=== PATIENT | female | born 1940 | race Asian ===

== ENCOUNTER 2016-07-10 14:35 | Inpatient (IN) | payer MEDICARE, OTHER ==
[~2016-07-10] VITALS: Ht 154.9 cm; Wt 54.5 kg
[~2016-07-10 14:35] MED LIST: AMLO5TAB4; CLOP75TA19; FENO145T25; ISOS10TA2; METO-53; PANT40TA3; SMV40T
[2016-07-10] MEDS ORDERED: LEVE500T8 PO (16:54)
[2016-07-10] MEDS ORDERED: QUET25TA33 PO (16:55)
[2016-07-10] MEDS ORDERED: RANO10002 PO (16:55)
[2016-07-10] MEDS ORDERED: LOSA50TA6 PO (16:55)
[2016-07-10] MEDS ORDERED: ATOR40TA68 PO (16:56)
[2016-07-10] MEDS ORDERED: GABA100C14 PO (16:56)
[2016-07-10] MEDS ORDERED: CARV12.579 PO (16:56)
[2016-07-10] MEDS ORDERED: LEVO50TA74 PO (16:57)
[2016-07-10] MEDS ORDERED: PANT40TA3 PO (16:57)
[2016-07-10] MEDS ORDERED: LYRI25 PO (16:57)
[2016-07-10] MEDS ORDERED: FOLI-49 PO (16:57)
[2016-07-10] MEDS ORDERED: MECL-77 PO (16:58)
[2016-07-10 17:47] LABS: ADD SCAN DIFF NO
[2016-07-10 17:51] LABS: BASOPHILS % 0.5 % (0.0-2.0); EOSINOPHILS # 0.1 10^3/ul (0.0-0.5); EOSINOPHILS % 3.4 % (0.0-7.0); HEMOGLOBIN 9.6 g/dl (12.0-16.0); LYMPHOCYTES # 0.9 10^3/ul (0.8-2.9); LYMPHOCYTES % 22.7 % (15.0-51.0); MEAN CORPUSCULAR HEMOGLOBIN 36.5 pg (29.0-33.0); MEAN CORPUSCULAR HGB CONC 34.3 g/dl (32.0-37.0); MEAN CORPUSCULAR VOLUME 106.5 fl (82.0-101.0); MEAN PLATELET VOLUME 10.1 fl (7.4-10.4); MONOCYTE # 0.5 10^3/ul (0.3-0.9); MONOCYTES % 11.6 % (0.0-11.0); NEUTROPHIL # 2.6 10^3/ul (1.6-7.5); NEUTROPHILS % 61.6 % (39.0-77.0); PLATELET COUNT 252 10^3/UL (140-415); RED BLOOD COUNT 2.63 10^6/ul (4.20-5.40); RED CELL DISTRIBUTION WIDTH 12.3 % (11.5-14.5); WHITE BLOOD COUNT 4.2 10^3/ul (4.8-10.8)
[2016-07-10] MEDS ORDERED: morphine 4 MG/ML VIAL IV STA (17:54)
[2016-07-10 18:20] LABS: ALBUMIN 4.1 g/dl (3.3-4.9)
[2016-07-10 18:21] LABS: POTASSIUM 5.5 mmol/L (3.5-5.1)
[2016-07-10 18:22] LABS: CREATININE 1.54 mg/dl (0.44-1.00)
[2016-07-10 18:23] LABS: ALBUMIN/GLOBULIN RATIO 1.24; BILIRUBIN,INDIRECT 0.3 mg/dl (0-1.1); BILIRUBIN,TOTAL 0.3 mg/dl (0.2-1.3); TOTAL PROTEIN 7.4 g/dl (6.1-8.1)
[2016-07-10 18:24] LABS: CALCIUM 9.4 mg/dl (8.4-10.2)
[2016-07-10] MEDS ORDERED: ACETAMINOPHEN 325 MG TAB PO PRN ×2 (18:30→23:00)
[2016-07-10] MEDS ORDERED: LORAZEPAM 2 MG INJ IV ONE (18:30)
[2016-07-10] MEDS ORDERED: ONDANSETRON 4 MG INJ IV PRN ×2 (18:30→23:00)
--- NOTE | 2016-07-10 18:36 | RADRPT ---
PROCEDURE: XR Chest 1 View. CLINICAL INDICATION: Abnormal breath sounds, preop. TECHNIQUE: AP view of the chest were obtained. COMPARISON: None. FINDINGS: The heart size is within normal limits. Calcified atherosclerosis is noted in the aorta. The lungs are hypoinflated. Atelectasis is identified at the lung bases. No consolidations are identified. N o pneumothorax is seen. Blunting of the left costophrenic angle is seen. Osseous structures are inta ct. IMPRESSION: Calcified atherosclerosis in the aorta. Hypoinflated lungs. Atelectasis at the lung bases. Blunting of the left costophrenic angle that may reflect small scarring or pleural effusion. RPTAT: AA .Abimael Smith MD, Date Time Electronically viewed and signed by .Abimael Smith MD, MD on 07/10/2016 18:36 .P/
--- NOTE | 2016-07-10 18:51 | RADRPT ---
PROCEDURE: XR Pelvis. CLINICAL INDICATION: Pain TECHNIQUE: Single AP view of the pelvis. COMPARISON: No prior studies are available for comparison. FINDINGS: Single frontal view of the pelvis demonstrates a subtle lucency step-off at the base of the left fem oral neck which may represent a nondisplaced basicervical femoral neck fracture. Recommend tain a C T for confirmation. Otherwise no suspected fractures are identified. Both femoral heads are anatom ically seated. There is mild to moderate degenerate change both hip joints. Pubic symphysis is int act. Bones are osteopenic. SI joints within normal limits. IMPRESSION: 1. Questionable lucency extending through the base of the left femoral neck which may represent a n ondisplaced basicervical femoral neck fracture. Recommend obtaining a CT scan for further evaluation . 2. Otherwise no acute fracture dislocation RPTAT: HH .Garret Cordero MD, Date Time Electronically viewed and signed by .Garret Cordero MD, MD on 07/10/2016 18:51 .W/
[2016-07-10 18:52] LABS: INR 0.91; PROTIME 12.2 Sec (12.2-14.2)
--- NOTE | 2016-07-10 18:52 | RADRPT ---
PROCEDURE: X-ray femur CLINICAL INDICATION: Pain TECHNIQUE: AP and lateral views of the distal left femur COMPARISON: None FINDINGS: 2 views of the distal left femur demonstrate no distal femur fracture. No abnormal periostitis is s een. There are no destructive bony lesions. There is advanced degenerative change of the knee join t. Extensive vascular calcifications identified. Bones are osteopenic. IMPRESSION: 1. No distal femur fracture identified. 2. Moderate to severe degenerative change of the knee joint. 3. Vascular calcification. 4. Osteopenia RPTAT: HH .Garret Cordero MD, Date Time Electronically viewed and signed by .Garret Cordero MD, MD on 07/10/2016 18:52 .W/
[2016-07-10 18:53] LABS: PARTIAL THROMBOPLASTIN TIME 31.3 Sec (25.0-35.0)
--- NOTE | 2016-07-10 18:54 | RADRPT ---
PROCEDURE: XR Hip. CLINICAL INDICATION: Pain TECHNIQUE: AP and frog lateral views of the left hip were performed. COMPARISON: None. FINDINGS: Two views of the left hip demonstrate lucency and slight irregularity in the femoral neck which may represent a nondisplaced basicervical femoral neck fracture. Recommend CT scan for further evaluati on. No other suspected fractures identified. The femoral head articulates anatomically with the ac etabulum. The bones are mildly osteopenic. Soft tissues are unremarkable. IMPRESSION: 1. Questionable basicervical femoral neck fracture. Recommend CT scan for further evaluation. 2. Otherwise no other suspected fractures identified RPTAT: HH .Garret Cordero MD, MD Date Time Electronically viewed and signed by .Garret Cordero MD, on 07/10/2016 18:53 .W/
--- NOTE | 2016-07-10 18:58 | ERA ---
ER Documentation Chief Complaint Date/Time DATE: 07/10/16 TIME: 18:49 Chief Complaint ground level fall in jun. HPI 76-year-old female with a history of stroke, chronic kidney disease, coronary artery disease with stent, hypertension, hyperlipidemia, chronic anemia presenting with complaints of left hip pain. She was sent by Dr. Marshall, an orthopedist she saw today, for left hip fracture. She was told she needed surgery. Patient states that she fell 1 week ago. Her daughter states that she fell on July 01. Ever since then she has been unable to walk. She has worsening pain with any type of movement of her left leg. She saw her primary care doctor, Dr. Rios, who referred her to Dr. Marshall. She had an x-ray today that showed a hip fracture. She denies any numbness or tingling in her lower extremity. She denies any pain anywhere else. She denies any dizziness or chest pain. She states that she has problems with her left leg and that is why she fell. ROS All systems reviewed and are negative except as per history of present illness. Medications Home Meds Reported Medications Meclizine Hcl* (Meclizine Hcl*) 25 Mg Tablet, 25 MG PO DAILY Y for DIZZINESS, TAB 07/10/16 Folic Acid* (Folic Acid*) 1 Mg Tablet, 1 MG PO DAILY, TAB 07/10/16 Pantoprazole* (Protonix*) 40 Mg Tablet.dr, 40 MG PO DAILY, TAB 07/10/16 Levothyroxine Sodium* (Levothyroxine Sodium*) 50 Mcg Tablet, 50 MCG PO BEFORE BREAKFAST, #30 TAB 07/10/16 Pregabalin* (Lyrica*) 25 Mg Capsule, 25 MG PO BID, CAP 07/10/16 Atorvastatin* (Atorvastatin*) 40 Mg Tablet, 40 MG PO QHS, #30 TAB 07/10/16 Gabapentin* (Gabapentin*) 100 Mg Capsule, 100 MG PO DAILY, #90 CAP 07/10/16 Carvedilol* (Carvedilol*) 12.5 Mg Tablet, 12.5 MG PO BID, #60 TAB 07/10/16 Quetiapine Fumarate* (Quetiapine Fumarate*) 25 Mg Tablet, 25 MG PO HS, TAB 07/10/16 Losartan Potassium* (Losartan Potassium*) 50 Mg Tablet, 50 MG PO BID, TAB 07/10/16 Ranolazine* (Ranexa*) 1,000 Mg Tab.sr.12h, 1000 MG PO Q12, TAB 07/10/16 Levetiracetam* (Levetiracetam*) 500 Mg Tablet, 500 MG PO BID, TAB 07/10/16 Discontinued Reported Medications Pantoprazole* (Protonix*) 40 Mg Tablet. 04/24/10 Isosorbide Dinitrate* (Isordil*) 10 Mg Tablet 04/24/10 Fenofibrate Nanocrystallized* (Tricor*) 145 Mg Tablet 04/24/10 Simvastatin (Simvastatin) 40 Mg Tablet 04/24/10 Clopidogrel Bisulfate (Plavix) 75 Mg Tablet 04/24/10 Metoprolol (Lopressor) 50 Mg Tablet 04/24/10 Amlodipine Besylate* (Norvasc*) 5 Mg Tablet 04/24/10 Allergies Allergies: Coded Allergies: Penicillins (Verified Allergy, Unknown, 07/10/16) PMhx/Soc History of Surgery: Yes (CORONARY STENT TO LAD, hysterectomy) Anesthesia Reaction: No Hx Neurological Disorder: Yes (CVA) Hx Respiratory Disorders: No (HX ATELECTASIS) Hx Cardiac Disorders: Yes (HTN, ANGIOPLASTY WITH STENT, BALLOON 07/24) Hx Psychiatric Problems: No Hx Miscellaneous Medical Probl: Yes (VERTIGO, HTN, HYPOTHYROIDISM, HYPERLIPIDEMIA, ANEMIA) Hx Alcohol Use: No Hx Substance Use: No Hx Tobacco Use: No Smoking Status: Never smoker FmHx Family History: No diabetes Physical Exam Vitals Vital Signs Date Time Temp Pulse Resp B/P Pulse Ox O2 Delivery O2 Flow Rate FiO2 07/10/16 17:00 97.8 65 18 143/61 100 Room Air 07/10/16 14:47 97.8 67 18 113/56 100 Physical Exam Const: Well-appearing, no distress, Danish speaking only Head: Atraumatic Eyes: Normal Conjunctiva ENT: Normal External Ears, Nose and Mouth. Neck: Full range of motion. No meningismus. Resp: Clear to auscultation bilaterally Cardio: Regular rate and rhythm, no murmurs Abd: Soft, non tender, non distended. Normal bowel sounds Skin: No petechiae or rashes Back: No midline or flank tenderness Extremities: No edema or cyanosis. 2+ pulses in all 4 extremities distally. Lower Extremity -left: Skin: No laceration Compartments: Soft Motor: Full active range of motion knee/ankle/foot, limited range of motion at the hip secondary to pain Sensation: Intact to light touch FDWS/MF/LF/P surfaces. Bones: Nontender knee/proximal tibia/ malleoli/foot. Left hip tenderness Joints: No effusion or laxity Pulses/Perfusion: 2+ DP, Capillary refill < 2 seconds Neur: Awake and alert Psych: Normal Mood and Affect Result Diagram: 07/10/16173407/10/161734 Results 24 hrs Laboratory Tests Test 07/10/16 17:35 Activated Partial Thromboplast Time 31.3Sec Alanine Aminotransferase (ALT/SGPT) 21IU/L Albumin 4.1g/dl Albumin/Globulin Ratio 1.24 Alkaline Phosphatase 87IU/L Anion Gap 17 Aspartate Amino Transf (AST/SGOT) 34IU/L Basophils # 0.010^3/ul Basophils % 0.5% Blood Urea Nitrogen 31mg/dl Calcium Level 9.4mg/dl Carbon Dioxide Level 27mmol/L Chloride Level 105mmol/L Creatinine 1.54mg/dl Direct Bilirubin 0.00mg/dl Eosinophils # 0.110^3/ul Eosinophils % 3.4% Globulin 3.30g/dl Glucose Level 126mg/dl Hematocrit 28.0% Hemoglobin 9.6g/dl INR International Normalized Ratio 0.91 Indirect Bilirubin 0.3mg/dl Lymphocytes # 0.910^3/ul Lymphocytes % 22.7% Mean Corpuscular Hemoglobin 36.5pg Mean Corpuscular Hemoglobin Concent 34.3g/dl Mean Corpuscular Volume 106.5fl Mean Platelet Volume 10.1fl Monocytes # 0.510^3/ul Monocytes % 11.6% Neutrophils # 2.610^3/ul Neutrophils % 61.6% Nucleated Red Blood Cells # 0.010^3/ul Nucleated Red Blood Cells % 0.0/100WBC Platelet Count 37887^3/UL Potassium Level 5.5mmol/L Prothrombin Time 12.2Sec Prothrombin Time Ratio 1.0 Red Blood Count 2.6310^6/ul Red Cell Distribution Width 12.3% Sodium Level 143mmol/L Total Bilirubin 0.3mg/dl Total Protein 7.4g/dl White Blood Count 4.210^3/ul Current Medications Medications (Trade) Dose Ordered Sig/Liza Route PRN Reason Start Time Stop Time Status Last Admin Dose Admin Morphine Sulfate (morphine) 4 mg ONCE STAT IV 07/10/16 17:54 07/10/16 17:55 DC 07/10/16 18:05 Lorazepam (Ativan) 1 mg ONCE ONCE IV 07/10/16 18:30 07/10/16 18:31 DC 07/10/16 18:15 Ondansetron HCl (Zofran Inj) 4 mg BRIDGE ORDER PRN IV NAUSEA AND/OR VOMITING 07/10/16 18:30 07/11/16 18:29 Acetaminophen (Tylenol Tab) 650 mg ER BRIDGE PRN PO MILD PAIN/FEVER 07/10/16 18:30 07/11/16 18:29 Procedures/MDM EKG: Rate/Rhythm: Normal Sinus Rhythm QRS, ST, T-waves: No changes consistent w/ acute ischemia Impression: No evidence of ischemia or arrhythmia Patient is presenting with a left hip fracture requiring surgery. She is neurovascularly intact. Vitals are within normal limits. I spoke with Dr. Rios, the patient's primary care doctor who would like the patient admitted to Dr. Robertson. I also spoke with Dr. Motta with orthopedics, who would like the patient admitted for surgery. Preop workup was started. The patient and her family were updated regarding the plan. Morphine was given for pain control with improvement of her pain. Accepting Care Team: Current data and ongoing care discussed. Time: Time of admission Primary Provider: Marcelo Consulting: Dhaval Marshall Outstanding Data: none Departure Diagnosis: Primary Impression: Fall from ground level Additional Impression: Closed left hip fracture Qualified Code: S72.002A - Closed left hip fracture, initial encounter Condition: FRANCHESCA Parada MD Jul 10, 2016 18:58
[2016-07-10 20:25] VITALS: TEMP 97.8
[2016-07-10 21:18] VITALS: BP 145/66; PULSE 75; RESP 18
[2016-07-10 21:19] VITALS: Ht 154.9 cm; Wt 54.5 kg
[2016-07-10] MEDS ORDERED: HYDROCODONE/APAP (5/325) TAB PO PRN (23:00)
[2016-07-10] MEDS ORDERED: morphine 2 MG INJ IV PRN (23:00)
[2016-07-10] MEDS ORDERED: MECLIZINE 25 MG TAB PO PRN (23:30)
[2016-07-10] MEDS: DEXTROSE 5%-0.45% NACL 1,000 ML IV SCH (23:33)
[2016-07-11] MEDS: morphine 2 MG INJ IV PRN ×2 (01:13→21:33)
--- NOTE | 2016-07-11 02:13 | HP ---
DATE OF ADMISSION: 07/10/2016 CHIEF COMPLAINT: Left hip pain. HISTORY OF PRESENT ILLNESS: The patient is a 76-year-old Hebrew-speaking female with history of cor onary disease with stenting in 2008 at [facility]. Also has history of dyslipidemia and wa s in her usual state of health. The patient stated that she fell about a week ago and ever since sh e has been having difficulty in ambulating and pain in the left hip. The patient saw her PMD, Dr. Madonna zhu, who referred her to Dr. Marshall and the patient had an x-ray done today, which showed a left hip f racture. Dr. Rios requested me to be the primary care physician during her hospitalization. The p cira was seen in the ER and information was obtained after discussion with ER physician as well as the patient's . The patient does have left hip pain which is worse with movement. No repor davidson any recent chest pain, shortness of breath. No reported fever or chills. No reported dysuria o r hematuria. No history of loss of consciousness. No history of any significant focal weakness sharifa or to the fall. No history of any acute skin rash. No history of cough or sore throat. The patien t does take Seroquel at home for unknown reasons. Patient was seen in the ER and had a left femur x -ray which was negative for . REVIEW OF SYSTEMS: Unremarkable. ALLERGIES: PENICILLIN. PAST MEDICAL HISTORY: History of CVA as per record. FAMILY HISTORY: Noncontributory. SOCIAL HISTORY: The patient lives with her . No smoking, no alcohol. MEDICATIONS: List reviewed and reconciled. PHYSICAL EXAMINATION: GENERAL: The patient is conscious, awake, alert. VITAL SIGNS: In the ER, temperature 97.8, pulse 67, respirations 18, blood pressure 113/56. HEENT: Atraumatic, normocephalic. Conjunctivae and lids normal. Extraocular movements intact. No se and ears normal. NECK: Supple. No mass, no thyromegaly. CHEST: Clear to auscultation. CARDIOVASCULAR: S1, S2 normal. No murmur, gallop, or rub. ABDOMEN: Soft, nondistended, nontender. Bowel sounds plus. EXTREMITIES: No leg edema. No clubbing, no cyanosis. NEUROLOGIC: The patient is awake, alert, follows simple commands. Detailed neurological examinatio n was deferred due to recent hip fracture. LABORATORY DATA: WBC 4.2, hemoglobin 9.6, platelets 252. Sodium 143, potassium 5.5, BUN 31, creati nine 1.5, glucose 126. Liver enzymes normal. Mean corpuscular volume was 106. Chest x-ray reveale d calcified atherosclerosis of the aorta. Left femur x-ray negative for any fractures. Left hip x- ray questionable basicervical femoral neck fracture. Pelvic x-ray questionable left femoral neck no ndisplaced fracture. Coagulation profile normal. EKG normal sinus rhythm with no acute ST-T change s. IMPRESSION: 1. Left hip fracture secondary to mechanical fall. 2. Coronary artery disease, status post PCI. 3. Hypertension. 4. Dyslipidemia. 5. Hypothyroidism. 6. Macrocytic anemia. PLAN: The patient will be continued on Lipitor, Coreg, Ranexa, Keppra, Lyrica, and Quetiapine. The patient will also be continued on Synthroid and folic acid. The patient will also be started on as pirin. Will withhold Losartan due to hyperkalemia. The patient also has acute kidney injury as com pared to her BUN and creatinine back in 2009. We will give her IV fluids. We will also obtain echo cardiogram and cardiac clearance. A cardiac consult from Dr. Bedoya will be obtained. The patient will be taken to OR after clearance from cardiology. We will do followup labs in the morning. We w ill continue supportive care and symptomatic treatment. Dictated By: PRINCESS HACKETT/ZHANG Conf#: [id number] DID#: [id number]
[2016-07-11 05:48] LABS: ADD SCAN DIFF NO
[2016-07-11 05:58] LABS: BASOPHILS % 0.5 % (0.0-2.0); EOSINOPHILS # 0.2 10^3/ul (0.0-0.5); HEMATOCRIT 27.4 % (37.0-47.0); HEMOGLOBIN 9.1 g/dl (12.0-16.0); LYMPHOCYTES # 0.8 10^3/ul (0.8-2.9); LYMPHOCYTES % 18.5 % (15.0-51.0); MEAN CORPUSCULAR HEMOGLOBIN 35.7 pg (29.0-33.0); MEAN CORPUSCULAR HGB CONC 33.2 g/dl (32.0-37.0); MEAN CORPUSCULAR VOLUME 107.5 fl (82.0-101.0); MEAN PLATELET VOLUME 9.2 fl (7.4-10.4); MONOCYTE # 0.4 10^3/ul (0.3-0.9); MONOCYTES % 10.9 % (0.0-11.0); NEUTROPHIL # 2.7 10^3/ul (1.6-7.5); NEUTROPHILS % 65.6 % (39.0-77.0); PLATELET COUNT 248 10^3/UL (140-415); RED BLOOD COUNT 2.55 10^6/ul (4.20-5.40); RED CELL DISTRIBUTION WIDTH 11.9 % (11.5-14.5); WHITE BLOOD COUNT 4.1 10^3/ul (4.8-10.8)
[2016-07-11 06:11] LABS: POTASSIUM 4.6 mmol/L (3.5-5.1)
[2016-07-11 06:14] LABS: CREATININE 1.25 mg/dl (0.44-1.00)
[2016-07-11 06:15] LABS: CALCIUM 9.4 mg/dl (8.4-10.2)
[2016-07-11 08:16] VITALS: BP 147/66; RESP 18
[2016-07-11] MEDS: PANTOPRAZOLE (EC) 40 MG TAB PO SCH (08:33)
[2016-07-11] MEDS: FOLIC ACID 1 MG TAB PO SCH (08:33)
[2016-07-11] MEDS: PREGABALIN 25 MG CAP PO SCH ×2 (08:33→20:51)
[2016-07-11] MEDS: ASPIRIN 81 MG TAB PO SCH (08:33)
[2016-07-11] MEDS: LEVETIRACETAM 500 MG TAB PO SCH ×2 (08:44→20:51)
[2016-07-11] MEDS: RANOLAZINE (SR) 500 MG TAB PO SCH ×2 (08:45→20:51)
[2016-07-11] MEDS ORDERED: [UNRECOGNIZED DRUG - CODE] SC (09:44)
[2016-07-11] MEDS: DEXTROSE 5%-0.45% NACL 1,000 ML IV SCH (13:14)
--- NOTE | 2016-07-11 13:44 | RADRPT ---
Echocardiogram Report Patient Name: ENDY WEN Gender: Female Date: 1940 Study Date: 11-Jul-2016 Laborer Syrup Machine: Carlos Sebastian [facility] Location: [facility] Ref. Physician: PRINCESS FISHER Quality: Good Procedures: Transthoracic echocardiogram with complete 2D, M-Mode, and doppler examination. Indications: Cardiac Clearance. 2D/M Mode Doppler Measurement Value Normal Ranges Measurement Value Normal Ranges LVIDd 2D 4.2 3.5 - 5.6 cm AV Peak Shai 1.7 m/sec LVIDs 2D 1.9 2.1 - 4.1 cm AV Peak PG 11.3 mmHg LVPWd 2D 0.8 0.6 - 1.1 cm LVOT Peak Shai 1.1 m/sec IVSd 2D 0.8 0.6 - 1.1 cm LVOT Peak PG 5.0 mmHg AoR Diam 2D 2.6 2.0 - 3.7 cm MV E Peak Shai 0.7 m/sec EDV 2D 76.8 cm3 MV A Peak Shai 0.9 m/sec ESV 2D 6.8 cm3 MV E/A 0.7 LA Dimen 2D 3.3 2.3 - 4.0 cm MV Decel Time 252 msec MV Decel [place] 3 MV E/A 0.7 TR Peak Shai 2.9 m/sec TR Peak PG 34.7 mmHg RVSP 38.0 mmHg Findings Left Ventricle: Normal left ventricular systolic function. Normal left ventricular cavity size. Normal left ventricular wall thickness. Ejection fraction is visually estimated at 60 %. Tissue Doppler/Mitral Doppler indices are consistent with impaired relaxation (Stage I diastolic dysfunction). Right Ventricle: Normal right ventricular size. Normal right ventricular systolic function. Left Atrium: The left atrium is normal in size. Right Atrium: The right atrium is normal in size. Mitral Valve: Normal appearance and function of the mitral valve with trace physiologic regurgitation. Aortic Valve: No significant aortic stenosis or insufficiency. Aortic cusps appear mildly calcified. Tricuspid Valve: Normal appearance and function of the tricuspid valve with trace physiologic regurgitation. Estimated peak PA systolic pressure 38 mmHg. Pulmonic Valve: Pulmonic valve not well visualized. Pericardium: Normal pericardium with no significant pericardial effusion. Aorta: Normal aortic root. IVC: Normal size and normal respiratory collapse consistent with normal right atrial pressure. Conclusions 1.Normal left ventricular systolic function. Normal left ventricular cavity size. Normal left ventricular wall thickness. Ejection fraction is visually estimated at 60 %. Tissue Doppler/Mitral Doppler indices are consistent with impaired relaxation (Stage I diastolic dysfunction). 2.Normal right ventricular size. Normal right ventricular systolic function. 3.The left atrium is normal in size. 4.The right atrium is normal in size. 5.No significant valvular stenosis or regurgitation seen. 6.Normal pericardium with no significant pericardial effusion. Electronically Signed By: Srinivas Bedoya 11-Jul-2016 13:44:13 -0800 Patient Name: ENDY WEN Study Date: 11-Jul-2016 [id number]
--- NOTE | 2016-07-11 14:45 | CONS ---
Date/Time of Note Date/Time of Note DATE: 07/11/16 TIME: 14:39 Assessment/Plan Assessment/Plan Additional Assessment/Plan Preoperative cardiac risk stratification Possible hip fracture Preserved ejection fraction CAD with history of PCI in 2008 History of CVA Hypertension -Discussion had with patient daughter over the phone, patient without exertional chest pain or shortness of breath. ECG without any significant ischemic abnormalities and echocardiogram with preserved ejection fraction. Given her history, patient is a intermediate risk for any untoward cardiac events for hip surgery. The benefits likely outweigh the risks. Would restart aspirin when okay by our surgery colleagues, continue statin therapy and beta- isak. Consultation Date/Type/Reason Admit Date/Time Jul 10, 2016 at 18:21 Type of Consultation: cv Reason for Consultation Preoperative cardiac risk stratification Hx of Present Illness This is a 76-year-old female who presents after a mechanical fall and possible fracture. Cardiology consultation was requested secondary to preoperative cardiac risk stratification. Patient fell approximately 1 week ago and unable to walk since then. In discussion with patient's daughter over the phone, review of medical records, patient with history of cardiac stent in 2008. Since then, she denies any exertional chest pain or shortness of breath. She is active and walks around the house and takes care of daily activities without exertional chest pain or shortness of breath. The daughter stated she did have a stroke in 2016. 12 point review of systems was performed with all pertinent positives and negatives mentioned above and all else is negative Past Medical History Medical History: coronary artery disease, high cholesterol, hypertension, renal disease Past Surgical History Past Surgical Hx: angioplasty Family History Significant Family History: no pertinent family hx Social History Alcohol Use: none Smoking Status: Never smoker Exam/Review of Systems Vital Signs Vitals Vital Signs Date Time Temp Pulse Resp B/P Pulse Ox O2 Delivery O2 Flow Rate FiO2 07/11/16 08:16 98.2 63 18 147/66 98 07/10/16 21:18 Room Air Intake and Output 07/10/16 07/10/16 07/11/16 15:00 23:00 07:00 Intake Total 375 ml Balance 375 ml Exam Sleeping but arousable, follows commands, no apparent distress Head: normocephalic Respiratory: other (Coarse breath sounds bilaterally, no wheezing) Cardiovascular: other (S1-S2 heard), regular rate and rhythm Gastrointestinal: bowel sounds, non-tender, other (No guarding), soft Extremities: other (No edema) Results Result Diagram: 07/11/16 0450 07/11/16 0457 Results 24 hrs Laboratory Tests Test 07/10/16 17:35 07/11/16 04:50 07/11/16 04:57 Activated Partial Thromboplast Time 31.3 Alanine Aminotransferase (ALT/SGPT) 21 Albumin 4.1 Albumin/Globulin Ratio 1.24 Alkaline Phosphatase 87 Anion Gap 17 H 15 Aspartate Amino Transf (AST/SGOT) 34 Basophils # 0.0 0.0 Basophils % 0.5 0.5 Blood Urea Nitrogen 31 H 26 H Calcium Level 9.4 9.4 Carbon Dioxide Level 27 28 Chloride Level 105 107 Creatinine 1.54 H 1.25 H Direct Bilirubin 0.00 Eosinophils # 0.1 0.2 Eosinophils % 3.4 4.0 Globulin 3.30 H Glucose Level 126 121 Hematocrit 28.0 L 27.4 L Hemoglobin 9.6 L 9.1 L INR International Normalized Ratio 0.91 Indirect Bilirubin 0.3 Lymphocytes # 0.9 0.8 Lymphocytes % 22.7 18.5 Mean Corpuscular Hemoglobin 36.5 H 35.7 H Mean Corpuscular Hemoglobin Concent 34.3 33.2 Mean Corpuscular Volume 106.5 H 107.5 H Mean Platelet Volume 10.1 9.2 Monocytes # 0.5 0.4 Monocytes % 11.6 H 10.9 Neutrophils # 2.6 2.7 Neutrophils % 61.6 65.6 Nucleated Red Blood Cells # 0.0 0.0 Nucleated Red Blood Cells % 0.0 0.0 Platelet Count 252 248 Potassium Level 5.5 H 4.6 Prothrombin Time 12.2 Prothrombin Time Ratio 1.0 Red Blood Count 2.63 L 2.55 L Red Cell Distribution Width 12.3 11.9 Sodium Level 143 145 H Total Bilirubin 0.3 Total Protein 7.4 White Blood Count 4.2 L 4.1 L Medications Medications Current Medications Aspirin 81 mg 81 mg DAILY PO ; Start 07/11/16 at 09:00 Dextrose/Sodium Chloride (D5-1/2ns) 1,000 ml @ 75 mls/hr [id number] IV Last administered on 07/11/16t 13:14; Admin Dose 75 MLS/HR; Start 07/10/16 at 23:00 Acetaminophen (Tylenol Tab) 325 mg Q6 PRN PO PAIN AND OR ELEVATED TEMP; Start 07/10/16 at 23:00 Acetaminophen/ Hydrocodone Bitart (Hondo (5/325)) 1 tab Q3H PRN PO PAIN; Start 07/10/16 at 23:00 Ondansetron HCl (Zofran Inj) 4 mg Q6H PRN IV NAUSEA AND/OR VOMITING; Start at 23:00 Atorvastatin Calcium (Lipitor) 40 mg QHS PO ; Start 07/11/16 at 21:00 Carvedilol (Coreg) 12.5 mg BID PO Last administered on 07/11/16 08:45; Admin Dose 12.5 MG; Start 07/11/16 at 09:00 Folic Acid (Folic Acid) 1 mg DAILY PO ; Start 07/11/16 at 09:00 Levetiracetam (Keppra) 500 mg BID PO Last administered on 07/11/16 08:44; Admin Dose 500 MG; Start 07/11/16 at 09:00 Meclizine HCl (Antivert) 25 mg DAILY PRN PO DIZZINESS; Start 07/10/16 at 23:30 Pantoprazole (Protonix Tab) 40 mg DAILY PO ; Start 07/11/16 at 09:00 Pregabalin (Lyrica) 25 mg BID PO ; Start 07/11/16 at 09:00 Quetiapine Fumarate (Seroquel) 25 mg HS PO ; Start 07/11/16 at 21:00 Ranolazine (Ranexa) 1,000 mg Q12 PO Last administered on 07/11/16 08:45; Admin Dose 1,000 MG; Start 07/11/16 at 09:00 Morphine Sulfate (morphine) 2 mg Q2H PRN IV PAIN Last administered on 01:13; Admin Dose 2 MG; Start 07/11/16 at 01:30 Procedures Procedures ECG demonstrates sinus rhythm, normal QRS duration, no significant STT wave abnormalities Srinivas Bedoya DO Jul 11, 2016 14:45
--- NOTE | 2016-07-11 18:12 | PN ---
Date/Time of Note Date/Time of Note DATE: 07/11/16 TIME: 18:06 Assessment/Plan VTE Prophylaxis VTE Prophylaxis Intervention: SCD's Lines/Catheters IV [facility]from [facility]): Peripheral IV Urinary Cath still in place: No Assessment/Plan Chief Complaint/Hosp Course Assessment and plan 1. Left hip fracture secondary to mechanical fall. Dr. Marshall is following in orthopedic surgery consultation. 2. Coronary artery disease, status post PCI. Dr. Bedoya is following in cardiology consultation. Continue aspirin and Ranexa. 3. Hypertension. Continue Coreg. 4. Dyslipidemia. Continue Lipitor. 5. Hypothyroidism. Continue Synthroid. 6. Macrocytic anemia. Further recommendations based on clinical course. Plan of care discussed with Dr. Robertson. Problems: Subjective 24 Hr Interval Summary Free Text/Dictation Patient is awake alert, pain is well controlled. Exam/Review of Systems Vital Signs Vitals Vital Signs Date Time Temp Pulse Resp B/P Pulse Ox O2 Delivery O2 Flow Rate FiO2 07/11/16 08:16 98.2 63 18 147/66 98 07/10/16 21:18 Room Air Intake and Output 07/10/16 07/10/16 07/11/16 15:00 23:00 07:00 Intake Total 375 ml Balance 375 ml Exam GENERAL: The patient is conscious, awake, alert. HEENT: Atraumatic, normocephalic. DYAN NECK: Supple. No mass, no thyromegaly. CHEST: Clear to auscultation. CARDIOVASCULAR: S1, S2 normal. No murmur, gallop, or rub. ABDOMEN: Soft, nondistended, nontender. Bowel sounds plus. EXTREMITIES: No leg edema. No clubbing, no cyanosis. NEUROLOGIC: The patient is awake, alert, follows simple commands. Results Result Diagram: 07/11/16 0450 07/11/16 0457 Results 24 hrs Laboratory Tests Test 07/11/16 04:50 07/11/16 04:57 07/11/16 15:51 Basophils # 0.0 Basophils % 0.5 Eosinophils # 0.2 Eosinophils % 4.0 Hematocrit 27.4 L Hemoglobin 9.1 L Lymphocytes # 0.8 Lymphocytes % 18.5 Mean Corpuscular Hemoglobin 35.7 H Mean Corpuscular Hemoglobin Concent 33.2 Mean Corpuscular Volume 107.5 H Mean Platelet Volume 9.2 Monocytes # 0.4 Monocytes % 10.9 Neutrophils # 2.7 Neutrophils % 65.6 Nucleated Red Blood Cells # 0.0 Nucleated Red Blood Cells % 0.0 Platelet Count 248 Red Blood Count 2.55 L Red Cell Distribution Width 11.9 White Blood Count 4.1 L Anion Gap 15 Blood Urea Nitrogen 26 H Calcium Level 9.4 Carbon Dioxide Level 28 Chloride Level 107 Creatinine 1.25 H Glucose Level 121 Potassium Level 4.6 Sodium Level 145 H Bedside Glucose 116 Medications Medications Current Medications Aspirin 81 mg 81 mg DAILY PO ; Start 07/11/16 at 09:00 Dextrose/Sodium Chloride (D5-1/2ns) 1,000 ml @ 75 mls/hr [id number] IV Last administered on 07/11/16 13:14; Admin Dose 75 MLS/HR; Start 07/10/16 at 23:00 Acetaminophen (Tylenol Tab) 325 mg Q6 PRN PO PAIN AND OR ELEVATED TEMP; Start 07/10/16 at 23:00 Acetaminophen/ Hydrocodone Bitart ([place] (5/325)) 1 tab Q3H PRN PO PAIN; Start 07/10/16 at 23:00 Ondansetron HCl (Zofran Inj) 4 mg Q6H PRN IV NAUSEA AND/OR VOMITING; Start at 23:00 Atorvastatin Calcium (Lipitor) 40 mg QHS PO ; Start 07/11/16 at 21:00 Carvedilol (Coreg) 12.5 mg BID PO Last administered on 07/11/16 08:45; Admin Dose 12.5 MG; Start 07/11/16 at 09:00 Folic Acid (Folic Acid) 1 mg DAILY PO ; Start 07/11/16 at 09:00 Levetiracetam (Keppra) 500 mg BID PO Last administered on 07/11/16 08:44; Admin Dose 500 MG; Start 07/11/16 at 09:00 Meclizine HCl (Antivert) 25 mg DAILY PRN PO DIZZINESS; Start 07/10/16 at 23:30 Pantoprazole (Protonix Tab) 40 mg DAILY PO ; Start 07/11/16 at 09:00 Pregabalin (Lyrica) 25 mg BID PO ; Start 07/11/16 at 09:00 Quetiapine Fumarate (Seroquel) 25 mg HS PO ; Start 07/11/16 at 21:00 Ranolazine (Ranexa) 1,000 mg Q12 PO Last administered on 07/11/16 08:45; Admin Dose 1,000 MG; Start 07/11/16 at 09:00 Morphine Sulfate (morphine) 2 mg Q2H PRN IV PAIN Last administered on 01:13; Admin Dose 2 MG; Start 07/11/16 at 01:30 ILAN GALDAMEZ Jul 11, 2016 18:12
[2016-07-11 20:16] VITALS: BP 171/70; RESP 18
[2016-07-11] MEDS: ATORVASTATIN 40 MG TAB PO SCH (20:51)
[2016-07-11] MEDS: QUETIAPINE 25 MG TAB PO SCH (20:52)
[2016-07-12] MEDS: DEXTROSE 5%-0.45% NACL 1,000 ML IV SCH ×2 (01:40→10:04)
[2016-07-12] MEDS: LEVOTHYROXINE 50 MCG TAB PO SCH (05:57)
[2016-07-12 06:14] LABS: ADD SCAN DIFF NO
[2016-07-12 06:18] LABS: BASOPHILS % 0.3 % (0.0-2.0); EOSINOPHILS # 0.1 10^3/ul (0.0-0.5); EOSINOPHILS % 2.8 % (0.0-7.0); HEMATOCRIT 26.7 % (37.0-47.0); HEMOGLOBIN 8.8 g/dl (12.0-16.0); LYMPHOCYTES # 0.8 10^3/ul (0.8-2.9); MEAN CORPUSCULAR HEMOGLOBIN 35.3 pg (29.0-33.0); MEAN CORPUSCULAR VOLUME 107.2 fl (82.0-101.0); MEAN PLATELET VOLUME 9.1 fl (7.4-10.4); MONOCYTE # 0.5 10^3/ul (0.3-0.9); MONOCYTES % 12.6 % (0.0-11.0); NEUTROPHIL # 2.5 10^3/ul (1.6-7.5); PLATELET COUNT 250 10^3/UL (140-415); RED BLOOD COUNT 2.49 10^6/ul (4.20-5.40)
[2016-07-12 07:47] VITALS: BP 152/68; RESP 18
[2016-07-12] MEDS: ASPIRIN 81 MG TAB PO SCH (08:50)
[2016-07-12] MEDS: RANOLAZINE (SR) 500 MG TAB PO SCH ×2 (08:51→21:21)
[2016-07-12] MEDS: PREGABALIN 25 MG CAP PO SCH ×2 (08:51→21:21)
[2016-07-12] MEDS: PANTOPRAZOLE (EC) 40 MG TAB PO SCH (08:51)
[2016-07-12] MEDS: LEVETIRACETAM 500 MG TAB PO SCH ×2 (08:51→21:21)
[2016-07-12] MEDS: FOLIC ACID 1 MG TAB PO SCH (08:51)
[2016-07-12 10:01] LABS: POTASSIUM 4.5 mmol/L (3.5-5.1)
[2016-07-12 10:03] LABS: CREATININE 1.11 mg/dl (0.44-1.00)
[2016-07-12 10:04] LABS: CALCIUM 9.4 mg/dl (8.4-10.2)
[2016-07-12 10:35] LABS: THYROID STIMULATING HORMONE 5.27 MIU/L (0.465-4.680)
[2016-07-12] MEDS: morphine 2 MG INJ IV PRN (16:16)
--- NOTE | 2016-07-12 16:53 | PN ---
Date/Time of Note Date/Time of Note DATE: 07/12/16 TIME: 16:50 Assessment/Plan VTE Prophylaxis VTE Prophylaxis Intervention: other Lines/Catheters IV Catheter Type (from Nrs): Peripheral IV Urinary Cath still in place: No Assessment/Plan Assessment/Plan 1. Left hip fracture secondary to mechanical fall. Dr. Marshall is following in orthopedic surgery consultation. -plan for left hip hemiarthroplasty tomorrow. 2. Coronary artery disease, status post PCI. Dr. Bedoya is following in cardiology consultation. Continue aspirin and Ranexa. 3. Hypertension. Continue Coreg. 4. Dyslipidemia. Continue Lipitor. 5. Hypothyroidism. Continue Synthroid. 6. Macrocytic anemia. Further recommendations based on clinical course. Plan of care discussed with Dr. Robertson. Subjective 24 Hr Interval Summary Free Text/Dictation allen, rsting after getting pain medicine, dw staff. Exam/Review of Systems Vital Signs Vitals Vital Signs Date Time Temp Pulse Resp B/P Pulse Ox O2 Delivery O2 Flow Rate FiO2 07/12/16 07:47 97.6 67 18 152/68 98 07/10/16 21:18 Room Air Intake and Output 07/11/16 07/11/16 07/12/16 15:00 23:00 07:00 Intake Total 625 ml 500 ml 520 ml Balance 625 ml 500 ml 520 ml Exam Constitutional: alert Psych: nl mood/affect Eyes: PERRL, nl sclera Neck: non-tender Respiratory: clear to auscultation Cardiovascular: regular rate and rhythm Gastrointestinal: non-tender, soft Musculoskeletal: other Extremities: normal pulses Results Result Diagram: 07/12/1651607/12/1617 Results 24 hrs Laboratory Tests Test 07/12/16 05:17 Anion Gap 14 Basophils # 0.0 Basophils % 0.3 Blood Urea Nitrogen 19 Calcium Level 9.4 Carbon Dioxide Level 28 Chloride Level 104 Creatinine 1.11 H Eosinophils # 0.1 Eosinophils % 2.8 Glucose Level 101 Hematocrit 26.7 L Hemoglobin 8.8 L Lymphocytes # 0.8 Lymphocytes % 21.0 Mean Corpuscular Hemoglobin 35.3 H Mean Corpuscular Hemoglobin Concent 33.0 Mean Corpuscular Volume 107.2 H Mean Platelet Volume 9.1 Monocytes # 0.5 Monocytes % 12.6 H Neutrophils # 2.5 Neutrophils % 63.0 Nucleated Red Blood Cells # 0.0 Nucleated Red Blood Cells % 0.0 Platelet Count 250 Potassium Level 4.5 Red Blood Count 2.49 L Red Cell Distribution Width 12.0 Sodium Level 141 Thyroid Stimulating Hormone (TSH) 5.270 H White Blood Count 4.0 L Medications Medications Current Medications Aspirin 81 mg 81 mg DAILY PO Last administered on 07/12/16 08:50; Admin Dose 81 MG; Start 07/11/16 at 09:00 Dextrose/Sodium Chloride (D5-1/2ns) 1,000 ml @ 75 mls/hr [id number] IV Last administered on 07/12/16 10:04; Admin Dose 75 MLS/HR; Start 07/10/16 at 23:00 Acetaminophen (Tylenol Tab) 325 mg Q6 PRN PO PAIN AND OR ELEVATED TEMP; Start 07/10/16 at 23:00 Acetaminophen/ Hydrocodone Bitart ([place] (5/325)) 1 tab Q3H PRN PO PAIN; Start 07/10/16 at 23:00 Ondansetron HCl (Zofran Inj) 4 mg Q6H PRN IV NAUSEA AND/OR VOMITING; Start at 23:00 Atorvastatin Calcium (Lipitor) 40 mg QHS PO Last administered on 07/11/16 20: 51; Admin Dose 40 MG; Start 07/11/16 at 21:00 Carvedilol (Coreg) 12.5 mg BID PO Last administered on 07/12/16 08:50; Admin Dose 12.5 MG; Start 07/11/16 at 09:00 Folic Acid (Folic Acid) 1 mg DAILY PO Last administered on 07/12/16 08:51; Admin Dose 1 MG; Start 07/11/16 at 09:00 Levetiracetam (Keppra) 500 mg BID PO Last administered on 07/12/16 08:51; Admin Dose 500 MG; Start 07/11/16 at 09:00 Meclizine HCl (Antivert) 25 mg DAILY PRN PO DIZZINESS; Start 07/10/16 at 23:30 Pantoprazole (Protonix Tab) 40 mg DAILY PO Last administered on 07/12/16 08:51 ; Admin Dose 40 MG; Start 07/11/16 at 09:00 Pregabalin (Lyrica) 25 mg BID PO Last administered on 07/12/16 08:51; Admin Dose 25 MG; Start 07/11/16 at 09:00 Quetiapine Fumarate (Seroquel) 25 mg HS PO Last administered on 07/11/16 20:52 ; Admin Dose 25 MG; Start 07/11/16 at 21:00 Ranolazine (Ranexa) 1,000 mg Q12 PO Last administered on 07/12/16 08:51; Admin Dose 1,000 MG; Start 07/11/16 at 09:00 Morphine Sulfate (morphine) 2 mg Q2H PRN IV PAIN Last administered on 16:16; Admin Dose 2 MG; Start 07/11/16 at 01:30 Levothyroxine Sodium (Synthroid) 50 mcg DAILY@06 PO Last administered on 05:57; Admin Dose 50 MCG; Start 07/12/16 at 06:00 Epoetin Rodney (Epogen (Non Esrd/Non Oncology)) 20,000 units Q7D SC ; Start at 17:00 IVON DENT Jul 12, 2016 16:52
[2016-07-12] MEDS: ATORVASTATIN 40 MG TAB PO SCH (21:21)
[2016-07-12] MEDS: QUETIAPINE 25 MG TAB PO SCH (21:22)
[2016-07-12 22:34] VITALS: BP 113/54; RESP 18
[2016-07-13] VITALS (18 sets, daily range): BP systolic 94–169; BP diastolic 42–91; PULSE 60–69; RESP 10–21
[2016-07-13] MEDS: DEXTROSE 5%-0.45% NACL 1,000 ML IV SCH (05:02)
[2016-07-13 05:29] LABS: ADD SCAN DIFF NO
[2016-07-13 05:38] LABS: BASOPHILS % 0.4 % (0.0-2.0); EOSINOPHILS # 0.1 10^3/ul (0.0-0.5); EOSINOPHILS % 2.2 % (0.0-7.0); HEMATOCRIT 29.3 % (37.0-47.0); HEMOGLOBIN 9.8 g/dl (12.0-16.0); LYMPHOCYTES # 0.9 10^3/ul (0.8-2.9); LYMPHOCYTES % 17.4 % (15.0-51.0); MEAN CORPUSCULAR HGB CONC 33.4 g/dl (32.0-37.0); MEAN CORPUSCULAR VOLUME 101.7 fl (82.0-101.0); MEAN PLATELET VOLUME 9.1 fl (7.4-10.4); MONOCYTE # 0.6 10^3/ul (0.3-0.9); MONOCYTES % 12.8 % (0.0-11.0); NEUTROPHIL # 3.3 10^3/ul (1.6-7.5); NEUTROPHILS % 66.8 % (39.0-77.0); PLATELET COUNT 238 10^3/UL (140-415); RED BLOOD COUNT 2.88 10^6/ul (4.20-5.40); RED CELL DISTRIBUTION WIDTH 15.3 % (11.5-14.5)
[2016-07-13] MEDS: LEVOTHYROXINE 50 MCG TAB PO SCH (05:44)
[2016-07-13 05:52] LABS: POTASSIUM 4.5 mmol/L (3.5-5.1)
[2016-07-13 05:54] LABS: CREATININE 1.24 mg/dl (0.44-1.00)
[2016-07-13 05:55] LABS: CALCIUM 8.6 mg/dl (8.4-10.2)
[2016-07-13] MEDS ORDERED: SOD CHLORIDE 0.9% 250 ML IV* ONE ×2 (07:53)
[2016-07-13] MEDS ORDERED: PROPOFOL 40 ML ONE (08:32)
[2016-07-13] MEDS ORDERED: CEFAZOLIN 1 GM INJ ONE (08:32)
[2016-07-13] MEDS ORDERED: FENTAnyl 50 MCG/ML VIAL ONE (08:32)
[2016-07-13] MEDS: ASPIRIN 81 MG TAB PO SCH (09:00)
[2016-07-13] MEDS ORDERED: PHENYLephrine (100 MCG/ML) 5ML SYG ONE ×2 (09:03→09:51)
[2016-07-13] MEDS ORDERED: FENTAnyl 50 MCG/ML VIAL IV PRN ×2 (09:30)
[2016-07-13] MEDS ORDERED: hydrALAzine 20 MG INJ IV PRN (09:30)
[2016-07-13] MEDS ORDERED: ONDANSETRON 4 MG INJ IV PRN (09:30)
[2016-07-13] MEDS ORDERED: LABETALOL HCL 20MG INJ IV PRN (09:30)
[2016-07-13] MEDS ORDERED: EPHEDrine SULFATE 50 MG/5 ML SYG IV PRN (09:30)
[2016-07-13] MEDS ORDERED: ALBUMIN HUMAN 5% 250 ML IV PRN (09:30)
[2016-07-13] MEDS ORDERED: morphine (1 MG/ML) 10ML SYRINGE IV PRN ×2 (09:30)
[2016-07-13] MEDS ORDERED: METOCLOPRAMIDE 10 MG INJ ONE (09:37)
[2016-07-13] MEDS ORDERED: ALBUMIN HUMAN 5% 250 ML ONE (09:37)
[2016-07-13] MEDS ORDERED: DEXAMETHASONE 4 MG/ML 1 ML INJ ONE (09:37)
[2016-07-13] MEDS ORDERED: ONDANSETRON 4 MG INJ ONE (09:37)
[2016-07-13] MEDS ORDERED: POLYMYXIN/BACITRACIN 1L IRRIG IRR ONE (09:38)
[2016-07-13] MEDS ORDERED: HYDROCODONE/APAP (5/325) TAB PO PRN (10:30)
[2016-07-13] MEDS ORDERED: NACL 0.9% 3 ML SYG IV SCH (10:30)
[2016-07-13 11:12] LABS: HEMOGLOBIN 9.8 g/dl (12.0-16.0)
--- NOTE | 2016-07-13 11:13 | CONS ---
DATE OF ADMISSION: 07/10/2016 DATE OF CONSULTATION: 07/11/2016 HISTORY OF PRESENT ILLNESS: The patient is a 76-year-old female who developed the pain involving h er left lower extremity more noticeable around the left hip following her ground level fall about a week ago. Following the fall, she was having difficulties in ambulating and she thought that she vázquez s a pain in her left hip. When she was seen by me in my office as an outpatient, x-rays of the pelv is was obtained and it showed obvious femoral neck fracture involving the left hip, and was referred to the emergency room. Following initial evaluation in the emergency room, she was admitted on the 07/10/2016. She is known to have coronary artery disease and had a stenting done in 2008. She is also known to have dyslipidemia. PHYSICAL EXAMINATION: GENERAL: My examination revealed a 76-year-old female with tenderness and swelling around the left hip. EXTREMITIES: There was tenderness and swelling around the left hip. There was a slight shortening and external rotation of the left lower extremity. Range of motion of the left hip was provoking se lindsey pain and discomfort. There were no neurovascular compromise involving the left lower extremity . DIAGNOSTIC STUDIES: X-rays of the left hip revealed a presence of subcapital femoral neck fracture. DIAGNOSTIC IMPRESSION: Subcapital femoral neck fracture of the left hip. TREATMENT PLAN: To carry out the hemiarthroplasty of the left hip when she is medically cleared for surgery. Dictated By: FRANCY BATRES MD IK/NTS Conf#: [id number] DID#: [id number] CC: PRINCESS FISHER MD;*EndCC*
--- NOTE | 2016-07-13 11:19 | RADRPT ---
PROCEDURE: XR Pelvis. CLINICAL INDICATION: Postoperative evaluation TECHNIQUE: Single AP view of the pelvis. COMPARISON: Radiographs of the pelvis July 10, 2016 FINDINGS: There is a left hip hemiarthroplasty. There is overlying soft tissue gas and skin felicia. Alignme nt is normal. There is a Gutiérrez catheter. No acute fracture is identified. IMPRESSION: Left hip hemiarthroplasty in anatomic alignment without hardware complication. Overlying soft tissu e gas and skin felicia are noted. RPTAT: UU .Ramos Rios MD, MD Date Time Electronically viewed and signed by .Ramos Rios MD, MD on 07/13/2016 11:19 .K/
[2016-07-13 11:24] LABS: POTASSIUM 4.9 mmol/L (3.5-5.1)
[2016-07-13 11:26] LABS: CREATININE 1.11 mg/dl (0.44-1.00)
[2016-07-13 11:27] LABS: CALCIUM 8.6 mg/dl (8.4-10.2)
[2016-07-13] MEDS: D5W-0.45 NACL + KCL 20 MEQ 1,000 ML IV SCH ×2 (12:08→23:01)
--- NOTE | 2016-07-13 12:41 | CONS ---
Date/Time of Note Date/Time of Note DATE: 07/13/16 TIME: 12:39 Assessment/Plan Assessment/Plan Additional Assessment/Plan Preoperative cardiac risk stratification Possible hip fracture status post surgery 07/13/2016 Preserved ejection fraction CAD with history of PCI in 2008 History of CVA Hypertension -Continue aspirin if no contraindication by our orthopedic colleagues, statin and beta-isak. Encourage incentive spirometry. Consultation Date/Type/Reason Admit Date/Time Jul 10, 2016 at 18:21 Initial Consult Date Type of Consultation: cv 24 HR Interval Summary Free Text/Dictation Patient status post surgery today. Denies shortness of breath, chest pain Exam/Review of Systems Vital Signs Vitals Vital Signs Date Time Temp Pulse Resp B/P Pulse Ox O2 Delivery O2 Flow Rate FiO2 07/13/16 12:17 62 16 143/61 100 Nasal Cannula 2.0 07/13/16 11:45 97.5 Intake and Output 07/12/16 07/12/16 07/13/16 15:00 23:00 07:00 Intake Total 300 ml 1635 ml 475 ml Balance 300 ml 1635 ml 475 ml Exam No apparent distress, following commands, family at bedside Constitutional: alert Head: normocephalic Respiratory: other (Coarse breath sounds bilaterally, no wheezing) Cardiovascular: other (S1-S2 heard), regular rate and rhythm Gastrointestinal: bowel sounds, non-tender, other (No guarding), soft Extremities: other (Trace) Results Result Diagram: 07/13/16 1105 07/13/16 1105 Results 24 hrs Laboratory Tests Test 07/13/16 04:10 07/13/16 11:05 Anion Gap 13 15 Basophils # 0.0 Basophils % 0.4 Blood Urea Nitrogen 20 20 Calcium Level 8.6 8.6 Carbon Dioxide Level 28 25 Chloride Level 105 103 Creatinine 1.24 H 1.11 H Eosinophils # 0.1 Eosinophils % 2.2 Glucose Level 112 99 Hematocrit 29.3 L 30.0 L Hemoglobin 9.8 L 9.8 L Lymphocytes # 0.9 Lymphocytes % 17.4 Mean Corpuscular Hemoglobin 34.0 H Mean Corpuscular Hemoglobin Concent 33.4 Mean Corpuscular Volume 101.7 H Mean Platelet Volume 9.1 Monocytes # 0.6 Monocytes % 12.8 H Neutrophils # 3.3 Neutrophils % 66.8 Nucleated Red Blood Cells # 0.0 Nucleated Red Blood Cells % 0.0 Platelet Count 238 Potassium Level 4.5 4.9 Red Blood Count 2.88 L Red Cell Distribution Width 15.3 #H Sodium Level 141 138 White Blood Count 5.0 # Medications Medications Current Medications Aspirin (Aspirin) 81 mg DAILY PO Last administered on 07/12/16 08:50; Admin Dose 81 MG; Start 07/11/16 at 09:00 Acetaminophen (Tylenol Tab) 325 mg Q6 PRN PO PAIN AND OR ELEVATED TEMP; Start 07/10/16 at 23:00 Acetaminophen/ Hydrocodone Bitart ([place] (5/325)) 1 tab Q3H PRN PO PAIN; Start 07/10/16 at 23:00 Ondansetron HCl (Zofran Inj) 4 mg Q6H PRN IV NAUSEA AND/OR VOMITING; Start at 23:00 Atorvastatin Calcium (Lipitor) 40 mg QHS PO Last administered on 07/12/16 21: 21; Admin Dose 40 MG; Start 07/11/16 at 21:00 Carvedilol (Coreg) 12.5 mg BID PO Last administered on 07/12/16 21:22; Admin Dose 12.5 MG; Start 07/11/16 at 09:00 Folic Acid (Folic Acid) 1 mg DAILY PO Last administered on 07/12/16 08:51; Admin Dose 1 MG; Start 07/11/16 at 09:00 Levetiracetam (Keppra) 500 mg BID PO Last administered on 07/12/16 21:21; Admin Dose 500 MG; Start 07/11/16 at 09:00 Meclizine HCl (Antivert) 25 mg DAILY PRN PO DIZZINESS; Start 07/10/16 at 23:30 Pantoprazole (Protonix Tab) 40 mg DAILY PO Last administered on 07/12/16 08:51 ; Admin Dose 40 MG; Start 07/11/16 at 09:00 Pregabalin (Lyrica) 25 mg BID PO Last administered on 07/12/16 21:21; Admin Dose 25 MG; Start 07/11/16 at 09:00 Quetiapine Fumarate (Seroquel) 25 mg HS PO Last administered on 07/12/16 21:22 ; Admin Dose 25 MG; Start 07/11/16 at 21:00 Ranolazine (Ranexa) 1,000 mg Q12 PO Last administered on 07/12/16 21:21; Admin Dose 1,000 MG; Start 07/11/16 at 09:00 Morphine Sulfate (morphine) 2 mg Q2H PRN IV PAIN Last administered on 16:16; Admin Dose 2 MG; Start 07/11/16 at 01:30 Levothyroxine Sodium (Synthroid) 50 mcg DAILY@06 PO Last administered on 05:57; Admin Dose 50 MCG; Start 07/12/16 at 06:00 Epoetin Rodney 62365 units 20,000 units Q7D SC ; Start 07/14/16 at 17:00 Potassium Chloride/Dextrose/ Sod Cl (D5-1/2ns + KCl 20 Meq) 1,000 ml @ 125 mls/ hr Q8H IV Last administered on 07/13/16 12:08; Admin Dose 125 MLS/HR; Start at 10:20 Acetaminophen/ Hydrocodone Bitart ([place] (5/325)) 1 tab Q3H PRN PO PAIN LEVEL 1 -3; Start 07/13/16 at 10:30 Acetaminophen/ Hydrocodone Bitart ([place] (5/325)) 2 tab Q3H PRN PO PAIN LEVEL 4 -7; Start 07/13/16 at 10:30 Hydromorphone HCl 1 mg 1 mg Q3H PRN IV PAIN LEVEL 8-10; Start 07/13/16 at 10:30 Cefazolin Sodium (Ancef 1 Gm/50 ml (Pmx)) 50 ml @ 100 mls/hr Q8H IVPB ; Start 07/13/16 at 17:00; Stop 07/14/16 at 09:29 Enoxaparin Sodium (Lovenox) 40 mg DAILY SC ; Start 07/14/16 at 09:00 Srinivas Bedoya DO Jul 13, 2016 12:41
--- NOTE | 2016-07-13 13:50 | OPR ---
DATE OF OPERATION: 07/13/2016 PREOPERATIVE DIAGNOSIS: Femoral neck fracture of the left hip. POSTOPERATIVE DIAGNOSIS: Femoral neck fracture of the left hip. PROCEDURE PERFORMED: Hemiarthroplasty of the left hip. ANESTHESIA: General anesthesia. PROCEDURE AND FINDINGS: Under general anesthesia, the patient was placed on right lateral decubitus position with the left side up. Usual prep and drape was done exposing the left hip. Left hip was approached through the usual posterolateral oblique incision. After splitting gluteal muscles and detaching short external rotator, hip joint was entered, and there was an obvious subcap ital femoral neck fracture. The femoral head was removed, and the measurements revealed that the si ze of the femoral head is about 45 mm in diameter. After cleaning acetabular cavity, which was esse ntially within normal limits, trial reduction was carried out with the bipolar trial cup in the size of 45 mm, and the fitting and the stability was entirely satisfactory. After packing the acetabular cavity, attention was then directed to the proximal femur. Following i nitial preparation with box osteotome and canal finders, further preparation was carried out with in creasing size of broaches. With the size 7 broach in, trial components were assembled, and the join t was reduced. After several trials, it was my impression that 0 neck in the high-offset setting wi th the 45-mm bipolar cup was providing best fit and stability. After removing all the trial components, actual stem in the size of 7 in the high-offset setting is pounded in, and this was connected to 0 neck, 45-mm bipolar cup. Joint was reduced and the range o f motion and the stability was entirely satisfactory. After irrigation and hemostasis, and after re attaching the short external rotator and closing the capsules, further closure was carried out using 0 Vicryl for muscle and fascia, and 2-0 Vicryl for subcutaneous tissues. Final skin closure was ca rried out with skin felicia. Usual sterile pressure dressings were applied. The patient tolerated the entire procedure very well and was sent to the recovery room in excellent condition. Dictated By: FRANCY ANDRADE/ZHANG Conf#: [id number] DID#: [id number]
[2016-07-13] MEDS: CEFAZOLIN 1 GM/50 ML (PMX) 50 ML IVPB SCH (16:59)
[2016-07-13] MEDS: LEVETIRACETAM 500 MG TAB PO SCH ×2 (17:08→20:32)
[2016-07-13] MEDS: FOLIC ACID 1 MG TAB PO SCH (17:08)
[2016-07-13] MEDS: PANTOPRAZOLE (EC) 40 MG TAB PO SCH (17:08)
[2016-07-13] MEDS: PREGABALIN 25 MG CAP PO SCH ×2 (17:08→20:32)
[2016-07-13] MEDS: RANOLAZINE (SR) 500 MG TAB PO SCH ×2 (17:08→20:31)
--- NOTE | 2016-07-13 18:37 | PN ---
Date/Time of Note Date/Time of Note DATE: 07/13/16 TIME: 18:36 Assessment/Plan VTE Prophylaxis VTE Prophylaxis Intervention: other Lines/Catheters IV Catheter Type (from Nrs): Peripheral IV Urinary Cath still in place: Yes Reason Cath still needed: urinary retention Assessment/Plan Assessment/Plan 1. Left hip fracture secondary to mechanical fall. Dr. Marshall is following in orthopedic surgery consultation. -plan for left hip hemiarthroplasty tomorrow. 2. Coronary artery disease, status post PCI. Dr. Bedoya is following in cardiology consultation. Continue aspirin and Ranexa. 3. Hypertension. Continue Coreg. 4. Dyslipidemia. Continue Lipitor. 5. Hypothyroidism. Continue Synthroid. 6. Macrocytic anemia. Further recommendations based on clinical course. Plan of care discussed with Dr. Robertson. Subjective 24 Hr Interval Summary Free Text/Dictation NAD, resting in bed, seems comfortable, no new issues reported by staff. Constitutional: disoriented Respiratory: no complaints Cardiovascular: no complaints Musculoskeletal: bone/joint pain Exam/Review of Systems Vital Signs Vitals Vital Signs Date Time Temp Pulse Resp B/P Pulse Ox O2 Delivery O2 Flow Rate FiO2 07/13/16 14:39 64 18 126/56 100 Nasal Cannula 2.0 07/13/16 11:45 97.5 Intake and Output 07/12/16 07/12/16 07/13/16 15:00 23:00 07:00 Intake Total 300 ml 1635 ml 475 ml Balance 300 ml 1635 ml 475 ml Exam Constitutional: alert, well developed Psych: confusion Head: atraumatic Eyes: PERRL, nl sclera ENMT: nl external ears & nose Neck: non-tender Respiratory: clear to auscultation Cardiovascular: nl pulses Gastrointestinal: non-tender, soft Extremities: normal pulses Neurological: confused, nl speech Skin: other Lymph: nontender Results Result Diagram: 07/13/16 1105 07/13/16 1105 Results 24 hrs Laboratory Tests Test 07/13/16 04:10 07/13/16 11:05 Anion Gap 13 15 Basophils # 0.0 Basophils % 0.4 Blood Urea Nitrogen 20 20 Calcium Level 8.6 8.6 Carbon Dioxide Level 28 25 Chloride Level 105 103 Creatinine 1.24 H 1.11 H Eosinophils # 0.1 Eosinophils % 2.2 Glucose Level 112 99 Hematocrit 29.3 L 30.0 L Hemoglobin 9.8 L 9.8 L Lymphocytes # 0.9 Lymphocytes % 17.4 Mean Corpuscular Hemoglobin 34.0 H Mean Corpuscular Hemoglobin Concent 33.4 Mean Corpuscular Volume 101.7 H Mean Platelet Volume 9.1 Monocytes # 0.6 Monocytes % 12.8 H Neutrophils # 3.3 Neutrophils % 66.8 Nucleated Red Blood Cells # 0.0 Nucleated Red Blood Cells % 0.0 Platelet Count 238 Potassium Level 4.5 4.9 Red Blood Count 2.88 L Red Cell Distribution Width 15.3 #H Sodium Level 141 138 White Blood Count 5.0 # Medications Medications Current Medications Aspirin (Aspirin) 81 mg DAILY PO Last administered on 07/12/16 08:50; Admin Dose 81 MG; Start 07/11/16 at 09:00 Acetaminophen (Tylenol Tab) 325 mg Q6 PRN PO PAIN AND OR ELEVATED TEMP; Start 07/10/16 at 23:00 Acetaminophen/ Hydrocodone Bitart ([place] (5/325)) 1 tab Q3H PRN PO PAIN; Start 07/10/16 at 23:00 Ondansetron HCl (Zofran Inj) 4 mg Q6H PRN IV NAUSEA AND/OR VOMITING; Start at 23:00 Atorvastatin Calcium (Lipitor) 40 mg QHS PO Last administered on 07/12/16 21: 21; Admin Dose 40 MG; Start 07/11/16 at 21:00 Carvedilol (Coreg) 12.5 mg BID PO Last administered on 07/12/16 21:22; Admin Dose 12.5 MG; Start 07/11/16 at 09:00 Folic Acid (Folic Acid) 1 mg DAILY PO Last administered on 07/12/16 08:51; Admin Dose 1 MG; Start 07/11/16 at 09:00 Levetiracetam (Keppra) 500 mg BID PO Last administered on 07/12/16 21:21; Admin Dose 500 MG; Start 07/11/16 at 09:00 Meclizine HCl (Antivert) 25 mg DAILY PRN PO DIZZINESS; Start 07/10/16 at 23:30 Pantoprazole (Protonix Tab) 40 mg DAILY PO Last administered on 07/12/16 08:51 ; Admin Dose 40 MG; Start 07/11/16 at 09:00 Pregabalin (Lyrica) 25 mg BID PO Last administered on 07/12/16 21:21; Admin Dose 25 MG; Start 07/11/16 at 09:00 Quetiapine Fumarate (Seroquel) 25 mg HS PO Last administered on 07/12/16 21:22 ; Admin Dose 25 MG; Start 07/11/16 at 21:00 Ranolazine (Ranexa) 1,000 mg Q12 PO Last administered on 07/12/16 21:21; Admin Dose 1,000 MG; Start 07/11/16 at 09:00 Morphine Sulfate (morphine) 2 mg Q2H PRN IV PAIN Last administered on 16:16; Admin Dose 2 MG; Start 07/11/16 at 01:30 Levothyroxine Sodium (Synthroid) 50 mcg DAILY@06 PO Last administered on 05:57; Admin Dose 50 MCG; Start 07/12/16 at 06:00 Epoetin Rodney 64854 units 20,000 units Q7D SC ; Start 07/14/16 at 17:00 Potassium Chloride/Dextrose/ Sod Cl (D5-1/2ns + KCl 20 Meq) 1,000 ml @ 125 mls/ hr Q8H IV Last administered on 07/13/16 12:08; Admin Dose 125 MLS/HR; Start at 10:20 Acetaminophen/ Hydrocodone Bitart ([place] (5/325)) 1 tab Q3H PRN PO PAIN LEVEL 1 -3; Start 07/13/16 at 10:30 Acetaminophen/ Hydrocodone Bitart ([place] (5/325)) 2 tab Q3H PRN PO PAIN LEVEL 4 -7; Start 07/13/16 at 10:30 Hydromorphone HCl 1 mg 1 mg Q3H PRN IV PAIN LEVEL 8-10; Start 07/13/16 at 10:30 Cefazolin Sodium (Ancef 1 Gm/50 ml (Pmx)) 50 ml @ 100 mls/hr Q8H IVPB Last administered on 07/13/16 16:59; Admin Dose 100 MLS/HR; Start 07/13/16 at 17:00 ; Stop 07/14/16 at 09:29 Enoxaparin Sodium (Lovenox) 40 mg DAILY SC ; Start 07/14/16 at 09:00 IVON DENT Jul 13, 2016 18:37
[2016-07-13] MEDS: morphine 2 MG INJ IV PRN (18:48)
[2016-07-13] MEDS: HYDROmorphONE 1 MG/ML SYG IV PRN (20:28)
[2016-07-13] MEDS: QUETIAPINE 25 MG TAB PO SCH (20:32)
[2016-07-13] MEDS: ATORVASTATIN 40 MG TAB PO SCH (20:32)
[2016-07-14] MEDS: CEFAZOLIN 1 GM/50 ML (PMX) 50 ML IVPB SCH ×2 (00:47→09:09)
[2016-07-14] MEDS: morphine 2 MG INJ IV PRN (00:47)
[2016-07-14] MEDS: D5W-0.45 NACL + KCL 20 MEQ 1,000 ML IV SCH ×2 (02:20→09:08)
[2016-07-14] MEDS: HYDROmorphONE 1 MG/ML SYG IV PRN ×3 (04:00→15:01)
[2016-07-14] MEDS: LEVOTHYROXINE 50 MCG TAB PO SCH (05:12)
[2016-07-14 05:40] LABS: ADD SCAN DIFF NO
[2016-07-14 05:43] LABS: ABNORMAL IP MESSAGE 1; HEMATOCRIT 25.5 % (37.0-47.0); HEMOGLOBIN 8.2 g/dl (12.0-16.0); LYMPHOCYTES # 0.4 10^3/ul (0.8-2.9); MEAN CORPUSCULAR HEMOGLOBIN 33.6 pg (29.0-33.0); MEAN CORPUSCULAR HGB CONC 32.2 g/dl (32.0-37.0); MEAN CORPUSCULAR VOLUME 104.5 fl (82.0-101.0); MEAN PLATELET VOLUME 9.1 fl (7.4-10.4); MONOCYTE # 0.7 10^3/ul (0.3-0.9); MONOCYTES % 10.6 % (0.0-11.0); NEUTROPHIL # 5.1 10^3/ul (1.6-7.5); NEUTROPHILS % 83.1 % (39.0-77.0); PLATELET COUNT 224 10^3/UL (140-415); RED BLOOD COUNT 2.44 10^6/ul (4.20-5.40); RED CELL DISTRIBUTION WIDTH 14.4 % (11.5-14.5); WHITE BLOOD COUNT 6.1 10^3/ul (4.8-10.8)
[2016-07-14 08:21] VITALS: BP 118/59; RESP 18
[2016-07-14] MEDS: PREGABALIN 25 MG CAP PO SCH ×2 (09:12→20:43)
[2016-07-14] MEDS: LEVETIRACETAM 500 MG TAB PO SCH ×2 (09:12→20:43)
[2016-07-14] MEDS: PANTOPRAZOLE (EC) 40 MG TAB PO SCH (09:12)
[2016-07-14] MEDS: RANOLAZINE (SR) 500 MG TAB PO SCH ×2 (09:12→20:43)
[2016-07-14] MEDS: ASPIRIN 81 MG TAB PO SCH (09:12)
[2016-07-14] MEDS: FOLIC ACID 1 MG TAB PO SCH (09:13)
[2016-07-14] MEDS: ENOXAPARIN 40 MG/0.4 ML SYG SC SCH (09:15)
--- NOTE | 2016-07-14 09:15 | CONS ---
Date/Time of Note Date/Time of Note DATE: 07/14/16 TIME: 09:12 Consultation Date/Type/Reason Admit Date/Time Jul 10, 2016 at 18:21 Initial Consult Date 07/13/16 Type of Consultation: Anesthesia Reason for Consultation Left Hip Hemiarthroplasty 24 HR Interval Summary Free Text/Dictation She is a 76 year old female with Left Hip Fracture, she went under spinal anesthesia for Left Hip Hemiarthroplasty. She had history of HTN, CAD s/p stent in LAD, with preserved EF 60%, good exercise tolerance, no active chest pain or SOB. POD#1 s/p left Hip Hemiarthroplasty, Spinal anesthesia was used for the surgery and intrathecal narcotic was given for post op pain control. Pain is well controlled patient is doing well. No nausea or vomiting and or apnea noted. No itching noted, No sensory or motor loss reported. Her vital signs are stable and she is afebrile. Primary team will follow up. Exam/Review of Systems Vital Signs Vitals Vital Signs Date Time Temp Pulse Resp B/P Pulse Ox O2 Delivery O2 Flow Rate FiO2 07/14/16 08:21 98.7 73 18 118/59 100 07/13/16 20:00 2.0 07/13/16 18:45 Nasal Cannula Intake and Output 07/13/16 07/13/16 07/14/16 14:59 22:59 06:59 Intake Total 1200 ml 900 ml 1355 ml Output Total 800 ml 1200 ml 500 ml Balance 400 ml -300 ml 855 ml Results Result Diagram: 07/14/16 0434 07/13/16 1105 Results 24 hrs Laboratory Tests Test 07/13/16 11:05 07/14/16 04:34 Anion Gap 15 Blood Urea Nitrogen 20 Calcium Level 8.6 Carbon Dioxide Level 25 Chloride Level 103 Creatinine 1.11 H Glucose Level 99 Hematocrit 30.0 L 25.5 L Hemoglobin 9.8 L 8.2 L Potassium Level 4.9 Sodium Level 138 Basophils # 0.0 Basophils % 0.0 Eosinophils # 0.0 Eosinophils % 0.0 Lymphocytes # 0.4 L Lymphocytes % 6.0 L Mean Corpuscular Hemoglobin 33.6 H Mean Corpuscular Hemoglobin Concent 32.2 Mean Corpuscular Volume 104.5 H Mean Platelet Volume 9.1 Monocytes # 0.7 Monocytes % 10.6 Neutrophils # 5.1 Neutrophils % 83.1 H Nucleated Red Blood Cells # 0.0 Nucleated Red Blood Cells % 0.0 Platelet Count 224 Red Blood Count 2.44 L Red Cell Distribution Width 14.4 White Blood Count 6.1 # Medications Medications Current Medications Aspirin (Aspirin) 81 mg DAILY PO Last administered on 07/12/16 08:50; Admin Dose 81 MG; Start 07/11/16 at 09:00 Acetaminophen (Tylenol Tab) 325 mg Q6 PRN PO PAIN AND OR ELEVATED TEMP; Start 07/10/16 at 23:00 Acetaminophen/ Hydrocodone Bitart ([place] (5/325)) 1 tab Q3H PRN PO PAIN; Start 07/10/16 at 23:00 Ondansetron HCl (Zofran Inj) 4 mg Q6H PRN IV NAUSEA AND/OR VOMITING; Start at 23:00 Atorvastatin Calcium (Lipitor) 40 mg QHS PO Last administered on 07/13/16 20: 32; Admin Dose 40 MG; Start 07/11/16 at 21:00 Carvedilol (Coreg) 12.5 mg BID PO Last administered on 07/13/16 20:31; Admin Dose 12.5 MG; Start 07/11/16 at 09:00 Folic Acid (Folic Acid) 1 mg DAILY PO Last administered on 07/12/16 08:51; Admin Dose 1 MG; Start 07/11/16 at 09:00 Levetiracetam (Keppra) 500 mg BID PO Last administered on 07/13/16 20:32; Admin Dose 500 MG; Start 07/11/16 at 09:00 Meclizine HCl (Antivert) 25 mg DAILY PRN PO DIZZINESS; Start 07/10/16 at 23:30 Pantoprazole (Protonix Tab) 40 mg DAILY PO Last administered on 07/12/16 08:51 ; Admin Dose 40 MG; Start 07/11/16 at 09:00 Pregabalin (Lyrica) 25 mg BID PO Last administered on 07/13/16 20:32; Admin Dose 25 MG; Start 07/11/16 at 09:00 Quetiapine Fumarate (Seroquel) 25 mg HS PO Last administered on 07/13/16 20:32 ; Admin Dose 25 MG; Start 07/11/16 at 21:00 Ranolazine (Ranexa) 1,000 mg Q12 PO Last administered on 07/13/16 20:31; Admin Dose 1,000 MG; Start 07/11/16 at 09:00 Morphine Sulfate (morphine) 2 mg Q2H PRN IV PAIN Last administered on 00:47; Admin Dose 2 MG; Start 07/11/16 at 01:30 Levothyroxine Sodium (Synthroid) 50 mcg DAILY@06 PO Last administered on 05:12; Admin Dose 50 MCG; Start 07/12/16 at 06:00 Epoetin [place]ney 87272 units 20,000 units Q7D SC ; Start 07/14/16 at 17:00 Potassium Chloride/Dextrose/ Sod Cl (D5-1/2ns + KCl 20 Meq) 1,000 ml @ 125 mls/ hr Q8H IV Last administered on 07/13/16 23:01; Admin Dose 125 MLS/HR; Start at 10:20 Acetaminophen/ Hydrocodone Bitart ([place] (5/325)) 1 tab Q3H PRN PO PAIN LEVEL 1 -3; Start 07/13/16 at 10:30 Acetaminophen/ Hydrocodone Bitart ([place] (5/325)) 2 tab Q3H PRN PO PAIN LEVEL 4 -7; Start 07/13/16 at 10:30 Hydromorphone HCl 1 mg 1 mg Q3H PRN IV PAIN LEVEL 8-10 Last administered on 07:59; Admin Dose 1 MG; Start 07/13/16 at 10:30 Cefazolin Sodium (Ancef 1 Gm/50 ml (Pmx)) 50 ml @ 100 mls/hr Q8H IVPB Last administered on 07/14/16 00:47; Admin Dose 100 MLS/HR; Start 07/13/16 at 17:00 ; Stop 07/14/16 at 09:29 Enoxaparin Sodium (Lovenox) 40 mg DAILY SC ; Start 07/14/16 at 09:00 FLORY BANKS MD Jul 14, 2016 09:15
--- NOTE | 2016-07-14 15:14 | CONS ---
Date/Time of Note Date/Time of Note DATE: 07/14/16 TIME: 15:12 Assessment/Plan Assessment/Plan Additional Assessment/Plan Preoperative cardiac risk stratification Hip fracture status post surgery 07/13/2016 Preserved ejection fraction CAD with history of PCI in 2008 History of CVA Hypertension -Blood pressure trend overall remained stable. No new cardiac orders at the current time. Consultation Date/Type/Reason Admit Date/Time Jul 10, 2016 at 18:21 Type of Consultation: cv 24 HR Interval Summary Free Text/Dictation Denies shortness of breath or chest pain Exam/Review of Systems Vital Signs Vitals Vital Signs Date Time Temp Pulse Resp B/P Pulse Ox O2 Delivery O2 Flow Rate FiO2 07/14/16 08:21 98.7 73 18 118/59 100 07/13/16 20:00 2.0 07/13/16 18:45 Nasal Cannula Intake and Output 07/13/16 07/13/16 07/14/16 15:00 23:00 07:00 Intake Total 1200 ml 1300 ml 955 ml Output Total 800 ml 1200 ml 500 ml Balance 400 ml 100 ml 455 ml Exam Follows commands, no apparent distress Constitutional: alert Head: normocephalic Neck: supple Respiratory: other (Coarse breath sounds bilaterally, no wheezing) Cardiovascular: other (S1-S2 heard), regular rate and rhythm Gastrointestinal: bowel sounds, non-tender, other (No guarding), soft Extremities: edema (Trace) Results Result Diagram: 07/14/16 0434 07/13/16 1105 Results 24 hrs Laboratory Tests Test 07/14/16 04:34 Basophils # 0.0 Basophils % 0.0 Eosinophils # 0.0 Eosinophils % 0.0 Hematocrit 25.5 L Hemoglobin 8.2 L Lymphocytes # 0.4 L Lymphocytes % 6.0 L Mean Corpuscular Hemoglobin 33.6 H Mean Corpuscular Hemoglobin Concent 32.2 Mean Corpuscular Volume 104.5 H Mean Platelet Volume 9.1 Monocytes # 0.7 Monocytes % 10.6 Neutrophils # 5.1 Neutrophils % 83.1 H Nucleated Red Blood Cells # 0.0 Nucleated Red Blood Cells % 0.0 Platelet Count 224 Red Blood Count 2.44 L Red Cell Distribution Width 14.4 White Blood Count 6.1 # Medications Medications Current Medications Aspirin (Aspirin) 81 mg DAILY PO Last administered on 07/14/16t 09:12; Admin Dose 81 MG; Start 07/11/16 at 09:00 Acetaminophen (Tylenol Tab) 325 mg Q6 PRN PO PAIN AND OR ELEVATED TEMP; Start 07/10/16 at 23:00 Acetaminophen/ Hydrocodone Bitart ([place] (5/325)) 1 tab Q3H PRN PO PAIN; Start 07/10/16 at 23:00 Ondansetron HCl (Zofran Inj) 4 mg Q6H PRN IV NAUSEA AND/OR VOMITING; Start at 23:00 Atorvastatin Calcium (Lipitor) 40 mg QHS PO Last administered on 07/13/16 20: 32; Admin Dose 40 MG; Start 07/11/16 at 21:00 Carvedilol (Coreg) 12.5 mg BID PO Last administered on 07/14/16 09:13; Admin Dose 12.5 MG; Start 07/11/16 at 09:00 Folic Acid (Folic Acid) 1 mg DAILY PO Last administered on 07/14/16 09:13; Admin Dose 1 MG; Start 07/11/16 at 09:00 Levetiracetam (Keppra) 500 mg BID PO Last administered on 07/14/16 09:12; Admin Dose 500 MG; Start 07/11/16 at 09:00 Meclizine HCl (Antivert) 25 mg DAILY PRN PO DIZZINESS; Start 07/10/16 at 23:30 Pantoprazole (Protonix Tab) 40 mg DAILY PO Last administered on 07/14/16 09:12 ; Admin Dose 40 MG; Start 07/11/16 at 09:00 Pregabalin (Lyrica) 25 mg BID PO Last administered on 07/14/16 09:12; Admin Dose 25 MG; Start 07/11/16 at 09:00 Quetiapine Fumarate (Seroquel) 25 mg HS PO Last administered on 07/13/16 20:32 ; Admin Dose 25 MG; Start 07/11/16 at 21:00 Ranolazine (Ranexa) 1,000 mg Q12 PO Last administered on 07/14/16 09:12; Admin Dose 1,000 MG; Start 07/11/16 at 09:00 Morphine Sulfate (morphine) 2 mg Q2H PRN IV PAIN Last administered on 00:47; Admin Dose 2 MG; Start 07/11/16 at 01:30 Levothyroxine Sodium (Synthroid) 50 mcg DAILY@06 PO Last administered on 05:12; Admin Dose 50 MCG; Start 07/12/16 at 06:00 Epoetin [place] 72463 units 20,000 units Q7D SC ; Start 07/14/16 at 17:00 Potassium Chloride/Dextrose/ Sod Cl (D5-1/2ns + KCl 20 Meq) 1,000 ml @ 125 mls/ hr Q8H IV Last administered on 07/14/16 09:08; Admin Dose 125 MLS/HR; Start at 10:20 Acetaminophen/ Hydrocodone Bitart ([place] (5/325)) 1 tab Q3H PRN PO PAIN LEVEL 1 -3; Start 07/13/16 at 10:30 Acetaminophen/ Hydrocodone Bitart ([place] (5/325)) 2 tab Q3H PRN PO PAIN LEVEL 4 -7; Start 07/13/16 at 10:30 Hydromorphone HCl (Dilaudid) 1 mg Q3H PRN IV PAIN LEVEL 8-10 Last administered on 07/14/16 15:01; Admin Dose 1 MG; Start 07/13/16 at 10:30 Enoxaparin Sodium (Lovenox) 40 mg DAILY SC Last administered on 07/14/16 09:15 ; Admin Dose 40 MG; Start 07/14/16 at 09:00 Srinivas Bedoya DO Jul 14, 2016 15:14
--- NOTE | 2016-07-14 16:11 | PN ---
Date/Time of Note Date/Time of Note DATE: 07/14/16 TIME: 16:08 Assessment/Plan VTE Prophylaxis VTE Prophylaxis Intervention: SCD's Lines/Catheters [facility] (from [facility] Peripheral IV Urinary Cath still in place: Yes Reason Cath still needed: urinary retention Assessment/Plan Chief Complaint/Hosp Course Assessment and plan 1. Left femoral neck fracture secondary to mechanical fall. Status post left hip humeral arthroplasty by Dr. Marshall, orthopedic surgery. 2. Coronary artery disease, status post PCI. Dr. Bedoya is following in cardiology consultation. Continue aspirin and Ranexa. 3. Hypertension. Continue Coreg. 4. Dyslipidemia. Continue Lipitor. 5. Hypothyroidism. Continue Synthroid. 6. Macrocytic anemia. Patient's condition and plan of care discussed with patient's daughter at the bedside, all questions answered. Further recommendations based on clinical course. Plan of care discussed with Dr. Robertson. Problems: Subjective 24 Hr Interval Summary Free Text/Dictation Patient is currently awake alert, able to tolerate diet well, denies any nausea vomiting. Pain is well controlled. Exam/Review of Systems Vital Signs Vitals Vital Signs Date Time Temp Pulse Resp B/P Pulse Ox O2 Delivery O2 Flow Rate FiO2 07/14/16 08:21 98.7 73 18 118/59 100 07/13/16 20:00 2.0 07/13/16 18:45 Nasal Cannula Intake and Output 07/13/16 07/13/16 07/14/16 15:00 23:00 07:00 Intake Total 1200 ml 1300 ml 955 ml Output Total 800 ml 1200 ml 500 ml Balance 400 ml 100 ml 455 ml Exam GENERAL: The patient is conscious, awake, alert. HEENT: Atraumatic, normocephalic. DYAN NECK: Supple. No mass, no thyromegaly. CHEST: Clear to auscultation. CARDIOVASCULAR: S1, S2 normal. No murmur, gallop, or rub. ABDOMEN: Soft, nondistended, nontender. Bowel sounds plus. EXTREMITIES: No leg edema. No clubbing, no cyanosis. S/p Left hip surgery. NEUROLOGIC: The patient is awake, alert, follows simple commands. Results Result Diagram: 07/14/16 0434 07/13/16 1105 Results 24 hrs Laboratory Tests Test 07/14/16 04:34 Basophils # 0.0 Basophils % 0.0 Eosinophils # 0.0 Eosinophils % 0.0 Hematocrit 25.5 L Hemoglobin 8.2 L Lymphocytes # 0.4 L Lymphocytes % 6.0 L Mean Corpuscular Hemoglobin 33.6 H Mean Corpuscular Hemoglobin Concent 32.2 Mean Corpuscular Volume 104.5 H Mean Platelet Volume 9.1 Monocytes # 0.7 Monocytes % 10.6 Neutrophils # 5.1 Neutrophils % 83.1 H Nucleated Red Blood Cells # 0.0 Nucleated Red Blood Cells % 0.0 Platelet Count 224 Red Blood Count 2.44 L Red Cell Distribution Width 14.4 White Blood Count 6.1 # Medications Medications Current Medications Aspirin (Aspirin) 81 mg DAILY PO Last administered on 07/14/16 09:12; Admin Dose 81 MG; Start 07/11/16 at 09:00 Acetaminophen (Tylenol Tab) 325 mg Q6 PRN PO PAIN AND OR ELEVATED TEMP; Start 07/10/16 at 23:00 Acetaminophen/ Hydrocodone Bitart ([place] (5/325)) 1 tab Q3H PRN PO PAIN; Start 07/10/16 at 23:00 Ondansetron HCl (Zofran Inj) 4 mg Q6H PRN IV NAUSEA AND/OR VOMITING; Start at 23:00 Atorvastatin Calcium (Lipitor) 40 mg QHS PO Last administered on 07/13/16 20: 32; Admin Dose 40 MG; Start 07/11/16 at 21:00 Carvedilol (Coreg) 12.5 mg BID PO Last administered on 07/14/16 09:13; Admin Dose 12.5 MG; Start 07/11/16 at 09:00 Folic Acid (Folic Acid) 1 mg DAILY PO Last administered on 07/14/16 09:13; Admin Dose 1 MG; Start 07/11/16 at 09:00 Levetiracetam (Keppra) 500 mg BID PO Last administered on 07/14/16 09:12; Admin Dose 500 MG; Start 07/11/16 at 09:00 Meclizine HCl (Antivert) 25 mg DAILY PRN PO DIZZINESS; Start 07/10/16 at 23:30 Pantoprazole (Protonix Tab) 40 mg DAILY PO Last administered on 07/14/16 09:12 ; Admin Dose 40 MG; Start 07/11/16 at 09:00 Pregabalin (Lyrica) 25 mg BID PO Last administered on 07/14/16 09:12; Admin Dose 25 MG; Start 07/11/16 at 09:00 Quetiapine Fumarate (Seroquel) 25 mg HS PO Last administered on 07/13/16 20:32 ; Admin Dose 25 MG; Start 07/11/16 at 21:00 Ranolazine (Ranexa) 1,000 mg Q12 PO Last administered on 07/14/16 09:12; Admin Dose 1,000 MG; Start 07/11/16 at 09:00 Morphine Sulfate (morphine) 2 mg Q2H PRN IV PAIN Last administered on 00:47; Admin Dose 2 MG; Start 07/11/16 at 01:30 Levothyroxine Sodium (Synthroid) 50 mcg DAILY@06 PO Last administered on 05:12; Admin Dose 50 MCG; Start 07/12/16 at 06:00 Epoetin Rod[place] 51556 units 20,000 units Q7D SC ; Start 07/14/16 at 17:00 Potassium Chloride/Dextrose/ Sod Cl (D5-1/2ns + KCl 20 Meq) 1,000 ml @ 125 mls/ hr Q8H IV Last administered on 07/14/16 09:08; Admin Dose 125 MLS/HR; Start at 10:20 Acetaminophen/ Hydrocodone Bitart ([place] (5/325)) 1 tab Q3H PRN PO PAIN LEVEL 1 -3; Start 07/13/16 at 10:30 Acetaminophen/ Hydrocodone Bitart ([place] (5/325)) 2 tab Q3H PRN PO PAIN LEVEL 4 -7; Start 07/13/16 at 10:30 Hydromorphone HCl (Dilaudid) 1 mg Q3H PRN IV PAIN LEVEL 8-10 Last administered on 07/14/16 15:01; Admin Dose 1 MG; Start 07/13/16 at 10:30 Enoxaparin Sodium (Lovenox) 40 mg DAILY SC Last administered on 07/14/16 09:15 ; Admin Dose 40 MG; Start 07/14/16 at 09:00 ILAN GALDAMEZ Jul 14, 2016 16:11
[2016-07-14 19:45] VITALS: BP 138/66; RESP 18
[2016-07-14] MEDS: ATORVASTATIN 40 MG TAB PO SCH (20:43)
[2016-07-14] MEDS: QUETIAPINE 25 MG TAB PO SCH (20:44)
[2016-07-14] MEDS: EPOETIN 10000 UNITS/ML (NON ESRD/NON ONCOLOGY) SC SCH (20:46)
[2016-07-15 05:04] LABS: ADD SCAN DIFF NO
[2016-07-15 05:17] LABS: BASOPHILS % 0.1 % (0.0-2.0); EOSINOPHILS # 0.1 10^3/ul (0.0-0.5); HEMATOCRIT 27.3 % (37.0-47.0); HEMOGLOBIN 8.9 g/dl (12.0-16.0); LYMPHOCYTES # 0.8 10^3/ul (0.8-2.9); LYMPHOCYTES % 11.7 % (15.0-51.0); MEAN CORPUSCULAR HGB CONC 32.6 g/dl (32.0-37.0); MEAN CORPUSCULAR VOLUME 104.2 fl (82.0-101.0); MEAN PLATELET VOLUME 9.1 fl (7.4-10.4); MONOCYTE # 0.8 10^3/ul (0.3-0.9); MONOCYTES % 11.6 % (0.0-11.0); NEUTROPHIL # 5.1 10^3/ul (1.6-7.5); NEUTROPHILS % 75.3 % (39.0-77.0); PLATELET COUNT 279 10^3/UL (140-415); RED BLOOD COUNT 2.62 10^6/ul (4.20-5.40); WHITE BLOOD COUNT 6.8 10^3/ul (4.8-10.8)
[2016-07-15 05:30] LABS: POTASSIUM 4.8 mmol/L (3.5-5.1)
[2016-07-15 05:32] LABS: CREATININE 0.97 mg/dl (0.44-1.00)
[2016-07-15 05:33] LABS: CALCIUM 8.9 mg/dl (8.4-10.2)
[2016-07-15] MEDS: LEVOTHYROXINE 50 MCG TAB PO SCH (06:14)
[2016-07-15 08:21] VITALS: BP 150/65; RESP 20
[2016-07-15] MEDS: ASPIRIN 81 MG TAB PO SCH (09:21)
[2016-07-15] MEDS: RANOLAZINE (SR) 500 MG TAB PO SCH ×2 (09:21→20:20)
[2016-07-15] MEDS: PREGABALIN 25 MG CAP PO SCH ×2 (09:21→20:20)
[2016-07-15] MEDS: FOLIC ACID 1 MG TAB PO SCH (09:21)
[2016-07-15] MEDS: LEVETIRACETAM 500 MG TAB PO SCH ×2 (09:21→20:20)
[2016-07-15] MEDS: HYDROmorphONE 1 MG/ML SYG IV PRN ×2 (09:22→12:44)
[2016-07-15] MEDS: ENOXAPARIN 40 MG/0.4 ML SYG SC SCH (09:25)
[2016-07-15] MEDS: PANTOPRAZOLE (EC) 40 MG TAB PO SCH (09:26)
--- NOTE | 2016-07-15 12:16 | CONS ---
Date/Time of Note Date/Time of Note DATE: 07/15/16 TIME: 12:14 Assessment/Plan Assessment/Plan Additional Assessment/Plan Preoperative cardiac risk stratification Hip fracture status post surgery 07/13/2016 Preserved ejection fraction CAD with history of PCI in 2008 History of CVA Hypertension -Blood pressure trend overall remains stable with occasional episodes of hypertension. Would continue current cardiac medication regimen.. Consultation Date/Type/Reason Admit Date/Time Jul 10, 2016 at 18:21 Type of Consultation: cv 24 HR Interval Summary Free Text/Dictation Patient seen and examined with family at bedside. Intermittent episodes of confusion Exam/Review of Systems Vital Signs Vitals Vital Signs Date Time Temp Pulse Resp B/P Pulse Ox O2 Delivery O2 Flow Rate FiO2 07/15/16 08:21 100.1 82 20 150/65 100 07/13/16 20:00 2.0 07/13/16 18:45 Nasal Cannula Intake and Output 07/14/16 07/14/16 07/15/16 15:00 23:00 07:00 Intake Total 1050 ml 440 ml 110 ml Output Total 1200 ml 350 ml Balance 1050 ml -760 ml -240 ml Exam Sleeping but arousable, no apparent distress Head: normocephalic Neck: supple Respiratory: other (Coarse breath sounds bilaterally, no wheezing) Cardiovascular: other (S1-S2 heard), regular rate and rhythm Gastrointestinal: bowel sounds, non-tender, soft Extremities: other (No edema) Results Result Diagram: 07/15/165 07/15/16 0425 Results 24 hrs Laboratory Tests Test 07/15/16 04:25 Anion Gap 15 Basophils # 0.0 Basophils % 0.1 Blood Urea Nitrogen 18 Calcium Level 8.9 Carbon Dioxide Level 25 Chloride Level 108 Creatinine 0.97 Eosinophils # 0.1 Eosinophils % 1.0 Glucose Level 102 Hematocrit 27.3 L Hemoglobin 8.9 L Lymphocytes # 0.8 Lymphocytes % 11.7 L Mean Corpuscular Hemoglobin 34.0 H Mean Corpuscular Hemoglobin Concent 32.6 Mean Corpuscular Volume 104.2 H Mean Platelet Volume 9.1 Monocytes # 0.8 Monocytes % 11.6 H Neutrophils # 5.1 Neutrophils % 75.3 Nucleated Red Blood Cells # 0.0 Nucleated Red Blood Cells % 0.0 Platelet Count 279 # Potassium Level 4.8 Red Blood Count 2.62 L Red Cell Distribution Width 14.0 Sodium Level 143 White Blood Count 6.8 Medications Medications Current Medications Aspirin (Aspirin) 81 mg DAILY PO Last administered on 07/15/16 09:21; Admin Dose 81 MG; Start 07/11/16 at 09:00 Acetaminophen (Tylenol Tab) 325 mg Q6 PRN PO PAIN AND OR ELEVATED TEMP; Start 07/10/16 at 23:00 Acetaminophen/ Hydrocodone Bitart ([place] (5/325)) 1 tab Q3H PRN PO PAIN; Start 07/10/16 at 23:00 Ondansetron HCl (Zofran Inj) 4 mg Q6H PRN IV NAUSEA AND/OR VOMITING; Start at 23:00 Atorvastatin Calcium (Lipitor) 40 mg QHS PO Last administered on 07/14/16 20: 43; Admin Dose 40 MG; Start 07/11/16 at 21:00 Carvedilol (Coreg) 12.5 mg BID PO Last administered on 07/15/16 09:23; Admin Dose 12.5 MG; Start 07/11/16 at 09:00 Folic Acid (Folic Acid) 1 mg DAILY PO Last administered on 07/15/16 09:21; Admin Dose 1 MG; Start 07/11/16 at 09:00 Levetiracetam (Keppra) 500 mg BID PO Last administered on 07/15/16 09:21; Admin Dose 500 MG; Start 07/11/16 at 09:00 Meclizine HCl (Antivert) 25 mg DAILY PRN PO DIZZINESS; Start 07/10/16 at 23:30 Pantoprazole (Protonix Tab) 40 mg DAILY PO Last administered on 07/15/16 09:26 ; Admin Dose 40 MG; Start 07/11/16 at 09:00 Pregabalin (Lyrica) 25 mg BID PO Last administered on 07/15/16 09:21; Admin Dose 25 MG; Start 07/11/16 at 09:00 Quetiapine Fumarate (Seroquel) 25 mg HS PO Last administered on 07/14/16 20:44 ; Admin Dose 25 MG; Start 07/11/16 at 21:00 Ranolazine (Ranexa) 1,000 mg Q12 PO Last administered on 07/15/16 09:21; Admin Dose 1,000 MG; Start 07/11/16 at 09:00 Morphine Sulfate (morphine) 2 mg Q2H PRN IV PAIN Last administered on 00:47; Admin Dose 2 MG; Start 07/11/16 at 01:30 Levothyroxine Sodium (Synthroid) 50 mcg DAILY@06 PO Last administered on 06:14; Admin Dose 50 MCG; Start 07/12/16 at 06:00 Epoetin Rodney (Epogen (Non Esrd/Non Oncology)) 20,000 units Q7D SC Last administered on 07/14/16 20:46; Admin Dose 20,000 UNITS; Start 07/14/16 at 17: 00 Acetaminophen/ Hydrocodone Bitart ([place] (5/325)) 1 tab Q3H PRN PO PAIN LEVEL 1 -3; Start 07/13/16 at 10:30 Acetaminophen/ Hydrocodone Bitart ([place] (5/325)) 2 tab Q3H PRN PO PAIN LEVEL 4 -7; Start 07/13/16 at 10:30 Hydromorphone HCl (Dilaudid) 1 mg Q3H PRN IV PAIN LEVEL 8-10 Last administered on 07/15/16 09:22; Admin Dose 1 MG; Start 07/13/16 at 10:30 Enoxaparin Sodium (Lovenox) 40 mg DAILY SC Last administered on 07/15/16 09:25 ; Admin Dose 40 MG; Start 07/14/16 at 09:00 Srinivas Bedoya DO Jul 15, 2016 12:16
--- NOTE | 2016-07-15 18:46 | PN ---
Date/Time of Note Date/Time of Note DATE: 07/15/16 TIME: 18:42 Assessment/Plan VTE Prophylaxis VTE Prophylaxis Intervention: SCD's Lines/Catheters IV Catheter Type (from [facility]): [place] Urinary Cath still in place: No Assessment/Plan Chief Complaint/Hosp Course Assessment and plan 1. Left femoral neck fracture secondary to mechanical fall. Status post left hip humeral arthroplasty by Dr. Marshall, orthopedic surgery. 2. Coronary artery disease, status post PCI. Dr. Bedoya is following in cardiology consultation. Continue aspirin and Ranexa. 3. Hypertension. Continue Coreg. 4. Dyslipidemia. Continue Lipitor. 5. Hypothyroidism. Continue Synthroid. 6. Macrocytic anemia. 7. E. coli UTI, start Levaquin. Further recommendations based on clinical course. Plan of care discussed with Dr. Robertson. Problems: Subjective 24 Hr Interval Summary Free Text/Dictation Patient was low-grade fever in a.m., urine culture is positive for E. coli, will start Levaquin. Exam/Review of Systems Vital Signs Vitals Vital Signs Date Time Temp Pulse Resp B/P Pulse Ox O2 Delivery O2 Flow Rate FiO2 07/15/16 08:21 100.1 82 20 150/65 100 07/13/16 20:00 2.0 07/13/16 18:45 Nasal Cannula Intake and Output 07/14/16 07/14/16 07/15/16 15:00 23:00 07:00 Intake Total 1050 ml 440 ml 110 ml Output Total 1200 ml 350 ml Balance 1050 ml -760 ml -240 ml Exam GENERAL: The patient is conscious, awake, alert. HEENT: Atraumatic, normocephalic. DYAN NECK: Supple. No mass, no thyromegaly. CHEST: Clear to auscultation. CARDIOVASCULAR: S1, S2 normal. No murmur, gallop, or rub. ABDOMEN: Soft, nondistended, nontender. Bowel sounds plus. EXTREMITIES: No leg edema. No clubbing, no cyanosis. S/p Left hip surgery. NEUROLOGIC: The patient is awake, alert, follows simple commands. Results Result Diagram: 07/15/16 0425 07/15/16 0425 Results 24 hrs Laboratory Tests Test 07/15/16 04:25 Anion Gap 15 Basophils # 0.0 Basophils % 0.1 Blood Urea Nitrogen 18 Calcium Level 8.9 Carbon Dioxide Level 25 Chloride Level 108 Creatinine 0.97 Eosinophils # 0.1 Eosinophils % 1.0 Glucose Level 102 Hematocrit 27.3 L Hemoglobin 8.9 L Lymphocytes # 0.8 Lymphocytes % 11.7 L Mean Corpuscular Hemoglobin 34.0 H Mean Corpuscular Hemoglobin Concent 32.6 Mean Corpuscular Volume 104.2 H Mean Platelet Volume 9.1 Monocytes # 0.8 Monocytes % 11.6 H Neutrophils # 5.1 Neutrophils % 75.3 Nucleated Red Blood Cells # 0.0 Nucleated Red Blood Cells % 0.0 Platelet Count 279 # Potassium Level 4.8 Red Blood Count 2.62 L Red Cell Distribution Width 14.0 Sodium Level 143 White Blood Count 6.8 Medications Medications Current Medications Aspirin (Aspirin) 81 mg DAILY PO Last administered on 07/15/16 09:21; Admin Dose 81 MG; Start 07/11/16 at 09:00 Acetaminophen (Tylenol Tab) 325 mg Q6 PRN PO PAIN AND OR ELEVATED TEMP; Start 07/10/16 at 23:00 Acetaminophen/ Hydrocodone Bitart ([place] (5/325)) 1 tab Q3H PRN PO PAIN; Start 07/10/16 at 23:00 Ondansetron HCl (Zofran Inj) 4 mg Q6H PRN IV NAUSEA AND/OR VOMITING; Start at 23:00 Atorvastatin Calcium (Lipitor) 40 mg QHS PO Last administered on 07/14/16 20: 43; Admin Dose 40 MG; Start 07/11/16 at 21:00 Carvedilol (Coreg) 12.5 mg BID PO Last administered on 07/15/16 09:23; Admin Dose 12.5 MG; Start 07/11/16 at 09:00 Folic Acid (Folic Acid) 1 mg DAILY PO Last administered on 07/15/16 09:21; Admin Dose 1 MG; Start 07/11/16 at 09:00 Levetiracetam (Keppra) 500 mg BID PO Last administered on 07/15/16 09:21; Admin Dose 500 MG; Start 07/11/16 at 09:00 Meclizine HCl (Antivert) 25 mg DAILY PRN PO DIZZINESS; Start 07/10/16 at 23:30 Pantoprazole (Protonix Tab) 40 mg DAILY PO Last administered on 07/15/16 09:26 ; Admin Dose 40 MG; Start 07/11/16 at 09:00 Pregabalin (Lyrica) 25 mg BID PO Last administered on 07/15/16 09:21; Admin Dose 25 MG; Start 07/11/16 at 09:00 Quetiapine Fumarate (Seroquel) 25 mg HS PO Last administered on 07/14/16 20:44 ; Admin Dose 25 MG; Start 07/11/16 at 21:00 Ranolazine (Ranexa) 1,000 mg Q12 PO Last administered on 07/15/16 09:21; Admin Dose 1,000 MG; Start 07/11/16 at 09:00 Morphine Sulfate (morphine) 2 mg Q2H PRN IV PAIN Last administered on 00:47; Admin Dose 2 MG; Start 07/11/16 at 01:30 Levothyroxine Sodium (Synthroid) 50 mcg DAILY@06 PO Last administered on 06:14; Admin Dose 50 MCG; Start 07/12/16 at 06:00 Epoetin Rodney (Epogen (Non Esrd/Non Oncology)) 20,000 units Q7D SC Last administered on 07/14/16 20:46; Admin Dose 20,000 UNITS; Start 07/14/16 at 17: 00 Acetaminophen/ Hydrocodone Bitart ([place] (5/325)) 1 tab Q3H PRN PO PAIN LEVEL 1 -3; Start 07/13/16 at 10:30 Acetaminophen/ Hydrocodone Bitart ([place] (5/325)) 2 tab Q3H PRN PO PAIN LEVEL 4 -7; Start 07/13/16 at 10:30 Hydromorphone HCl (Dilaudid) 1 mg Q3H PRN IV PAIN LEVEL 8-10 Last administered on 07/15/16 12:44; Admin Dose 1 MG; Start 07/13/16 at 10:30 Enoxaparin Sodium (Lovenox) 40 mg DAILY SC Last administered on 07/15/16 09:25 ; Admin Dose 40 MG; Start 07/14/16 at 09:00 ILAN GALDAMEZ Jul 15, 2016 18:45
[2016-07-15] MEDS: LEVOFLOXACIN 500MG/D5W (PMX) 100 ML IVPB SCH (20:09)
[2016-07-15 20:13] VITALS: BP 120/58; RESP 19
[2016-07-15] MEDS: ATORVASTATIN 40 MG TAB PO SCH (20:19)
[2016-07-15] MEDS: QUETIAPINE 25 MG TAB PO SCH (20:20)
[2016-07-16 05:45] LABS: ADD SCAN DIFF NO
[2016-07-16 06:03] LABS: ABNORMAL IP MESSAGE 1; BASOPHILS % 0.3 % (0.0-2.0); EOSINOPHILS % 0.6 % (0.0-7.0); HEMATOCRIT 26.9 % (37.0-47.0); HEMOGLOBIN 8.7 g/dl (12.0-16.0); LYMPHOCYTES # 0.6 10^3/ul (0.8-2.9); LYMPHOCYTES % 8.6 % (15.0-51.0); MEAN CORPUSCULAR HEMOGLOBIN 34.1 pg (29.0-33.0); MEAN CORPUSCULAR HGB CONC 32.3 g/dl (32.0-37.0); MEAN CORPUSCULAR VOLUME 105.5 fl (82.0-101.0); MEAN PLATELET VOLUME 9.4 fl (7.4-10.4); MONOCYTE # 0.7 10^3/ul (0.3-0.9); MONOCYTES % 9.9 % (0.0-11.0); NEUTROPHIL # 5.5 10^3/ul (1.6-7.5); NEUTROPHILS % 80.2 % (39.0-77.0); PLATELET COUNT 241 10^3/UL (140-415); RED BLOOD COUNT 2.55 10^6/ul (4.20-5.40); RED CELL DISTRIBUTION WIDTH 13.9 % (11.5-14.5); WHITE BLOOD COUNT 6.9 10^3/ul (4.8-10.8)
[2016-07-16] MEDS: LEVOTHYROXINE 50 MCG TAB PO SCH (06:13)
[2016-07-16 06:14] LABS: CREATININE 1.15 mg/dl (0.44-1.00)
[2016-07-16 06:15] LABS: CALCIUM 8.4 mg/dl (8.4-10.2)
[2016-07-16 07:52] VITALS: BP 140/64; RESP 22
[2016-07-16] MEDS: PANTOPRAZOLE (EC) 40 MG TAB PO SCH (08:09)
[2016-07-16] MEDS: ASPIRIN 81 MG TAB PO SCH (08:09)
[2016-07-16] MEDS: FOLIC ACID 1 MG TAB PO SCH (08:09)
[2016-07-16] MEDS: LEVETIRACETAM 500 MG TAB PO SCH (08:09)
[2016-07-16] MEDS: RANOLAZINE (SR) 500 MG TAB PO SCH ×2 (08:10→21:00)
[2016-07-16] MEDS: PREGABALIN 25 MG CAP PO SCH ×2 (08:10→21:00)
[2016-07-16] MEDS: ENOXAPARIN 40 MG/0.4 ML SYG SC SCH (08:11)
[2016-07-16] MEDS ORDERED: LORAZEPAM 2 MG INJ IV STA (12:57)
[2016-07-16] MEDS ORDERED: LORAZEPAM 2 MG INJ ONE (12:58)
--- NOTE | 2016-07-16 13:18 | CONS ---
Date/Time of Note Date/Time of Note DATE: 07/16/16 TIME: 13:15 Assessment/Plan Assessment/Plan Additional Assessment/Plan Preoperative cardiac risk stratification Hip fracture status post surgery 07/13/2016 Preserved ejection fraction CAD with history of PCI in 2008 History of CVA Hypertension -Blood pressure trend overall remained stable. Continue antihypertensives. Consultation Date/Type/Reason Admit Date/Time Jul 10, 2016 at 18:21 Type of Consultation: cv 24 HR Interval Summary Free Text/Dictation Patient seen and examined. Sleeping Exam/Review of Systems Vital Signs Vitals Vital Signs Date Time Temp Pulse Resp B/P Pulse Ox O2 Delivery O2 Flow Rate FiO2 07/16/16 11:55 2.0 07/16/16 07:52 98.4 69 22 140/64 100 07/13/16 18:45 Nasal Cannula Intake and Output 07/15/16 07/15/16 07/16/16 15:00 23:00 07:00 Intake Total 920 ml 400 ml Balance 920 ml 400 ml Exam Sleeping but arousable, no apparent distress Head: normocephalic Respiratory: other (Coarse breath sounds bilaterally, no wheezing) Cardiovascular: other (S1-S2 heard), regular rate and rhythm Gastrointestinal: bowel sounds, non-tender, other (No guarding), soft Extremities: other (No edema) Results Result Diagram: 07/16/16 0438 07/16/16 0458 Results 24 hrs Laboratory Tests Test 07/16/16 04:38 07/16/16 04:58 07/16/16 12:53 Basophils # 0.0 Basophils % 0.3 Eosinophils # 0.0 Eosinophils % 0.6 Hematocrit 26.9 L Hemoglobin 8.7 L Lymphocytes # 0.6 L Lymphocytes % 8.6 L Mean Corpuscular Hemoglobin 34.1 H Mean Corpuscular Hemoglobin Concent 32.3 Mean Corpuscular Volume 105.5 H Mean Platelet Volume 9.4 Monocytes # 0.7 Monocytes % 9.9 Neutrophils # 5.5 Neutrophils % 80.2 H Nucleated Red Blood Cells # 0.0 Nucleated Red Blood Cells % 0.0 Platelet Count 241 Red Blood Count 2.55 L Red Cell Distribution Width 13.9 White Blood Count 6.9 Anion Gap 14 Blood Urea Nitrogen 26 H Calcium Level 8.4 Carbon Dioxide Level 26 Chloride Level 105 Creatinine 1.15 H Glucose Level 117 Potassium Level 5.0 Sodium Level 140 Bedside Glucose 143 Medications Medications Current Medications Aspirin (Aspirin) 81 mg DAILY PO Last administered on 07/16/16 08:09; Admin Dose 81 MG; Start 07/11/16 at 09:00 Acetaminophen (Tylenol Tab) 325 mg Q6 PRN PO PAIN AND OR ELEVATED TEMP Last administered on 07/15/16 20:20; Admin Dose 325 MG; Start 07/10/16 at 23:00 Acetaminophen/ Hydrocodone Bitart ([place] (5/325)) 1 tab Q3H PRN PO PAIN; Start 07/10/16 at 23:00 Ondansetron HCl (Zofran Inj) 4 mg Q6H PRN IV NAUSEA AND/OR VOMITING; Start at 23:00 Atorvastatin Calcium (Lipitor) 40 mg QHS PO Last administered on 07/15/16 20: 19; Admin Dose 40 MG; Start 07/11/16 at 21:00 Carvedilol (Coreg) 12.5 mg BID PO Last administered on 07/16/16 08:09; Admin Dose 12.5 MG; Start 07/11/16 at 09:00 Folic Acid (Folic Acid) 1 mg DAILY PO Last administered on 07/16/16 08:09; Admin Dose 1 MG; Start 07/11/16 at 09:00 Levetiracetam (Keppra) 500 mg BID PO Last administered on 07/16/16 08:09; Admin Dose 500 MG; Start 07/11/16 at 09:00 Meclizine HCl (Antivert) 25 mg DAILY PRN PO DIZZINESS; Start 07/10/16 at 23:30 Pantoprazole (Protonix Tab) 40 mg DAILY PO Last administered on 07/16/16 08:09 ; Admin Dose 40 MG; Start 07/11/16 at 09:00 Pregabalin (Lyrica) 25 mg BID PO Last administered on 07/16/16 08:10; Admin Dose 25 MG; Start 07/11/16 at 09:00 Quetiapine Fumarate (Seroquel) 25 mg HS PO Last administered on 07/15/16 20:20 ; Admin Dose 25 MG; Start 07/11/16 at 21:00 Ranolazine (Ranexa) 1,000 mg Q12 PO Last administered on 07/16/16 08:10; Admin Dose 1,000 MG; Start 07/11/16 at 09:00 Morphine Sulfate (morphine) 2 mg Q2H PRN IV PAIN Last administered on 00:47; Admin Dose 2 MG; Start 07/11/16 at 01:30 Levothyroxine Sodium (Synthroid) 50 mcg DAILY@06 PO Last administered on 06:13; Admin Dose 50 MCG; Start 07/12/16 at 06:00 Epoetin Rodney (Epogen (Non Esrd/Non Oncology)) 20,000 units Q7D SC Last administered on 07/14/16 20:46; Admin Dose 20,000 UNITS; Start 07/14/16 at 17: 00 Acetaminophen/ Hydrocodone Bitart ([place] (5/325)) 1 tab Q3H PRN PO PAIN LEVEL 1 -3; Start 07/13/16 at 10:30 Acetaminophen/ Hydrocodone Bitart ([place] (5/325)) 2 tab Q3H PRN PO PAIN LEVEL 4 -7; Start 07/13/16 at 10:30 Hydromorphone HCl (Dilaudid) 1 mg Q3H PRN IV PAIN LEVEL 8-10 Last administered on 07/15/16 12:44; Admin Dose 1 MG; Start 07/13/16 at 10:30 Enoxaparin Sodium 40 mg 40 mg DAILY SC Last administered on 07/16/16 08:11; Admin Dose 40 MG; Start 07/14/16 at 09:00 Levofloxacin/ Dextrose (Levaquin 500mg/ D5W 100 ml (Pmx)) 100 ml @ 100 mls/hr Q24H IVPB Last administered on 07/15/16 20:09; Admin Dose 100 MLS/HR; Start at 19:00 Srinivas Bedoya DO Jul 16, 2016 13:18
[2016-07-16] MEDS ORDERED: LEVETIRACETAM IV 500 MG in SOD CHLORIDE 0.9% 100 ML IVPB SCH (13:30)
--- NOTE | 2016-07-16 13:40 | RADRPT ---
PROCEDURE: CT Brain without contrast. CLINICAL INDICATION: Altered mental status. Possible seizure. TECHNIQUE: CT scan of the brain was performed on a multidetector high-resolution CT scan. Axial im aging was obtained of the brain without contrast administration. Coronal and sagittal reformatted i mages were obtained from the axial source images. Standard CT scan of the head without contrast prot ocols were performed. The total exam CTDI equals 38.7 mGy and the total exam DLP equals 554.95 mGy-cm. One or more of the following dose reduction techniques were used: - Automated exposure control. - Adjustment of the mA and/or kV according to patient size. Use of iterative reconstruction technique. COMPARISON: None FINDINGS: The ventricular system and peripheral CSF spaces are proportionate prominent consistent with modera te to severe generalized cerebral atrophy. There is mild cerebellar atrophy. There is extensive non specific periventricular and subcortical deep white matter changes consistent with chronic microvasc ular ischemic change. There is a remote lacunar infarct involving the left posterior internal capsu le. There is an elongated old infarct involving the right subinsular region. Negative for intracra nial masses hemorrhages or midline shift. The bones and calvarium are intact. The paranasal sinuse s and mastoids visualized are unremarkable. There is atherosclerotic heart plaque involving the dis haile left vertebral artery. IMPRESSION: 1. Moderate to severe generalized cerebral atrophy and mild cerebellar atrophy. 2. Extensive nonspecific chronic microvascular ischemic changes. 3. Elongated remote infarct involving the right [place] or region. Remote lacunar infarct involvin g the left posterior internal capsule. 4. Negative intracranial masses hemorrhages or midline shift. RPTAT:AAJJ Physician Hallie Date Time Electronically viewed and signed by Physician Hallie on 07/16/2016 13:40 BM/
--- NOTE | 2016-07-16 13:46 | PN ---
DATE: 07/16/2016 SUBJECTIVE: The patient had a seizure witnessed by her . Currently, patient is postictal wi th stable vital signs. The patient also had a fever last night; however, afebrile currently. No n ausea, vomiting reported prior to event. ASSESSMENT AND PLAN: The patient was given Ativan for seizures and patient will undergo CT scan of the brain. Will obtain urine and blood cultures and chest x-ray stat as well. Rule out acute coron skylar syndrome. We will obtain troponins x3. The patient is status post left femoral fracture second skylar to mechanical fall, status post left hip humeral arthroplasty by Dr. Marshall. Patient also with his tory of coronary artery disease, hypertension, dyslipidemia, hypothyroidism. The patient had a hist ory of seizures and on Keppra p.o. I will switch Keppra to IV and I asked ____ to evaluate pat ient, also will follow up on the CT scan of the head and cardiac enzymes. Will transfer patient to telemetry. PHYSICAL ASSESSMENT: NEUROLOGIC: Patient currently is nonresponsive. Pupils equal, round, reactive to light and accommo dation. NECK: Supple. No mass, no thyromegaly. LUNGS: Clear bilaterally. There are no rhonchi, wheezes, rales noted. HEART: Normal S1, S2. No murmurs, gallops, clicks, rubs. ABDOMEN: Soft, nondistended, nontender. Bowel sounds present. EXTREMITIES: Status post left hip surgery with abduction pillow was present. There is no clubbing, cyanosis. No edema. NEUROLOGIC: The patient currently is postictal, does not respond to any commands. LABORATORY AND DIAGNOSTIC DATA: Today in the morning, CBC: White blood cells 6.9, hemoglobin 8.7, hematocrit 26.9, platelets 241. Chemistry: Sodium is 140, potassium 5.0, chloride 105, carbon diox charanjit 26, anion gap 14, BUN is 26, creatinine 1.15, glucose 117, calcium is 8.4. Further recommendati ons based on clinical course. Plan of care discussed with Dr. Robertson. Dictated By: ILAN GALDAMEZ TEMPERING MACHINE OPERATOR for PRINCESS ROBERTSON MD SR/NTS Conf#: [id number] DID#: [id number]
--- NOTE | 2016-07-16 15:12 | RADRPT ---
PROCEDURE: Chest x-ray CLINICAL INDICATION: Fever TECHNIQUE: Chest single view COMPARISON: 07/10/2016 FINDINGS: There is stable mild cardiomegaly and moderate atherosclerotic aortic calcification. Pulmonary vess els normal in caliber. There is mild basilar atelectasis. No confluent pneumonia seen. Costophren ic angles sharp. Bones are osteopenic. IMPRESSION: 1. Mild cardiomegaly and atherosclerotic aortic calcification. 2. Mild basilar atelectasis RPTAT: [facility] .Garret Cordero MD, Date Time Electronically viewed and signed by .Garret Cordero MD, on 07/16/2016 15:12 .W/
[2016-07-16 15:54] VITALS: BP 102/51; RESP 20
[2016-07-16 16:13] VITALS: PULSE 72
[2016-07-16 17:17] LABS: ADD UMIC YES; URINE BILIRUBIN (Dip) NEGATIVE (NEGATIVE); URINE BLOOD (Dip) NEGATIVE (NEGATIVE); URINE COLOR LT. YELLOW (YELLOW); URINE GLUCOSE (Dip) NEGATIVE (NEGATIVE); URINE KETONES (Dip) NEGATIVE (NEGATIVE); URINE LEUKOCYTE ESTERASE (Dip) TRACE (NEGATIVE); URINE NITRITE (Dip) NEGATIVE (NEGATIVE); URINE TOTAL PROTEIN (Dip) NEGATIVE (NEGATIVE); URINE UROBILINOGEN (Dip) 0.2 E.U./dL (0.1-1.0)
[2016-07-16 17:31] LABS: URINE RBCS NONE SEEN /HPF (0)
--- NOTE | 2016-07-16 19:06 | CONS ---
DATE OF ADMISSION: 07/10/2016 DATE OF CONSULTATION: 07/16/2016 TYPE OF CONSULTATION: Neurology. Thank you, Dr. Fisher and Ilan Galdamez, nurse practitioner, for your kind referral for evaluation of seizure disorder. HISTORY OF PRESENT ILLNESS: The patient's daughter is at bedside providing details of the history. The patient is a 76-year-old lady who has history of coronary artery disease, dyslipidemia, strokes last year, as well as dementia, and seizure disorder. The patient had a fall about 2 weeks ago, diagnosed with left hip fracture, and underwent hemiarthroplasty of the left hip on 2016. The patient's daughter stating that she had a seizure the night prior to surgery and she had another seizure today. Daughter states that patient had a seizure disorder since beginning of the last year and had approximately 10 generalized episodes altogether. She was put on Keppra 500 mg twice daily by Dr. Smallwood and she did not have any more seizures while on Keppra for several months. According to the daughter, she took Keppra before the surgery. The patient was put on Keppra 500 twice daily, as she was taking before today, but today was switched to IV. She received Ativan following the seizure and she is still very lethargic and minimally arousable. MEDICATIONS: Currently: 1. Levofloxacin. 2. Epoetin. 3. Lovenox for DVT prevention. 4. Cefazolin. 5. [place]. 6. Dilaudid. 7. Fentanyl. 8. PRNs. ALLERGIES: PENICILLIN. SOCIAL HISTORY: No alcohol, tobacco, drug use. FAMILY HISTORY: Noncontributory. REVIEW OF SYSTEMS: Unable to obtain. The patient is lethargic. PHYSICAL EXAMINATION: VITAL SIGNS: Temperature 98.0, 74 pulse, RR 16, 102/51 blood pressure. GENERAL: Not in acute distress, lying in bed. HEENT: Normocephalic, atraumatic head. NECK: No carotid bruits. No thyromegaly. LUNGS: Clear to auscultation bilaterally. CARDIAC: Normal cardiac rhythm and sounds. ABDOMEN: Soft, nontender. EXTREMITIES: No cyanosis, clubbing, or edema. NEUROLOGIC: She is lethargic. She starts moving and grimacing to pain, but still does not wake up. No definite response to visual threat. According to the patient's daughter, the patient is blind in the right eye. Pupil on the left reactive from 3 to 2 mm, not reactive on the right. Right eye deviated to the left. No extraocular movements on oculocephalic maneuver. Corneal reflexes present bilaterally as well as gag. Motor strength examination shows trace of withdrawal in all extremities to pain, decreased tone, normal bulk. Deep tendon reflexes 2+ upper extremities and lower extremities. Equivocal response to plantar stimulation bilaterally. LABORATORY DATA: The patient's labs show anemia, hemoglobin 8.7, hematocrit 26 , normal WBCs and platelets, today. Chemistry today BUN 26, creatinine 1.15. She seemed to be getting a little dehydrated over the last few days. Rest of basic metabolic panel within normal limits. Normal liver function tests. Normal PT, PTT. Urinalysis: Trace of leukocyte esterase today. IMPRESSION: Seizure disorder, status post breakthrough seizures. PLAN: To increase Keppra, make it 750 mg twice daily in IV form. MRI of the brain was requested by PMD and pending. I will obtain EEG. Continue current treatments. The patient also has baseline dementia according to the family member. Recent hip fracture with surgery 3 days ago. Daughter reports a history of strokes in the past. Continue current treatment otherwise. Thank you very much for this interesting consultation. Dictated By: CRISTOBAL ALEXANDRE/ZHANG Conf#: [id number] DID#: [id number] CC: ILAN GALDAMEZ NP; PRINCESS FISHER MD;*EndCC* MTDD
[2016-07-16 20:07] VITALS: PULSE 80
[2016-07-16] MEDS: LEVOFLOXACIN 500MG/D5W (PMX) 100 ML IVPB SCH (20:32)
[2016-07-16 20:53] VITALS: BP 90/43; RESP 18
[2016-07-16] MEDS: ATORVASTATIN 40 MG TAB PO SCH (21:00)
[2016-07-16] MEDS: QUETIAPINE 25 MG TAB PO SCH (21:00)
--- NOTE | 2016-07-16 22:18 | RADRPT ---
AMENDMENT: 07/16/2016 10:26:30 PM Venessa Quiros M.D. Addendum: A call report was made to Dr. Austin at 07/16/2016 10:25:53 PM following the completion of the exami nation by the undersigned. RPTAT: [facility] PROCEDURE: MRI Brain without contrast. CLINICAL INDICATION: Recurrent seizures and status post hip surgery 07/14/2016 TECHNIQUE: An MRI of the brain was performed on a high resolution hi-definition MRI scanner utiliz ing the following sequences: Sagittal and axial T1 weighted, axial T2 weighted, 3-D oblique SPGR and coronal oblique T2 FLAIR of the temporal lobes, axial diffusion weighted with ADC mapping, coronal GRE, and axial FLAIR. COMPARISON: None FINDINGS: The scalp and calvarium are normal. The visualized orbits demonstrates senescent changes with sequel a of prior lens resection. The paranasal sinuses are remarkable for secretions in the sphenoid sinu s. The bilateral mastoid air cells and middle ear cavities are clear. No extra-axial fluid collections are present. The ventricles and sulci are age appropriate. Mild t o moderate diffuse volume loss is present. No evidence of intracranial hemorrhage, mass effect or mi dline shift is present. Multiple punctate foci of FLAIR and T2 hyperintensity are present in the bi lateral subcortical white matter, bilateral centrum semiovale, bilateral periventricular white matte r compatible with mild chronic microvascular ischemic disease. On diffusion weighted sequences, punc miguel foci of restricted diffusion are noted in the left frontal lobe cortex compatible with acute no n hemorrhagic infarcts. No hypointense signal abnormalities are seen on the GRE images to suggest t he presence of blood degradation products. Normal flow voids are visible in the proximal intracr anial arteries and dural sinuses, indicating patency. IMPRESSION: 1. Acute, non hemorrhagic left frontal cortical infarcts. 2. Mild to moderate chronic microvascular ischemic disease 3. Mild to moderate diffuse volume loss. RPTAT: [facility] .Venessa Quiros MD, Date Time Electronically viewed and signed by .Venessa Quiros MD, on 07/16/2016 22:26 .C/
[2016-07-16] MEDS: LEVETIRACETAM IV 750 MG in SOD CHLORIDE 0.9% 100 ML IVPB SCH (22:43)
[2016-07-16] MEDS: DEXTROSE 5%-0.45% NACL 1,000 ML IV SCH (22:44)
[2016-07-16] MEDS: ASPIRIN 300 MG SUPP PR SCH (22:58)
[2016-07-17] VITALS (12 sets, daily range): BP systolic 97–139; BP diastolic 47–70; PULSE 80–96; RESP 18–20
[2016-07-17] MEDS: LEVOTHYROXINE 50 MCG TAB PO SCH (05:20)
[2016-07-17 07:23] LABS: ADD SCAN DIFF NO
[2016-07-17 07:32] LABS: ABNORMAL IP MESSAGE 1; BASOPHILS % 0.2 % (0.0-2.0); EOSINOPHILS # 0.2 10^3/ul (0.0-0.5); EOSINOPHILS % 3.2 % (0.0-7.0); HEMATOCRIT 25.3 % (37.0-47.0); HEMOGLOBIN 8.1 g/dl (12.0-16.0); LYMPHOCYTES # 0.5 10^3/ul (0.8-2.9); LYMPHOCYTES % 9.1 % (15.0-51.0); MEAN CORPUSCULAR HEMOGLOBIN 33.6 pg (29.0-33.0); MEAN PLATELET VOLUME 9.1 fl (7.4-10.4); MONOCYTE # 0.5 10^3/ul (0.3-0.9); MONOCYTES % 8.8 % (0.0-11.0); NEUTROPHIL # 4.6 10^3/ul (1.6-7.5); NEUTROPHILS % 78.2 % (39.0-77.0); PLATELET COUNT 279 10^3/UL (140-415); RED BLOOD COUNT 2.41 10^6/ul (4.20-5.40); RED CELL DISTRIBUTION WIDTH 13.7 % (11.5-14.5); WHITE BLOOD COUNT 5.9 10^3/ul (4.8-10.8)
[2016-07-17 07:37] LABS: POTASSIUM 4.4 mmol/L (3.5-5.1)
[2016-07-17 07:40] LABS: CREATININE 1.29 mg/dl (0.44-1.00)
[2016-07-17 07:41] LABS: CALCIUM 8.6 mg/dl (8.4-10.2)
[2016-07-17 07:44] LABS: CHOL/HDL RATIO 4.5 RATIO
[2016-07-17] MEDS: PREGABALIN 25 MG CAP PO SCH ×2 (09:00→22:14)
[2016-07-17] MEDS: PANTOPRAZOLE (EC) 40 MG TAB PO SCH (09:00)
[2016-07-17] MEDS: RANOLAZINE (SR) 500 MG TAB PO SCH ×2 (09:00→22:13)
[2016-07-17] MEDS: FOLIC ACID 1 MG TAB PO SCH (09:00)
--- NOTE | 2016-07-17 09:23 | RADRPT ---
PROCEDURE: Carotid ultrasound CLINICAL INDICATION: Stroke, carotid bruits TECHNIQUE: Cowart scale, color doppler, spectral doppler ultrasound of the bilateral carotid and radha tebral arteries. This study indirectly references the measurement of the distal ICA diameter as the denominator for s tenosis measurement. Validated velocity measurements with angiographic measurements, velocity criter ia are extrapolated from diameter data as defined by: *Cartoid artery stenosis: cowart-scale and Doppl er US diagnosis. Society of Radiologists in Ultrasound Consensus Conference. Radiology 2003; 229: 34 0-346. SRU Consensus Conference Criteria for the Diagnosis of Carotid Artery Stenosis* Degree of Stenosis, % ICA PSV, cm/sec Plaque Estimate, % ICA/CCA PSV Ratio Normal <125 None <2.0 <50 <125 <50 <2.0 50 69 125-230 >50 2.0-4.0 >70 but less than near occlusion >230 >50 <4.0 Near occlusion High, low, or undetectable Visible Variable Total occlusion Undetectable Visible, no detectable lumen Not applicable COMPARISON: No prior studies are available for comparison. FINDINGS: Location Right CCA43 cm/sec Prox ICA 52 cm/sec Mid ICA68 cm/sec Dist ICA78 cm/sec ECA46 cm/sec ICA/CCA1.8 Left CCA41 cm/sec Prox ICA 36 cm/sec Mid ICA52 cm/sec Dist ICA53 cm/sec ECA56 cm/sec ICA/CCA1.3 Plaque burden: A minimal amount of plaque is present within the visualized portions of both internal carotid arteries however there is no evidence of flow acceleration to suggest a hemodynamically sig nificant stenosis. Antegrade flow is seen within the vertebral arteries bilaterally. IMPRESSION: A minimal amount of plaque is present within the visualized portions of both internal carotid arteri es however there is no evidence of flow acceleration to suggest a hemodynamically significant stenos is. RPTAT: [facility] .Glen Alexander MD, Date Time Electronically viewed and signed by .Glen Alexander MD, on 07/17/2016 09:23 .B/
[2016-07-17] MEDS: LEVETIRACETAM IV 750 MG in SOD CHLORIDE 0.9% 100 ML IVPB SCH ×2 (09:53→22:12)
[2016-07-17] MEDS: HYDROmorphONE 1 MG/ML SYG IV PRN ×3 (10:07→19:56)
[2016-07-17] MEDS: ENOXAPARIN 40 MG/0.4 ML SYG SC SCH (10:11)
--- NOTE | 2016-07-17 12:40 | PN ---
Date/Time of Note Date/Time of Note DATE: 07/17/16 TIME: 12:31 Assessment/Plan VTE Prophylaxis VTE Prophylaxis Intervention: other Lines/Catheters IV [facility]ter Type (from [facility]): Peripheral IV Urinary Cath still in place: No Assessment/Plan Assessment/Plan 1. Left hip fracture secondary to mechanical fall. Dr. Marshall is following in orthopedic surgery consultation. -plan for left hip hemiarthroplasty 2. Hx Coronary artery disease, status post PCI. - per Dr. Bedoya in cardiology consultation. Continue aspirin and Ranexa. 3. Hypertension. Continue Coreg. 4. Dyslipidemia. Continue Lipitor. 5. Hypothyroidism. Continue Synthroid. 6. Macrocytic anemia. 7. Hx of Seizures- none reported today. - cont on Tele - per neurology dr Fidencio Pozo - CT head - UA, U c/s - cxr 8. R/O Coronary disease - sp troponins x3. 9. Acute Kidney Injury - monitor renal labs. Further recommendations based on clinical course. Plan of care discussed with Dr. Robertson. Subjective 24 Hr Interval Summary Free Text/Dictation nad, daughter at bed side- all Qs answered. patient seems comfortable. staff. Daughter wants to talk to DR Nicolas- staff. Exam/Review of Systems Vital Signs Vitals Vital Signs Date Time Temp Pulse Resp B/P Pulse Ox O2 Delivery O2 Flow Rate FiO2 07/17/16 11:45 98.3 90 20 97/47 98 07/16/16 20:00 Nasal Cannula 4.0 Intake and Output 07/16/16 07/16/16 07/17/16 15:00 23:00 07:00 Intake Total 240 ml 207.5 ml 375 ml Balance 240 ml 207.5 ml 375 ml Exam Constitutional: alert, well developed Psych: nl mood/affect Eyes: nl sclera ENMT: nl external ears & nose Neck: non-tender Respiratory: clear to auscultation Cardiovascular: nl pulses Gastrointestinal: non-tender, soft Extremities: normal pulses, other (sp left hip sx- DDI) Neurological: confused, nl speech, other (confused , folows simple commands.) Skin: other Results Result Diagram: 07/17/16 0616 07/17/16 0616 Results 24 hrs Laboratory Tests Test 07/16/16 12:53 07/16/16 14:00 07/16/16 15:26 07/17/16 06:16 Bedside Glucose 143 Troponin I < 0.012 Urine Bilirubin NEGATIVE Urine Clarity CLEAR Urine Color LT. YELLOW Urine Glucose NEGATIVE Urine Hemoglobin NEGATIVE Urine Ketones NEGATIVE Urine Leukocyte Esterase TRACE H Urine Microscopic RBC NONE SEEN Urine Microscopic WBC 0-2 Urine Nitrite NEGATIVE Urine Specific [place] 1.020 Urine Total Protein NEGATIVE Urine Urobilinogen 0.2 E.U./dL Urine pH 5.5 Anion Gap 12 Basophils # 0.0 Basophils % 0.2 Blood Urea Nitrogen 27 H Calcium Level 8.6 Carbon Dioxide Level 28 Chloride Level 106 Cholesterol Level 99 L Cholesterol/HDL Ratio 4.5 Creatinine 1.29 H Eosinophils # 0.2 Eosinophils % 3.2 Glucose Level 106 HDL Cholesterol 22 L Hematocrit 25.3 L Hemoglobin 8.1 L LDL Cholesterol, Calculated 50 Lymphocytes # 0.5 L Lymphocytes % 9.1 L Mean Corpuscular Hemoglobin 33.6 H Mean Corpuscular Hemoglobin Concent 32.0 Mean Corpuscular Volume 105.0 H Mean Platelet Volume 9.1 Monocytes # 0.5 Monocytes % 8.8 Neutrophils # 4.6 Neutrophils % 78.2 H Nucleated Red Blood Cells # 0.0 Nucleated Red Blood Cells % 0.0 Platelet Count 279 Potassium Level 4.4 Red Blood Count 2.41 L Red Cell Distribution Width 13.7 Sodium Level 142 Triglycerides Level 136 White Blood Count 5.9 Medications Medications Current Medications Acetaminophen (Tylenol Tab) 325 mg Q6 PRN PO PAIN AND OR ELEVATED TEMP Last administered on 07/15/16 20:20; Admin Dose 325 MG; Start 07/10/16 at 23:00 Acetaminophen/ Hydrocodone Bitart ([place] (5/325)) 1 tab Q3H PRN PO PAIN; Start 07/10/16 at 23:00 Ondansetron HCl (Zofran Inj) 4 mg Q6H PRN IV NAUSEA AND/OR VOMITING; Start at 23:00 Atorvastatin Calcium (Lipitor) 40 mg QHS PO Last administered on 07/15/16 20: 19; Admin Dose 40 MG; Start 07/11/16 at 21:00 Carvedilol (Coreg) 12.5 mg BID PO Last administered on 07/16/16 08:09; Admin Dose 12.5 MG; Start 07/11/16 at 09:00 Folic Acid (Folic Acid) 1 mg DAILY PO Last administered on 07/16/16 08:09; Admin Dose 1 MG; Start 07/11/16 at 09:00 Meclizine HCl (Antivert) 25 mg DAILY PRN PO DIZZINESS; Start 07/10/16 at 23:30 Pantoprazole (Protonix Tab) 40 mg DAILY PO Last administered on 07/16/16 08:09 ; Admin Dose 40 MG; Start 07/11/16 at 09:00 Pregabalin (Lyrica) 25 mg BID PO Last administered on 07/16/16 08:10; Admin Dose 25 MG; Start 07/11/16 at 09:00 Quetiapine Fumarate (Seroquel) 25 mg HS PO Last administered on 07/15/16 20:20 ; Admin Dose 25 MG; Start 07/11/16 at 21:00 Ranolazine (Ranexa) 1,000 mg Q12 PO Last administered on 07/16/16 08:10; Admin Dose 1,000 MG; Start 07/11/16 at 09:00 Morphine Sulfate (morphine) 2 mg Q2H PRN IV PAIN Last administered on 00:47; Admin Dose 2 MG; Start 07/11/16 at 01:30 Levothyroxine Sodium (Synthroid) 50 mcg DAILY@06 PO Last administered on 06:13; Admin Dose 50 MCG; Start 07/12/16 at 06:00 Epoetin Rodney (Epogen (Non Esrd/Non Oncology)) 20,000 units Q7D SC Last administered on 07/14/16 20:46; Admin Dose 20,000 UNITS; Start 07/14/16 at 17: 00 Acetaminophen/ Hydrocodone Bitart ([place] (5/325)) 1 tab Q3H PRN PO PAIN LEVEL 1 -3; Start 07/13/16 at 10:30 Acetaminophen/ Hydrocodone Bitart ([place] (5/325)) 2 tab Q3H PRN PO PAIN LEVEL 4 -7; Start 07/13/16 at 10:30 Hydromorphone HCl 1 mg 1 mg Q3H PRN IV PAIN LEVEL 8-10 Last administered on 07/17 10:07; Admin Dose 1 MG; Start 07/13/16 at 10:30 Levofloxacin/ Dextrose 100 ml @ 100 mls/hr Q24H IVPB Last administered on 20:32; Admin Dose 100 MLS/HR; Start 07/15/16 at 19:00; Stop 07/17/16 at 23: 45 Levetiracetam 750 mg/Sodium Chloride 107.5 ml @ 420 mls/hr Q12 IVPB Last administered on 07/17/16 09:53; Admin Dose 420 MLS/HR; Start 07/16/16 at 21:00 Dextrose/Sodium Chloride (D5-1/2ns) 1,000 ml @ 75 mls/hr [id number] IV Last administered on 07/16/16 22:44; Admin Dose 75 MLS/HR; Start 07/16/16 at 22:00 Aspirin (Aspirin) 300 mg QHS CA Last administered on 07/16/16 22:58; Admin Dose 300 MG; Start 07/16/16 at 22:30 Levofloxacin (Levaquin) 250 mg DAILY@06 PO ; Start 07/18/16 at 06:00 Enoxaparin Sodium (Lovenox) 30 mg DAILY SC ; Start 07/18/16 at 09:00 IVON DENT Jul 17, 2016 12:40
[2016-07-17] MEDS: DEXTROSE 5%-0.45% NACL 1,000 ML IV SCH (14:43)
--- NOTE | 2016-07-17 15:32 | CONS ---
Date/Time of Note Date/Time of Note DATE: 07/17/16 TIME: 15:30 Assessment/Plan Assessment/Plan Additional Assessment/Plan Preoperative cardiac risk stratification Hip fracture status post surgery 07/13/2016 Preserved ejection fraction CAD with history of PCI in 2008 History of CVA Hypertension -Patient with possible seizure yesterday. Being evaluated and treated by neurology. Holding parameters on antihypertensives. Consultation Date/Type/Reason Admit Date/Time Jul 10, 2016 at 18:21 Type of Consultation: cv 24 HR Interval Summary Free Text/Dictation Patient transferred to telemetry, possible seizure yesterday. Currently awake, no chest pain but points to hip and pain Exam/Review of Systems Vital Signs Vitals Vital Signs Date Time Temp Pulse Resp B/P Pulse Ox O2 Delivery O2 Flow Rate FiO2 07/17/16 12:33 88 07/17/16 11:45 98.3 20 97/47 98 07/16/16 20:00 Nasal Cannula 4.0 Intake and Output 07/16/16 07/16/16 07/17/16 15:00 23:00 07:00 Intake Total 240 ml 207.5 ml 375 ml Balance 240 ml 207.5 ml 375 ml Exam Following commands, no apparent distress Constitutional: alert, frail Neck: supple Respiratory: other (Coarse breath sounds bilaterally, no wheezing) Cardiovascular: other (S1-S2 heard), regular rate and rhythm Gastrointestinal: bowel sounds, non-tender, other (No guarding), soft Extremities: other (No edema) Results Result Diagram: 07/17/16 0616 07/17/16 0616 Results 24 hrs Laboratory Tests Test 07/17/16 06:16 Anion Gap 12 Basophils # 0.0 Basophils % 0.2 Blood Urea Nitrogen 27 H Calcium Level 8.6 Carbon Dioxide Level 28 Chloride Level 106 Cholesterol Level 99 L Cholesterol/HDL Ratio 4.5 Creatinine 1.29 H Eosinophils # 0.2 Eosinophils % 3.2 Glucose Level 106 HDL Cholesterol 22 L Hematocrit 25.3 L Hemoglobin 8.1 L LDL Cholesterol, Calculated 50 Lymphocytes # 0.5 L Lymphocytes % 9.1 L Mean Corpuscular Hemoglobin 33.6 H Mean Corpuscular Hemoglobin Concent 32.0 Mean Corpuscular Volume 105.0 H Mean Platelet Volume 9.1 Monocytes # 0.5 Monocytes % 8.8 Neutrophils # 4.6 Neutrophils % 78.2 H Nucleated Red Blood Cells # 0.0 Nucleated Red Blood Cells % 0.0 Platelet Count 279 Potassium Level 4.4 Red Blood Count 2.41 L Red Cell Distribution Width 13.7 Sodium Level 142 Triglycerides Level 136 White Blood Count 5.9 Medications Medications Current Medications Acetaminophen (Tylenol Tab) 325 mg Q6 PRN PO PAIN AND OR ELEVATED TEMP Last administered on 07/15/16 20:20; Admin Dose 325 MG; Start 07/10/16 at 23:00 Acetaminophen/ Hydrocodone Bitart ([place] (5/325)) 1 tab Q3H PRN PO PAIN; Start 07/10/16 at 23:00 Ondansetron HCl (Zofran Inj) 4 mg Q6H PRN IV NAUSEA AND/OR VOMITING; Start at 23:00 Atorvastatin Calcium (Lipitor) 40 mg QHS PO Last administered on 07/15/16 20: 19; Admin Dose 40 MG; Start 07/11/16 at 21:00 Carvedilol (Coreg) 12.5 mg BID PO Last administered on 07/16/16 08:09; Admin Dose 12.5 MG; Start 07/11/16 at 09:00 Folic Acid (Folic Acid) 1 mg DAILY PO Last administered on 07/16/16 08:09; Admin Dose 1 MG; Start 07/11/16 at 09:00 Meclizine HCl (Antivert) 25 mg DAILY PRN PO DIZZINESS; Start 07/10/16 at 23:30 Pantoprazole (Protonix Tab) 40 mg DAILY PO Last administered on 07/16/16 08:09 ; Admin Dose 40 MG; Start 07/11/16 at 09:00 Pregabalin (Lyrica) 25 mg BID PO Last administered on 07/16/16 08:10; Admin Dose 25 MG; Start 07/11/16 at 09:00 Quetiapine Fumarate (Seroquel) 25 mg HS PO Last administered on 07/15/16 20:20 ; Admin Dose 25 MG; Start 07/11/16 at 21:00 Ranolazine (Ranexa) 1,000 mg Q12 PO Last administered on 07/16/16 08:10; Admin Dose 1,000 MG; Start 07/11/16 at 09:00 Morphine Sulfate (morphine) 2 mg Q2H PRN IV PAIN Last administered on 00:47; Admin Dose 2 MG; Start 07/11/16 at 01:30 Levothyroxine Sodium (Synthroid) 50 mcg DAILY@06 PO Last administered on 06:13; Admin Dose 50 MCG; Start 07/12/16 at 06:00 Epoetin Rodney (Epogen (Non Esrd/Non Oncology)) 20,000 units Q7D SC Last administered on 07/14/16 20:46; Admin Dose 20,000 UNITS; Start 07/14/16 at 17: 00 Acetaminophen/ Hydrocodone Bitart ([place] (5/325)) 1 tab Q3H PRN PO PAIN LEVEL 1 -3; Start 07/13/16 at 10:30 Acetaminophen/ Hydrocodone Bitart ([place] (5/325)) 2 tab Q3H PRN PO PAIN LEVEL 4 -7; Start 07/13/16 at 10:30 Hydromorphone HCl 1 mg 1 mg Q3H PRN IV PAIN LEVEL 8-10 Last administered on 07/17 14:38; Admin Dose 1 MG; Start 07/13/16 at 10:30 Levofloxacin/ Dextrose 100 ml @ 100 mls/hr Q24H IVPB Last administered on 20:32; Admin Dose 100 MLS/HR; Start 07/15/16 at 19:00 Levetiracetam 750 mg/Sodium Chloride 107.5 ml @ 420 mls/hr Q12 IVPB Last administered on 07/17/16 09:53; Admin Dose 420 MLS/HR; Start 07/16/16 at 21:00 Dextrose/Sodium Chloride (D5-1/2ns) 1,000 ml @ 75 mls/hr [id number] IV Last administered on 07/17/16 14:43; Admin Dose 75 MLS/HR; Start 07/16/16 at 22:00 Aspirin (Aspirin) 300 mg QHS [place] Last administered on 07/16/16 22:58; Admin Dose 300 MG; Start 07/16/16 at 22:30 Enoxaparin Sodium (Lovenox) 30 mg DAILY SC ; Start 07/18/16 at 09:00 Srinivas Bedoya DO Jul 17, 2016 15:32
--- NOTE | 2016-07-17 16:44 | CONS ---
Date/Time of Note Date/Time of Note DATE: 07/17/16 TIME: 16:36 Consult Date/Type/Reason Admit Date/Time Jul 10, 2016 at 18:21 Initial Consult Date Type of Consultation: cv Subjective No seizures today, more awake now, c/o left hip pain Objective Vital Signs Date Time Temp Pulse Resp B/P Pulse Ox O2 Delivery O2 Flow Rate FiO2 07/17/16 15:59 98.5 96 18 106/51 100 07/16/16 20:00 Nasal Cannula 4.0 Intake and Output 07/16/16 07/16/16 07/17/16 15:00 23:00 07:00 Intake Total 240 ml 207.5 ml 375 ml Balance 240 ml 207.5 ml 375 ml Results/Medications Result Diagram: 07/17/16 0616 07/17/16 0616 Results 24 hrs Laboratory Tests Test 07/17/16 06:16 Anion Gap 12 Basophils # 0.0 Basophils % 0.2 Blood Urea Nitrogen 27 H Calcium Level 8.6 Carbon Dioxide Level 28 Chloride Level 106 Cholesterol Level 99 L Cholesterol/HDL Ratio 4.5 Creatinine 1.29 H Eosinophils # 0.2 Eosinophils % 3.2 Glucose Level 106 HDL Cholesterol 22 L Hematocrit 25.3 L Hemoglobin 8.1 L LDL Cholesterol, Calculated 50 Lymphocytes # 0.5 L Lymphocytes % 9.1 L Mean Corpuscular Hemoglobin 33.6 H Mean Corpuscular Hemoglobin Concent 32.0 Mean Corpuscular Volume 105.0 H Mean Platelet Volume 9.1 Monocytes # 0.5 Monocytes % 8.8 Neutrophils # 4.6 Neutrophils % 78.2 H Nucleated Red Blood Cells # 0.0 Nucleated Red Blood Cells % 0.0 Platelet Count 279 Potassium Level 4.4 Red Blood Count 2.41 L Red Cell Distribution Width 13.7 Sodium Level 142 Triglycerides Level 136 White Blood Count 5.9 Medications Current Medications Acetaminophen (Tylenol Tab) 325 mg Q6 PRN PO PAIN AND OR ELEVATED TEMP Last administered on 07/15/16t 20:20; Admin Dose 325 MG; Start 07/10/16 at 23:00 Acetaminophen/ Hydrocodone Bitart ([place] (5/325)) 1 tab Q3H PRN PO PAIN; Start 07/10/16 at 23:00 Ondansetron HCl (Zofran Inj) 4 mg Q6H PRN IV NAUSEA AND/OR VOMITING; Start at 23:00 Atorvastatin Calcium (Lipitor) 40 mg QHS PO Last administered on 07/15/16 20: 19; Admin Dose 40 MG; Start 07/11/16 at 21:00 Carvedilol (Coreg) 12.5 mg BID PO Last administered on 07/16/16 08:09; Admin Dose 12.5 MG; Start 07/11/16 at 09:00 Folic Acid (Folic Acid) 1 mg DAILY PO Last administered on 07/16/16 08:09; Admin Dose 1 MG; Start 07/11/16 at 09:00 Meclizine HCl (Antivert) 25 mg DAILY PRN PO DIZZINESS; Start 07/10/16 at 23:30 Pantoprazole (Protonix Tab) 40 mg DAILY PO Last administered on 07/16/16 08:09 ; Admin Dose 40 MG; Start 07/11/16 at 09:00 Pregabalin (Lyrica) 25 mg BID PO Last administered on 07/16/16 08:10; Admin Dose 25 MG; Start 07/11/16 at 09:00 Quetiapine Fumarate (Seroquel) 25 mg HS PO Last administered on 07/15/16 20:20 ; Admin Dose 25 MG; Start 07/11/16 at 21:00 Ranolazine (Ranexa) 1,000 mg Q12 PO Last administered on 07/16/16 08:10; Admin Dose 1,000 MG; Start 07/11/16 at 09:00 Morphine Sulfate (morphine) 2 mg Q2H PRN IV PAIN Last administered on 00:47; Admin Dose 2 MG; Start 07/11/16 at 01:30 Levothyroxine Sodium (Synthroid) 50 mcg DAILY@06 PO Last administered on 06:13; Admin Dose 50 MCG; Start 07/12/16 at 06:00 Epoetin Rodney (Epogen (Non Esrd/Non Oncology)) 20,000 units Q7D SC Last administered on 07/14/16 20:46; Admin Dose 20,000 UNITS; Start 07/14/16 at 17: 00 Acetaminophen/ Hydrocodone Bitart ([place] (5/325)) 1 tab Q3H PRN PO PAIN LEVEL 1 -3; Start 07/13/16 at 10:30 Acetaminophen/ Hydrocodone Bitart ([place] (5/325)) 2 tab Q3H PRN PO PAIN LEVEL 4 -7; Start 07/13/16 at 10:30 Hydromorphone HCl 1 mg 1 mg Q3H PRN IV PAIN LEVEL 8-10 Last administered on 07/17 14:38; Admin Dose 1 MG; Start 07/13/16 at 10:30 Levofloxacin/ Dextrose 100 ml @ 100 mls/hr Q24H IVPB Last administered on 20:32; Admin Dose 100 MLS/HR; Start 07/15/16 at 19:00 Levetiracetam 750 mg/Sodium Chloride 107.5 ml @ 420 mls/hr Q12 IVPB Last administered on 07/17/16 09:53; Admin Dose 420 MLS/HR; Start 07/16/16 at 21:00 Dextrose/Sodium Chloride (D5-1/2ns) 1,000 ml @ 75 mls/hr [id number] IV Last administered on 07/17/16 14:43; Admin Dose 75 MLS/HR; Start 07/16/16 at 22:00 Aspirin (Aspirin) 300 mg QHS [place] Last administered on 07/16/16 22:58; Admin Dose 300 MG; Start 07/16/16 at 22:30 Enoxaparin Sodium (Lovenox) 30 mg DAILY SC ; Start 07/18/16 at 09:00 Assessment/Plan Chief Complaint/Hosp Course PHYSICAL EXAMINATION: GENERAL: Not in acute distress, lying in bed. HEENT: Normocephalic, atraumatic head. NECK: No carotid bruits. No thyromegaly. LUNGS: Clear to auscultation bilaterally. CARDIAC: Normal cardiac rhythm and sounds. ABDOMEN: Soft, nontender. EXTREMITIES: No cyanosis, clubbing, or edema. NEUROLOGIC: She is awake, fluent speech oriented x 2, family interpreting. Blinks to visual threat in the left eye. According to the patient's daughter, the patient is blind in the right eye. Pupil on the left reactive from 3 to 2 mm, not reactive on the right. Right eye deviated to the left. Looks bilaterally. Corneal reflexes present bilaterally as well as gag. Motor strength examination shows symmetrical at least 3/5 strength UE, less movements limited by pain in legs, normal bulk. Deep tendon reflexes 2+ upper extremities and lower extremities. Equivocal response to plantar stimulation bilaterally. IMPRESSION: Seizure disorder, status post breakthrough seizures, none so far on Keppra 750 bid. Baseline dementia, s/p left hip fracture/surgery. EEG c/w encephalopathy, no ongoing seizures. MRI brain shows tiny area of acute ischemic infarct in the left frontal cortex; I don't think it causes any symptoms.Pt is on ASA/lipitor. Keep normotensive, euglycemic. Cont PT Continue current treatment otherwise. I'll ask Dr. Humphries to follow over the weekend Problems: CRISTOBAL BURNETT MD Jul 17, 2016 16:44
--- NOTE | 2016-07-17 16:46 | SP ---
DATE OF PROCEDURE: 07/17/2016 INDICATION: The patient is a 76-year-old lady with history of seizures, last episode was yesterday, currently on Keppra. DESCRIPTION OF PROCEDURE: Routine EEG was recorded digitally. [id number] and xziwm-ae-[id number] yumiko ages were recorded and reviewed. All impedances were measured and recorded. Cap electrodes were pl aced in accordance with International 10-20 system of electrode placement. FINDINGS: Symmetrically distributed background activity of medium amplitude ranging in frequency be tween 6 to 8 cycles per second was seen in the awake state. Photic stimulation produces no definite driving. No epileptiform transients were seen. When the patient becomes drowsy and falls asleep, background rhythm gets even less organized, occasionally replaced or intermixes with slower waves 2 to 4 cycles per second. No epileptiform transients were seen. No signs of ongoing electrographic seizures or lateralized sl owing. IMPRESSION: Abnormal study secondary to background slowing which could reflect presence of encephal opathy, could be toxic metabolic or postictal. Please correlate clinically. Again, no signs of kelly oing electrographic seizures. Dictated By: CRISTOBAL ALEXANDRE/ZHANG Conf#: [id number] DID#: [id number]
--- NOTE | 2016-07-17 17:52 | CONS ---
DATE OF ADMISSION: 07/10/2016 DATE OF CONSULTATION: 07/17/2016 REASON FOR CONSULTATION: Acute kidney injury. HISTORY OF PRESENT ILLNESS: This is a 76-year-old female with a past medical history of coronary artery disease with a previous cardiac stent placement, hypertension, anemia, dyslipidemia, history of previous CVA, who presented with a complaint of hip fracture, status post surgery on 07/13/2016. The patient had coronary artery disease with a history of PCI in 2008, has been followed up by [facility]dere[facility] clerk, Dr. Srinivas Bedoya. The patient had initial creatinine of 1.5 on admission and renal has been consulted for acute kidney injury. The patient had a possible seizure yesterday and she is currently being evaluated and treated by neurology for possible seizures overnight. So far, the patient had a bedside swallow evaluation and the patient passed the swallow study, so she is going to be started on a diet today. REVIEW OF SYSTEMS: As per HPI. PAST MEDICAL HISTORY: Notable for hypertension, hyperlipidemia, history of coronary artery disease, status post previous PCI, dyslipidemia, anemia, history of previous CVA. PAST SURGICAL HISTORY: History of cardiac catheterization and stent placement. SOCIAL HISTORY: No smoking, alcohol or recreational drug use. FAMILY HISTORY: Noncontributory. PHYSICAL EXAMINATION: VITAL SIGNS: Temperature 98.5, heart rate 96, respiration 18, blood pressure 106/51, saturation is 100% on room air. GENERAL: Awake, alert, in no distress. HEENT: Normal. Oropharynx clear. NECK: Supple, no JVD, no lymphadenopathy. LUNGS: Clear to auscultation. No crackles, no wheezes. HEART: S1, S2, rate regular, rhythm, no murmur. ABDOMEN: Soft, nontender, nondistended. Bowel sounds are present. LABORATORY DATA/DIAGNOSTIC IMAGING: WBC 5.9, hemoglobin 8.1, platelet count 279. Sodium 142, potassium 4.4, chloride 106, bicarbonate 28, BUN 27, creatinine 1.29, glucose 106, calcium 8.6, troponin x2 negative. PT, PTT, INR normal. Urinalysis shows a trace leukocyte esterase. IMPRESSION: This is a 76-year-old female who has been admitted with a hip fracture status post hip surgery on 07/13/2016 2017 and renal has been consulted for: 1. Acute kidney injury secondary to prerenal azotemia. 2. Possible chronic kidney disease from her previous medical problems of hypertension and coronary artery disease. 3. History of coronary artery disease with history of percutaneous coronary intervention in 2008. 4. History of cerebrovascular accident. 5. History of hypertension. PLAN: 1. Thank you, Dr. Robertson, for this consultation. I will start the patient on IV fluid, D5 half NS to run at 75 mL per hour and monitor the Creatinine,. We will continue to follow. 2. The patient had a possible seizure episode yesterday. Currently, has been on Keppra 750 mg IV b.i.d. and also on Levaquin 500 mg IV q.24h. If creatinine continues to rise, I will change the Levaquin dose and renally dose it. 3. Lovenox for DVT prophylaxis. 4. The patient is currently seen on the floor and she will be followed up along with cardiology and orthopedic and neurology service. Total time spent in this patient's evaluation, making assessment and plan, updating patient/Family member, communicating with the nursing staff, took more than 60 minutes. Dictated By: ROLAND AYON MD, KP/ZHANG Conf#: [id number] DID#: [id number]
[2016-07-17] MEDS: LEVOFLOXACIN 500MG/D5W (PMX) 100 ML IVPB SCH (19:59)
[2016-07-17] MEDS: ASPIRIN 300 MG SUPP PR SCH (21:00)
[2016-07-17] MEDS: QUETIAPINE 25 MG TAB PO SCH (22:12)
[2016-07-17] MEDS: ATORVASTATIN 40 MG TAB PO SCH (22:14)
[2016-07-18] VITALS (14 sets, daily range): BP systolic 73–136; BP diastolic 33–72; PULSE 68–94; RESP 14–21
[2016-07-18] MEDS ORDERED: LEVOFLOXACIN 250 MG TAB PO SCH (06:00)
[2016-07-18] MEDS: DEXTROSE 5%-0.45% NACL 1,000 ML IV SCH ×2 (06:24→15:52)
[2016-07-18] MEDS: LEVOTHYROXINE 50 MCG TAB PO SCH (06:25)
[2016-07-18 07:42] LABS: ADD SCAN DIFF NO
[2016-07-18 07:49] LABS: ABNORMAL IP MESSAGE 1; HEMATOCRIT 22.3 % (37.0-47.0); MEAN CORPUSCULAR HEMOGLOBIN 32.9 pg (29.0-33.0); MEAN CORPUSCULAR HGB CONC 30.9 g/dl (32.0-37.0); MEAN CORPUSCULAR VOLUME 106.2 fl (82.0-101.0); PLATELET COUNT 248 10^3/UL (140-415); WHITE BLOOD COUNT 5.9 10^3/ul (4.8-10.8)
[2016-07-18 08:04] LABS: POTASSIUM 4.1 mmol/L (3.5-5.1)
[2016-07-18 08:07] LABS: CALCIUM 8.3 mg/dl (8.4-10.2); CREATININE 1.15 mg/dl (0.44-1.00)
[2016-07-18 08:13] LABS: HEMOGLOBIN 6.9 g/dl (12.0-16.0)
[2016-07-18] MEDS: LEVETIRACETAM IV 750 MG in SOD CHLORIDE 0.9% 100 ML IVPB SCH ×2 (08:23→20:16)
[2016-07-18] MEDS: FOLIC ACID 1 MG TAB PO SCH ×2 (08:24→09:00)
[2016-07-18] MEDS: PREGABALIN 25 MG CAP PO SCH ×3 (08:24→20:17)
[2016-07-18] MEDS: PANTOPRAZOLE (EC) 40 MG TAB PO SCH ×2 (08:24→09:00)
[2016-07-18] MEDS: RANOLAZINE (SR) 500 MG TAB PO SCH ×3 (08:24→20:16)
[2016-07-18] MEDS: ENOXAPARIN 30 MG/0.3 ML SYG SC SCH (08:52)
[2016-07-18] MEDS ORDERED: SOD CHLORIDE 0.9% 250 ML IV* ONE (08:56)
[2016-07-18 11:34] LABS: EOSINOPHILS # 0.1 10^3/ul (0.0-0.5); LYMPHOCYTES # 0.8 10^3/ul (0.8-2.9); MONOCYTE # 0.4 10^3/ul (0.3-0.9); NEUTROPHIL # 4.2 10^3/ul (1.6-7.5)
--- NOTE | 2016-07-18 11:58 | CONS ---
Date/Time of Note Date/Time of Note DATE: 07/18/16 TIME: 11:55 Assessment/Plan Assessment/Plan Additional Assessment/Plan 1. Acute kidney injury secondary to prerenal azotemia. 2. Possible chronic kidney disease from her previous medical problems of hypertension and coronary artery disease. 3. History of coronary artery disease with history of percutaneous coronary intervention in 2008. 4. History of cerebrovascular accident. 5. History of hypertension. PLAN: Cr improving with IVF hydration,c ontinue at current rate on IV levaquin Monitor electrolytes will continue to follow up on patient. Consultation Date/Type/Reason Admit Date/Time Jul 10, 2016 at 18:21 Initial Consult Date July Type of Consultation: NEPHROLOGY Reason for Consultation Acute kidney injury Referring Provider: PRINCESS FISHER MD 24 HR Interval Summary Free Text/Dictation Cr improving, good urine output, BP stable Exam/Review of Systems Vital Signs Vitals Vital Signs Date Time Temp Pulse Resp B/P Pulse Ox O2 Delivery O2 Flow Rate FiO2 07/18/16 08:53 14 91/50 07/18/16 08:37 96.6 68 100 07/18/16 08:00 Nasal Cannula 3.0 Intake and Output 07/17/16 07/17/16 07/18/16 15:00 23:00 07:00 Intake Total 300 ml 1045 ml 675 ml Balance 300 ml 1045 ml 675 ml Exam GENERAL: Awake, alert, in no distress. HEENT: Normal. Oropharynx clear. NECK: Supple, no JVD, no lymphadenopathy. LUNGS: Clear to auscultation. No crackles, no wheezes. HEART: S1, S2, rate regular, rhythm, no murmur. ABDOMEN: Soft, nontender, nondistended. Bowel sounds are present. Results Result Diagram: 07/18/16 0720 07/18/16 0720 Results 24 hrs Laboratory Tests Test 07/18/16 07:20 Anion Gap 13 Band Neutrophils % 6.0 H Blood Urea Nitrogen 23 H Calcium Level 8.3 L Carbon Dioxide Level 23 Chloride Level 106 Creatinine 1.15 H Eosinophils # 0.1 Eosinophils % 2.0 Glucose Level 135 Hematocrit 22.3 L Hemoglobin 6.9 *L Lymphocytes # 0.8 Lymphocytes % 14.0 L Mean Corpuscular Hemoglobin 32.9 Mean Corpuscular Hemoglobin Concent 30.9 L Mean Corpuscular Volume 106.2 H Mean Platelet Volume 9.0 Metamyelocytes # 0.1 Metamyelocytes % 1.0 H Monocytes # 0.4 Monocytes % 6.0 Neutrophils # 4.2 Neutrophils % 71.0 Platelet Count 248 Potassium Level 4.1 Red Blood Count 2.10 L Red Cell Distribution Width 14.0 Sodium Level 138 White Blood Count 5.9 Medications Medications Current Medications Acetaminophen (Tylenol Tab) 325 mg Q6 PRN PO PAIN AND OR ELEVATED TEMP Last administered on 07/15/16 20:20; Admin Dose 325 MG; Start 07/10/16 at 23:00 Acetaminophen/ Hydrocodone Bitart ([place] (5/325)) 1 tab Q3H PRN PO PAIN; Start 07/10/16 at 23:00 Ondansetron HCl (Zofran Inj) 4 mg Q6H PRN IV NAUSEA AND/OR VOMITING; Start at 23:00 Atorvastatin Calcium (Lipitor) 40 mg QHS PO Last administered on 07/17/16 22:14 ; Admin Dose 40 MG; Start 07/11/16 at 21:00 Carvedilol (Coreg) 12.5 mg BID PO Last administered on 07/17/16 22:15; Admin Dose 12.5 MG; Start 07/11/16 at 09:00 Folic Acid (Folic Acid) 1 mg DAILY PO Last administered on 07/16/16 08:09; Admin Dose 1 MG; Start 07/11/16 at 09:00 Meclizine HCl (Antivert) 25 mg DAILY PRN PO DIZZINESS; Start 07/10/16 at 23:30 Pantoprazole (Protonix Tab) 40 mg DAILY PO Last administered on 07/16/16 08:09 ; Admin Dose 40 MG; Start 07/11/16 at 09:00 Pregabalin (Lyrica) 25 mg BID PO Last administered on 07/17/16 22:14; Admin Dose 25 MG; Start 07/11/16 at 09:00 Quetiapine Fumarate (Seroquel) 25 mg HS PO Last administered on 07/17/16 22:12 ; Admin Dose 25 MG; Start 07/11/16 at 21:00 Ranolazine (Ranexa) 1,000 mg Q12 PO Last administered on 07/17/16 22:13; Admin Dose 1,000 MG; Start 07/11/16 at 09:00 Morphine Sulfate (morphine) 2 mg Q2H PRN IV PAIN Last administered on 00:47; Admin Dose 2 MG; Start 07/11/16 at 01:30 Levothyroxine Sodium (Synthroid) 50 mcg DAILY@06 PO Last administered on 06:25; Admin Dose 50 MCG; Start 07/12/16 at 06:00 Epoetin Rod[place] (Epogen (Non Esrd/Non Oncology)) 20,000 units Q7D SC Last administered on 07/14/16 20:46; Admin Dose 20,000 UNITS; Start 07/14/16 at 17: 00 Acetaminophen/ Hydrocodone Bitart ([place] (5/325)) 1 tab Q3H PRN PO PAIN LEVEL 1 -3; Start 07/13/16 at 10:30 Acetaminophen/ Hydrocodone Bitart ([place] (5/325)) 2 tab Q3H PRN PO PAIN LEVEL 4 -7 Last administered on 07/18/16 00:00; Admin Dose 2 TAB; Start 07/13/16 at 10: 30 Hydromorphone HCl 1 mg 1 mg Q3H PRN IV PAIN LEVEL 8-10 Last administered on 07/17 19:56; Admin Dose 1 MG; Start 07/13/16 at 10:30 Levofloxacin/ Dextrose 100 ml @ 100 mls/hr Q24H IVPB Last administered on 19:59; Admin Dose 100 MLS/HR; Start 07/15/16 at 19:00 Levetiracetam 750 mg/Sodium Chloride 107.5 ml @ 420 mls/hr Q12 IVPB Last administered on 07/18/16 08:23; Admin Dose 420 MLS/HR; Start 07/16/16 at 21:00 Dextrose/Sodium Chloride (D5-1/2ns) 1,000 ml @ 75 mls/hr [id number] IV Last administered on 07/18/16 06:24; Admin Dose 75 MLS/HR; Start 07/16/16 at 22:00 Aspirin (Aspirin) 300 mg QHS [place] Last administered on 07/16/16 22:58; Admin Dose 300 MG; Start 07/16/16 at 22:30 Enoxaparin Sodium (Lovenox) 30 mg DAILY SC ; Start 07/18/16 at 09:00 ROLAND AYON MD Jul 18, 2016 11:58
--- NOTE | 2016-07-18 13:39 | RADRPT ---
Vent Rate: 76 bpm RR Interval: 0 msec GA Interval: 192 msec QRS Duration: 104 msec QT Interval: 418 msec QTC Interval: 470 msec P-R-T [place]: 56 - 30 - 62 degrees Normal sinus rhythm Normal ECG Electronically Signed By: Jose Conner [id number]
--- NOTE | 2016-07-18 14:37 | CONS ---
Date/Time of Note Date/Time of Note DATE: 07/18/16 TIME: 14:35 Assessment/Plan Assessment/Plan Additional Assessment/Plan Preoperative cardiac risk stratification Hip fracture status post surgery 07/13/2016 Preserved ejection fraction CAD with history of PCI in 2008 History of CVA Hypertension Acute blood loss anemia -Patient with worsening anemia, would DC aspirin. Decreased dose of antihypertensives with holding parameters. Plan to undergo blood transfusion. Consultation Date/Type/Reason Admit Date/Time Jul 10, 2016 at 18:21 Type of Consultation: cv Referring Provider: PRINCESS FISHER MD 24 HR Interval Summary Free Text/Dictation Patient seen and examined, family at bedside Exam/Review of Systems Vital Signs Vitals Vital Signs Date Time Temp Pulse Resp B/P Pulse Ox O2 Delivery O2 Flow Rate FiO2 07/18/16 12:33 71 07/18/16 11:54 98.8 16 117/53 100 07/18/16 08:00 Nasal Cannula 3.0 Intake and Output 07/17/16 07/17/16 07/18/16 15:00 23:00 07:00 Intake Total 300 ml 1045 ml 675 ml Balance 300 ml 1045 ml 675 ml Exam Sleeping but arousable, no apparent distress Head: normocephalic Respiratory: other (Coarse breath sounds bilaterally, no wheezing) Cardiovascular: other (S1-S2 heard), regular rate and rhythm Gastrointestinal: bowel sounds, non-tender, other (No guarding), soft Extremities: other (No edema or cyanosis) Results Result Diagram: 07/18/16 0720 07/18/16 0720 Results 24 hrs Laboratory Tests Test 07/18/16 07:20 Anion Gap 13 Band Neutrophils % 6.0 H Blood Urea Nitrogen 23 H Calcium Level 8.3 L Carbon Dioxide Level 23 Chloride Level 106 Creatinine 1.15 H Eosinophils # 0.1 Eosinophils % 2.0 Glucose Level 135 Hematocrit 22.3 L Hemoglobin 6.9 *L Lymphocytes # 0.8 Lymphocytes % 14.0 L Mean Corpuscular Hemoglobin 32.9 Mean Corpuscular Hemoglobin Concent 30.9 L Mean Corpuscular Volume 106.2 H Mean Platelet Volume 9.0 Metamyelocytes # 0.1 Metamyelocytes % 1.0 H Monocytes # 0.4 Monocytes % 6.0 Neutrophils # 4.2 Neutrophils % 71.0 Platelet Count 248 Potassium Level 4.1 Red Blood Count 2.10 L Red Cell Distribution Width 14.0 Sodium Level 138 White Blood Count 5.9 Medications Medications Current Medications Acetaminophen (Tylenol Tab) 325 mg Q6 PRN PO PAIN AND OR ELEVATED TEMP Last administered on 07/15/16 20:20; Admin Dose 325 MG; Start 07/10/16 at 23:00 Acetaminophen/ Hydrocodone Bitart ([place] (5/325)) 1 tab Q3H PRN PO PAIN; Start 07/10/16 at 23:00 Ondansetron HCl (Zofran Inj) 4 mg Q6H PRN IV NAUSEA AND/OR VOMITING; Start at 23:00 Atorvastatin Calcium (Lipitor) 40 mg QHS PO Last administered on 07/17/16 22:14 ; Admin Dose 40 MG; Start 07/11/16 at 21:00 Carvedilol (Coreg) 12.5 mg BID PO Last administered on 07/17/16 22:15; Admin Dose 12.5 MG; Start 07/11/16 at 09:00 Folic Acid (Folic Acid) 1 mg DAILY PO Last administered on 07/16/16 08:09; Admin Dose 1 MG; Start 07/11/16 at 09:00 Meclizine HCl (Antivert) 25 mg DAILY PRN PO DIZZINESS; Start 07/10/16 at 23:30 Pantoprazole (Protonix Tab) 40 mg DAILY PO Last administered on 07/16/16 08:09 ; Admin Dose 40 MG; Start 07/11/16 at 09:00 Pregabalin (Lyrica) 25 mg BID PO Last administered on 07/17/16 22:14; Admin Dose 25 MG; Start 07/11/16 at 09:00 Quetiapine Fumarate (Seroquel) 25 mg HS PO Last administered on 07/17/16 22:12 ; Admin Dose 25 MG; Start 07/11/16 at 21:00 Ranolazine (Ranexa) 1,000 mg Q12 PO Last administered on 07/17/16 22:13; Admin Dose 1,000 MG; Start 07/11/16 at 09:00 Morphine Sulfate (morphine) 2 mg Q2H PRN IV PAIN Last administered on 00:47; Admin Dose 2 MG; Start 07/11/16 at 01:30 Levothyroxine Sodium (Synthroid) 50 mcg DAILY@06 PO Last administered on 06:25; Admin Dose 50 MCG; Start 07/12/16 at 06:00 Epoetin Rodney (Epogen (Non Esrd/Non Oncology)) 20,000 units Q7D SC Last administered on 07/14/16 20:46; Admin Dose 20,000 UNITS; Start 07/14/16 at 17: 00 Acetaminophen/ Hydrocodone Bitart ([place] (5/325)) 1 tab Q3H PRN PO PAIN LEVEL 1 -3; Start 07/13/16 at 10:30 Acetaminophen/ Hydrocodone Bitart ([place] (5/325)) 2 tab Q3H PRN PO PAIN LEVEL 4 -7 Last administered on 07/18/16 00:00; Admin Dose 2 TAB; Start 07/13/16 at 10: 30 Hydromorphone HCl 1 mg 1 mg Q3H PRN IV PAIN LEVEL 8-10 Last administered on 07/17 19:56; Admin Dose 1 MG; Start 07/13/16 at 10:30 Levofloxacin/ Dextrose 100 ml @ 100 mls/hr Q24H IVPB Last administered on 19:59; Admin Dose 100 MLS/HR; Start 07/15/16 at 19:00 Levetiracetam 750 mg/Sodium Chloride 107.5 ml @ 420 mls/hr Q12 IVPB Last administered on 07/18/16 08:23; Admin Dose 420 MLS/HR; Start 07/16/16 at 21:00 Dextrose/Sodium Chloride (D5-1/2ns) 1,000 ml @ 75 mls/hr [id number] IV Last administered on 07/18/16 06:24; Admin Dose 75 MLS/HR; Start 07/16/16 at 22:00 Aspirin (Aspirin) 300 mg QHS MT Last administered on 07/16/16 22:58; Admin Dose 300 MG; Start 07/16/16 at 22:30 Enoxaparin Sodium (Lovenox) 30 mg DAILY SC ; Start 07/18/16 at 09:00 Srinivas Bedoya DO Jul 18, 2016 14:37
[2016-07-18] MEDS: HYDROmorphONE 1 MG/ML SYG IV PRN ×2 (15:49→20:17)
--- NOTE | 2016-07-18 17:51 | PN ---
Date/Time of Note Date/Time of Note DATE: 07/18/16 TIME: 17:46 Assessment/Plan VTE Prophylaxis VTE Prophylaxis Intervention: SCD's Lines/Catheters [facility] Peripheral IV Urinary Cath still in place: No Assessment/Plan Chief Complaint/Hosp Course Assessment and plan - Acute left frontal cortical infarct per MRI. Patient with history of prior stroke. Dr. Patel is following in neurology consultation. - Breakthrough seizure. Continue Keppra IV. - Left femoral neck fracture secondary to mechanical fall. Status post left hip humeral arthroplasty by Dr. Marshall, orthopedic surgery. - Anemia with hemoglobin drop to 6.9. Stool for OB. Transfuse 2 units of packed red blood cells. - Coronary artery disease, status post PCI. Dr. Bedoya is following in cardiology consultation. Continue aspirin and Ranexa. - Hypertension. Continue Coreg. - Dyslipidemia. Continue Lipitor. - Hypothyroidism. Continue Synthroid. - Macrocytic anemia. - E. coli UTI, continue Levaquin. Further recommendations based on clinical course. Plan of care discussed with Dr. Robertson. Problems: Subjective 24 Hr Interval Summary Free Text/Dictation Patient is lethargic but easily arousable, follow immediate commands, neurologic status at the baseline according to family, tolerates diet, poor appetite. No seizure activity reported per RN. Exam/Review of Systems Vital Signs Vitals Vital Signs Date Time Temp Pulse Resp B/P Pulse Ox O2 Delivery O2 Flow Rate FiO2 07/18/16 16:20 97.3 81 21 136/63 100 07/18/16 08:00 Nasal Cannula 3.0 Intake and Output 07/17/16 07/17/16 07/18/16 14:59 22:59 06:59 Intake Total 300 ml 1045 ml 675 ml Balance 300 ml 1045 ml 675 ml Exam GENERAL: The patient is conscious, awake, alert. HEENT: Atraumatic, normocephalic. DYAN NECK: Supple. No mass, no thyromegaly. CHEST: Clear to auscultation. CARDIOVASCULAR: S1, S2 normal. No murmur, gallop, or rub. ABDOMEN: Soft, nondistended, nontender. Bowel sounds plus. EXTREMITIES: No leg edema. No clubbing, no cyanosis. S/p Left hip surgery. NEUROLOGIC: The patient is awake, alert, follows simple commands. Results Result Diagram: 07/18/16 0720 07/18/16 0720 Results 24 hrs Laboratory Tests Test 07/18/16 07:20 Anion Gap 13 Band Neutrophils % 6.0 H Blood Urea Nitrogen 23 H Calcium Level 8.3 L Carbon Dioxide Level 23 Chloride Level 106 Creatinine 1.15 H Eosinophils # 0.1 Eosinophils % 2.0 Glucose Level 135 Hematocrit 22.3 L Hemoglobin 6.9 *L Lymphocytes # 0.8 Lymphocytes % 14.0 L Mean Corpuscular Hemoglobin 32.9 Mean Corpuscular Hemoglobin Concent 30.9 L Mean Corpuscular Volume 106.2 H Mean Platelet Volume 9.0 Metamyelocytes # 0.1 Metamyelocytes % 1.0 H Monocytes # 0.4 Monocytes % 6.0 Neutrophils # 4.2 Neutrophils % 71.0 Platelet Count 248 Potassium Level 4.1 Red Blood Count 2.10 L Red Cell Distribution Width 14.0 Sodium Level 138 White Blood Count 5.9 Medications Medications Current Medications Acetaminophen (Tylenol Tab) 325 mg Q6 PRN PO PAIN AND OR ELEVATED TEMP Last administered on 07/15/16 20:20; Admin Dose 325 MG; Start 07/10/16 at 23:00 Acetaminophen/ Hydrocodone Bitart ([place] (5/325)) 1 tab Q3H PRN PO PAIN; Start 07/10/16 at 23:00 Ondansetron HCl (Zofran Inj) 4 mg Q6H PRN IV NAUSEA AND/OR VOMITING; Start at 23:00 Atorvastatin Calcium (Lipitor) 40 mg QHS PO Last administered on 07/17/16 22:14 ; Admin Dose 40 MG; Start 07/11/16 at 21:00 Folic Acid (Folic Acid) 1 mg DAILY PO Last administered on 07/16/16 08:09; Admin Dose 1 MG; Start 07/11/16 at 09:00 Meclizine HCl (Antivert) 25 mg DAILY PRN PO DIZZINESS; Start 07/10/16 at 23:30 Pantoprazole (Protonix Tab) 40 mg DAILY PO Last administered on 07/16/16 08:09 ; Admin Dose 40 MG; Start 07/11/16 at 09:00 Pregabalin (Lyrica) 25 mg BID PO Last administered on 07/17/16 22:14; Admin Dose 25 MG; Start 07/11/16 at 09:00 Quetiapine Fumarate (Seroquel) 25 mg HS PO Last administered on 07/17/16 22:12 ; Admin Dose 25 MG; Start 07/11/16 at 21:00 Ranolazine (Ranexa) 1,000 mg Q12 PO Last administered on 07/17/16 22:13; Admin Dose 1,000 MG; Start 07/11/16 at 09:00 Morphine Sulfate (morphine) 2 mg Q2H PRN IV PAIN Last administered on 00:47; Admin Dose 2 MG; Start 07/11/16 at 01:30 Levothyroxine Sodium (Synthroid) 50 mcg DAILY@06 PO Last administered on 06:25; Admin Dose 50 MCG; Start 07/12/16 at 06:00 Epoetin Rodney (Epogen (Non Esrd/Non Oncology)) 20,000 units Q7D SC Last administered on 07/14/16 20:46; Admin Dose 20,000 UNITS; Start 07/14/16 at 17: 00 Acetaminophen/ Hydrocodone Bitart ([place] (5/325)) 1 tab Q3H PRN PO PAIN LEVEL 1 -3; Start 07/13/16 at 10:30 Acetaminophen/ Hydrocodone Bitart ([place] (5/325)) 2 tab Q3H PRN PO PAIN LEVEL 4 -7 Last administered on 07/18/16 00:00; Admin Dose 2 TAB; Start 07/13/16 at 10: 30 Hydromorphone HCl 1 mg 1 mg Q3H PRN IV PAIN LEVEL 8-10 Last administered on 07/18 15:49; Admin Dose 1 MG; Start 07/13/16 at 10:30 Levofloxacin/ Dextrose 100 ml @ 100 mls/hr Q24H IVPB Last administered on 19:59; Admin Dose 100 MLS/HR; Start 07/15/16 at 19:00 Levetiracetam 750 mg/Sodium Chloride 107.5 ml @ 420 mls/hr Q12 IVPB Last administered on 07/18/16 08:23; Admin Dose 420 MLS/HR; Start 07/16/16 at 21:00 Dextrose/Sodium Chloride (D5-1/2ns) 1,000 ml @ 75 mls/hr [id number] IV Last administered on 07/18/16t 15:52; Admin Dose 75 MLS/HR; Start 07/16/16 at 22:00 Enoxaparin Sodium (Lovenox) 30 mg DAILY SC ; Start 07/18/16 at 09:00 Carvedilol (Coreg) 6.25 mg BID PO ; Start 07/18/16 at 21:00 ILAN GALDAMEZ Jul 18, 2016 17:51
[2016-07-18] MEDS: HYDROCODONE/APAP (5/325) TAB PO PRN ×2 (18:03)
[2016-07-18] MEDS: LEVOFLOXACIN 500MG/D5W (PMX) 100 ML IVPB SCH (19:00)
[2016-07-18] MEDS: QUETIAPINE 25 MG TAB PO SCH (20:17)
[2016-07-18] MEDS: ATORVASTATIN 40 MG TAB PO SCH (20:17)
[2016-07-19] VITALS (12 sets, daily range): BP systolic 103–172; BP diastolic 56–74; PULSE 65–84; RESP 17–20
[2016-07-19] MEDS: HYDROmorphONE 1 MG/ML SYG IV PRN ×5 (00:24→20:04)
[2016-07-19] MEDS: LEVOTHYROXINE 50 MCG TAB PO SCH (05:50)
[2016-07-19 07:46] LABS: ADD SCAN DIFF NO
[2016-07-19 07:55] LABS: BASOPHILS % 0.4 % (0.0-2.0); EOSINOPHILS # 0.2 10^3/ul (0.0-0.5); HEMATOCRIT 36.1 % (37.0-47.0); HEMOGLOBIN 11.7 g/dl (12.0-16.0); LYMPHOCYTES % 13.7 % (15.0-51.0); MEAN CORPUSCULAR HEMOGLOBIN 32.2 pg (29.0-33.0); MEAN CORPUSCULAR HGB CONC 32.4 g/dl (32.0-37.0); MEAN CORPUSCULAR VOLUME 99.4 fl (82.0-101.0); MEAN PLATELET VOLUME 8.9 fl (7.4-10.4); MONOCYTE # 0.7 10^3/ul (0.3-0.9); MONOCYTES % 10.3 % (0.0-11.0); NEUTROPHILS % 70.9 % (39.0-77.0); PLATELET COUNT 287 10^3/UL (140-415); RED BLOOD COUNT 3.63 10^6/ul (4.20-5.40); RED CELL DISTRIBUTION WIDTH 17.7 % (11.5-14.5)
[2016-07-19 08:00] LABS: POTASSIUM 3.9 mmol/L (3.5-5.1)
[2016-07-19 08:02] LABS: CREATININE 1.08 mg/dl (0.44-1.00)
[2016-07-19 08:03] LABS: CALCIUM 8.9 mg/dl (8.4-10.2)
[2016-07-19] MEDS: ASPIRIN (EC) 81 MG TAB PO SCH (10:12)
[2016-07-19] MEDS: PREGABALIN 25 MG CAP PO SCH ×2 (10:13→21:00)
[2016-07-19] MEDS: FOLIC ACID 1 MG TAB PO SCH (10:13)
[2016-07-19] MEDS: RANOLAZINE (SR) 500 MG TAB PO SCH ×2 (10:13→20:05)
[2016-07-19] MEDS: LEVETIRACETAM IV 750 MG in SOD CHLORIDE 0.9% 100 ML IVPB SCH (10:13)
[2016-07-19] MEDS: PANTOPRAZOLE (EC) 40 MG TAB PO SCH (10:13)
[2016-07-19] MEDS: ENOXAPARIN 30 MG/0.3 ML SYG SC SCH (10:14)
--- NOTE | 2016-07-19 10:56 | CONS ---
Date/Time of Note Date/Time of Note DATE: 07/19/16 TIME: 10:54 Assessment/Plan Assessment/Plan Chief Complaint/Hosp Course Preoperative cardiac risk stratification Hip fracture status post surgery 07/13/2016 Preserved ejection fraction CAD with history of PCI in 2008 History of CVA Hypertension Acute blood loss anemia Problems: Additional Assessment/Plan 1) Anemia improved 2) No new cardiac orders Consultation Date/Type/Reason Admit Date/Time Jul 10, 2016 at 18:21 Initial Consult Date Type of Consultation: cv Referring Provider: PRINCESS FISHER MD 24 HR Interval Summary Free Text/Dictation frail, no distress, no chest pain, no sob, no palpitations Detailed Summary Respiratory: no complaints Cardiovascular: no complaints Gastrointestinal: no complaints Musculoskeletal: no complaints Skin: no complaints Neurologic: no complaints Exam/Review of Systems Vital Signs Vitals Vital Signs Date Time Temp Pulse Resp B/P Pulse Ox O2 Delivery O2 Flow Rate FiO2 07/19/16 08:21 97.8 76 20 135/61 100 07/19/16 00:02 Nasal Cannula 2.0 Intake and Output 07/18/16 07/18/16 07/19/16 15:00 23:00 07:00 Intake Total 1040 ml 700 ml Balance 1040 ml 700 ml Exam Constitutional: frail Head: atraumatic, normocephalic Neck: supple Respiratory: clear to auscultation Cardiovascular: regular rate and rhythm Gastrointestinal: soft Musculoskeletal: nl extremities to inspection Results Result Diagram: 07/19/16 0719 07/19/16 0719 Results 24 hrs Laboratory Tests Test 07/18/16 15:30 07/19/16 07:19 Stool Occult Blood NEGATIVE Anion Gap 13 Basophils # 0.0 Basophils % 0.4 Blood Urea Nitrogen 22 H Calcium Level 8.9 Carbon Dioxide Level 25 Chloride Level 109 Creatinine 1.08 H Eosinophils # 0.2 Eosinophils % 3.0 Glucose Level 105 Hematocrit 36.1 #L Hemoglobin 11.7 #L Lymphocytes # 1.0 Lymphocytes % 13.7 L Mean Corpuscular Hemoglobin 32.2 Mean Corpuscular Hemoglobin Concent 32.4 Mean Corpuscular Volume 99.4 Mean Platelet Volume 8.9 Monocytes # 0.7 Monocytes % 10.3 Neutrophils # 5.0 Neutrophils % 70.9 Nucleated Red Blood Cells # 0.0 Nucleated Red Blood Cells % 0.0 Platelet Count 287 Potassium Level 3.9 Red Blood Count 3.63 #L Red Cell Distribution Width 17.7 #H Sodium Level 143 White Blood Count 7.0 Medications Medications Current Medications Acetaminophen (Tylenol Tab) 325 mg Q6 PRN PO PAIN AND OR ELEVATED TEMP Last administered on 07/15/16 20:20; Admin Dose 325 MG; Start 07/10/16 at 23:00 Acetaminophen/ Hydrocodone Bitart ([place] (5/325)) 1 tab Q3H PRN PO PAIN; Start 07/10/16 at 23:00 Ondansetron HCl (Zofran Inj) 4 mg Q6H PRN IV NAUSEA AND/OR VOMITING; Start at 23:00 Atorvastatin Calcium (Lipitor) 40 mg QHS PO Last administered on 07/18/16 20:17 ; Admin Dose 40 MG; Start 07/11/16 at 21:00 Folic Acid (Folic Acid) 1 mg DAILY PO Last administered on 07/19/16 10:13; Admin Dose 1 MG; Start 07/11/16 at 09:00 Meclizine HCl (Antivert) 25 mg DAILY PRN PO DIZZINESS; Start 07/10/16 at 23:30 Pantoprazole (Protonix Tab) 40 mg DAILY PO Last administered on 07/19/16 10:13 ; Admin Dose 40 MG; Start 07/11/16 at 09:00 Pregabalin (Lyrica) 25 mg BID PO Last administered on 07/19/16 10:13; Admin Dose 25 MG; Start 07/11/16 at 09:00 Quetiapine Fumarate (Seroquel) 25 mg HS PO Last administered on 07/18/16 20:17 ; Admin Dose 25 MG; Start 07/11/16 at 21:00 Ranolazine (Ranexa) 1,000 mg Q12 PO Last administered on 07/19/16 10:13; Admin Dose 1,000 MG; Start 07/11/16 at 09:00 Morphine Sulfate (morphine) 2 mg Q2H PRN IV PAIN Last administered on 00:47; Admin Dose 2 MG; Start 07/11/16 at 01:30 Levothyroxine Sodium (Synthroid) 50 mcg DAILY@06 PO Last administered on 05:50; Admin Dose 50 MCG; Start 07/12/16 at 06:00 Epoetin [place] (Epogen (Non Esrd/Non Oncology)) 20,000 units Q7D SC Last administered on 07/14/16 20:46; Admin Dose 20,000 UNITS; Start 07/14/16 at 17: 00 Acetaminophen/ Hydrocodone Bitart ([place] (5/325)) 1 tab Q3H PRN PO PAIN LEVEL 1 -3; Start 07/13/16 at 10:30 Acetaminophen/ Hydrocodone Bitart ([place] (5/325)) 2 tab Q3H PRN PO PAIN LEVEL 4 -7 Last administered on 07/18/16 18:03; Admin Dose 2 TAB; Start 07/13/16 at 10: 30 Hydromorphone HCl 1 mg 1 mg Q3H PRN IV PAIN LEVEL 8-10 Last administered on 07/19 10:13; Admin Dose 1 MG; Start 07/13/16 at 10:30 Levofloxacin/ Dextrose 100 ml @ 100 mls/hr Q24H IVPB Last administered on 19:59; Admin Dose 100 MLS/HR; Start 07/15/16 at 19:00 Levetiracetam 750 mg/Sodium Chloride 107.5 ml @ 420 mls/hr Q12 IVPB Last administered on 07/19/16 10:13; Admin Dose 420 MLS/HR; Start 07/16/16 at 21:00 Dextrose/Sodium Chloride (D5-1/2ns) 1,000 ml @ 40 mls/hr Q24H IV Last administered on 07/18/16 15:52; Admin Dose 75 MLS/HR; Start 07/16/16 at 22:00 Enoxaparin Sodium (Lovenox) 30 mg DAILY SC Last administered on 07/19/16 10:14 ; Admin Dose 30 MG; Start 07/18/16 at 09:00 Carvedilol (Coreg) 6.25 mg BID PO Last administered on 07/19/16 10:12; Admin Dose 6.25 MG; Start 07/18/16 at 21:00 Aspirin (Halfprin) 81 mg DAILY PO Last administered on 07/19/16 10:12; Admin Dose 81 MG; Start 07/19/16 at 09:00 SOLE FENG MD Jul 19, 2016 10:55
--- NOTE | 2016-07-19 11:31 | PN ---
Date/Time of Note Date/Time of Note DATE: 07/19/16 TIME: 11:31 Assessment/Plan VTE Prophylaxis VTE Prophylaxis Intervention: other Lines/Catheters [facility] Peripheral IV Urinary Cath still in place: No Assessment/Plan Chief Complaint/Hosp Course - Acute left frontal cortical infarct per MRI. Patient with history of prior stroke. Dr. Patel is following in neurology consultation. - Breakthrough seizure. Continue Keppra IV. - Left femoral neck fracture secondary to mechanical fall. Status post left hip humeral arthroplasty by Dr. Marshall, orthopedic surgery. - Anemia with hemoglobin drop to 6.9. Stool for OB. Transfuse 2 units of packed red blood cells. - Coronary artery disease, status post PCI. Dr. Bedoya is following in cardiology consultation. Continue aspirin and Ranexa. - Hypertension. Continue Coreg. - Dyslipidemia. Continue Lipitor. - Hypothyroidism. Continue Synthroid. - Macrocytic anemia. - E. coli UTI, continue Levaquin. Problems: Subjective 24 Hr Interval Summary Free Text/Dictation Patient complain of pain in lower extremity Exam/Review of Systems Vital Signs Vitals Vital Signs Date Time Temp Pulse Resp B/P Pulse Ox O2 Delivery O2 Flow Rate FiO2 07/19/16 08:21 97.8 76 20 135/61 100 07/19/16 08:10 Nasal Cannula 2.0 Intake and Output 07/18/16 07/18/16 07/19/16 15:00 23:00 07:00 Intake Total 1040 ml 700 ml Balance 1040 ml 700 ml Exam Constitutional: well developed Head: atraumatic, normocephalic Neck: supple Respiratory: diminished breath sounds Cardiovascular: regular rate and rhythm Gastrointestinal: non-tender, soft Results Result Diagram: 07/19/16 0719 07/19/16 0719 Results 24 hrs Laboratory Tests Test 07/18/16 15:30 07/19/16 07:19 Stool Occult Blood NEGATIVE Anion Gap 13 Basophils # 0.0 Basophils % 0.4 Blood Urea Nitrogen 22 H Calcium Level 8.9 Carbon Dioxide Level 25 Chloride Level 109 Creatinine 1.08 H Eosinophils # 0.2 Eosinophils % 3.0 Glucose Level 105 Hematocrit 36.1 #L Hemoglobin 11.7 #L Lymphocytes # 1.0 Lymphocytes % 13.7 L Mean Corpuscular Hemoglobin 32.2 Mean Corpuscular Hemoglobin Concent 32.4 Mean Corpuscular Volume 99.4 Mean Platelet Volume 8.9 Monocytes # 0.7 Monocytes % 10.3 Neutrophils # 5.0 Neutrophils % 70.9 Nucleated Red Blood Cells # 0.0 Nucleated Red Blood Cells % 0.0 Platelet Count 287 Potassium Level 3.9 Red Blood Count 3.63 #L Red Cell Distribution Width 17.7 #H Sodium Level 143 White Blood Count 7.0 Medications Medications Current Medications Acetaminophen (Tylenol Tab) 325 mg Q6 PRN PO PAIN AND OR ELEVATED TEMP Last administered on 07/15/16 20:20; Admin Dose 325 MG; Start 07/10/16 at 23:00 Acetaminophen/ Hydrocodone Bitart ([place] (5/325)) 1 tab Q3H PRN PO PAIN; Start 07/10/16 at 23:00 Ondansetron HCl (Zofran Inj) 4 mg Q6H PRN IV NAUSEA AND/OR VOMITING; Start at 23:00 Atorvastatin Calcium (Lipitor) 40 mg QHS PO Last administered on 07/18/16 20:17 ; Admin Dose 40 MG; Start 07/11/16 at 21:00 Folic Acid (Folic Acid) 1 mg DAILY PO Last administered on 07/19/16 10:13; Admin Dose 1 MG; Start 07/11/16 at 09:00 Meclizine HCl (Antivert) 25 mg DAILY PRN PO DIZZINESS; Start 07/10/16 at 23:30 Pantoprazole (Protonix Tab) 40 mg DAILY PO Last administered on 07/19/16 10:13 ; Admin Dose 40 MG; Start 07/11/16 at 09:00 Pregabalin (Lyrica) 25 mg BID PO Last administered on 07/19/16 10:13; Admin Dose 25 MG; Start 07/11/16 at 09:00 Quetiapine Fumarate (Seroquel) 25 mg HS PO Last administered on 07/18/16 20:17 ; Admin Dose 25 MG; Start 07/11/16 at 21:00 Ranolazine (Ranexa) 1,000 mg Q12 PO Last administered on 07/19/16 10:13; Admin Dose 1,000 MG; Start 07/11/16 at 09:00 Morphine Sulfate (morphine) 2 mg Q2H PRN IV PAIN Last administered on 00:47; Admin Dose 2 MG; Start 07/11/16 at 01:30 Levothyroxine Sodium (Synthroid) 50 mcg DAILY@06 PO Last administered on 05:50; Admin Dose 50 MCG; Start 07/12/16 at 06:00 Epoetin [place] (Epogen (Non Esrd/Non Oncology)) 20,000 units Q7D SC Last administered on 07/14/16 20:46; Admin Dose 20,000 UNITS; Start 07/14/16 at 17: 00 Acetaminophen/ Hydrocodone Bitart ([place] (5/325)) 1 tab Q3H PRN PO PAIN LEVEL 1 -3; Start 07/13/16 at 10:30 Acetaminophen/ Hydrocodone Bitart ([place] (5/325)) 2 tab Q3H PRN PO PAIN LEVEL 4 -7 Last administered on 07/18/16 18:03; Admin Dose 2 TAB; Start 07/13/16 at 10: 30 Hydromorphone HCl 1 mg 1 mg Q3H PRN IV PAIN LEVEL 8-10 Last administered on 07/19 10:13; Admin Dose 1 MG; Start 07/13/16 at 10:30 Levofloxacin/ Dextrose 100 ml @ 100 mls/hr Q24H IVPB Last administered on 19:59; Admin Dose 100 MLS/HR; Start 07/15/16 at 19:00 Levetiracetam 750 mg/Sodium Chloride 107.5 ml @ 420 mls/hr Q12 IVPB Last administered on 07/19/16 10:13; Admin Dose 420 MLS/HR; Start 07/16/16 at 21:00 Dextrose/Sodium Chloride (D5-1/2ns) 1,000 ml @ 40 mls/hr Q24H IV Last administered on 07/18/16 15:52; Admin Dose 75 MLS/HR; Start 07/16/16 at 22:00 Enoxaparin Sodium (Lovenox) 30 mg DAILY SC Last administered on 07/19/16 10:14 ; Admin Dose 30 MG; Start 07/18/16 at 09:00 Carvedilol (Coreg) 6.25 mg BID PO Last administered on 07/19/16 10:12; Admin Dose 6.25 MG; Start 3/3/17 at 21:00 Aspirin (Halfprin) 81 mg DAILY PO Last administered on 07/19/16t 10:12; Admin Dose 81 MG; Start 07/19/16 at 09:00 YESSENIA MARIN Jul 19, 2016 11:31
[2016-07-19] MEDS: DEXTROSE 5%-0.45% NACL 1,000 ML IV SCH (11:37)
--- NOTE | 2016-07-19 12:46 | CONS ---
Date/Time of Note Date/Time of Note DATE: 07/19/16 TIME: 12:42 Assessment/Plan Assessment/Plan Additional Assessment/Plan 1. Acute kidney injury secondary to prerenal azotemia. 2. Possible chronic kidney disease from her previous medical problems of hypertension and coronary artery disease. 3. History of coronary artery disease with history of percutaneous coronary intervention in 2008. 4. History of cerebrovascular accident. 5. History of hypertension. 6. 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 Patient with history of prior stroke. Dr. Patel is following in neurology consultation. 7. Breakthrough seizure on IV keppra PLAN: Cr improving with IVF hydration,c ontinue at current rate on IV levaquin IV keppar for seizures -c hange to PO if ok with neurology Monitor electrolytes will continue to follow up on patient. Consultation Date/Type/Reason Admit Date/Time Jul 10, 2016 at 18:21 Initial Consult Date July Type of Consultation: NEPHROLOGY Reason for Consultation acute kidney injury Referring Provider: PRINCESS FISHER MD 24 HR Interval Summary Free Text/Dictation Creatinine improving, Electrolytes stable, no acute events Exam/Review of Systems Vital Signs Vitals Vital Signs Date Time Temp Pulse Resp B/P Pulse Ox O2 Delivery O2 Flow Rate FiO2 07/19/16 12:25 72 07/19/16 12:07 98.2 18 144/63 100 07/19/16 08:10 Nasal Cannula 2.0 Intake and Output 07/18/16 07/18/16 07/19/16 15:00 23:00 07:00 Intake Total 1040 ml 700 ml Balance 1040 ml 700 ml Exam GENERAL: Awake, alert, in no distress. HEENT: Normal. Oropharynx clear. NECK: Supple, no JVD, no lymphadenopathy. LUNGS: Clear to auscultation. No crackles, no wheezes. HEART: S1, S2, rate regular, rhythm, no murmur. ABDOMEN: Soft, nontender, nondistended. Bowel sounds are present. Results Result Diagram: 07/19/16 0719 07/19/16 07 Results 24 hrs Laboratory Tests Test 07/18/16 15:30 07/19/16 07:19 Stool Occult Blood NEGATIVE Anion Gap 13 Basophils # 0.0 Basophils % 0.4 Blood Urea Nitrogen 22 H Calcium Level 8.9 Carbon Dioxide Level 25 Chloride Level 109 Creatinine 1.08 H Eosinophils # 0.2 Eosinophils % 3.0 Glucose Level 105 Hematocrit 36.1 #L Hemoglobin 11.7 #L Lymphocytes # 1.0 Lymphocytes % 13.7 L Mean Corpuscular Hemoglobin 32.2 Mean Corpuscular Hemoglobin Concent 32.4 Mean Corpuscular Volume 99.4 Mean Platelet Volume 8.9 Monocytes # 0.7 Monocytes % 10.3 Neutrophils # 5.0 Neutrophils % 70.9 Nucleated Red Blood Cells # 0.0 Nucleated Red Blood Cells % 0.0 Platelet Count 287 Potassium Level 3.9 Red Blood Count 3.63 #L Red Cell Distribution Width 17.7 #H Sodium Level 143 White Blood Count 7.0 Medications Medications Current Medications Acetaminophen (Tylenol Tab) 325 mg Q6 PRN PO PAIN AND OR ELEVATED TEMP Last administered on 07/15/16 20:20; Admin Dose 325 MG; Start 07/10/16 at 23:00 Acetaminophen/ Hydrocodone Bitart ([place] (5/325)) 1 tab Q3H PRN PO PAIN; Start 07/10/16 at 23:00 Ondansetron HCl (Zofran Inj) 4 mg Q6H PRN IV NAUSEA AND/OR VOMITING; Start at 23:00 Atorvastatin Calcium (Lipitor) 40 mg QHS PO Last administered on 07/18/16 20:17 ; Admin Dose 40 MG; Start 07/11/16 at 21:00 Folic Acid (Folic Acid) 1 mg DAILY PO Last administered on 07/19/16 10:13; Admin Dose 1 MG; Start 07/11/16 at 09:00 Meclizine HCl (Antivert) 25 mg DAILY PRN PO DIZZINESS; Start 07/10/16 at 23:30 Pantoprazole (Protonix Tab) 40 mg DAILY PO Last administered on 07/19/16 10:13 ; Admin Dose 40 MG; Start 07/11/16 at 09:00 Pregabalin (Lyrica) 25 mg BID PO Last administered on 07/19/16 10:13; Admin Dose 25 MG; Start 07/11/16 at 09:00 Quetiapine Fumarate (Seroquel) 25 mg HS PO Last administered on 07/18/16 20:17 ; Admin Dose 25 MG; Start 07/11/16 at 21:00 Ranolazine (Ranexa) 1,000 mg Q12 PO Last administered on 07/19/16 10:13; Admin Dose 1,000 MG; Start 07/11/16 at 09:00 Morphine Sulfate (morphine) 2 mg Q2H PRN IV PAIN Last administered on 00:47; Admin Dose 2 MG; Start 07/11/16 at 01:30 Levothyroxine Sodium (Synthroid) 50 mcg DAILY@06 PO Last administered on 05:50; Admin Dose 50 MCG; Start 07/12/16 at 06:00 Epoetin Rodney (Epogen (Non Esrd/Non Oncology)) 20,000 units Q7D SC Last administered on 07/14/16 20:46; Admin Dose 20,000 UNITS; Start 07/14/16 at 17: 00 Acetaminophen/ Hydrocodone Bitart ([place] (5/325)) 1 tab Q3H PRN PO PAIN LEVEL 1 -3; Start 07/13/16 at 10:30 Acetaminophen/ Hydrocodone Bitart ([place] (5/325)) 2 tab Q3H PRN PO PAIN LEVEL 4 -7 Last administered on 07/18/16 18:03; Admin Dose 2 TAB; Start 07/13/16 at 10: 30 Hydromorphone HCl 1 mg 1 mg Q3H PRN IV PAIN LEVEL 8-10 Last administered on 07/19 10:13; Admin Dose 1 MG; Start 07/13/16 at 10:30 Levofloxacin/ Dextrose 100 ml @ 100 mls/hr Q24H IVPB Last administered on 19:59; Admin Dose 100 MLS/HR; Start 07/15/16 at 19:00 Levetiracetam 750 mg/Sodium Chloride 107.5 ml @ 420 mls/hr Q12 IVPB Last administered on 07/19/16 10:13; Admin Dose 420 MLS/HR; Start 07/16/16 at 21:00 Dextrose/Sodium Chloride (D5-1/2ns) 1,000 ml @ 40 mls/hr Q24H IV Last administered on 07/18/16 15:52; Admin Dose 75 MLS/HR; Start 07/16/16 at 22:00 Enoxaparin Sodium (Lovenox) 30 mg DAILY SC Last administered on 07/19/16 10:14 ; Admin Dose 30 MG; Start 07/18/16 at 09:00 Carvedilol (Coreg) 6.25 mg BID PO Last administered on 07/19/16 10:12; Admin Dose 6.25 MG; Start 07/18/16 at 21:00 Aspirin (Halfprin) 81 mg DAILY PO Last administered on 07/19/16 10:12; Admin Dose 81 MG; Start 07/19/16 at 09:00 ROLAND AYON MD Jul 19, 2016 12:46
[2016-07-19] MEDS: LEVETIRACETAM 750 MG TAB PO SCH (20:04)
[2016-07-19] MEDS: QUETIAPINE 25 MG TAB PO SCH (20:05)
[2016-07-19] MEDS: ATORVASTATIN 40 MG TAB PO SCH (20:05)
[2016-07-20] VITALS (12 sets, daily range): BP systolic 120–160; BP diastolic 58–73; PULSE 70–83; RESP 20
[2016-07-20] MEDS: HYDROmorphONE 1 MG/ML SYG IV PRN ×4 (02:45→21:18)
--- NOTE | 2016-07-20 04:02 | CONS ---
DATE OF ADMISSION: 07/10/2016 DATE OF CONSULTATION: REFERRING PHYSICIAN: Dr. Robertson Thank you for asking me to see the patient with you. HISTORY OF PRESENT ILLNESS: The patient is a 76-year-old lady who has a past medical history of sei zure disorder for which the patient is on Keppra 750 mg twice a day. The patient admitted with left hip fracture with surgery, decreased mini mental status, possibility of underlying acute stroke whi ch showed on the MRI. The patient has no seizure activity while she was complaining about the left hip pain. PHYSICAL EXAMINATION: GENERAL: On exam today, the patient is alert, awake, following simple commands, speaks [place]ian. CRANIAL NERVE: Cranial nerve II: Pupils equal on both sides, reactive to light. Cranial nerves II I, IV, and : Extraocular muscles intact. Cranial nerve V: Equal sensation to face. Cranial ner ve VII: Symmetrical face. Cranial nerve VIII: Decreased hearing bilaterally. Cranial nerves IX a nd X: Elevates palate. Cranial nerve XI: Elevates shoulder 5/5. Cranial nerve XII: With straigh t tongue. MOTOR: Left hip with weakness due to surgery. Sensation decreased for glove and stock area for lig ht touch and temperature. COORDINATION: [id number]-tv-[id number] test intact. HEART: Regular rate and rhythm. LUNGS: Equal breath sounds. ABDOMEN: Soft, relaxed, nondistended. No tenderness. ASSESSMENT AND PLAN 1. The patient is a 76-year-old lady with underlying CVA. We will keep the patient on aspirin 81 m g once a day p.o. 2. Seizure disorder. Keep the patient on Keppra 750 mg twice a day. 3. History of hypertension. Keep the blood pressure at the level of 140/90 to avoid any extension of her stroke. The patient is on Carvedilol 6.25 mg once a day. 4. History of hypothyroidism. Give the patient Levothyroxine 50 mcg once a day. 5. History of dyslipidemia. Keep the patient on Lipitor 40 mg once a day. 6. Paresthesia for which the patient is on Lyrica 25 mg twice a day. 7. History of benign positional vertigo for which the patient is on Antivert 25 mg 3 times a day as needed. Again, thank you for asking me to see the patient with you. Dictated By: YARI VARGAS/ZHANG Conf#: [id number] DID#: [id number]
[2016-07-20] MEDS: LEVOTHYROXINE 50 MCG TAB PO SCH ×2 (06:00→06:33)
[2016-07-20 06:37] LABS: ADD SCAN DIFF NO
[2016-07-20 06:58] LABS: BASOPHILS % 0.3 % (0.0-2.0); EOSINOPHILS # 0.2 10^3/ul (0.0-0.5); EOSINOPHILS % 2.5 % (0.0-7.0); HEMATOCRIT 36.3 % (37.0-47.0); HEMOGLOBIN 11.7 g/dl (12.0-16.0); LYMPHOCYTES # 0.8 10^3/ul (0.8-2.9); LYMPHOCYTES % 12.6 % (15.0-51.0); MEAN CORPUSCULAR HEMOGLOBIN 32.5 pg (29.0-33.0); MEAN CORPUSCULAR HGB CONC 32.2 g/dl (32.0-37.0); MEAN CORPUSCULAR VOLUME 100.8 fl (82.0-101.0); MONOCYTE # 0.7 10^3/ul (0.3-0.9); MONOCYTES % 11.5 % (0.0-11.0); NEUTROPHIL # 4.6 10^3/ul (1.6-7.5); NEUTROPHILS % 71.7 % (39.0-77.0); PLATELET COUNT 323 10^3/UL (140-415); RED CELL DISTRIBUTION WIDTH 16.4 % (11.5-14.5); WHITE BLOOD COUNT 6.4 10^3/ul (4.8-10.8)
[2016-07-20] MEDS: PANTOPRAZOLE (EC) 40 MG TAB PO SCH (08:54)
[2016-07-20] MEDS: LEVETIRACETAM 750 MG TAB PO SCH ×2 (08:54→21:19)
[2016-07-20] MEDS: RANOLAZINE (SR) 500 MG TAB PO SCH ×2 (08:54→21:18)
[2016-07-20] MEDS: ASPIRIN (EC) 81 MG TAB PO SCH (08:54)
[2016-07-20] MEDS: PREGABALIN 25 MG CAP PO SCH ×2 (08:55→21:19)
[2016-07-20] MEDS: FOLIC ACID 1 MG TAB PO SCH (08:55)
[2016-07-20] MEDS: ENOXAPARIN 30 MG/0.3 ML SYG SC SCH (09:04)
[2016-07-20] MEDS: DEXTROSE 5%-0.45% NACL 1,000 ML IV SCH (09:07)
--- NOTE | 2016-07-20 11:33 | CONS ---
Date/Time of Note Date/Time of Note DATE: 07/20/16 TIME: 11:31 Assessment/Plan Assessment/Plan Additional Assessment/Plan 1. Acute kidney injury secondary to prerenal azotemia. 2. Possible chronic kidney disease from her previous medical problems of hypertension and coronary artery disease. 3. History of coronary artery disease with history of percutaneous coronary intervention in 2008. 4. History of cerebrovascular accident. 5. History of hypertension. 6. 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 Patient with history of prior stroke. Dr. Patel is following in neurology consultation. 7. Breakthrough seizure on IV keppra PLAN: Cr improving with IVF hydration,Continue IVF D51/2 NS at 40 cc/hr on IV levaquin PO keppra for seizures, neurology following Monitor electrolytes will continue to follow up on patient. Consultation Date/Type/Reason Admit Date/Time Jul 10, 2016 at 18:21 Initial Consult Date July Type of Consultation: NEPHROLOGY Referring Provider: PRINCESS FISHER MD 24 HR Interval Summary Free Text/Dictation Cr improved to 1.07, Hb 11.7 after PRBC Exam/Review of Systems Vital Signs Vitals Vital Signs Date Time Temp Pulse Resp B/P Pulse Ox O2 Delivery O2 Flow Rate FiO2 07/20/16 08:10 Nasal Cannula 2.0 07/20/16 08:07 97.7 72 20 120/58 100 Intake and Output 07/19/16 07/19/16 07/20/16 15:00 23:00 07:00 Intake Total 107.5 ml 720 ml 680 ml Balance 107.5 ml 720 ml 680 ml Exam GENERAL: Awake, alert, in no distress. HEENT: Normal. Oropharynx clear. NECK: Supple, no JVD, no lymphadenopathy. LUNGS: Clear to auscultation. No crackles, no wheezes. HEART: S1, S2, rate regular, rhythm, no murmur. ABDOMEN: Soft, nontender, nondistended. Bowel sounds are present. Results Result Diagram: 07/20/16 0530 07/19/16 0719 Results 24 hrs Laboratory Tests Test 07/20/16 05:30 Basophils # 0.0 Basophils % 0.3 Eosinophils # 0.2 Eosinophils % 2.5 Hematocrit 36.3 L Hemoglobin 11.7 L Lymphocytes # 0.8 Lymphocytes % 12.6 L Mean Corpuscular Hemoglobin 32.5 Mean Corpuscular Hemoglobin Concent 32.2 Mean Corpuscular Volume 100.8 Mean Platelet Volume 9.0 Monocytes # 0.7 Monocytes % 11.5 H Neutrophils # 4.6 Neutrophils % 71.7 Nucleated Red Blood Cells # 0.0 Nucleated Red Blood Cells % 0.0 Platelet Count 323 Red Blood Count 3.60 L Red Cell Distribution Width 16.4 H White Blood Count 6.4 Medications Medications Current Medications Acetaminophen (Tylenol Tab) 325 mg Q6 PRN PO PAIN AND OR ELEVATED TEMP Last administered on 07/15/16 20:20; Admin Dose 325 MG; Start 07/10/16 at 23:00 Acetaminophen/ Hydrocodone Bitart ([place] (5/325)) 1 tab Q3H PRN PO PAIN; Start 07/10/16 at 23:00 Ondansetron HCl (Zofran Inj) 4 mg Q6H PRN IV NAUSEA AND/OR VOMITING; Start at 23:00 Atorvastatin Calcium (Lipitor) 40 mg QHS PO Last administered on 07/19/16 20:05 ; Admin Dose 40 MG; Start 07/11/16 at 21:00 Folic Acid (Folic Acid) 1 mg DAILY PO Last administered on 07/20/16 08:55; Admin Dose 1 MG; Start 07/11/16 at 09:00 Meclizine HCl (Antivert) 25 mg DAILY PRN PO DIZZINESS; Start 07/10/16 at 23:30 Pantoprazole (Protonix Tab) 40 mg DAILY PO Last administered on 07/20/16 08:54 ; Admin Dose 40 MG; Start 07/11/16 at 09:00 Pregabalin (Lyrica) 25 mg BID PO Last administered on 07/20/16 08:55; Admin Dose 25 MG; Start 07/11/16 at 09:00 Quetiapine Fumarate (Seroquel) 25 mg HS PO Last administered on 07/19/16 20:05 ; Admin Dose 25 MG; Start 07/11/16 at 21:00 Ranolazine (Ranexa) 1,000 mg Q12 PO Last administered on 07/20/16 08:54; Admin Dose 1,000 MG; Start 07/11/16 at 09:00 Morphine Sulfate (morphine) 2 mg Q2H PRN IV PAIN Last administered on 00:47; Admin Dose 2 MG; Start 07/11/16 at 01:30 Levothyroxine Sodium (Synthroid) 50 mcg DAILY@06 PO Last administered on 05:50; Admin Dose 50 MCG; Start 07/12/16 at 06:00 Epoetin Rodney (Epogen (Non Esrd/Non Oncology)) 20,000 units Q7D SC Last administered on 07/14/16 20:46; Admin Dose 20,000 UNITS; Start 07/14/16 at 17: 00 Acetaminophen/ Hydrocodone Bitart ([place] (5/325)) 1 tab Q3H PRN PO PAIN LEVEL 1 -3; Start 07/13/16 at 10:30 Acetaminophen/ Hydrocodone Bitart ([place] (5/325)) 2 tab Q3H PRN PO PAIN LEVEL 4 -7 Last administered on 07/18/16 18:03; Admin Dose 2 TAB; Start 07/13/16 at 10: 30 Hydromorphone HCl 1 mg 1 mg Q3H PRN IV PAIN LEVEL 8-10 Last administered on 07/20 08:55; Admin Dose 1 MG; Start 07/13/16 at 10:30 Dextrose/Sodium Chloride (D5-1/2ns) 1,000 ml @ 40 mls/hr Q24H IV Last administered on 07/20/16 09:07; Admin Dose 40 MLS/HR; Start 07/16/16 at 22:00 Enoxaparin Sodium (Lovenox) 30 mg DAILY SC Last administered on 07/20/16 09:04 ; Admin Dose 30 MG; Start 07/18/16 at 09:00 Carvedilol (Coreg) 6.25 mg BID PO Last administered on 07/20/16 08:54; Admin Dose 6.25 MG; Start 07/18/16 at 21:00 Aspirin (Halfprin) 81 mg DAILY PO Last administered on 07/20/16 08:54; Admin Dose 81 MG; Start 07/19/16 at 09:00 Levetiracetam (Keppra) 750 mg BID PO Last administered on 07/20/16 08:54; Admin Dose 750 MG; Start 07/19/16 at 21:00 Clonidine (Catapres) 0.1 mg Q6H PRN PO ELEVATED BLOOD PRESSURE; Start 07/20/16 at 06:30 ROLAND AYON MD Jul 20, 2016 11:33
--- NOTE | 2016-07-20 12:51 | PN ---
Date/Time of Note Date/Time of Note DATE: 07/20/16 TIME: 12:50 Assessment/Plan VTE Prophylaxis VTE Prophylaxis Intervention: other Lines/Catheters [facility] Peripheral IV Urinary Cath still in place: No Assessment/Plan Chief Complaint/Hosp Course - Acute left frontal cortical infarct per MRI. Patient with history of prior stroke. Dr. Patel is following in neurology consultation. - Breakthrough seizure. Continue Keppra IV. - Left femoral neck fracture secondary to mechanical fall. Status post left hip humeral arthroplasty by Dr. Marshall, orthopedic surgery. - Anemia with hemoglobin drop to 6.9. Stool for OB. Transfuse 2 units of packed red blood cells. - Coronary artery disease, status post PCI. Dr. Bedoya is following in cardiology consultation. Continue aspirin and Ranexa. - Hypertension. Continue Coreg. - Dyslipidemia. Continue Lipitor. - Hypothyroidism. Continue Synthroid. - Macrocytic anemia. - E. coli UTI, continue Levaquin. Problems: Subjective 24 Hr Interval Summary Free Text/Dictation Patient has no complaints Exam/Review of Systems Vital Signs Vitals Vital Signs Date Time Temp Pulse Resp B/P Pulse Ox O2 Delivery O2 Flow Rate FiO2 07/20/16 12:30 70 07/20/16 11:50 97.5 20 134/61 100 07/20/16 08:10 Nasal Cannula 2.0 Intake and Output 07/19/16 07/19/16 07/20/16 15:00 23:00 07:00 Intake Total 107.5 ml 720 ml 680 ml Balance 107.5 ml 720 ml 680 ml Exam Constitutional: well developed Head: atraumatic, normocephalic Neck: supple Respiratory: diminished breath sounds Cardiovascular: regular rate and rhythm Gastrointestinal: non-tender, soft Extremities: normal pulses Results Result Diagram: 07/20/16 0530 07/19/16 0719 Results 24 hrs Laboratory Tests Test 07/20/16 05:30 Basophils # 0.0 Basophils % 0.3 Eosinophils # 0.2 Eosinophils % 2.5 Hematocrit 36.3 L Hemoglobin 11.7 L Lymphocytes # 0.8 Lymphocytes % 12.6 L Mean Corpuscular Hemoglobin 32.5 Mean Corpuscular Hemoglobin Concent 32.2 Mean Corpuscular Volume 100.8 Mean Platelet Volume 9.0 Monocytes # 0.7 Monocytes % 11.5 H Neutrophils # 4.6 Neutrophils % 71.7 Nucleated Red Blood Cells # 0.0 Nucleated Red Blood Cells % 0.0 Platelet Count 323 Red Blood Count 3.60 L Red Cell Distribution Width 16.4 H White Blood Count 6.4 Medications Medications Current Medications Acetaminophen (Tylenol Tab) 325 mg Q6 PRN PO PAIN AND OR ELEVATED TEMP Last administered on 07/15/16 20:20; Admin Dose 325 MG; Start 07/10/16 at 23:00 Acetaminophen/ Hydrocodone Bitart ([place] (5/325)) 1 tab Q3H PRN PO PAIN; Start 07/10/16 at 23:00 Ondansetron HCl (Zofran Inj) 4 mg Q6H PRN IV NAUSEA AND/OR VOMITING; Start at 23:00 Atorvastatin Calcium (Lipitor) 40 mg QHS PO Last administered on 07/19/16 20:05 ; Admin Dose 40 MG; Start 07/11/16 at 21:00 Folic Acid (Folic Acid) 1 mg DAILY PO Last administered on 07/20/16 08:55; Admin Dose 1 MG; Start 07/11/16 at 09:00 Meclizine HCl (Antivert) 25 mg DAILY PRN PO DIZZINESS; Start 07/10/16 at 23:30 Pantoprazole (Protonix Tab) 40 mg DAILY PO Last administered on 07/20/16 08:54 ; Admin Dose 40 MG; Start 07/11/16 at 09:00 Pregabalin (Lyrica) 25 mg BID PO Last administered on 07/20/16 08:55; Admin Dose 25 MG; Start 07/11/16 at 09:00 Quetiapine Fumarate (Seroquel) 25 mg HS PO Last administered on 07/19/16 20:05 ; Admin Dose 25 MG; Start 07/11/16 at 21:00 Ranolazine (Ranexa) 1,000 mg Q12 PO Last administered on 07/20/16 08:54; Admin Dose 1,000 MG; Start 07/11/16 at 09:00 Morphine Sulfate (morphine) 2 mg Q2H PRN IV PAIN Last administered on 00:47; Admin Dose 2 MG; Start 07/11/16 at 01:30 Levothyroxine Sodium (Synthroid) 50 mcg DAILY@06 PO Last administered on 05:50; Admin Dose 50 MCG; Start 07/12/16 at 06:00 Epoetin [place] (Epogen (Non Esrd/Non Oncology)) 20,000 units Q7D SC Last administered on 07/14/16 20:46; Admin Dose 20,000 UNITS; Start 07/14/16 at 17: 00 Acetaminophen/ Hydrocodone Bitart ([place] (5/325)) 1 tab Q3H PRN PO PAIN LEVEL 1 -3; Start 07/13/16 at 10:30 Acetaminophen/ Hydrocodone Bitart ([place] (5/325)) 2 tab Q3H PRN PO PAIN LEVEL 4 -7 Last administered on 07/18/16 18:03; Admin Dose 2 TAB; Start 07/13/16 at 10: 30 Hydromorphone HCl 1 mg 1 mg Q3H PRN IV PAIN LEVEL 8-10 Last administered on 07/20 08:55; Admin Dose 1 MG; Start 07/13/16 at 10:30 Dextrose/Sodium Chloride (D5-1/2ns) 1,000 ml @ 40 mls/hr Q24H IV Last administered on 07/20/16 09:07; Admin Dose 40 MLS/HR; Start 07/16/16 at 22:00 Enoxaparin Sodium (Lovenox) 30 mg DAILY SC Last administered on 07/20/16 09:04 ; Admin Dose 30 MG; Start 07/18/16 at 09:00 Carvedilol (Coreg) 6.25 mg BID PO Last administered on 07/20/16 08:54; Admin Dose 6.25 MG; Start 07/18/16 at 21:00 Aspirin (Halfprin) 81 mg DAILY PO Last administered on 07/20/16 08:54; Admin Dose 81 MG; Start 07/19/16 at 09:00 Levetiracetam (Keppra) 750 mg BID PO Last administered on 07/20/16 08:54; Admin Dose 750 MG; Start 07/19/16 at 21:00 Clonidine (Catapres) 0.1 mg Q6H PRN PO ELEVATED BLOOD PRESSURE; Start 07/20/16 at 06:30 YESSENIA MARIN 5, 2017 12:50
[2016-07-20] MEDS: QUETIAPINE 25 MG TAB PO SCH (21:18)
[2016-07-20] MEDS: ATORVASTATIN 40 MG TAB PO SCH (21:19)
--- NOTE | 2016-07-20 23:24 | CONS ---
DATE OF ADMISSION: 07/10/2016 DATE OF CONSULTATION: REFERRING PHYSICIAN: Dr. Robertson Again, thank you for asking me to see the patient with you. HISTORY OF PRESENT ILLNESS: The patient is a 76-year-old with a past medical history of seizure dis order. The patient on Keppra 750 mg twice a day. The patient admitted with left hip fracture with decreased ambulation, underlying acute stroke and ____ strokes on the MRI. The patient started on a spirin 81 mg once a day for that. HOME MEDICATIONS: Which includes: 1. Catapres 0.1 mg every 6 hours as needed. 2. Keppra 750 mg twice a day. 3. Aspirin 81 mg once a day. 4. Coreg 6.25 mg once a day. 5. Lovenox 30 mg subcutaneous once a day. 6. Dilaudid 1 mg every 3 hours as needed. 7. Synthroid 50 mcg once a day. 8. Lipitor 40 mg once a day. 9. Seroquel 25 mg once at night. 10. Folic acid 1 mg once at night. 11. Lyrica 25 mg once a day. 12. Protonix 40 mg once a day as needed. 13. Morphine sulfate 2 mg every 2 hours as needed. 14. Antivert 25 mg for dizziness 1 tablet 3 times a day as needed. 15. [place] 5/325 every ____ hours as needed. 16. Zofran 4 mg every 6 hours as needed. PHYSICAL EXAMINATION: GENERAL: The patient is alert, awake, oriented, following simple commands without difficulty. The patient speaks [place] Sor[place]. CRANIAL NERVES: Cranial nerve II: Pupils equal both sides, reactive to light. Cranial nerves III, IV, and : Extraocular muscles intact. No nystagmus. Cranial nerve V: Equal sensation to face. Cranial nerve VII: Symmetrical face. Cranial nerve VIII: Decreased hearing bilaterally. Crania l nerves IX and X: Elevates palate. Cranial nerve XI: Elevates shoulder 5/5. Cranial nerve XII: With straight tongue. MOTOR: Left hip weakness. HEART: Regular rate and rhythm. LUNGS: Equal breath sounds. ABDOMEN: Soft, relaxed. Nondistended, nontender. ASSESSMENT AND PLAN: 1. The patient is a 76-year-old with underlying cerebrovascular accident in which the patient was s tarted on aspirin 81 mg for stroke prophylaxis. 2. Seizure disorder. We should keep the patient on Keppra 750 mg. Follow up the patient with seiz ure precautions for now. 3. History of hypertension. Keep the blood pressure at a level of 140/90. 4. History of hypothyroidism. Keep the patient on levothyroxine 50 mcg once a day. 5. History of dyslipidemia. Keep the patient on Lipitor 40 mg once a day. 6. Paresthesia. Keep the patient on lyrical 25 mg once a day. 7. History of vertigo in which the patient on Antivert 25 mg once at night. 8. History of sleep difficulty. Keep the patient on Seroquel 25 mg once at night as needed. Again, thank you for asking me to see the patient with you. Dictated By: YARI MARCUS MD NA/NTS Conf#: [id number] DID#: [id number] CC: PRINCESS ROBERTSON MD;*EndCC*
[2016-07-21] VITALS (12 sets, daily range): BP systolic 130–174; BP diastolic 62–73; PULSE 59–74; RESP 18–20
[2016-07-21] MEDS: LEVOTHYROXINE 50 MCG TAB PO SCH (05:56)
--- NOTE | 2016-07-21 07:00 | SP ---
DATE OF PROCEDURE: REFERRING PHYSICIAN: The patient was seen by who is asking me to follow up on the patient . HISTORY OF PRESENT ILLNESS: The patient is 76 years old. I have seen her in the past. The patient has multiple medical problems in which she fell down and has hip fracture status-post surgery. The patient had a history of seizure disorder and Keppra was increased to 750 mg. EEG showed generalized slowing consistent with underlying encephalopathy and dementia. The patient had an MRI which shows possible acute nonhemorrhagic infarction in the left frontal area. The patient is supposed to be o n aspirin 300 mL. The patient refused it when the aspirin was given [place]. On exam today, the patient is alert, awake, following simple commands without difficulty. CRANIAL NERVES: Cranial nerve II: Pupils equal both sides, reactive to light. Cranial nerves III, IV, and : Extraocular muscles intact. No nystagmus. Cranial nerve V: Equal sensation to face. Cranial nerve VIII: Decreased hearing bilaterally. Cranial nerve X and XI: Elevates shoulder 5/ 5 with resistance. Cranial nerve XII: With straight tongue. MOTOR: Moving both upper and lower extremities against gravity. Sensation decreased for glove and sock area for light touch and temperature. COORDINATION: [id number]-nx-[id number] test intact. HEART: Regular rate and rhythm. LUNGS: Equal breath sounds. ABDOMEN: Soft, relaxed, nondistended. No tenderness. ASSESSMENT AND PLAN 1. The patient is a 76 year old with underlying seizure activity; however, the EEG showed generaliz ed slowing. Will continue the patient under seizure precaution and continue Keppra 750 mg twice a d ay. 2. Underlying stroke in which the patient refused the [place] aspirin. I changed to p.o. aspirin 81 mg for the patient to take once a day to stay away from stroke. 3. Status post decreased mini mental status with possibility of underlying dementia versus encephal opathy for which the patient had an EEG done. 4. History of fall and hip surgery, Will keep the patient under fall precaution and order for her p hysical therapy for gait evaluation and balance. 5. History of dyslipidemia. Keep the patient on Lipitor. Again, thank you for asking me to see the patient with you. Dictated By: YARI VARGAS/NTS Conf#: [id number] DID#: [id number]
[2016-07-21 07:23] LABS: ADD SCAN DIFF NO
[2016-07-21 07:37] LABS: BASOPHILS % 0.4 % (0.0-2.0); EOSINOPHILS # 0.1 10^3/ul (0.0-0.5); EOSINOPHILS % 2.1 % (0.0-7.0); HEMATOCRIT 32.9 % (37.0-47.0); HEMOGLOBIN 10.6 g/dl (12.0-16.0); LYMPHOCYTES # 0.6 10^3/ul (0.8-2.9); MEAN CORPUSCULAR HEMOGLOBIN 32.3 pg (29.0-33.0); MEAN CORPUSCULAR HGB CONC 32.2 g/dl (32.0-37.0); MEAN CORPUSCULAR VOLUME 100.3 fl (82.0-101.0); MEAN PLATELET VOLUME 8.8 fl (7.4-10.4); MONOCYTE # 0.7 10^3/ul (0.3-0.9); MONOCYTES % 13.9 % (0.0-11.0); NEUTROPHIL # 3.7 10^3/ul (1.6-7.5); NEUTROPHILS % 69.3 % (39.0-77.0); PLATELET COUNT 313 10^3/UL (140-415); RED BLOOD COUNT 3.28 10^6/ul (4.20-5.40); RED CELL DISTRIBUTION WIDTH 15.7 % (11.5-14.5); WHITE BLOOD COUNT 5.3 10^3/ul (4.8-10.8)
[2016-07-21] MEDS: RANOLAZINE (SR) 500 MG TAB PO SCH ×2 (09:48→21:00)
[2016-07-21] MEDS: PREGABALIN 25 MG CAP PO SCH ×2 (09:48→21:00)
[2016-07-21] MEDS: LEVETIRACETAM 750 MG TAB PO SCH ×2 (09:48→21:00)
[2016-07-21] MEDS: morphine 2 MG INJ IV PRN ×2 (09:49→14:46)
[2016-07-21] MEDS: PANTOPRAZOLE (EC) 40 MG TAB PO SCH (09:49)
[2016-07-21] MEDS: ASPIRIN (EC) 81 MG TAB PO SCH (09:49)
[2016-07-21] MEDS: FOLIC ACID 1 MG TAB PO SCH (09:49)
[2016-07-21] MEDS: ENOXAPARIN 30 MG/0.3 ML SYG SC SCH (10:32)
[2016-07-21] MEDS: DEXTROSE 5%-0.45% NACL 1,000 ML IV SCH (11:34)
--- NOTE | 2016-07-21 12:30 | CONS ---
Date/Time of Note Date/Time of Note DATE: 07/21/16 TIME: 12:29 Assessment/Plan Assessment/Plan Additional Assessment/Plan 1. Acute kidney injury secondary to prerenal azotemia. 2. Possible chronic kidney disease from her previous medical problems of hypertension and coronary artery disease. 3. History of coronary artery disease with history of percutaneous coronary intervention in 2008. 4. History of cerebrovascular accident. 5. History of hypertension. 6. 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 Patient with history of prior stroke. Dr. Patel is following in neurology consultation. 7. Breakthrough seizure on IV keppra PLAN: Cr improving with IVF hydration,Continue IVF D51/2 NS at 40 cc/hr on IV levaquin PO keppra for seizures, neurology following Monitor electrolytes will continue to follow up on patient. Consultation Date/Type/Reason Admit Date/Time Jul 10, 2016 at 18:21 Initial Consult Date July Type of Consultation: NEPHROLOGY Reason for Consultation acute kidney injury , severe anemia Referring Provider: PRINCESS FISHER MD 24 HR Interval Summary Free Text/Dictation Cr stable yesterday, no labs today to review yet Exam/Review of Systems Vital Signs Vitals Vital Signs Date Time Temp Pulse Resp B/P Pulse Ox O2 Delivery O2 Flow Rate FiO2 07/21/16 08:59 67 07/21/16 08:03 98.5 20 146/65 98 07/20/16 19:35 Nasal Cannula 2.0 Intake and Output 07/20/16 07/20/16 07/21/16 15:00 23:00 07:00 Intake Total 500 ml 780 ml Balance 500 ml 780 ml Exam GENERAL: Awake, alert, in no distress. HEENT: Normal. Oropharynx clear. NECK: Supple, no JVD, no lymphadenopathy. LUNGS: Clear to auscultation. No crackles, no wheezes. HEART: S1, S2, rate regular, rhythm, no murmur. ABDOMEN: Soft, nontender, nondistended. Bowel sounds are present. Results Result Diagram: 07/21/16 0640 07/19/16 0719 Results 24 hrs Laboratory Tests Test 07/21/16 06:40 Basophils # 0.0 Basophils % 0.4 Eosinophils # 0.1 Eosinophils % 2.1 Hematocrit 32.9 L Hemoglobin 10.6 L Lymphocytes # 0.6 L Lymphocytes % 12.0 L Mean Corpuscular Hemoglobin 32.3 Mean Corpuscular Hemoglobin Concent 32.2 Mean Corpuscular Volume 100.3 Mean Platelet Volume 8.8 Monocytes # 0.7 Monocytes % 13.9 H Neutrophils # 3.7 Neutrophils % 69.3 Nucleated Red Blood Cells # 0.0 Nucleated Red Blood Cells % 0.0 Platelet Count 313 Red Blood Count 3.28 L Red Cell Distribution Width 15.7 H White Blood Count 5.3 Medications Medications Current Medications Acetaminophen (Tylenol Tab) 325 mg Q6 PRN PO PAIN AND OR ELEVATED TEMP Last administered on 07/15/16 20:20; Admin Dose 325 MG; Start 07/10/16 at 23:00 Acetaminophen/ Hydrocodone Bitart ([place] (5/325)) 1 tab Q3H PRN PO PAIN; Start 07/10/16 at 23:00 Ondansetron HCl (Zofran Inj) 4 mg Q6H PRN IV NAUSEA AND/OR VOMITING; Start at 23:00 Atorvastatin Calcium (Lipitor) 40 mg QHS PO Last administered on 07/20/16 21:19 ; Admin Dose 40 MG; Start 07/11/16 at 21:00 Folic Acid (Folic Acid) 1 mg DAILY PO Last administered on 07/21/16 09:49; Admin Dose 1 MG; Start 07/11/16 at 09:00 Meclizine HCl (Antivert) 25 mg DAILY PRN PO DIZZINESS; Start 07/10/16 at 23:30 Pantoprazole (Protonix Tab) 40 mg DAILY PO Last administered on 07/21/16 09:49 ; Admin Dose 40 MG; Start 07/11/16 at 09:00 Pregabalin (Lyrica) 25 mg BID PO Last administered on 07/21/16 09:48; Admin Dose 25 MG; Start 07/11/16 at 09:00 Quetiapine Fumarate (Seroquel) 25 mg HS PO Last administered on 07/20/16 21:18 ; Admin Dose 25 MG; Start 07/11/16 at 21:00 Ranolazine (Ranexa) 1,000 mg Q12 PO Last administered on 07/21/16 09:48; Admin Dose 1,000 MG; Start 07/11/16 at 09:00 Morphine Sulfate (morphine) 2 mg Q2H PRN IV PAIN Last administered on 07/21/16 09:49; Admin Dose 2 MG; Start 07/11/16 at 01:30 Levothyroxine Sodium (Synthroid) 50 mcg DAILY@06 PO Last administered on 05:56; Admin Dose 50 MCG; Start 07/12/16 at 06:00 Epoetin Rodney (Epogen (Non Esrd/Non Oncology)) 20,000 units Q7D SC Last administered on 07/14/16 20:46; Admin Dose 20,000 UNITS; Start 07/14/16 at 17: 00 Acetaminophen/ Hydrocodone Bitart ([place] (5/325)) 1 tab Q3H PRN PO PAIN LEVEL 1 -3; Start 07/13/16 at 10:30 Acetaminophen/ Hydrocodone Bitart ([place] (5/325)) 2 tab Q3H PRN PO PAIN LEVEL 4 -7 Last administered on 07/18/16 18:03; Admin Dose 2 TAB; Start 07/13/16 at 10: 30 Hydromorphone HCl 1 mg 1 mg Q3H PRN IV PAIN LEVEL 8-10 Last administered on 07/20 21:18; Admin Dose 1 MG; Start 07/13/16 at 10:30 Dextrose/Sodium Chloride (D5-1/2ns) 1,000 ml @ 40 mls/hr Q24H IV Last administered on 07/21/16 11:34; Admin Dose 40 MLS/HR; Start 07/16/16 at 22:00 Enoxaparin Sodium (Lovenox) 30 mg DAILY SC Last administered on 07/21/16 10:32 ; Admin Dose 30 MG; Start 07/18/16 at 09:00 Carvedilol (Coreg) 6.25 mg BID PO Last administered on 07/21/16 09:49; Admin Dose 6.25 MG; Start 07/18/16 at 21:00 Aspirin (Halfprin) 81 mg DAILY PO Last administered on 07/21/16 09:49; Admin Dose 81 MG; Start 07/19/16 at 09:00 Levetiracetam (Keppra) 750 mg BID PO Last administered on 07/21/16 09:48; Admin Dose 750 MG; Start 07/19/16 at 21:00 Clonidine (Catapres) 0.1 mg Q6H PRN PO ELEVATED BLOOD PRESSURE; Start 07/20/16 at 06:30 ROLAND AYON MD Jul 21, 2016 12:30
--- NOTE | 2016-07-21 14:10 | PN ---
Date/Time of Note Date/Time of Note DATE: 07/21/16 TIME: 14:05 Assessment/Plan VTE Prophylaxis VTE Prophylaxis Intervention: SCD's Lines/Catheters IV [facility] Type [facility] Peripheral IV Urinary Cath still in place: No Assessment/Plan Chief Complaint/Hosp Course Assessment and plan - Acute left frontal cortical infarct per MRI. Patient with history of prior stroke. Dr. Patel is following in neurology consultation. - Breakthrough seizure. Continue Keppra IV. - Left femoral neck fracture secondary to mechanical fall. Status post left hip humeral arthroplasty by Dr. Marshall, orthopedic surgery. - CLARK. Dr. Braxton is following from nephrology consultation. Continue to monitor BUN and creatinine. - Anemia. Stool for OB is neg. Status post blood transfusion. Continue to monitor hemoglobin and hematocrit. - Coronary artery disease, status post PCI. Dr. Bedoya is following in cardiology consultation. Continue aspirin and Ranexa. - Hypertension. Continue Coreg. - Dyslipidemia. Continue Lipitor. - Hypothyroidism. Continue Synthroid. - Macrocytic anemia. - E. coli UTI, continue Levaquin. Further recommendations based on clinical course. Plan of care discussed with Dr. Robertson. Problems: Subjective 24 Hr Interval Summary Free Text/Dictation No seizure activity per RN, patient tolerated diet well, was able to exercise was physical therapy, remains afebrile. Exam/Review of Systems Vital Signs Vitals Vital Signs Date Time Temp Pulse Resp B/P Pulse Ox O2 Delivery O2 Flow Rate FiO2 07/21/16 13:42 97.9 69 18 152/62 100 07/20/16 19:35 Nasal Cannula 2.0 Intake and Output 07/20/16 07/20/16 07/21/16 15:00 23:00 07:00 Intake Total 500 ml 780 ml Balance 500 ml 780 ml Exam GENERAL: The patient is conscious, awake, alert. HEENT: Atraumatic, normocephalic. DYAN NECK: Supple. No mass, no thyromegaly. CHEST: Clear to auscultation. CARDIOVASCULAR: S1, S2 normal. No murmur, gallop, or rub. ABDOMEN: Soft, nondistended, nontender. Bowel sounds plus. EXTREMITIES: No leg edema. No clubbing, no cyanosis. S/p Left hip surgery. NEUROLOGIC: The patient is awake, alert, follows simple commands. Results Result Diagram: 07/21/16 0640 07/19/16 0719 Results 24 hrs Laboratory Tests Test 07/21/16 06:40 Basophils # 0.0 Basophils % 0.4 Eosinophils # 0.1 Eosinophils % 2.1 Hematocrit 32.9 L Hemoglobin 10.6 L Lymphocytes # 0.6 L Lymphocytes % 12.0 L Mean Corpuscular Hemoglobin 32.3 Mean Corpuscular Hemoglobin Concent 32.2 Mean Corpuscular Volume 100.3 Mean Platelet Volume 8.8 Monocytes # 0.7 Monocytes % 13.9 H Neutrophils # 3.7 Neutrophils % 69.3 Nucleated Red Blood Cells # 0.0 Nucleated Red Blood Cells % 0.0 Platelet Count 313 Red Blood Count 3.28 L Red Cell Distribution Width 15.7 H White Blood Count 5.3 Medications Medications Current Medications Acetaminophen (Tylenol Tab) 325 mg Q6 PRN PO PAIN AND OR ELEVATED TEMP Last administered on 07/15/16 20:20; Admin Dose 325 MG; Start 07/10/16 at 23:00 Acetaminophen/ Hydrocodone Bitart ([place] (5/325)) 1 tab Q3H PRN PO PAIN; Start 07/10/16 at 23:00 Ondansetron HCl (Zofran Inj) 4 mg Q6H PRN IV NAUSEA AND/OR VOMITING; Start at 23:00 Atorvastatin Calcium (Lipitor) 40 mg QHS PO Last administered on 07/20/16 21:19 ; Admin Dose 40 MG; Start 07/11/16 at 21:00 Folic Acid (Folic Acid) 1 mg DAILY PO Last administered on 07/21/16 09:49; Admin Dose 1 MG; Start 07/11/16 at 09:00 Meclizine HCl (Antivert) 25 mg DAILY PRN PO DIZZINESS; Start 07/10/16 at 23:30 Pantoprazole (Protonix Tab) 40 mg DAILY PO Last administered on 07/21/16 09:49 ; Admin Dose 40 MG; Start 07/11/16 at 09:00 Pregabalin (Lyrica) 25 mg BID PO Last administered on 07/21/16 09:48; Admin Dose 25 MG; Start 07/11/16 at 09:00 Quetiapine Fumarate (Seroquel) 25 mg HS PO Last administered on 07/20/16 21:18 ; Admin Dose 25 MG; Start 07/11/16 at 21:00 Ranolazine (Ranexa) 1,000 mg Q12 PO Last administered on 07/21/16 09:48; Admin Dose 1,000 MG; Start 07/11/16 at 09:00 Morphine Sulfate (morphine) 2 mg Q2H PRN IV PAIN Last administered on 07/21/16 09:49; Admin Dose 2 MG; Start 07/11/16 at 01:30 Levothyroxine Sodium (Synthroid) 50 mcg DAILY@06 PO Last administered on 05:56; Admin Dose 50 MCG; Start 07/12/16 at 06:00 Epoetin Rodney (Epogen (Non Esrd/Non Oncology)) 20,000 units Q7D SC Last administered on 07/14/16 20:46; Admin Dose 20,000 UNITS; Start 07/14/16 at 17: 00 Acetaminophen/ Hydrocodone Bitart ([place] (5/325)) 1 tab Q3H PRN PO PAIN LEVEL 1 -3; Start 07/13/16 at 10:30 Acetaminophen/ Hydrocodone Bitart ([place] (5/325)) 2 tab Q3H PRN PO PAIN LEVEL 4 -7 Last administered on 07/18/16 18:03; Admin Dose 2 TAB; Start 07/13/16 at 10: 30 Hydromorphone HCl (Dilaudid) 1 mg Q3H PRN IV PAIN LEVEL 8-10 Last administered on 07/20/16 21:18; Admin Dose 1 MG; Start 07/13/16 at 10:30 Enoxaparin Sodium (Lovenox) 30 mg DAILY SC Last administered on 07/21/16 10:32 ; Admin Dose 30 MG; Start 07/18/16 at 09:00 Carvedilol (Coreg) 6.25 mg BID PO Last administered on 07/21/16 09:49; Admin Dose 6.25 MG; Start 07/18/16 at 21:00 Aspirin (Halfprin) 81 mg DAILY PO Last administered on 07/21/16 09:49; Admin Dose 81 MG; Start 07/19/16 at 09:00 Levetiracetam (Keppra) 750 mg BID PO Last administered on 07/21/16 09:48; Admin Dose 750 MG; Start 07/19/16 at 21:00 Clonidine (Catapres) 0.1 mg Q6H PRN PO ELEVATED BLOOD PRESSURE; Start 07/20/16 at 06:30 ILAN GALDAMEZ Jul 21, 2016 14:09
[2016-07-21] MEDS: EPOETIN 10000 UNITS/ML (NON ESRD/NON ONCOLOGY) SC SCH (19:00)
[2016-07-21] MEDS: ATORVASTATIN 40 MG TAB PO SCH (21:00)
[2016-07-21] MEDS: QUETIAPINE 25 MG TAB PO SCH (21:00)
--- NOTE | 2016-07-21 22:31 | PN ---
DATE: REFERRING PHYSICIAN: Dr. Robertson Thank you for asking me to see the patient with you. EEG done. HISTORY OF PRESENT ILLNESS: The patient is 76 years old with a past medical history of hip pain wit h status post surgery in which the patient had difficulty with walk. The patient with underlying st roke in which the aspirin started for her, 81 mg once a day for stroke prophylaxis. PHYSICAL EXAMINATION: GENERAL: Today, the patient is alert, awake, oriented for place, and person. CRANIAL NERVES: Cranial nerve II: Pupils equal both sides, reactive to light. Cranial nerves III, IV, and : Extraocular muscles intact. No nystagmus. Cranial nerve V: Equal sensation to face. Cranial nerve VII: Symmetrical face. Cranial nerve VIII: Equal hearing bilaterally. Cranial ne rves IX, X: Elevates palate. Cranial nerve XI: Elevates shoulder 5/5. Cranial nerve XII: With s traight tongue. MOTOR: Left hip weakness secondary to the pain. DEEP TENDON REFLEX: 1+ toes going down. COORDINATION: [id number] test intact. HEART: Regular rate and rhythm. LUNGS: Equal breath sounds. ABDOMEN: Soft, relaxed, nondistended. No tenderness. ASSESSMENT AND PLAN: 1. The patient is 76 years old with underlying stroke. Keep the patient on aspirin 81 mg for strok e prophylaxis. 2. History of seizure. We will keep the patient under seizure precaution as well as Keppra 750 mg twice a day. 3. History of hypertension. Keep the blood pressure at the level of 140/90 to avoid any extension of stroke. 4. History of hypothyroidism. Give the patient levothyroxine 50 mcg once a day. 5. History of dyslipidemia. Keep the patient on Lipitor 40 mg once a day. 6. History of vertigo. Give the patient Antivert 25 mg 3 times a day. 7. History of sleep difficulty. The patient already on Seroquel 25 mg. Thank you for asking me to see the patient with you. Dictated By: YARI VARGAS/NTS Conf#: [id number] DID#: [id number] CC: PRINCESS ROBERTSON MD;*EndCC*
[2016-07-22] VITALS (11 sets, daily range): BP systolic 133–157; BP diastolic 60–72; PULSE 64–80; RESP 18
[2016-07-22] MEDS: LEVOTHYROXINE 50 MCG TAB PO SCH (06:17)
[2016-07-22] MEDS: RANOLAZINE (SR) 500 MG TAB PO SCH ×2 (06:22→21:04)
[2016-07-22] MEDS: LEVETIRACETAM 750 MG TAB PO SCH ×2 (06:22→21:04)
[2016-07-22] MEDS: ATORVASTATIN 40 MG TAB PO SCH (06:22)
[2016-07-22] MEDS: PREGABALIN 25 MG CAP PO SCH ×2 (06:22→21:04)
[2016-07-22 08:07] LABS: ADD SCAN DIFF NO
[2016-07-22 08:15] LABS: ABNORMAL IP MESSAGE 1; BASOPHILS % 0.2 % (0.0-2.0); EOSINOPHILS # 0.1 10^3/ul (0.0-0.5); EOSINOPHILS % 1.2 % (0.0-7.0); HEMATOCRIT 32.7 % (37.0-47.0); HEMOGLOBIN 10.4 g/dl (12.0-16.0); LYMPHOCYTES # 0.5 10^3/ul (0.8-2.9); LYMPHOCYTES % 8.7 % (15.0-51.0); MEAN CORPUSCULAR HEMOGLOBIN 31.9 pg (29.0-33.0); MEAN CORPUSCULAR HGB CONC 31.8 g/dl (32.0-37.0); MEAN CORPUSCULAR VOLUME 100.3 fl (82.0-101.0); MEAN PLATELET VOLUME 8.8 fl (7.4-10.4); MONOCYTE # 0.7 10^3/ul (0.3-0.9); MONOCYTES % 11.2 % (0.0-11.0); NEUTROPHIL # 4.5 10^3/ul (1.6-7.5); NEUTROPHILS % 75.8 % (39.0-77.0); PLATELET COUNT 309 10^3/UL (140-415); RED BLOOD COUNT 3.26 10^6/ul (4.20-5.40); RED CELL DISTRIBUTION WIDTH 15.2 % (11.5-14.5); WHITE BLOOD COUNT 5.9 10^3/ul (4.8-10.8)
[2016-07-22 08:36] LABS: INR 1.04; PROTIME 13.6 Sec (12.2-14.2); PT RATIO 1.1
[2016-07-22 08:37] LABS: PARTIAL THROMBOPLASTIN TIME 41.7 Sec (25.0-35.0)
[2016-07-22 08:38] LABS: POTASSIUM 3.8 mmol/L (3.5-5.1)
[2016-07-22 08:40] LABS: CREATININE 0.78 mg/dl (0.44-1.00)
[2016-07-22 08:41] LABS: CALCIUM 8.7 mg/dl (8.4-10.2)
[2016-07-22] MEDS: FOLIC ACID 1 MG TAB PO SCH (09:04)
[2016-07-22] MEDS: PANTOPRAZOLE (EC) 40 MG TAB PO SCH (09:04)
[2016-07-22] MEDS: ASPIRIN (EC) 81 MG TAB PO SCH (09:04)
[2016-07-22] MEDS: ENOXAPARIN 30 MG/0.3 ML SYG SC SCH (09:07)
--- NOTE | 2016-07-22 11:41 | SP ---
DATE OF PROCEDURE: 07/22/2016 VITAL SIGNS: Stable. LABORATORIES: Latest hemoglobin and hematocrit was 10.4/32.7 on 07/22/2016. ASSESSMENT: 1. Slow progress with physical therapy. 2. Rotational alignment and leg length is satisfactory. Dictated By: FRANCY ANDRADE/ZHANG Conf#: [id number] DID#: [id number]
[2016-07-22] MEDS: MAGNESIUM SULFATE 2 GM/50 ML 50 ML IVPB ONE ×2 (13:11→14:28)
--- NOTE | 2016-07-22 15:10 | CONS ---
Date/Time of Note Date/Time of Note DATE: 07/22/16 TIME: 15:08 Assessment/Plan Assessment/Plan Additional Assessment/Plan 1. Acute kidney injury secondary to prerenal azotemia. 2. Possible chronic kidney disease from her previous medical problems of hypertension and coronary artery disease. 3. History of coronary artery disease with history of percutaneous coronary intervention in 2008. 4. History of cerebrovascular accident. 5. History of hypertension. 6. 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 Patient with history of prior stroke. Dr. Patel is following in neurology consultation. 7. Breakthrough seizure on IV keppra PLAN: Cr improving with IVF hydration,d/c IV Fluids, Mag low- replace with magnesium sulfate 2 gram IV x 1 on IV levaquin PO keppra for seizures, neurology following Monitor electrolytes will continue to follow up on patient. Consultation Date/Type/Reason Admit Date/Time Jul 10, 2016 at 18:21 Initial Consult Date July Type of Consultation: NEPHROLOGY Reason for Consultation acute kidney injury, Hypokalema, Hypomagnesemia Referring Provider: PRINCESS FISHER MD 24 HR Interval Summary Free Text/Dictation Cr improving, mag 1.5, K normal Exam/Review of Systems Vital Signs Vitals Vital Signs Date Time Temp Pulse Resp B/P Pulse Ox O2 Delivery O2 Flow Rate FiO2 07/22/16 12:09 64 07/22/16 11:52 98.3 18 133/60 100 07/20/16 19:35 Nasal Cannula 2.0 Intake and Output 07/21/16 07/21/16 07/22/16 15:00 23:00 07:00 Intake Total 800 ml Balance 800 ml Exam GENERAL: Awake, alert, in no distress. HEENT: Normal. Oropharynx clear. NECK: Supple, no JVD, no lymphadenopathy. LUNGS: Clear to auscultation. No crackles, no wheezes. HEART: S1, S2, rate regular, rhythm, no murmur. ABDOMEN: Soft, nontender, nondistended. Bowel sounds are present. Results Result Diagram: 07/22/16 0703 07/22/16 0703 Results 24 hrs Laboratory Tests Test 07/22/16 07:03 Activated Partial Thromboplast Time 41.7 H Anion Gap 13 Basophils # 0.0 Basophils % 0.2 Blood Urea Nitrogen 14 Calcium Level 8.7 Carbon Dioxide Level 27 Chloride Level 104 Creatinine 0.78 Eosinophils # 0.1 Eosinophils % 1.2 Glucose Level 104 Hematocrit 32.7 L Hemoglobin 10.4 L INR International Normalized Ratio 1.04 Lymphocytes # 0.5 L Lymphocytes % 8.7 L Magnesium Level 1.5 L Mean Corpuscular Hemoglobin 31.9 Mean Corpuscular Hemoglobin Concent 31.8 L Mean Corpuscular Volume 100.3 Mean Platelet Volume 8.8 Monocytes # 0.7 Monocytes % 11.2 H Neutrophils # 4.5 Neutrophils % 75.8 Nucleated Red Blood Cells # 0.0 Nucleated Red Blood Cells % 0.0 Platelet Count 309 Potassium Level 3.8 Prothrombin Time 13.6 Prothrombin Time Ratio 1.1 Red Blood Count 3.26 L Red Cell Distribution Width 15.2 H Sodium Level 140 White Blood Count 5.9 Medications Medications Current Medications Acetaminophen (Tylenol Tab) 325 mg Q6 PRN PO PAIN AND OR ELEVATED TEMP Last administered on 07/15/16 20:20; Admin Dose 325 MG; Start 07/10/16 at 23:00 Acetaminophen/ Hydrocodone Bitart ([place] (5/325)) 1 tab Q3H PRN PO PAIN; Start 07/10/16 at 23:00 Ondansetron HCl (Zofran Inj) 4 mg Q6H PRN IV NAUSEA AND/OR VOMITING; Start at 23:00 Atorvastatin Calcium (Lipitor) 40 mg QHS PO Last administered on 07/22/16 06:22 ; Admin Dose 40 MG; Start 07/11/16 at 21:00 Folic Acid (Folic Acid) 1 mg DAILY PO Last administered on 07/22/16 09:04; Admin Dose 1 MG; Start 07/11/16 at 09:00 Meclizine HCl (Antivert) 25 mg DAILY PRN PO DIZZINESS; Start 07/10/16 at 23:30 Pantoprazole (Protonix Tab) 40 mg DAILY PO Last administered on 07/22/16 09:04 ; Admin Dose 40 MG; Start 07/11/16 at 09:00 Pregabalin (Lyrica) 25 mg BID PO Last administered on 07/22/16 06:22; Admin Dose 25 MG; Start 07/11/16 at 09:00 Quetiapine Fumarate (Seroquel) 25 mg HS PO Last administered on 07/20/16 21:18 ; Admin Dose 25 MG; Start 07/11/16 at 21:00 Ranolazine (Ranexa) 1,000 mg Q12 PO Last administered on 07/22/16 06:22; Admin Dose 1,000 MG; Start 07/11/16 at 09:00 Morphine Sulfate (morphine) 2 mg Q2H PRN IV PAIN Last administered on 07/21/16 14:46; Admin Dose 2 MG; Start 07/11/16 at 01:30 Levothyroxine Sodium (Synthroid) 50 mcg DAILY@06 PO Last administered on 06:17; Admin Dose 50 MCG; Start 07/12/16 at 06:00 Epoetin Rodney (Epogen (Non Esrd/Non Oncology)) 20,000 units Q7D SC Last administered on 07/21/16 19:00; Admin Dose 20,000 UNITS; Start 07/14/16 at 17:00 Acetaminophen/ Hydrocodone Bitart ([place] (5/325)) 1 tab Q3H PRN PO PAIN LEVEL 1 -3; Start 07/13/16 at 10:30 Acetaminophen/ Hydrocodone Bitart ([place] (5/325)) 2 tab Q3H PRN PO PAIN LEVEL 4 -7 Last administered on 07/18/16 18:03; Admin Dose 2 TAB; Start 07/13/16 at 10: 30 Hydromorphone HCl (Dilaudid) 1 mg Q3H PRN IV PAIN LEVEL 8-10 Last administered on 07/20/16 21:18; Admin Dose 1 MG; Start 07/13/16 at 10:30 Enoxaparin Sodium (Lovenox) 30 mg DAILY SC Last administered on 07/22/16 09:07 ; Admin Dose 30 MG; Start 07/18/16 at 09:00 Carvedilol (Coreg) 6.25 mg BID PO Last administered on 07/22/16 06:23; Admin Dose 6.25 MG; Start 07/18/16 at 21:00 Aspirin (Halfprin) 81 mg DAILY PO Last administered on 07/22/16 09:04; Admin Dose 81 MG; Start 07/19/16 at 09:00 Levetiracetam (Keppra) 750 mg BID PO Last administered on 3/7/17at 06:22; Admin Dose 750 MG; Start 07/19/16 at 21:00 Clonidine (Catapres) 0.1 mg Q6H PRN PO ELEVATED BLOOD PRESSURE Last administered on 07/21/16t 17:58; Admin Dose 0.1 MG; Start 07/20/16 at 06:30 ROLAND AYON MD Jul 22, 2016 15:10
--- NOTE | 2016-07-22 16:31 | PN ---
Date/Time of Note Date/Time of Note DATE: 07/22/16 TIME: 16:30 Assessment/Plan VTE Prophylaxis VTE Prophylaxis Intervention: SCD's Lines/Catheters [facility] Peripheral IV Urinary Cath still in place: No Assessment/Plan Chief Complaint/Hosp Course Assessment and plan - Acute left frontal cortical infarct per MRI. Patient with history of prior stroke. Dr. Patel is following in neurology consultation. - Breakthrough seizure. Continue Keppra. - Left femoral neck fracture secondary to mechanical fall. Status post left hip humeral arthroplasty by Dr. Marshall, orthopedic surgery. - [place]. Dr. Braxton is following from nephrology consultation. Continue to monitor BUN and creatinine. - Anemia. Stool for OB is neg. Status post blood transfusion. Continue to monitor hemoglobin and hematocrit. - Coronary artery disease, status post PCI. Dr. Bedoya is following in cardiology consultation. Continue aspirin and Ranexa. - Hypertension. Continue Coreg. - Dyslipidemia. Continue Lipitor. - Hypothyroidism. Continue Synthroid. - Macrocytic anemia. - E. coli UTI, continue Levaquin. Acute rehab eval Further recommendations based on clinical course. Plan of care discussed with Dr. Robertson. Problems: Subjective 24 Hr Interval Summary Free Text/Dictation No acute events overnight, patient looks comfortable, no seizure activity noted. Exam/Review of Systems Vital Signs Vitals Vital Signs Date Time Temp Pulse Resp B/P Pulse Ox O2 Delivery O2 Flow Rate FiO2 07/22/16 16:21 98.1 76 18 138/72 97 07/20/16 19:35 Nasal Cannula 2.0 Intake and Output 07/21/16 07/21/16 07/22/16 15:00 23:00 07:00 Intake Total 800 ml Balance 800 ml Exam GENERAL: The patient is conscious, awake, alert. HEENT: Atraumatic, normocephalic. DYAN NECK: Supple. No mass, no thyromegaly. CHEST: Clear to auscultation. CARDIOVASCULAR: S1, S2 normal. No murmur, gallop, or rub. ABDOMEN: Soft, nondistended, nontender. Bowel sounds plus. EXTREMITIES: No leg edema. No clubbing, no cyanosis. S/p Left hip surgery. NEUROLOGIC: The patient is awake, alert, follows simple commands. Results Result Diagram: 3/7/17 0703 3/7/17 0703 Results 24 hrs Laboratory Tests Test 07/22/16 07:03 Activated Partial Thromboplast Time 41.7 H Anion Gap 13 Basophils # 0.0 Basophils % 0.2 Blood Urea Nitrogen 14 Calcium Level 8.7 Carbon Dioxide Level 27 Chloride Level 104 Creatinine 0.78 Eosinophils # 0.1 Eosinophils % 1.2 Glucose Level 104 Hematocrit 32.7 L Hemoglobin 10.4 L INR International Normalized Ratio 1.04 Lymphocytes # 0.5 L Lymphocytes % 8.7 L Magnesium Level 1.5 L Mean Corpuscular Hemoglobin 31.9 Mean Corpuscular Hemoglobin Concent 31.8 L Mean Corpuscular Volume 100.3 Mean Platelet Volume 8.8 Monocytes # 0.7 Monocytes % 11.2 H Neutrophils # 4.5 Neutrophils % 75.8 Nucleated Red Blood Cells # 0.0 Nucleated Red Blood Cells % 0.0 Platelet Count 309 Potassium Level 3.8 Prothrombin Time 13.6 Prothrombin Time Ratio 1.1 Red Blood Count 3.26 L Red Cell Distribution Width 15.2 H Sodium Level 140 White Blood Count 5.9 Medications Medications Current Medications Acetaminophen (Tylenol Tab) 325 mg Q6 PRN PO PAIN AND OR ELEVATED TEMP Last administered on 07/15/16 20:20; Admin Dose 325 MG; Start 07/10/16 at 23:00 Acetaminophen/ Hydrocodone Bitart ([place] (5/325)) 1 tab Q3H PRN PO PAIN; Start 07/10/16 at 23:00 Ondansetron HCl (Zofran Inj) 4 mg Q6H PRN IV NAUSEA AND/OR VOMITING; Start at 23:00 Atorvastatin Calcium (Lipitor) 40 mg QHS PO Last administered on 07/22/16 06:22 ; Admin Dose 40 MG; Start 07/11/16 at 21:00 Folic Acid (Folic Acid) 1 mg DAILY PO Last administered on 07/22/16 09:04; Admin Dose 1 MG; Start 07/11/16 at 09:00 Meclizine HCl (Antivert) 25 mg DAILY PRN PO DIZZINESS; Start 07/10/16 at 23:30 Pantoprazole (Protonix Tab) 40 mg DAILY PO Last administered on 07/22/16 09:04 ; Admin Dose 40 MG; Start 07/11/16 at 09:00 Pregabalin (Lyrica) 25 mg BID PO Last administered on 07/22/16 06:22; Admin Dose 25 MG; Start 07/11/16 at 09:00 Quetiapine Fumarate (Seroquel) 25 mg HS PO Last administered on 07/20/16 21:18 ; Admin Dose 25 MG; Start 07/11/16 at 21:00 Ranolazine (Ranexa) 1,000 mg Q12 PO Last administered on 07/22/16 06:22; Admin Dose 1,000 MG; Start 07/11/16 at 09:00 Morphine Sulfate (morphine) 2 mg Q2H PRN IV PAIN Last administered on 07/21/16 14:46; Admin Dose 2 MG; Start 07/11/16 at 01:30 Levothyroxine Sodium (Synthroid) 50 mcg DAILY@06 PO Last administered on 06:17; Admin Dose 50 MCG; Start 07/12/16 at 06:00 Epoetin Rodney (Epogen (Non Esrd/Non Oncology)) 20,000 units Q7D SC Last administered on 07/21/16 19:00; Admin Dose 20,000 UNITS; Start 07/14/16 at 17:00 Acetaminophen/ Hydrocodone Bitart ([place] (5/325)) 1 tab Q3H PRN PO PAIN LEVEL 1 -3; Start 07/13/16 at 10:30 Acetaminophen/ Hydrocodone Bitart ([place] (5/325)) 2 tab Q3H PRN PO PAIN LEVEL 4 -7 Last administered on 07/18/16 18:03; Admin Dose 2 TAB; Start 07/13/16 at 10: 30 Hydromorphone HCl (Dilaudid) 1 mg Q3H PRN IV PAIN LEVEL 8-10 Last administered on 07/20/16 21:18; Admin Dose 1 MG; Start 07/13/16 at 10:30 Enoxaparin Sodium (Lovenox) 30 mg DAILY SC Last administered on 07/22/16 09:07 ; Admin Dose 30 MG; Start 07/18/16 at 09:00 Carvedilol (Coreg) 6.25 mg BID PO Last administered on 07/22/16 06:23; Admin Dose 6.25 MG; Start 07/18/16 at 21:00 Aspirin (Halfprin) 81 mg DAILY PO Last administered on 07/22/16 09:04; Admin Dose 81 MG; Start 07/19/16 at 09:00 Levetiracetam (Keppra) 750 mg BID PO Last administered on 07/22/16 06:22; Admin Dose 750 MG; Start 07/19/16 at 21:00 Clonidine (Catapres) 0.1 mg Q6H PRN PO ELEVATED BLOOD PRESSURE Last administered on 07/21/16 17:58; Admin Dose 0.1 MG; Start 07/20/16 at 06:30 ILAN GALDAMEZ Jul 22, 2016 16:31
--- NOTE | 2016-07-22 16:34 | CONS ---
Date/Time of Note Date/Time of Note DATE: 07/22/16 TIME: 16:30 Assessment/Plan Assessment/Plan Additional Assessment/Plan Hip fracture status post surgery 07/13/2016 Preserved ejection fraction CAD with history of PCI in 2008 Acute CVA History of CVA Hypertension Acute blood loss anemia -Increase statin therapy given recent CVA, continue antiplatelet therapy if no contraindication. Blood pressure trend stable. Consultation Date/Type/Reason Admit Date/Time Jul 10, 2016 at 18:21 Type of Consultation: cv Referring Provider: PRINCESS FISHER MD 24 HR Interval Summary Free Text/Dictation Patient seen and examined Exam/Review of Systems Vital Signs Vitals Vital Signs Date Time Temp Pulse Resp B/P Pulse Ox O2 Delivery O2 Flow Rate FiO2 07/22/16 16:21 98.1 76 18 138/72 97 07/20/16 19:35 Nasal Cannula 2.0 Intake and Output 07/21/16 07/21/16 07/22/16 15:00 23:00 07:00 Intake Total 800 ml Balance 800 ml Exam Sleeping but arousable, no apparent distress Head: normocephalic Neck: supple Respiratory: other (Coarse breath sounds bilaterally, no wheezing) Cardiovascular: other (S1-S2 heard), regular rate and rhythm Gastrointestinal: bowel sounds, non-tender, other (No guarding), soft Extremities: other (No edema or cyanosis) Results Result Diagram: 07/22/16 0703 07/22/16 0703 Results 24 hrs Laboratory Tests Test 07/22/16 07:03 Activated Partial Thromboplast Time 41.7 H Anion Gap 13 Basophils # 0.0 Basophils % 0.2 Blood Urea Nitrogen 14 Calcium Level 8.7 Carbon Dioxide Level 27 Chloride Level 104 Creatinine 0.78 Eosinophils # 0.1 Eosinophils % 1.2 Glucose Level 104 Hematocrit 32.7 L Hemoglobin 10.4 L INR International Normalized Ratio 1.04 Lymphocytes # 0.5 L Lymphocytes % 8.7 L Magnesium Level 1.5 L Mean Corpuscular Hemoglobin 31.9 Mean Corpuscular Hemoglobin Concent 31.8 L Mean Corpuscular Volume 100.3 Mean Platelet Volume 8.8 Monocytes # 0.7 Monocytes % 11.2 H Neutrophils # 4.5 Neutrophils % 75.8 Nucleated Red Blood Cells # 0.0 Nucleated Red Blood Cells % 0.0 Platelet Count 309 Potassium Level 3.8 Prothrombin Time 13.6 Prothrombin Time Ratio 1.1 Red Blood Count 3.26 L Red Cell Distribution Width 15.2 H Sodium Level 140 White Blood Count 5.9 Medications Medications Current Medications Acetaminophen (Tylenol Tab) 325 mg Q6 PRN PO PAIN AND OR ELEVATED TEMP Last administered on 07/15/16 20:20; Admin Dose 325 MG; Start 07/10/16 at 23:00 Acetaminophen/ Hydrocodone Bitart ([place] (5/325)) 1 tab Q3H PRN PO PAIN; Start 07/10/16 at 23:00 Ondansetron HCl (Zofran Inj) 4 mg Q6H PRN IV NAUSEA AND/OR VOMITING; Start at 23:00 Atorvastatin Calcium (Lipitor) 40 mg QHS PO Last administered on 07/22/16 06:22 ; Admin Dose 40 MG; Start 07/11/16 at 21:00 Folic Acid (Folic Acid) 1 mg DAILY PO Last administered on 07/22/16 09:04; Admin Dose 1 MG; Start 07/11/16 at 09:00 Meclizine HCl (Antivert) 25 mg DAILY PRN PO DIZZINESS; Start 07/10/16 at 23:30 Pantoprazole (Protonix Tab) 40 mg DAILY PO Last administered on 07/22/16 09:04 ; Admin Dose 40 MG; Start 07/11/16 at 09:00 Pregabalin (Lyrica) 25 mg BID PO Last administered on 07/22/16 06:22; Admin Dose 25 MG; Start 07/11/16 at 09:00 Quetiapine Fumarate (Seroquel) 25 mg HS PO Last administered on 07/20/16 21:18 ; Admin Dose 25 MG; Start 07/11/16 at 21:00 Ranolazine (Ranexa) 1,000 mg Q12 PO Last administered on 07/22/16 06:22; Admin Dose 1,000 MG; Start 07/11/16 at 09:00 Morphine Sulfate (morphine) 2 mg Q2H PRN IV PAIN Last administered on 07/21/16 14:46; Admin Dose 2 MG; Start 07/11/16 at 01:30 Levothyroxine Sodium (Synthroid) 50 mcg DAILY@06 PO Last administered on 06:17; Admin Dose 50 MCG; Start 07/12/16 at 06:00 Epoetin Rodney (Epogen (Non Esrd/Non Oncology)) 20,000 units Q7D SC Last administered on 07/21/16 19:00; Admin Dose 20,000 UNITS; Start 07/14/16 at 17:00 Acetaminophen/ Hydrocodone Bitart ([place] (5/325)) 1 tab Q3H PRN PO PAIN LEVEL 1 -3; Start 07/13/16 at 10:30 Acetaminophen/ Hydrocodone Bitart ([place] (5/325)) 2 tab Q3H PRN PO PAIN LEVEL 4 -7 Last administered on 07/18/16 18:03; Admin Dose 2 TAB; Start 07/13/16 at 10: 30 Hydromorphone HCl (Dilaudid) 1 mg Q3H PRN IV PAIN LEVEL 8-10 Last administered on 07/20/16 21:18; Admin Dose 1 MG; Start 07/13/16 at 10:30 Enoxaparin Sodium (Lovenox) 30 mg DAILY SC Last administered on 07/22/16 09:07 ; Admin Dose 30 MG; Start 07/18/16 at 09:00 Carvedilol (Coreg) 6.25 mg BID PO Last administered on 07/22/16 06:23; Admin Dose 6.25 MG; Start 07/18/16 at 21:00 Aspirin (Halfprin) 81 mg DAILY PO Last administered on 07/22/16 09:04; Admin Dose 81 MG; Start 07/19/16 at 09:00 Levetiracetam (Keppra) 750 mg BID PO Last administered on 07/22/16 06:22; Admin Dose 750 MG; Start 07/19/16 at 21:00 Clonidine (Catapres) 0.1 mg Q6H PRN PO ELEVATED BLOOD PRESSURE Last administered on 07/21/16 17:58; Admin Dose 0.1 MG; Start 07/20/16 at 06:30 Srinivas Bedoya DO Jul 22, 2016 16:34
[2016-07-22] MEDS ORDERED: ATORVASTATIN 80 MG TAB PO SCH (21:00)
[2016-07-22] MEDS: QUETIAPINE 25 MG TAB PO SCH (21:03)
[2016-07-23] VITALS (12 sets, daily range): BP systolic 110–169; BP diastolic 53–91; PULSE 62–79; RESP 18–20
--- NOTE | 2016-07-23 03:41 | CONS ---
DATE OF ADMISSION: 07/10/2016 DATE OF CONSULTATION: REFERRING PHYSICIAN: Dr. Robertson HISTORY OF PRESENT ILLNESS: The patient is a 76-year-old with medical history of ____ status post s urgery. The patient will walking difficulty, bilateral lower extremity pain, stroke for which the p atient started on aspirin for stroke prophylaxis, history of seizure activity. PHYSICAL EXAMINATION: GENERAL: The patient is alert, awake, complaining about pain. CRANIAL NERVE EXAMINATION: Cranial nerve II: Pupils equal on both sides and reactive to light. Cr anial nerves III, IV, and : Extraocular muscles intact. Cranial nerve V and VII: Intact corneal reflex. Cranial nerves VIII: Equal hearing bilaterally. Cranial nerve IX and X: Elevates palate . Cranial nerve XI: Elevates shoulder 5/5, straight tongue. Motor exam: Decreased right hand gri p, 4+/5. Sensation decreased for glove and sock area for light touch and temperature. Coordination : [id number] test intact. HEART: Regular rate and rhythm. LUNGS: Equal breath sounds. ABDOMEN: Soft, slightly distended, no tenderness. ASSESSMENT AND PLAN: The patient is a 76-year-old with 1. Underlying stroke. Keep the patient on aspirin 81 mg for stroke prophylaxis for now. 2. History of seizure. Keep the patient on Keppra 750 mg twice a day. 3. History of hypertension. Keep the blood pressure at the level of 140/90 to avoid any extension of stroke. 4. History of hypothyroidism. Keep the patient on levothyroxine 50 mcg once a day. 5. History of dyslipidemia. Keep the patient on Lipitor 40 mg once a day. 6. History of vertigo for which the patient is already on Antivert 25 mg 3 times a day. 7. Sleep difficulty with some anxiety. Give the patient Seroquel 25 mg once at night. 8. History of gait difficulty. Keep the patient under fall precaution. Again, thank you for asking me to see the patient with you. Dictated By: YARI VARGAS/ZHANG Conf#: [id number] DID#: [id number]
[2016-07-23] MEDS: LEVOTHYROXINE 50 MCG TAB PO SCH (06:12)
[2016-07-23 08:38] LABS: ADD SCAN DIFF NO
[2016-07-23 08:52] LABS: POTASSIUM 3.5 mmol/L (3.5-5.1)
[2016-07-23 08:54] LABS: CREATININE 0.87 mg/dl (0.44-1.00)
[2016-07-23 08:55] LABS: CALCIUM 8.7 mg/dl (8.4-10.2)
[2016-07-23] MEDS: LEVETIRACETAM 750 MG TAB PO SCH (09:38)
[2016-07-23] MEDS: RANOLAZINE (SR) 500 MG TAB PO SCH (09:38)
[2016-07-23] MEDS: PANTOPRAZOLE (EC) 40 MG TAB PO SCH (09:38)
[2016-07-23] MEDS: PREGABALIN 25 MG CAP PO SCH (09:38)
[2016-07-23] MEDS: FOLIC ACID 1 MG TAB PO SCH (09:39)
[2016-07-23] MEDS: ASPIRIN (EC) 81 MG TAB PO SCH (09:39)
[2016-07-23] MEDS: ENOXAPARIN 30 MG/0.3 ML SYG SC SCH (09:40)
[2016-07-23 09:42] LABS: ABNORMAL IP MESSAGE 1; BASOPHILS % 0.6 % (0.0-2.0); EOSINOPHILS # 0.1 10^3/ul (0.0-0.5); EOSINOPHILS % 1.5 % (0.0-7.0); HEMATOCRIT 31.1 % (37.0-47.0); HEMOGLOBIN 9.9 g/dl (12.0-16.0); LYMPHOCYTES # 0.6 10^3/ul (0.8-2.9); LYMPHOCYTES % 10.7 % (15.0-51.0); MEAN CORPUSCULAR HEMOGLOBIN 31.9 pg (29.0-33.0); MEAN CORPUSCULAR HGB CONC 31.8 g/dl (32.0-37.0); MEAN CORPUSCULAR VOLUME 100.3 fl (82.0-101.0); MEAN PLATELET VOLUME 8.9 fl (7.4-10.4); MONOCYTE # 0.5 10^3/ul (0.3-0.9); MONOCYTES % 9.8 % (0.0-11.0); NEUTROPHILS % 74.4 % (39.0-77.0); PLATELET COUNT 348 10^3/UL (140-415); RED CELL DISTRIBUTION WIDTH 15.1 % (11.5-14.5); WHITE BLOOD COUNT 5.4 10^3/ul (4.8-10.8)
--- NOTE | 2016-07-23 13:33 | DS ---
DATE OF ADMISSION: 07/10/2016 DATE OF DISCHARGE: 07/23/2016 DISCHARGE DIAGNOSES: 1. Acute left frontal cortical infarct breakthrough seizure. 2. Left femoral neck fracture secondary to mechanical fall, status post left hip hemiarthroplasty. 3. Acute kidney injury, resolving. 4. Anemia of chronic disease in addition to anemia of blood loss, status post transfusion. 5. Coronary artery disease with history of PCI in 2008. 6. Hypertension. 7. Dyslipidemia. 8. Hypothyroidism. 9. E. coli urinary tract infection status post treatment. BRIEF HISTORY: The patient is a 76-year-old [place] female with history of coronary artery disease a nd stenting in 2008 at [facility], history of dyslipidemia. The patient has a new onset of difficulty and left hip pain status post fall. The patient was seen by her PMD, Dr. Stu marx d was referred to Dr. Marshall and patient was diagnosed with left hip fracture. The patient was brought to the hospital and admitted to telemetry floor. HOSPITAL COURSE: The patient was evaluated and followed by Dr. Bedoya in cardiology consultation an d cleared for surgery. Patient underwent a 2D echocardiogram which revealed stage I diastolic dysfu nction with preserved ejection fraction of 60% and normal left ventricular systolic function. The p atient underwent left hip humeral arthroplasty by Dr. Marshall on 07/13/2016 then had significant pain, w as getting pain management, was given pain medication. The patient also had a history of seizures a nd was continued on Keppra; however, patient experienced tonic-clonic seizures, witnessed by her hus band when patient was sitting in bed eating breakfast and rapid response was called. The patient un derwent a CT and a subsequent MRI of the brain, which revealed acute nonhemorrhagic left frontal cor tical infarcts. The patient was evaluated by Dr. Patel in neurology consultation. The chente ent's Keppra was switched to IV. The patient was followed by neurology and subsequently Keppra was changed to 750 mg p.o. b.i.d. The patient's neurological status returned to baseline. Patient was a ble to undergo physical therapy, continues to have pain, but was able to proceed with physical thera py with premedication for pain. The patient was also evaluated by Dr. Braxton in nephrology consultat ion for acute kidney injury. The patient was given IV fluids and creatinine returned to baseline, w as within normal limits. The patient also continued on Coreg. Lipitor was increased to 80 mg daily . The patient was also noted to have microcytic anemia and underwent a blood transfusion. The chente ent's hemoglobin and hematocrit are stable. The patient continued on aspirin and Ranexa. The chentee nt's condition improved and the patient will be discharged to acute rehabilitation facility for furt her physical therapy and management. CONDITION ON DISCHARGE: Hemodynamically stable. ACTIVITY: As patient tolerates. DISCHARGE MEDICATIONS: 1. Tylenol p.r.n. for fever and pain. 2. Aspirin 81 mg p.o. daily. 3. Lipitor 80 mg p.o. at bedtime. 4. Coreg 6.25 mg p.o. b.i.d. 5. Catapres 0.5 p.o. q.6h. p.r.n. for systolic blood pressure above 160. 6. Lovenox 30 mg subcu daily. 7. Epogen 2000 units subq q. weekly. 8. Folic acid 1 mg p.o. daily. 9. [place] 5/325 one tablet p.o. q.3 hours p.r.n. for moderate pain and 2 tablets p.r.n. for moderate to severe pain. 10. Dilaudid 1 mg IV q.3h. p.r.n. for severe pain. 11. Keppra 750 mg p.o. b.i.d. 12. Synthroid 50 mcg p.o. daily. 13. Meclizine 25 mg p.o. daily p.r.n. for dizziness. 14. Protonix 40 mg p.o. daily. 15. Pregabalin 25 mg p.o. b.i.d. 16. Seroquel 25 mg p.o. at bedtime. 17. Ranexa 1000 mg p.o. q.12h. Interdisciplinary plan of care was established for this patient. Plan of care was discussed with Dr César Fisher. Plan of care was discussed with the patient's daughter. Dictated By: ILAN GALDAMEZ LAUNDRY SORTER for PRINCESS FISHER MD, SR/ZHANG Conf#: [id number] DID#: [id number]
--- NOTE | 2016-07-23 21:02 | CONS ---
Date/Time of Note Date/Time of Note DATE: 07/23/16 TIME: 21:01 Assessment/Plan Assessment/Plan Additional Assessment/Plan 1. Acute kidney injury secondary to prerenal azotemia. 2. Possible chronic kidney disease from her previous medical problems of hypertension and coronary artery disease. 3. History of coronary artery disease with history of percutaneous coronary intervention in 2008. 4. History of cerebrovascular accident. 5. History of hypertension. 6. 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 Patient with history of prior stroke. Dr. Patel is following in neurology consultation. 7. Breakthrough seizure on IV keppra PLAN: Cr improving on IV levaquin PO keppra for seizures, neurology following Monitor electrolytes transferred to acute rehab floor t. Consultation Date/Type/Reason Admit Date/Time Jul 10, 2016 at 18:21 Initial Consult Date July Type of Consultation: NEPHROLOGY Reason for Consultation acute kidney injury Referring Provider: PRINCESS FISHER MD 24 HR Interval Summary Free Text/Dictation stable, plan for d/c to rehab floor Exam/Review of Systems Vital Signs Vitals Vital Signs Date Time Temp Pulse Resp B/P Pulse Ox O2 Delivery O2 Flow Rate FiO2 07/23/16 19:34 98.2 81 20 169/74 98 07/20/16 19:35 Nasal Cannula 2.0 Intake and Output 07/22/16 07/22/16 07/23/16 15:00 23:00 07:00 Intake Total 600 ml 50 ml Balance 600 ml 50 ml Exam GENERAL: Awake, alert, in no distress. HEENT: Normal. Oropharynx clear. NECK: Supple, no JVD, no lymphadenopathy. LUNGS: Clear to auscultation. No crackles, no wheezes. HEART: S1, S2, rate regular, rhythm, no murmur. ABDOMEN: Soft, nontender, nondistended. Bowel sounds are present. Results Result Diagram: 07/23/16 0830 07/23/16 0830 Results 24 hrs Laboratory Tests Test 07/23/16 08:30 Anion Gap 12 Basophils # 0.0 Basophils % 0.6 Blood Urea Nitrogen 18 Calcium Level 8.7 Carbon Dioxide Level 28 Chloride Level 106 Creatinine 0.87 Eosinophils # 0.1 Eosinophils % 1.5 Glucose Level 128 Hematocrit 31.1 L Hemoglobin 9.9 L Lymphocytes # 0.6 L Lymphocytes % 10.7 L Mean Corpuscular Hemoglobin 31.9 Mean Corpuscular Hemoglobin Concent 31.8 L Mean Corpuscular Volume 100.3 Mean Platelet Volume 8.9 Monocytes # 0.5 Monocytes % 9.8 Neutrophils # 4.0 Neutrophils % 74.4 Nucleated Red Blood Cells # 0.0 Nucleated Red Blood Cells % 0.0 Platelet Count 348 Potassium Level 3.5 Red Blood Count 3.10 L Red Cell Distribution Width 15.1 H Sodium Level 142 White Blood Count 5.4 ROLAND AYON MD Jul 23, 2016 21:02
== END 2016-07-23 20:30 | DRG 469 ==
LOC: E/R 14:35 → PP2 18:21 → MS4 07-16 13:35
PROVIDERS: ADMIT Internal Medicine; ATTEND Internal Medicine
PROC: 30233N1 Transfusion of Nonautologous Red Blood Cells into Peripheral Vein, Percutaneous Approach (ICD-10-PCS; 2016-07-12)
PROC: 0SRS0JZ Replacement of Left Hip Joint, Femoral Surface with Synthetic Substitute, Open Approach (ICD-10-PCS; principal; 2016-07-13 07:30)
DX: S72.012A Unspecified intracapsular fracture of left femur, initial encounter for closed fracture (principal); G93.40 Encephalopathy, unspecified; I63.9 Cerebral infarction, unspecified; N17.9 Acute kidney failure, unspecified; R56.9 Unspecified convulsions; D62 Acute posthemorrhagic anemia; N39.0 Urinary tract infection, site not specified; D53.9 Nutritional anemia, unspecified; E78.5 Hyperlipidemia, unspecified; E03.9 Hypothyroidism, unspecified; Z91.81 History of falling; Z95.5 Presence of coronary angioplasty implant and graft; R50.9 Fever, unspecified; G40.909 Epilepsy, unspecified, not intractable, without status epilepticus; I12.9 Hypertensive chronic kidney disease with stage 1 through stage 4 chronic kidney disease, or unspecified chronic kidney disease; N18.9 Chronic kidney disease, unspecified; Z86.73 Personal history of transient ischemic attack (TIA), and cerebral infarction without residual deficits; B96.20 Unspecified Escherichia coli [E. coli] as the cause of diseases classified elsewhere; R20.9 Unspecified disturbances of skin sensation
CPT/HCPCS: 36415; 36430; 70450; 70551; 71010; 72170; 73510; 73550; 80048; 80053; 80061; 81001; 81003; 82270; 82962; 83735; 84443; 84484; 85014; 85018; 85025; 85610; 85730; 86850; 86900; 86901; 86920; 87081; 87086; 88305; 88311; 92610; 93005; 93306; 93880; 95819; 96374; 96375; 97110; 97162; 97164; 97166; 97530; C1776; J0690; J0885; J1100; J1170; J1650; J1953; J1956; J2060; J2270; J2370; J2405; J2765; J3010; J3475; J3480; J7040; J7042; P9016; P9045

== ENCOUNTER 2016-07-23 17:25 | Inpatient (IN) | payer MEDICARE, OTHER ==
[~2016-07-23] VITALS: Ht 154.9 cm; Wt 54.5 kg
[~2016-07-23 17:25] MED LIST changes: -AMLO5TAB4; +ATOR40TA68 PO; +CARV12.579 PO; -CLOP75TA19; -FENO145T25; +FOLI-49 PO; -ISOS10TA2; +LEVE500T8 PO; +LEVO50TA74 PO; +LYRI25 PO; +MECL-77 PO; -METO-53; -PANT40TA3; +PANT40TA3 PO; +QUET25TA33 PO; +RANO10002 PO; -SMV40T; +[UNRECOGNIZED DRUG - CODE] SC
[2016-07-23 21:00] VITALS: Ht 154.9 cm; Wt 54.5 kg
--- NOTE | 2016-07-23 21:00 | CONS ---
Date/Time of Note Date/Time of Note DATE: 07/23/16 TIME: 20:59 Consultation Date/Type/Reason Admit Date/Time Jul 23, 2016 at 20:40 Initial Consult Date Type of Consultation: NEPHROLOGY Reason for Consultation acute kidney injury, Hypokalemia Referring Provider: PRINCESS FISHER MD 24 HR Interval Summary Free Text/Dictation plan for transfer to rehab, stable ROLAND AYON MD Jul 23, 2016 21:00
[2016-07-23 21:14] VITALS: BP 166/74; RESP 18
[2016-07-23] MEDS ORDERED: HYDROmorphONE 1 MG/ML SYG IV PRN (21:30)
[2016-07-23] MEDS ORDERED: NACL 0.9% 3 ML SYG IV SCH (21:30)
[2016-07-23] MEDS ORDERED: LACTULOSE 30ML CUP PO PRN (22:00)
[2016-07-23] MEDS ORDERED: BISACODYL 10 MG SUPP PR PRN (22:00)
[2016-07-23] MEDS: ATORVASTATIN 80 MG TAB PO SCH (22:29)
[2016-07-23] MEDS: HYDROCODONE/APAP (5/325) TAB PO PRN (22:29)
[2016-07-23] MEDS: QUETIAPINE 25 MG TAB PO SCH (22:29)
[2016-07-23] MEDS: PREGABALIN 25 MG CAP PO SCH (22:29)
[2016-07-23] MEDS: RANOLAZINE (SR) 500 MG TAB PO SCH (22:54)
[2016-07-23] MEDS: LEVETIRACETAM 750 MG TAB PO SCH (22:54)
[2016-07-23 23:30] VITALS: BP 154/62; RESP 18
[2016-07-24 06:02] LABS: ADD SCAN DIFF NO
[2016-07-24] MEDS: LEVOTHYROXINE 50 MCG TAB PO SCH (06:12)
[2016-07-24] MEDS: PANTOPRAZOLE (EC) 40 MG TAB PO SCH (06:12)
[2016-07-24 06:17] LABS: BASOPHILS % 0.5 % (0.0-2.0); EOSINOPHILS # 0.1 10^3/ul (0.0-0.5); EOSINOPHILS % 1.1 % (0.0-7.0); HEMATOCRIT 30.5 % (37.0-47.0); HEMOGLOBIN 9.7 g/dl (12.0-16.0); LYMPHOCYTES % 18.2 % (15.0-51.0); MEAN CORPUSCULAR HEMOGLOBIN 31.7 pg (29.0-33.0); MEAN CORPUSCULAR HGB CONC 31.8 g/dl (32.0-37.0); MEAN CORPUSCULAR VOLUME 99.7 fl (82.0-101.0); MEAN PLATELET VOLUME 8.7 fl (7.4-10.4); MONOCYTE # 0.7 10^3/ul (0.3-0.9); MONOCYTES % 11.9 % (0.0-11.0); NEUTROPHIL # 3.6 10^3/ul (1.6-7.5); NEUTROPHILS % 65.1 % (39.0-77.0); PLATELET COUNT 347 10^3/UL (140-415); RED BLOOD COUNT 3.06 10^6/ul (4.20-5.40); RED CELL DISTRIBUTION WIDTH 15.2 % (11.5-14.5); WHITE BLOOD COUNT 5.5 10^3/ul (4.8-10.8)
[2016-07-24 06:18] LABS: INR 1.06; PROTIME 13.8 Sec (12.2-14.2); PT RATIO 1.1
[2016-07-24 06:19] LABS: PARTIAL THROMBOPLASTIN TIME 39.4 Sec (25.0-35.0)
[2016-07-24 06:36] LABS: ADD UMIC NO; URINE BILIRUBIN (Dip) NEGATIVE (NEGATIVE); URINE BLOOD (Dip) NEGATIVE (NEGATIVE); URINE COLOR LT. YELLOW (YELLOW); URINE GLUCOSE (Dip) NEGATIVE (NEGATIVE); URINE KETONES (Dip) NEGATIVE (NEGATIVE); URINE LEUKOCYTE ESTERASE (Dip) NEGATIVE (NEGATIVE); URINE NITRITE (Dip) NEGATIVE (NEGATIVE); URINE TOTAL PROTEIN (Dip) NEGATIVE (NEGATIVE); URINE UROBILINOGEN (Dip) 0.2 E.U./dL (0.1-1.0)
[2016-07-24 06:52] LABS: ALBUMIN 2.3 g/dl (3.3-4.9)
[2016-07-24 06:55] LABS: ALBUMIN/GLOBULIN RATIO 0.82; BILIRUBIN,INDIRECT 0.4 mg/dl (0-1.1); BILIRUBIN,TOTAL 0.4 mg/dl (0.2-1.3); CALCIUM 8.7 mg/dl (8.4-10.2); CREATININE 0.96 mg/dl (0.44-1.00); TOTAL PROTEIN 5.1 g/dl (6.1-8.1)
[2016-07-24 07:30] VITALS: BP 124/60; RESP 18
[2016-07-24] MEDS: LEVETIRACETAM 750 MG TAB PO SCH ×2 (08:43→20:51)
[2016-07-24] MEDS: DOCUSATE SODIUM 100 MG CAP PO SCH ×2 (08:43→20:50)
[2016-07-24] MEDS: RANOLAZINE (SR) 500 MG TAB PO SCH ×2 (08:43→20:50)
[2016-07-24] MEDS: PREGABALIN 25 MG CAP PO SCH ×2 (08:43→20:50)
[2016-07-24] MEDS: ASPIRIN (EC) 81 MG TAB PO SCH (08:44)
[2016-07-24] MEDS: FOLIC ACID 1 MG TAB PO SCH (08:44)
[2016-07-24] MEDS: ENOXAPARIN 30 MG/0.3 ML SYG SC SCH (08:45)
[2016-07-24] MEDS: HYDROCODONE/APAP (5/325) TAB PO PRN (09:14)
--- NOTE | 2016-07-24 12:00 | CONS ---
DATE OF ADMISSION: 07/23/2016 DATE OF CONSULTATION: 07/24/2016 TYPE OF CONSULTATION: Rehabilitation post-admission physician evaluation REHABILITATION IMPAIRMENT CATEGORY: Left infarct CVA. ACTIVE COMORBIDITIES: 1. Left femoral neck fracture status post left hip arthroplasty. 2. Seizure disorder. 3. Coronary artery disease. 4. Dyslipidemia. 5. Hypertension. 6. Hypothyroidism. 7. Anemia. 8. Impairments in self-care, mobility and cognition. HISTORY OF PRESENT ILLNESS: The patient is a pleasant 76-year-old female with a history of multiple medical comorbidities who is status post a mechanical fall with resultant left femoral neck fractur e. The patient underwent a left hip hemiarthroplasty on 07/13/2016. Her postoperative course was n otable for significant pain in addition to witnessed seizure. A head CT and MRI were performed and the patient was noted to have left frontal cortical infarct CVA. The patient now with significant i mpairments in self-care and mobility as compared to baseline, and has been cleared to transfer to [facility] rehabilitation unit for comprehensive interdisciplinary rehab care. FUNCTIONAL HISTORY: Prior to recent events, she was independent in self-care tasks and mobility. C urrently, the patient requires maximal assist for self-care and mobility tasks. SOCIAL HISTORY: The patient lives at home with family and hopes to return there upon discharge. PAST MEDICAL HISTORY: 1. History of seizure disorder. 2. Coronary artery disease. 3. Dyslipidemia. 4. Hypertension. 5. Hypothyroidism. 6. History of vertigo. 7. Anxiety. 8. Anemia. CURRENT MEDICATIONS: 1. Aspirin 81 mg p.o. daily. 2. Lipitor 80 mg p.o. at bedtime. 3. Coreg 6.25 p.o. b.i.d. 4. Lovenox 30 mg subcutaneous daily. 5. Epogen. 6. Folic acid 1 mg p.o. daily. 7. [place] p.r.n. 8. Dilaudid p.r.n. 9. Keppra 750 b.i.d. 10. Synthroid 50 mcg p.o. daily. 11. Antivert p.r.n. 12. Protonix 40 mg p.o. daily. 13. Lyrica 25 mg b.i.d. 14. Seroquel 25 mg p.o. at bedtime. 15. Ranexa 1000 mg p.o. b.i.d. ALLERGIES: PENICILLIN. PHYSICAL EXAMINATION: VITAL SIGNS: The patient is currently afebrile with stable vital signs. HEENT: The extraocular motions are intact. Her oropharynx is clear. NECK: Supple. LUNGS: Clear anteriorly. CARDIAC: S1, S2. ABDOMEN: Soft, nontender, positive bowel sounds. NEUROLOGIC: She is awake and alert. She is able to follow 1-step verbal/gestural commands. She de monstrates good strength in left upper; she has 4+ strength in the right upper. She has antigravity strength in the left lower extremity. Dorsiflexion and plantar flexion intact on the right. PLAN: The patient has been admitted for comprehensive interdisciplinary acute rehab and is anticipa davidson to tolerate 3 hours of daily therapy in divided doses for at least 5/7 days a week. Treatment p hair will include: 1. Physical therapy to focus on bed mobility, transfers, and household ambulation with the goal of having the patient reach standby assist level. 2. Occupational therapy to focus on hygiene, grooming, dressing, bathing, and toileting activities with goal of having patient reach standby assist level. 3. Speech therapy for full cognitive assessment and retraining with the goal of having the patient return to baseline cognition and meet nutritional needs by mouth. 4. Rehabilitation nursing for carryover of therapeutic interventions, the goal of continent of piper l and bladder, and the goal of patient and family education with regards to the aforementioned issue s. ESTIMATED LENGTH OF STAY: 14 days. DISPOSITION GOAL: Home with family. REHABILITATION BARRIER: Pain. INTERVENTION FOR BARRIER: Interdisciplinary approach. I acknowledge that I performed a full physical examination on this patient within 24 hours of admiss ion to the rehabilitation unit. I believe the patient is a good candidate for comprehensive interdi sciplinary rehab care and is anticipated to make reasonable goals in a reasonable period of time as outlined above. Dictated By: HAROLDO ORTEGA/ZHANG Conf#: [id number] DID#: [id number]
--- NOTE | 2016-07-24 16:24 | HP ---
Date/Time of Note Date/Time of Note DATE: 07/24/16 TIME: 16:11 Assessment/Plan VTE Prophylaxis VTE Prophylaxis Intervention: SCD's Lines/Catheters Urinary Cath still in place: No Assessment/Plan Assessment/Plan - Acute left frontal cortical infarct per MRI. Patient with history of prior stroke. -per Dr. Patel in neurology consultation. - Breakthrough seizure. Continue Keppra. - seizure precautions - Left femoral neck fracture secondary to mechanical fall. Status post left hip humeral arthroplasty by Dr. Marshall, orthopedic surgery. - per ortho - Acute Kidney Injury - . Dr. Braxton in nephrology consultation. Continue to monitor BUN and creatinine. - Anemia. Stool for OB is neg. Status post blood transfusion. Continue to monitor hemoglobin and hematocrit. - Coronary artery disease, status post PCI. - per Dr. Bedoya in cardiology consultation. Continue aspirin and Ranexa. - Hypertension. Continue Coreg. - Dyslipidemia. Continue Lipitor. - Hypothyroidism. Continue Synthroid. - Macrocytic anemia. - E. coli UTI, continue Levaquin. - Acute rehab Further recommendations based on clinical course. Plan of care discussed with Dr. Robertson. We will do followup labs in the morning. We will continue supportive care and symptomatic treatment. DW Dr Robertson HPI/ROS Admit Date/Time Admit Date/Time Jul 23, 2016 at 20:40 ROS The patient is a 76-year-old Telugu-speaking female with history of coronary disease with stenting in 2008 at [facility]. Also has history of dyslipidemia and was in her usual state of health. The patient stated that she fell about a week ago and ever since she has been having difficulty in ambulating and pain in the left hip. The patient saw her PMD, Dr. Rios, who referred her to Dr. Marshall and the patient had an x-ray done today, which showed a left hip fracture. Dr. Rios requested me to be the primary care physician during her hospitalization. The patient was seen in the ER and information was obtained after discussion with ER physician as well as the patient's . The patient does have left hip pain which is worse with movement. No reported any recent chest pain, shortness of breath. No reported fever or chills. No reported dysuria or hematuria. No history of loss of consciousness. No history of any significant focal weakness prior to the fall. No history of any acute skin rash. No history of cough or sore throat. The patient does take Seroquel at home for unknown reasons. The patient was evaluated and followed by Dr. Bedoya in cardiology consultation and cleared for surgery. Patient underwent a 2D echocardiogram which revealed stage I diastolic dysfunction with preserved ejection fraction of 60% and normal left ventricular systolic function. The patient underwent left hip humeral arthroplasty by Dr. Marshall on 07/13/2016 then had significant pain, was getting pain management, was given pain medication. The patient also had a history of seizures and was continued on Keppra; however, patient experienced tonic-clonic seizures, witnessed by her when patient was sitting in bed eating breakfast and rapid response was called. The patient underwent a CT and a subsequent MRI of the brain, which revealed acute nonhemorrhagic left frontal cortical infarcts. The patient was evaluated by Dr. Patel in neurology consultation. The patient's Keppra was switched to IV. The patient was followed by neurology and subsequently Keppra was changed to 750 mg p.o. b.i.d. The patient's neurological status returned to baseline. Patient was able to undergo physical therapy, continues to have pain, but was able to proceed with physical therapy with premedication for pain. The patient was also evaluated by Dr. Braxton in nephrology consultation for acute kidney injury. The patient was given IV fluids and creatinine returned to baseline, was within normal limits. The patient also continued on Coreg. Lipitor was increased to 80 mg daily. The patient was also noted to have microcytic anemia and underwent a blood transfusion. The patient's hemoglobin and hematocrit are stable. The patient continued on aspirin and Ranexa. The patient's condition improved and the patient will be discharged to acute rehabilitation facility for further physical therapy and management. Constitutional: improved Musculoskeletal: bone/joint pain PMH/Family/Social Past Medical History ALLERGIES: PENICILLIN. PAST MEDICAL HISTORY: History of CVA as per record. FAMILY HISTORY: Noncontributory. SOCIAL HISTORY: The patient lives with her . No smoking, no alcohol. MEDICATIONS: List reviewed and reconciled. Past Surgical History Past Surgical Hx: angioplasty Social History Smoking Status: Never smoker Exam/Review of Systems Vital Signs Vitals Vital Signs Date Time Temp Pulse Resp B/P Pulse Ox O2 Delivery O2 Flow Rate FiO2 07/24/16 07:30 98.7 68 18 124/60 93 Intake and Output 07/23/16 07/23/16 07/24/16 15:00 23:00 07:00 Intake Total 300 ml Output Total 480 ml Balance -180 ml Exam Constitutional: alert, well developed Psych: nl mood/affect Head: atraumatic Eyes: EOMI, nl sclera ENMT: nl external ears & nose Neck: non-tender Respiratory: clear to auscultation Cardiovascular: nl pulses Gastrointestinal: non-tender, soft Musculoskeletal: nl extremities to inspection Neurological: nl mental status Skin: nl turgor Lymph: nontender Labs Result Diagram: 07/24/1654707/24/1648 Medications Medications Current Medications Acetaminophen (Tylenol Tab) 325 mg Q6H PRN PO PAIN AND OR ELEVATED TEMP; Start 07/23/16 at 21:30 Aspirin (Halfprin) 81 mg DAILY PO Last administered on 07/24/16 08:44; Admin Dose 81 MG; Start 07/24/16 at 09:00 Atorvastatin Calcium (Lipitor) 80 mg QHS PO Last administered on 07/23/16 22:29 ; Admin Dose 80 MG; Start 07/23/16 at 21:30 Carvedilol (Coreg) 6.25 mg BID PO Last administered on 07/24/16 08:44; Admin Dose 6.25 MG; Start 07/23/16 at 21:30 Clonidine (Catapres) 0.1 mg Q6H PRN PO ELEVATED BLOOD PRESSURE; Start 07/23/16 at 21:30 Enoxaparin Sodium (Lovenox) 30 mg DAILY SC Last administered on 07/24/16 08:45 ; Admin Dose 30 MG; Start 07/24/16 at 09:00 Epoetin Rodney (Epogen (Non Esrd/Non Oncology)) 20,000 units Q7D SC ; Start at 17:00 Folic Acid (Folic Acid) 1 mg DAILY PO Last administered on 07/24/16 08:44; Admin Dose 1 MG; Start 07/24/16 at 09:00 Acetaminophen/ Hydrocodone Bitart ([place] (5/325)) 1 tab Q3H PRN PO PAIN Last administered on 07/23/16 22:29; Admin Dose 1 TAB; Start 07/23/16 at 21:30 Acetaminophen/ Hydrocodone Bitart ([place] (5/325)) 2 tab Q3H PRN PO PAIN LEVEL 4 -7 Last administered on 07/24/16 09:14; Admin Dose 2 TAB; Start 07/23/16 at 21:30 Hydromorphone HCl (Dilaudid) 1 mg Q3H PRN IV PAIN LEVEL 8-10; Start 07/23/16 at 21:30 Levetiracetam (Keppra) 750 mg BID PO Last administered on 07/24/16 08:43; Admin Dose 750 MG; Start 07/23/16 at 22:30 Levothyroxine Sodium (Synthroid) 50 mcg DAILY@06 PO Last administered on 06:12; Admin Dose 50 MCG; Start 07/24/16 at 06:00 Meclizine HCl (Antivert) 25 mg DAILY PRN PO DIZZINESS; Start 07/23/16 at 21:30 Pantoprazole (Protonix Tab) 40 mg DAILY@06 PO Last administered on 07/24/16 06: 12; Admin Dose 40 MG; Start 07/24/16 at 06:00 Pregabalin (Lyrica) 25 mg BID PO Last administered on 07/24/16 08:43; Admin Dose 25 MG; Start 07/23/16 at 21:30 Quetiapine Fumarate (Seroquel) 25 mg HS PO Last administered on 07/23/16 22:29 ; Admin Dose 25 MG; Start 07/23/16 at 21:30 Ranolazine (Ranexa) 1,000 mg Q12 PO Last administered on 07/24/16 08:43; Admin Dose 1,000 MG; Start 07/23/16 at 22:30 Docusate Sodium (Colace) 100 mg BID PO Last administered on 07/24/16 08:43; Admin Dose 100 MG; Start 07/24/16 at 09:00 Lactulose (Enulose) 20 gm DAILY PRN PO CONSTIPATION; Start 07/23/16 at 22:00 Bisacodyl (Dulcolax Supp) 10 mg DAILY PRN [place] CONSTIPATION; Start 07/23/16 at 22: 00 IVON DENT Jul 24, 2016 16:21
[2016-07-24] MEDS: ATORVASTATIN 80 MG TAB PO SCH (20:50)
[2016-07-24] MEDS: QUETIAPINE 25 MG TAB PO SCH (20:50)
[2016-07-24 20:57] VITALS: BP 139/63; RESP 19
--- NOTE | 2016-07-24 21:52 | CONS ---
Date/Time of Note Date/Time of Note DATE: 07/24/16 TIME: 21:50 Assessment/Plan Assessment/Plan Additional Assessment/Plan 1. Acute kidney injury secondary to prerenal azotemia. 2. Possible chronic kidney disease from her previous medical problems of hypertension and coronary artery disease. 3. History of coronary artery disease with history of percutaneous coronary intervention in 2008. 4. History of cerebrovascular accident. 5. History of hypertension. 6. 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 Patient with history of prior stroke. Dr. Patel is following in neurology consultation. 7. Breakthrough seizure on IV keppra PLAN: Cr improving on IV levaquin PO keppra for seizures, neurology following Monitor electrolytes transferred to acute rehab floor t. Consultation Date/Type/Reason Admit Date/Time Jul 23, 2016 at 20:40 Type of Consultation: NEPHROLOGY Referring Provider: PRINCESS FISHER MD 24 HR Interval Summary Free Text/Dictation pt transferred to acute rehab unit,Cr 0.96, electrolytes stable Exam/Review of Systems Vital Signs Vitals Vital Signs Date Time Temp Pulse Resp B/P Pulse Ox O2 Delivery O2 Flow Rate FiO2 07/24/16 20:57 98.6 70 19 139/63 96 Intake and Output 07/23/16 07/23/16 07/24/16 14:59 22:59 06:59 Intake Total 300 ml Output Total 480 ml Balance -180 ml Results Result Diagram: 07/24/16 0548 07/24/16 0548 Results 24 hrs Laboratory Tests Test 07/24/16 05:48 Activated Partial Thromboplast Time 39.4 H Alanine Aminotransferase (ALT/SGPT) 35 Albumin 2.3 L Albumin/Globulin Ratio 0.82 Alkaline Phosphatase 102 Anion Gap 12 Aspartate Amino Transf (AST/SGOT) 37 Basophils # 0.0 Basophils % 0.5 Blood Urea Nitrogen 21 H Calcium Level 8.7 Carbon Dioxide Level 28 Chloride Level 108 Creatinine 0.96 Direct Bilirubin 0.00 Eosinophils # 0.1 Eosinophils % 1.1 Globulin 2.80 Glucose Level 90 Hematocrit 30.5 L Hemoglobin 9.7 L INR International Normalized Ratio 1.06 Indirect Bilirubin 0.4 Lymphocytes # 1.0 Lymphocytes % 18.2 Mean Corpuscular Hemoglobin 31.7 Mean Corpuscular Hemoglobin Concent 31.8 L Mean Corpuscular Volume 99.7 Mean Platelet Volume 8.7 Monocytes # 0.7 Monocytes % 11.9 H Neutrophils # 3.6 Neutrophils % 65.1 Nucleated Red Blood Cells # 0.0 Nucleated Red Blood Cells % 0.0 Platelet Count 347 Potassium Level 4.0 Prothrombin Time 13.8 Prothrombin Time Ratio 1.1 Red Blood Count 3.06 L Red Cell Distribution Width 15.2 H Sodium Level 144 Total Bilirubin 0.4 Total Protein 5.1 L White Blood Count 5.5 Medications Medications Current Medications Acetaminophen (Tylenol Tab) 325 mg Q6H PRN PO PAIN AND OR ELEVATED TEMP; Start 07/23/16 at 21:30 Aspirin (Halfprin) 81 mg DAILY PO Last administered on 07/24/16 08:44; Admin Dose 81 MG; Start 07/24/16 at 09:00 Atorvastatin Calcium (Lipitor) 80 mg QHS PO Last administered on 07/24/16 20:50 ; Admin Dose 80 MG; Start 07/23/16 at 21:30 Carvedilol (Coreg) 6.25 mg BID PO Last administered on 07/24/16 20:51; Admin Dose 6.25 MG; Start 07/23/16 at 21:30 Clonidine (Catapres) 0.1 mg Q6H PRN PO ELEVATED BLOOD PRESSURE; Start 07/23/16 at 21:30 Enoxaparin Sodium (Lovenox) 30 mg DAILY SC Last administered on 07/24/16 08:45 ; Admin Dose 30 MG; Start 07/24/16 at 09:00 Epoetin Rodney (Epogen (Non Esrd/Non Oncology)) 20,000 units Q7D SC ; Start at 17:00 Folic Acid (Folic Acid) 1 mg DAILY PO Last administered on 07/24/16 08:44; Admin Dose 1 MG; Start 07/24/16 at 09:00 Acetaminophen/ Hydrocodone Bitart ([place] (5/325)) 1 tab Q3H PRN PO PAIN Last administered on 07/23/16 22:29; Admin Dose 1 TAB; Start 07/23/16 at 21:30 Acetaminophen/ Hydrocodone Bitart ([place] (5/325)) 2 tab Q3H PRN PO PAIN LEVEL 4 -7 Last administered on 07/24/16 09:14; Admin Dose 2 TAB; Start 07/23/16 at 21:30 Hydromorphone HCl (Dilaudid) 1 mg Q3H PRN IV PAIN LEVEL 8-10; Start 07/23/16 at 21:30 Levetiracetam (Keppra) 750 mg BID PO Last administered on 07/24/16 20:51; Admin Dose 750 MG; Start 07/23/16 at 22:30 Levothyroxine Sodium (Synthroid) 50 mcg DAILY@06 PO Last administered on 06:12; Admin Dose 50 MCG; Start 07/24/16 at 06:00 Meclizine HCl (Antivert) 25 mg DAILY PRN PO DIZZINESS; Start 07/23/16 at 21:30 Pantoprazole (Protonix Tab) 40 mg DAILY@06 PO Last administered on 07/24/16 06: 12; Admin Dose 40 MG; Start 07/24/16 at 06:00 Pregabalin (Lyrica) 25 mg BID PO Last administered on 07/24/16 20:50; Admin Dose 25 MG; Start 07/23/16 at 21:30 Quetiapine Fumarate (Seroquel) 25 mg HS PO Last administered on 07/24/16 20:50 ; Admin Dose 25 MG; Start 07/23/16 at 21:30 Ranolazine (Ranexa) 1,000 mg Q12 PO Last administered on 07/24/16 20:50; Admin Dose 1,000 MG; Start 07/23/16 at 22:30 Docusate Sodium (Colace) 100 mg BID PO Last administered on 07/24/16 20:50; Admin Dose 100 MG; Start 07/24/16 at 09:00 Lactulose (Enulose) 20 gm DAILY PRN PO CONSTIPATION; Start 07/23/16 at 22:00 Bisacodyl (Dulcolax Supp) 10 mg DAILY PRN [place] CONSTIPATION; Start 07/23/16 at 22: 00 ROLAND AYON MD Jul 24, 2016 21:52
[2016-07-25] MEDS: PANTOPRAZOLE (EC) 40 MG TAB PO SCH (06:08)
[2016-07-25] MEDS: LEVOTHYROXINE 50 MCG TAB PO SCH (06:08)
[2016-07-25 07:30] VITALS: BP 177/77; RESP 18
[2016-07-25] MEDS: FOLIC ACID 1 MG TAB PO SCH (10:10)
[2016-07-25] MEDS: DOCUSATE SODIUM 100 MG CAP PO SCH ×2 (10:10→21:02)
[2016-07-25] MEDS: RANOLAZINE (SR) 500 MG TAB PO SCH ×2 (10:11→21:05)
[2016-07-25] MEDS: PREGABALIN 25 MG CAP PO SCH ×2 (10:11→21:02)
[2016-07-25] MEDS: ASPIRIN (EC) 81 MG TAB PO SCH (10:11)
[2016-07-25] MEDS: LEVETIRACETAM 750 MG TAB PO SCH ×2 (10:11→21:05)
[2016-07-25] MEDS: ENOXAPARIN 30 MG/0.3 ML SYG SC SCH (10:12)
--- NOTE | 2016-07-25 12:08 | CONS ---
Date/Time of Note Date/Time of Note DATE: 07/25/16 TIME: 12:07 Consult Date/Type/Reason Admit Date/Time Jul 23, 2016 at 20:40 Initial Consult Date Type of Consultation: NEPHROLOGY Ordering Provider: PRINCESS FISHER MD Subjective Comfortable Objective [id number] Vital Signs Date Time Temp Pulse Resp B/P Pulse Ox O2 Delivery O2 Flow Rate FiO2 07/25/16 07:30 98.4 77 18 177/77 96 Intake and Output 07/24/16 07/24/16 07/25/16 14:59 22:59 06:59 Intake Total 540 ml Output Total 2 ml Balance 538 ml Results/Medications Result Diagram: 07/24/1648 07/24/16 0548 Medications Current Medications Acetaminophen (Tylenol Tab) 325 mg Q6H PRN PO PAIN AND OR ELEVATED TEMP; Start 07/23/16 at 21:30 Aspirin (Halfprin) 81 mg DAILY PO Last administered on 07/25/16 10:11; Admin Dose 81 MG; Start 07/24/16 at 09:00 Atorvastatin Calcium (Lipitor) 80 mg QHS PO Last administered on 07/24/16 20:50 ; Admin Dose 80 MG; Start 07/23/16 at 21:30 Carvedilol (Coreg) 6.25 mg BID PO Last administered on 07/25/16 10:12; Admin Dose 6.25 MG; Start 07/23/16 at 21:30 Clonidine (Catapres) 0.1 mg Q6H PRN PO ELEVATED BLOOD PRESSURE; Start 07/23/16 at 21:30 Enoxaparin Sodium (Lovenox) 30 mg DAILY SC Last administered on 07/25/16 10:12 ; Admin Dose 30 MG; Start 07/24/16 at 09:00 Epoetin Rodney (Epogen (Non Esrd/Non Oncology)) 20,000 units Q7D SC ; Start at 17:00 Folic Acid (Folic Acid) 1 mg DAILY PO Last administered on 07/25/16 10:10; Admin Dose 1 MG; Start 07/24/16 at 09:00 Acetaminophen/ Hydrocodone Bitart ([place] (5/325)) 1 tab Q3H PRN PO PAIN Last administered on 07/23/16 22:29; Admin Dose 1 TAB; Start 07/23/16 at 21:30 Acetaminophen/ Hydrocodone Bitart ([place] (5/325)) 2 tab Q3H PRN PO PAIN LEVEL 4 -7 Last administered on 07/24/16 09:14; Admin Dose 2 TAB; Start 07/23/16 at 21:30 Hydromorphone HCl (Dilaudid) 1 mg Q3H PRN IV PAIN LEVEL 8-10; Start 07/23/16 at 21:30 Levetiracetam (Keppra) 750 mg BID PO Last administered on 07/25/16 10:11; Admin Dose 750 MG; Start 07/23/16 at 22:30 Levothyroxine Sodium (Synthroid) 50 mcg DAILY@06 PO Last administered on 06:08; Admin Dose 50 MCG; Start 07/24/16 at 06:00 Meclizine HCl (Antivert) 25 mg DAILY PRN PO DIZZINESS; Start 07/23/16 at 21:30 Pantoprazole (Protonix Tab) 40 mg DAILY@06 PO Last administered on 07/25/16 06 :08; Admin Dose 40 MG; Start 07/24/16 at 06:00 Pregabalin (Lyrica) 25 mg BID PO Last administered on 07/25/16 10:11; Admin Dose 25 MG; Start 07/23/16 at 21:30 Quetiapine Fumarate (Seroquel) 25 mg HS PO Last administered on 07/24/16 20:50 ; Admin Dose 25 MG; Start 07/23/16 at 21:30 Ranolazine (Ranexa) 1,000 mg Q12 PO Last administered on 07/25/16 10:11; Admin Dose 1,000 MG; Start 07/23/16 at 22:30 Docusate Sodium (Colace) 100 mg BID PO Last administered on 07/25/16 10:10; Admin Dose 100 MG; Start 07/24/16 at 09:00 Lactulose (Enulose) 20 gm DAILY PRN PO CONSTIPATION; Start 07/23/16 at 22:00 Bisacodyl (Dulcolax Supp) 10 mg DAILY PRN [place] CONSTIPATION; Start 07/23/16 at 22: 00 Assessment/Plan Additional Assessment/Plan Rehab- Left infarct CVA. Tolerating rehab program Left femoral neck fracture status post left hip arthroplasty. Seizure disorder. Coronary artery disease. Dyslipidemia. Hypertension. Hypothyroidism. Anemia. HAROLDO GODINEZ MD Jul 25, 2016 12:08
--- NOTE | 2016-07-25 12:20 | CONS ---
Date/Time of Note Date/Time of Note DATE: 07/25/16 TIME: 12:18 Assessment/Plan Assessment/Plan Additional Assessment/Plan 1. Acute kidney injury secondary to prerenal azotemia. 2. Possible chronic kidney disease from her previous medical problems of hypertension and coronary artery disease. 3. History of coronary artery disease with history of percutaneous coronary intervention in 2008. 4. History of cerebrovascular accident. 5. History of hypertension. 6. 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 Patient with history of prior stroke. Dr. Patel is following in neurology consultation. 7. Breakthrough seizure on IV keppra PLAN: Cr improving on IV levaquin PO keppra for seizures, neurology following Monitor electrolytes transferred to acute rehab floor. Consultation Date/Type/Reason Admit Date/Time Jul 23, 2016 at 20:40 Type of Consultation: NEPHROLOGY Referring Provider: PRINCESS FISHER MD 24 HR Interval Summary Free Text/Dictation pt remained stable, Exam/Review of Systems Vital Signs Vitals Vital Signs Date Time Temp Pulse Resp B/P Pulse Ox O2 Delivery O2 Flow Rate FiO2 07/25/16 07:30 98.4 77 18 177/77 96 Intake and Output 07/24/16 07/24/16 07/25/16 15:00 23:00 07:00 Intake Total 540 ml Output Total 2 ml Balance 538 ml Exam Constitutional: alert, well developed Psych: nl mood/affect Head: atraumatic Eyes: EOMI, nl sclera ENMT: nl external ears & nose Neck: non-tender Respiratory: clear to auscultation Cardiovascular: nl pulses Gastrointestinal: non-tender, soft Musculoskeletal: nl extremities to inspection Neurological: nl mental status Skin: nl turgor Lymph: nontender Results Result Diagram: 07/24/1648 07/24/1648 Medications Medications Current Medications Acetaminophen (Tylenol Tab) 325 mg Q6H PRN PO PAIN AND OR ELEVATED TEMP; Start 07/23/16 at 21:30 Aspirin (Halfprin) 81 mg DAILY PO Last administered on 07/25/16 10:11; Admin Dose 81 MG; Start 07/24/16 at 09:00 Atorvastatin Calcium (Lipitor) 80 mg QHS PO Last administered on 07/24/16 20:50 ; Admin Dose 80 MG; Start 07/23/16 at 21:30 Carvedilol (Coreg) 6.25 mg BID PO Last administered on 07/25/16 10:12; Admin Dose 6.25 MG; Start 07/23/16 at 21:30 Clonidine (Catapres) 0.1 mg Q6H PRN PO ELEVATED BLOOD PRESSURE; Start 07/23/16 at 21:30 Enoxaparin Sodium (Lovenox) 30 mg DAILY SC Last administered on 07/25/16 10:12 ; Admin Dose 30 MG; Start 07/24/16 at 09:00 Epoetin Rodney (Epogen (Non Esrd/Non Oncology)) 20,000 units Q7D SC ; Start at 17:00 Folic Acid (Folic Acid) 1 mg DAILY PO Last administered on 07/25/16 10:10; Admin Dose 1 MG; Start 07/24/16 at 09:00 Acetaminophen/ Hydrocodone Bitart ([place] (5/325)) 1 tab Q3H PRN PO PAIN Last administered on 07/23/16 22:29; Admin Dose 1 TAB; Start 07/23/16 at 21:30 Acetaminophen/ Hydrocodone Bitart ([place] (5/325)) 2 tab Q3H PRN PO PAIN LEVEL 4 -7 Last administered on 07/24/16 09:14; Admin Dose 2 TAB; Start 07/23/16 at 21:30 Hydromorphone HCl (Dilaudid) 1 mg Q3H PRN IV PAIN LEVEL 8-10; Start 07/23/16 at 21:30 Levetiracetam (Keppra) 750 mg BID PO Last administered on 07/25/16 10:11; Admin Dose 750 MG; Start 07/23/16 at 22:30 Levothyroxine Sodium (Synthroid) 50 mcg DAILY@06 PO Last administered on 06:08; Admin Dose 50 MCG; Start 07/24/16 at 06:00 Meclizine HCl (Antivert) 25 mg DAILY PRN PO DIZZINESS; Start 07/23/16 at 21:30 Pantoprazole (Protonix Tab) 40 mg DAILY@06 PO Last administered on 07/25/16 06 :08; Admin Dose 40 MG; Start 07/24/16 at 06:00 Pregabalin (Lyrica) 25 mg BID PO Last administered on 07/25/16 10:11; Admin Dose 25 MG; Start 07/23/16 at 21:30 Quetiapine Fumarate (Seroquel) 25 mg HS PO Last administered on 07/24/16 20:50 ; Admin Dose 25 MG; Start 07/23/16 at 21:30 Ranolazine (Ranexa) 1,000 mg Q12 PO Last administered on 07/25/16 10:11; Admin Dose 1,000 MG; Start 07/23/16 at 22:30 Docusate Sodium (Colace) 100 mg BID PO Last administered on 07/25/16 10:10; Admin Dose 100 MG; Start 07/24/16 at 09:00 Lactulose (Enulose) 20 gm DAILY PRN PO CONSTIPATION; Start 07/23/16 at 22:00 Bisacodyl (Dulcolax Supp) 10 mg DAILY PRN [place] CONSTIPATION; Start 07/23/16 at 22: 00 ROLAND AYON MD Jul 25, 2016 12:20
--- NOTE | 2016-07-25 13:23 | PN ---
Date/Time of Note Date/Time of Note DATE: 07/25/16 TIME: 13:19 Assessment/Plan VTE Prophylaxis VTE Prophylaxis Intervention: LMWH Lines/Catheters Urinary Cath still in place: No Assessment/Plan Chief Complaint/Hosp Course Assessment and plan - Acute left frontal cortical infarct. Patient with history of prior stroke. Continue aspirin. Continue PT OT. - Seizure disorder, continue Keppra. - Left femoral neck fracture secondary to mechanical fall. Status post left hip humeral arthroplasty by Dr. Marshall, orthopedic surgery. - Macrocytic anemia. Stool for OB is neg. Status post blood transfusion. Continue to monitor hemoglobin and hematocrit. - Coronary artery disease, status post PCI. Continue aspirin and Ranexa. - Hypertension. Continue Coreg. - Dyslipidemia. Continue Lipitor. - Hypothyroidism. Continue Synthroid. Further recommendations based on clinical course. Plan of care discussed with Dr. Robertson. Problems: Subjective 24 Hr Interval Summary Free Text/Dictation Patient is awake alert, pain is well controlled, compliant with physical and Occupational Therapy. Exam/Review of Systems Vital Signs Vitals Vital Signs Date Time Temp Pulse Resp B/P Pulse Ox O2 Delivery O2 Flow Rate FiO2 07/25/16 07:30 98.4 77 18 177/77 96 Intake and Output 07/24/16 07/24/16 07/25/16 15:00 23:00 07:00 Intake Total 540 ml Output Total 2 ml Balance 538 ml Exam Constitutional: alert, oriented Psych: no complaints Head: atraumatic, normocephalic Eyes: nl conjunctiva ENMT: nl external ears & nose Neck: non-tender, supple Respiratory: clear to auscultation, normal air movement Cardiovascular: nl pulses, regular rate and rhythm Gastrointestinal: non-tender, soft Musculoskeletal: nl extremities to inspection, other (Status post left hip surgery) Extremities: normal pulses Neurological: [employer] 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 Skin: nl turgor Results Result Diagram: 07/24/1654707/24/16547 Medications Medications Current Medications Acetaminophen (Tylenol Tab) 325 mg Q6H PRN PO PAIN AND OR ELEVATED TEMP; Start 07/23/16 at 21:30 Aspirin (Halfprin) 81 mg DAILY PO Last administered on 07/25/16t 10:11; Admin Dose 81 MG; Start 07/24/16 at 09:00 Atorvastatin Calcium (Lipitor) 80 mg QHS PO Last administered on 07/24/16 20:50 ; Admin Dose 80 MG; Start 07/23/16 at 21:30 Carvedilol (Coreg) 6.25 mg BID PO Last administered on 07/25/16 10:12; Admin Dose 6.25 MG; Start 07/23/16 at 21:30 Clonidine (Catapres) 0.1 mg Q6H PRN PO ELEVATED BLOOD PRESSURE; Start 07/23/16 at 21:30 Enoxaparin Sodium (Lovenox) 30 mg DAILY SC Last administered on 07/25/16 10:12 ; Admin Dose 30 MG; Start 07/24/16 at 09:00 Epoetin Rodney (Epogen (Non Esrd/Non Oncology)) 20,000 units Q7D SC ; Start at 17:00 Folic Acid (Folic Acid) 1 mg DAILY PO Last administered on 07/25/16 10:10; Admin Dose 1 MG; Start 07/24/16 at 09:00 Acetaminophen/ Hydrocodone Bitart ([place] (5/325)) 1 tab Q3H PRN PO PAIN Last administered on 07/23/16 22:29; Admin Dose 1 TAB; Start 07/23/16 at 21:30 Acetaminophen/ Hydrocodone Bitart ([place] (5/325)) 2 tab Q3H PRN PO PAIN LEVEL 4 -7 Last administered on 07/24/16 09:14; Admin Dose 2 TAB; Start 07/23/16 at 21:30 Hydromorphone HCl (Dilaudid) 1 mg Q3H PRN IV PAIN LEVEL 8-10; Start 07/23/16 at 21:30 Levetiracetam (Keppra) 750 mg BID PO Last administered on 07/25/16 10:11; Admin Dose 750 MG; Start 07/23/16 at 22:30 Levothyroxine Sodium (Synthroid) 50 mcg DAILY@06 PO Last administered on 06:08; Admin Dose 50 MCG; Start 07/24/16 at 06:00 Meclizine HCl (Antivert) 25 mg DAILY PRN PO DIZZINESS; Start 07/23/16 at 21:30 Pantoprazole (Protonix Tab) 40 mg DAILY@06 PO Last administered on 07/25/16 06 :08; Admin Dose 40 MG; Start 07/24/16 at 06:00 Pregabalin (Lyrica) 25 mg BID PO Last administered on 07/25/16 10:11; Admin Dose 25 MG; Start 07/23/16 at 21:30 Quetiapine Fumarate (Seroquel) 25 mg HS PO Last administered on 07/24/16 20:50 ; Admin Dose 25 MG; Start 07/23/16 at 21:30 Ranolazine (Ranexa) 1,000 mg Q12 PO Last administered on 07/25/16 10:11; Admin Dose 1,000 MG; Start 07/23/16 at 22:30 Docusate Sodium (Colace) 100 mg BID PO Last administered on 07/25/16 10:10; Admin Dose 100 MG; Start 07/24/16 at 09:00 Lactulose (Enulose) 20 gm DAILY PRN PO CONSTIPATION; Start 07/23/16 at 22:00 Bisacodyl (Dulcolax Supp) 10 mg DAILY PRN [place] CONSTIPATION; Start 07/23/16 at 22: 00 ILAN GALDAMEZ Jul 25, 2016 13:23
[2016-07-25 20:37] VITALS: BP 159/69; RESP 18
[2016-07-25] MEDS: ATORVASTATIN 80 MG TAB PO SCH (21:02)
[2016-07-25] MEDS: ACETAMINOPHEN 325 MG TAB PO PRN (21:05)
[2016-07-25] MEDS: QUETIAPINE 25 MG TAB PO SCH (21:06)
[2016-07-26] MEDS: LEVOTHYROXINE 50 MCG TAB PO SCH (05:29)
[2016-07-26] MEDS: PANTOPRAZOLE (EC) 40 MG TAB PO SCH (05:29)
[2016-07-26] MEDS: ENOXAPARIN 30 MG/0.3 ML SYG SC SCH (08:27)
[2016-07-26] MEDS: PREGABALIN 25 MG CAP PO SCH ×2 (08:27→20:05)
[2016-07-26 08:30] VITALS: BP 175/71; PULSE 63; RESP 18
[2016-07-26] MEDS: RANOLAZINE (SR) 500 MG TAB PO SCH ×2 (08:31→20:06)
[2016-07-26] MEDS: FOLIC ACID 1 MG TAB PO SCH (08:31)
[2016-07-26] MEDS: ASPIRIN (EC) 81 MG TAB PO SCH (08:34)
[2016-07-26] MEDS: DOCUSATE SODIUM 100 MG CAP PO SCH ×2 (08:34→20:05)
[2016-07-26] MEDS: LEVETIRACETAM 750 MG TAB PO SCH ×2 (09:10→20:05)
[2016-07-26 10:30] VITALS: BP 138/68; PULSE 69; RESP 18
[2016-07-26] MEDS: ACETAMINOPHEN 325 MG TAB PO PRN ×2 (10:48→14:30)
[2016-07-26] MEDS: HYDROCODONE/APAP (5/325) TAB PO PRN (11:44)
--- NOTE | 2016-07-26 11:46 | PN ---
Date/Time of Note Date/Time of Note DATE: 07/26/16 TIME: 11:37 Assessment/Plan VTE Prophylaxis VTE Prophylaxis Intervention: LMWH Lines/Catheters Urinary Cath still in place: No Assessment/Plan Assessment/Plan 1. Acute left frontal cortical infarcts with impaired mobility/gait/ADLs/ cognition. Continue PT/OT/ST. Mod assist for toileting, supervision for grooming. Continue Secondary stroke prevention. 2. Left femoral neck fracture status post left hip arthroplasty. Continue PT/ OT. Continue surgical site care. For acute post op pain, continue pain regimen. 3. Seizure disorder. On keppra. 4. Coronary artery disease. Continue medical management. 5. Dyslipidemia. Continue Statin. 6. Hypertension. BP intermittently elevated, internal medicine medically managing. 7. Hypothyroidism. Continue levothyroxine. 8 Anemia. Monitor hemoglobin/hematocrit. 9. Urinary retention. Continue to check bladder scans/PVRs and I/O cath as needed. Consider consult. 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 Patient reports moderate pain in left hip currently. Nursing reports patient was I/O cath for 400 cc and another 500cc overnight for no voiding. ROS: Denies headache, no dizziness, no chest pain, no shortness of breath, no abdominal pain, no nausea, no vomiting. Exam/Review of Systems Vital Signs Vitals Vital Signs Date Time Temp Pulse Resp B/P Pulse Ox O2 Delivery O2 Flow Rate FiO2 07/25/16 20:37 98.6 74 18 159/69 97 Intake and Output 07/25/16 07/25/16 07/26/16 15:00 23:00 07:00 Intake Total 1420 ml 360 ml 300 ml Output Total 600 ml 120 ml 950 ml Balance 820 ml 240 ml -650 ml Exam General: Awake, alert, no acute distress CV: Regular rate, s1s2 Lungs: Clear to auscultation, no wheezing Abdomen soft, nontender, +bowel sounds Extremities: No cyanosis, +Left lower extremity edema, no calf tenderness Neuro: L DF/PF antigravity strength. No new sensory changes. Results Result Diagram: 07/24/1648 07/24/16547 Medications Medications Current Medications Acetaminophen (Tylenol Tab) 325 mg Q6H PRN PO PAIN AND OR ELEVATED TEMP Last administered on 3/11/17at 10:48; Admin Dose 325 MG; Start 07/23/16 at 21:30 Aspirin (Halfprin) 81 mg DAILY PO Last administered on 07/26/16 08:34; Admin Dose 81 MG; Start 07/24/16 at 09:00 Atorvastatin Calcium (Lipitor) 80 mg QHS PO Last administered on 07/25/16 21: 02; Admin Dose 80 MG; Start 07/23/16 at 21:30 Carvedilol (Coreg) 6.25 mg BID PO Last administered on 07/26/16 08:26; Admin Dose 6.25 MG; Start 07/23/16 at 21:30 Clonidine (Catapres) 0.1 mg Q6H PRN PO ELEVATED BLOOD PRESSURE; Start 07/23/16 at 21:30 Enoxaparin Sodium (Lovenox) 30 mg DAILY SC Last administered on 07/26/16 08:27 ; Admin Dose 30 MG; Start 07/24/16 at 09:00 Epoetin Rodney (Epogen (Non Esrd/Non Oncology)) 20,000 units Q7D SC ; Start at 17:00 Folic Acid (Folic Acid) 1 mg DAILY PO Last administered on 07/26/16 08:31; Admin Dose 1 MG; Start 07/24/16 at 09:00 Acetaminophen/ Hydrocodone Bitart ([place] (5/325)) 1 tab Q3H PRN PO PAIN Last administered on 07/23/16 22:29; Admin Dose 1 TAB; Start 07/23/16 at 21:30 Acetaminophen/ Hydrocodone Bitart ([place] (5/325)) 2 tab Q3H PRN PO PAIN LEVEL 4 -7 Last administered on 07/24/16 09:14; Admin Dose 2 TAB; Start 07/23/16 at 21:30 Hydromorphone HCl (Dilaudid) 1 mg Q3H PRN IV PAIN LEVEL 8-10; Start 07/23/16 at 21:30 Levetiracetam (Keppra) 750 mg BID PO Last administered on 07/26/16 09:10; Admin Dose 750 MG; Start 07/23/16 at 22:30 Levothyroxine Sodium (Synthroid) 50 mcg DAILY@06 PO Last administered on 05:29; Admin Dose 50 MCG; Start 07/24/16 at 06:00 Meclizine HCl (Antivert) 25 mg DAILY PRN PO DIZZINESS; Start 07/23/16 at 21:30 Pantoprazole (Protonix Tab) 40 mg DAILY@06 PO Last administered on 07/26/16 05 :29; Admin Dose 40 MG; Start 07/24/16 at 06:00 Pregabalin (Lyrica) 25 mg BID PO Last administered on 07/26/16 08:27; Admin Dose 25 MG; Start 07/23/16 at 21:30 Quetiapine Fumarate (Seroquel) 25 mg HS PO Last administered on 07/25/16 21:06 ; Admin Dose 25 MG; Start 07/23/16 at 21:30 Ranolazine (Ranexa) 1,000 mg Q12 PO Last administered on 07/26/16 08:31; Admin Dose 1,000 MG; Start 07/23/16 at 22:30 Docusate Sodium (Colace) 100 mg BID PO Last administered on 07/26/16 08:34; Admin Dose 100 MG; Start 07/24/16 at 09:00 Lactulose (Enulose) 20 gm DAILY PRN PO CONSTIPATION; Start 07/23/16 at 22:00 Bisacodyl (Dulcolax Supp) 10 mg DAILY PRN [place] CONSTIPATION; Start 07/23/16 at 22: 00 AURELIO ALFONSO Jul 26, 2016 11:46 AURELIO ALFONSO Jul 26, 2016 11:46
--- NOTE | 2016-07-26 12:17 | CONS ---
Date/Time of Note Date/Time of Note DATE: 07/26/16 TIME: 12:16 Assessment/Plan Assessment/Plan Additional Assessment/Plan 1. Acute kidney injury secondary to prerenal azotemia. improved 2. Possible chronic kidney disease from her previous medical problems of hypertension and coronary artery disease. 3. History of coronary artery disease with history of percutaneous coronary intervention in 2008. 4. History of cerebrovascular accident. 5. History of hypertension. 6. 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 Patient with history of prior stroke. Dr. Patel is following in neurology consultation. 7. Breakthrough seizure on IV keppra PLAN: Cr improved PO keppra for seizures, neurology following Monitor electrolytes will follow up Consultation Date/Type/Reason Admit Date/Time Jul 23, 2016 at 20:40 Type of Consultation: NEPHROLOGY Referring Provider: PRINCESS FISHER MD 24 HR Interval Summary Free Text/Dictation no acute events, gettign acute rehab,BP stable Exam/Review of Systems Vital Signs Vitals Vital Signs Date Time Temp Pulse Resp B/P Pulse Ox O2 Delivery O2 Flow Rate FiO2 07/25/16 20:37 98.6 74 18 159/69 97 Intake and Output 07/25/16 07/25/16 07/26/16 15:00 23:00 07:00 Intake Total 1420 ml 360 ml 300 ml Output Total 600 ml 120 ml 950 ml Balance 820 ml 240 ml -650 ml Exam Constitutional: alert, well developed Psych: nl mood/affect Head: atraumatic Eyes: EOMI, nl sclera ENMT: nl external ears & nose Neck: non-tender Respiratory: clear to auscultation Cardiovascular: nl pulses Gastrointestinal: non-tender, soft Musculoskeletal: nl extremities to inspection Neurological: nl mental status Skin: nl turgor Lymph: nontender Results Result Diagram: 07/24/1654707/24/16547 Medications Medications Current Medications Acetaminophen (Tylenol Tab) 325 mg Q6H PRN PO PAIN AND OR ELEVATED TEMP Last administered on 07/26/16 10:48; Admin Dose 325 MG; Start 07/23/16 at 21:30 Aspirin (Halfprin) 81 mg DAILY PO Last administered on 07/26/16 08:34; Admin Dose 81 MG; Start 07/24/16 at 09:00 Atorvastatin Calcium (Lipitor) 80 mg QHS PO Last administered on 07/25/16 21: 02; Admin Dose 80 MG; Start 07/23/16 at 21:30 Carvedilol (Coreg) 6.25 mg BID PO Last administered on 07/26/16 08:26; Admin Dose 6.25 MG; Start 07/23/16 at 21:30 Clonidine (Catapres) 0.1 mg Q6H PRN PO ELEVATED BLOOD PRESSURE; Start 07/23/16 at 21:30 Enoxaparin Sodium (Lovenox) 30 mg DAILY SC Last administered on 07/26/16 08:27 ; Admin Dose 30 MG; Start 07/24/16 at 09:00 Epoetin Rodney (Epogen (Non Esrd/Non Oncology)) 20,000 units Q7D SC ; Start at 17:00 Folic Acid (Folic Acid) 1 mg DAILY PO Last administered on 07/26/16 08:31; Admin Dose 1 MG; Start 07/24/16 at 09:00 Acetaminophen/ Hydrocodone Bitart ([place] (5/325)) 1 tab Q3H PRN PO PAIN Last administered on 07/26/16 11:44; Admin Dose 1 TAB; Start 07/23/16 at 21:30 Acetaminophen/ Hydrocodone Bitart ([place] (5/325)) 2 tab Q3H PRN PO PAIN LEVEL 4 -7 Last administered on 07/24/16 09:14; Admin Dose 2 TAB; Start 07/23/16 at 21:30 Hydromorphone HCl (Dilaudid) 1 mg Q3H PRN IV PAIN LEVEL 8-10; Start 07/23/16 at 21:30 Levetiracetam (Keppra) 750 mg BID PO Last administered on 07/26/16 09:10; Admin Dose 750 MG; Start 07/23/16 at 22:30 Levothyroxine Sodium (Synthroid) 50 mcg DAILY@06 PO Last administered on 05:29; Admin Dose 50 MCG; Start 07/24/16 at 06:00 Meclizine HCl (Antivert) 25 mg DAILY PRN PO DIZZINESS; Start 07/23/16 at 21:30 Pantoprazole (Protonix Tab) 40 mg DAILY@06 PO Last administered on 07/26/16 05 :29; Admin Dose 40 MG; Start 07/24/16 at 06:00 Pregabalin (Lyrica) 25 mg BID PO Last administered on 07/26/16 08:27; Admin Dose 25 MG; Start 07/23/16 at 21:30 Quetiapine Fumarate (Seroquel) 25 mg HS PO Last administered on 07/25/16 21:06 ; Admin Dose 25 MG; Start 07/23/16 at 21:30 Ranolazine (Ranexa) 1,000 mg Q12 PO Last administered on 07/26/16 08:31; Admin Dose 1,000 MG; Start 07/23/16 at 22:30 Docusate Sodium (Colace) 100 mg BID PO Last administered on 07/26/16 08:34; Admin Dose 100 MG; Start 07/24/16 at 09:00 Lactulose (Enulose) 20 gm DAILY PRN PO CONSTIPATION; Start 07/23/16 at 22:00 Bisacodyl (Dulcolax Supp) 10 mg DAILY PRN [place] CONSTIPATION; Start 07/23/16 at 22: 00 ROLAND AYON MD Jul 26, 2016 12:17
--- NOTE | 2016-07-26 16:52 | PN ---
Date/Time of Note Date/Time of Note DATE: 07/26/16 TIME: 16:51 Assessment/Plan VTE Prophylaxis VTE Prophylaxis Intervention: other Lines/Catheters Urinary Cath still in place: No Assessment/Plan Assessment/Plan - Acute left frontal cortical infarct per MRI. Patient with history of prior stroke. -per Dr. Patel in neurology consultation. - Breakthrough seizure. Continue Keppra. - seizure precautions - Left femoral neck fracture secondary to mechanical fall. Status post left hip humeral arthroplasty by Dr. Marshall, orthopedic surgery. - per ortho - Acute Kidney Injury - . Dr. Braxton in nephrology consultation. Continue to monitor BUN and creatinine. - Anemia. Stool for OB is neg. Status post blood transfusion. Continue to monitor hemoglobin and hematocrit. - Coronary artery disease, status post PCI. - per Dr. Bedoya in cardiology consultation. Continue aspirin and Ranexa. - Hypertension. Continue Coreg. - Dyslipidemia. Continue Lipitor. - Hypothyroidism. Continue Synthroid. - Macrocytic anemia. - E. coli UTI, continue Levaquin. - Acute rehab Further recommendations based on clinical course. Plan of care discussed with Dr. Robertson. We will do followup labs in the morning. We will continue supportive care and symptomatic treatment. DW Dr Robertson Subjective 24 Hr Interval Summary Free Text/Dictation NAD, patient retained urine- I/O cat done, started on urocholine. - cont to monitor, if no improvement- will get urology consult. dw staff Eyes: no complaints ENT: no complaints Respiratory: no complaints Cardiovascular: no complaints Gastrointestinal: no complaints Genitourinary: no complaints Musculoskeletal: no complaints Skin: no complaints Neurologic: no complaints Endocrine: no complaints Lymphatic: no complaints Exam/Review of Systems Vital Signs Vitals Vital Signs Date Time Temp Pulse Resp B/P Pulse Ox O2 Delivery O2 Flow Rate FiO2 07/26/16 10:30 98.1 69 18 138/68 97 Room Air Intake and Output 07/25/16 07/25/16 07/26/16 15:00 23:00 07:00 Intake Total 1420 ml 360 ml 300 ml Output Total 600 ml 120 ml 950 ml Balance 820 ml 240 ml -650 ml Exam Constitutional: alert, well developed Psych: nl mood/affect Head: atraumatic Eyes: EOMI ENMT: nl external ears & nose Neck: non-tender Respiratory: clear to auscultation Cardiovascular: nl pulses Gastrointestinal: non-tender, soft Musculoskeletal: other Extremities: normal pulses Neurological: nl speech Results Result Diagram: 07/24/16 0548 07/24/16 0548 Medications Medications Current Medications Acetaminophen (Tylenol Tab) 325 mg Q6H PRN PO PAIN AND OR ELEVATED TEMP Last administered on 07/26/16 14:30; Admin Dose 325 MG; Start 07/23/16 at 21:30 Aspirin (Halfprin) 81 mg DAILY PO Last administered on 07/26/16 08:34; Admin Dose 81 MG; Start 07/24/16 at 09:00 Atorvastatin Calcium (Lipitor) 80 mg QHS PO Last administered on 07/25/16 21: 02; Admin Dose 80 MG; Start 07/23/16 at 21:30 Carvedilol (Coreg) 6.25 mg BID PO Last administered on 07/26/16 08:26; Admin Dose 6.25 MG; Start 07/23/16 at 21:30 Clonidine (Catapres) 0.1 mg Q6H PRN PO ELEVATED BLOOD PRESSURE; Start 07/23/16 at 21:30 Enoxaparin Sodium (Lovenox) 30 mg DAILY SC Last administered on 07/26/16 08:27 ; Admin Dose 30 MG; Start 07/24/16 at 09:00 Epoetin Rodney (Epogen (Non Esrd/Non Oncology)) 20,000 units Q7D SC ; Start at 17:00 Folic Acid (Folic Acid) 1 mg DAILY PO Last administered on 07/26/16 08:31; Admin Dose 1 MG; Start 07/24/16 at 09:00 Acetaminophen/ Hydrocodone Bitart ([place] (5/325)) 1 tab Q3H PRN PO PAIN Last administered on 07/26/16 11:44; Admin Dose 1 TAB; Start 07/23/16 at 21:30 Acetaminophen/ Hydrocodone Bitart ([place] (5/325)) 2 tab Q3H PRN PO PAIN LEVEL 4 -7 Last administered on 07/24/16 09:14; Admin Dose 2 TAB; Start 07/23/16 at 21:30 Hydromorphone HCl (Dilaudid) 1 mg Q3H PRN IV PAIN LEVEL 8-10; Start 07/23/16 at 21:30 Levetiracetam (Keppra) 750 mg BID PO Last administered on 07/26/16 09:10; Admin Dose 750 MG; Start 07/23/16 at 22:30 Levothyroxine Sodium (Synthroid) 50 mcg DAILY@06 PO Last administered on 05:29; Admin Dose 50 MCG; Start 07/24/16 at 06:00 Meclizine HCl (Antivert) 25 mg DAILY PRN PO DIZZINESS; Start 07/23/16 at 21:30 Pantoprazole (Protonix Tab) 40 mg DAILY@06 PO Last administered on 07/26/16 05 :29; Admin Dose 40 MG; Start 07/24/16 at 06:00 Pregabalin (Lyrica) 25 mg BID PO Last administered on 07/26/16 08:27; Admin Dose 25 MG; Start 07/23/16 at 21:30 Quetiapine Fumarate (Seroquel) 25 mg HS PO Last administered on 07/25/16 21:06 ; Admin Dose 25 MG; Start 07/23/16 at 21:30 Ranolazine (Ranexa) 1,000 mg Q12 PO Last administered on 07/26/16 08:31; Admin Dose 1,000 MG; Start 07/23/16 at 22:30 Docusate Sodium (Colace) 100 mg BID PO Last administered on 07/26/16 08:34; Admin Dose 100 MG; Start 07/24/16 at 09:00 Lactulose (Enulose) 20 gm DAILY PRN PO CONSTIPATION; Start 07/23/16 at 22:00 Bisacodyl (Dulcolax Supp) 10 mg DAILY PRN [place] CONSTIPATION; Start 07/23/16 at 22: 00 Bethanechol Chloride (Urecholine) 10 mg BID PO ; Start 07/26/16 at 21:00 IVON DENT Jul 26, 2016 16:52
[2016-07-26 19:39] VITALS: BP 169/78; RESP 19
[2016-07-26] MEDS: QUETIAPINE 25 MG TAB PO SCH (20:05)
[2016-07-26] MEDS: ATORVASTATIN 80 MG TAB PO SCH (20:05)
[2016-07-26] MEDS: MECLIZINE 25 MG TAB PO PRN (20:06)
[2016-07-26] MEDS: BETHANECHOL 10 MG TAB PO SCH (20:10)
[2016-07-26 22:11] VITALS: BP 155/80; PULSE 68
[2016-07-27] MEDS: LEVOTHYROXINE 50 MCG TAB PO SCH (06:20)
[2016-07-27] MEDS: PANTOPRAZOLE (EC) 40 MG TAB PO SCH (06:20)
[2016-07-27 07:16] VITALS: BP 165/75; RESP 20
[2016-07-27] MEDS: DOCUSATE SODIUM 100 MG CAP PO SCH ×2 (08:11→20:56)
[2016-07-27] MEDS: BETHANECHOL 10 MG TAB PO SCH ×2 (08:11→21:00)
[2016-07-27] MEDS: PREGABALIN 25 MG CAP PO SCH ×2 (08:11→20:57)
[2016-07-27] MEDS: MECLIZINE 25 MG TAB PO PRN ×2 (08:12→17:30)
[2016-07-27] MEDS: RANOLAZINE (SR) 500 MG TAB PO SCH ×2 (08:12→20:56)
[2016-07-27 08:16] VITALS: BP 178/80; PULSE 80
[2016-07-27] MEDS: FOLIC ACID 1 MG TAB PO SCH (08:16)
[2016-07-27] MEDS: LEVETIRACETAM 750 MG TAB PO SCH ×2 (08:16→20:57)
[2016-07-27] MEDS: ASPIRIN (EC) 81 MG TAB PO SCH (09:18)
[2016-07-27] MEDS: ENOXAPARIN 30 MG/0.3 ML SYG SC SCH (09:22)
[2016-07-27 10:27] VITALS: BP 165/77; PULSE 88
[2016-07-27] MEDS: HYDROmorphONE 1 MG/ML SYG IM PRN ×3 (10:27→18:18)
--- NOTE | 2016-07-27 12:22 | PN ---
Date/Time of Note Date/Time of Note DATE: 07/27/16 TIME: :17 Assessment/Plan VTE Prophylaxis VTE Prophylaxis Intervention: LMWH Lines/Catheters Urinary Cath still in place: No Assessment/Plan Assessment/Plan 1. Acute left frontal cortical infarcts with impaired mobility/gait/ADLs/ cognition. Continue PT/OT/ST. Mod assist for transfers and bed mobility. Continue Secondary stroke prevention. 2. Left femoral neck fracture status post left hip arthroplasty. Continue PT/ OT. Continue surgical site care. Continue pain regimen including prn norco for acute post op pain, adjust regimen as needed.. 3. Seizure disorder. On keppra. 4. Coronary artery disease. Continue medical management. 5. Dyslipidemia. Continue Statin. 6. Hypertension. BP intermittently elevated, internal medicine has adjusted medications. Discussed with nursing staff to administer pain medications if needed as pain may be contributing as well. 7. Hypothyroidism. Continue levothyroxine. 8 Anemia. Monitor hemoglobin/hematocrit. On epogen per internal medicine/ nephrology. 9. Urinary retention. Voiding improving with starting of urecholine, continue to closely monitor PVRs, I/O cath as needed. Consider consult. 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 Patient reports nausea and vomited once last night. Feels better this morning, denies further nausea or vomiting. No abdominal pain. No headache, no dizziness, no new weakness. Nursing reports BM earlier today. Voiding better with starting of urecholine, this morning PVR 74cc. Last night PVR 241cc and 268cc. Exam/Review of Systems Vital Signs Vitals Vital Signs Date Time Temp Pulse Resp B/P Pulse Ox O2 Delivery O2 Flow Rate FiO2 07/27/16 10:27 88 165/77 07/27/16 07:16 97.9 20 95 07/26/16 10:30 Room Air Intake and Output 07/26/16 07/26/16 07/27/16 15:00 23:00 07:00 Intake Total 850 ml Output Total 1021 ml 742 ml Balance -171 ml -742 ml Exam General: Awake, alert, no acute distress CV: Regular rate, s1s2 Lungs: Symmetrical air entry bilaterally, no wheezing Abdomen soft, nontender, +bowel sounds Extremities: No cyanosis, calves nontender Neuro: No new focal changes. Follows simple commands. Results Result Diagram: 07/24/1648 07/24/1648 Medications Medications Current Medications Acetaminophen (Tylenol Tab) 325 mg Q6H PRN PO PAIN AND OR ELEVATED TEMP Last administered on 07/26/16 14:30; Admin Dose 325 MG; Start 07/23/16 at 21:30 Aspirin (Halfprin) 81 mg DAILY PO Last administered on 07/27/16 09:18; Admin Dose 81 MG; Start 07/24/16 at 09:00 Atorvastatin Calcium (Lipitor) 80 mg QHS PO Last administered on 07/26/16 20: 05; Admin Dose 80 MG; Start 07/23/16 at 21:30 Clonidine (Catapres) 0.1 mg Q6H PRN PO ELEVATED BLOOD PRESSURE Last administered on 07/27/16 08:15; Admin Dose 0.1 MG; Start 07/23/16 at 21:30 Enoxaparin Sodium (Lovenox) 30 mg DAILY SC Last administered on 07/27/16 09:22 ; Admin Dose 30 MG; Start 07/24/16 at 09:00 Epoetin Rodney (Epogen (Non Esrd/Non Oncology)) 20,000 units Q7D SC ; Start at 17:00 Folic Acid (Folic Acid) 1 mg DAILY PO Last administered on 07/27/16 08:16; Admin Dose 1 MG; Start 07/24/16 at 09:00 Acetaminophen/ Hydrocodone Bitart ([place] (5/325)) 1 tab Q3H PRN PO PAIN Last administered on 07/26/16 11:44; Admin Dose 1 TAB; Start 07/23/16 at 21:30 Acetaminophen/ Hydrocodone Bitart ([place] (5/325)) 2 tab Q3H PRN PO PAIN LEVEL 4 -7 Last administered on 07/24/16 09:14; Admin Dose 2 TAB; Start 07/23/16 at 21:30 Levetiracetam (Keppra) 750 mg BID PO Last administered on 07/27/16 08:16; Admin Dose 750 MG; Start 07/23/16 at 22:30 Levothyroxine Sodium (Synthroid) 50 mcg DAILY@06 PO Last administered on 06:20; Admin Dose 50 MCG; Start 07/24/16 at 06:00 Meclizine HCl (Antivert) 25 mg DAILY PRN PO DIZZINESS Last administered on 07/27 08:12; Admin Dose 25 MG; Start 07/23/16 at 21:30 Pantoprazole (Protonix Tab) 40 mg DAILY@06 PO Last administered on 07/27/16 06 :20; Admin Dose 40 MG; Start 07/24/16 at 06:00 Pregabalin (Lyrica) 25 mg BID PO Last administered on 07/27/16 08:11; Admin Dose 25 MG; Start 07/23/16 at 21:30 Quetiapine Fumarate (Seroquel) 25 mg HS PO Last administered on 07/26/16 20:05 ; Admin Dose 25 MG; Start 07/23/16 at 21:30 Ranolazine (Ranexa) 1,000 mg Q12 PO Last administered on 07/27/16 08:12; Admin Dose 1,000 MG; Start 07/23/16 at 22:30 Docusate Sodium (Colace) 100 mg BID PO Last administered on 07/27/16 08:11; Admin Dose 100 MG; Start 07/24/16 at 09:00 Lactulose (Enulose) 20 gm DAILY PRN PO CONSTIPATION; Start 07/23/16 at 22:00 Bisacodyl (Dulcolax Supp) 10 mg DAILY PRN [place] CONSTIPATION; Start 07/23/16 at 22: 00 Bethanechol Chloride (Urecholine) 10 mg BID PO Last administered on 07/27/16 08:11; Admin Dose 10 MG; Start 07/26/16 at 21:00 Hydromorphone HCl (Dilaudid) 1 mg Q3H PRN IM PAIN LEVEL 8-10 Last administered on 07/27/16 10:27; Admin Dose 1 MG; Start 07/27/16 at 12:30 Carvedilol (Coreg) 12.5 mg BID PO ; Start 07/27/16 at 21:00 AURELIO ALFONSO Jul 27, 2016 12:22
--- NOTE | 2016-07-27 17:16 | PN ---
Date/Time of Note Date/Time of Note DATE: 07/27/16 TIME: 17:15 Assessment/Plan VTE Prophylaxis VTE Prophylaxis Intervention: other Lines/Catheters Urinary Cath still in place: No Assessment/Plan Assessment/Plan - Acute left frontal cortical infarct. Patient with history of prior stroke. Continue aspirin. Continue PT OT. - Seizure disorder, continue Keppra. - seizure precautions - Left femoral neck fracture secondary to mechanical fall. Status post left hip humeral arthroplasty by Dr. Marshall, orthopedic surgery. - Macrocytic anemia. Stool for OB is neg. Status post blood transfusion. Continue to monitor hemoglobin and hematocrit. - Coronary artery disease, status post PCI. Continue aspirin and Ranexa. - Hypertension. Continue Coreg. - Dyslipidemia. Continue Lipitor. - Hypothyroidism. Continue Synthroid. Further recommendations based on clinical course. Plan of care discussed with Dr. Robertson. Subjective 24 Hr Interval Summary Constitutional: improved Eyes: no complaints ENT: no complaints Respiratory: no complaints Cardiovascular: no complaints Musculoskeletal: bone/joint pain Exam/Review of Systems Vital Signs Vitals Vital Signs Date Time Temp Pulse Resp B/P Pulse Ox O2 Delivery O2 Flow Rate FiO2 07/27/16 10:27 88 165/77 07/27/16 07:16 97.9 20 95 07/26/16 10:30 Room Air Intake and Output 07/26/16 07/26/16 07/27/16 15:00 23:00 07:00 Intake Total 850 ml Output Total 1021 ml 742 ml Balance -171 ml -742 ml Exam Constitutional: alert, well developed Psych: nl mood/affect Head: atraumatic Eyes: EOMI ENMT: nl external ears & nose Neck: non-tender Respiratory: clear to auscultation Cardiovascular: nl pulses Gastrointestinal: non-tender, soft Musculoskeletal: nl extremities to inspection Extremities: normal pulses Neurological: nl speech Lymph: nontender Results Result Diagram: 07/24/1648 07/24/1648 Medications Medications Current Medications Acetaminophen (Tylenol Tab) 325 mg Q6H PRN PO PAIN AND OR ELEVATED TEMP Last administered on 07/26/16 14:30; Admin Dose 325 MG; Start 07/23/16 at 21:30 Aspirin (Halfprin) 81 mg DAILY PO Last administered on 07/27/16 09:18; Admin Dose 81 MG; Start 07/24/16 at 09:00 Atorvastatin Calcium (Lipitor) 80 mg QHS PO Last administered on 07/26/16 20: 05; Admin Dose 80 MG; Start 07/23/16 at 21:30 Clonidine (Catapres) 0.1 mg Q6H PRN PO ELEVATED BLOOD PRESSURE Last administered on 07/27/16 08:15; Admin Dose 0.1 MG; Start 07/23/16 at 21:30 Enoxaparin Sodium (Lovenox) 30 mg DAILY SC Last administered on 07/27/16 09:22 ; Admin Dose 30 MG; Start 07/24/16 at 09:00 Epoetin Rodney (Epogen (Non Esrd/Non Oncology)) 20,000 units Q7D SC ; Start at 17:00 Folic Acid (Folic Acid) 1 mg DAILY PO Last administered on 07/27/16 08:16; Admin Dose 1 MG; Start 07/24/16 at 09:00 Acetaminophen/ Hydrocodone Bitart ([place] (5/325)) 1 tab Q3H PRN PO PAIN Last administered on 07/26/16 11:44; Admin Dose 1 TAB; Start 07/23/16 at 21:30 Acetaminophen/ Hydrocodone Bitart ([place] (5/325)) 2 tab Q3H PRN PO PAIN LEVEL 4 -7 Last administered on 07/24/16 09:14; Admin Dose 2 TAB; Start 07/23/16 at 21:30 Levetiracetam (Keppra) 750 mg BID PO Last administered on 07/27/16 08:16; Admin Dose 750 MG; Start 07/23/16 at 22:30 Levothyroxine Sodium (Synthroid) 50 mcg DAILY@06 PO Last administered on 06:20; Admin Dose 50 MCG; Start 07/24/16 at 06:00 Meclizine HCl (Antivert) 25 mg DAILY PRN PO DIZZINESS Last administered on 07/27 08:12; Admin Dose 25 MG; Start 07/23/16 at 21:30 Pantoprazole (Protonix Tab) 40 mg DAILY@06 PO Last administered on 07/27/16 06 :20; Admin Dose 40 MG; Start 07/24/16 at 06:00 Pregabalin (Lyrica) 25 mg BID PO Last administered on 07/27/16 08:11; Admin Dose 25 MG; Start 07/23/16 at 21:30 Quetiapine Fumarate (Seroquel) 25 mg HS PO Last administered on 07/26/16 20:05 ; Admin Dose 25 MG; Start 07/23/16 at 21:30 Ranolazine (Ranexa) 1,000 mg Q12 PO Last administered on 07/27/16 08:12; Admin Dose 1,000 MG; Start 07/23/16 at 22:30 Docusate Sodium (Colace) 100 mg BID PO Last administered on 07/27/16 08:11; Admin Dose 100 MG; Start 07/24/16 at 09:00 Lactulose (Enulose) 20 gm DAILY PRN PO CONSTIPATION; Start 07/23/16 at 22:00 Bisacodyl (Dulcolax Supp) 10 mg DAILY PRN [place] CONSTIPATION; Start 07/23/16 at 22: 00 Bethanechol Chloride (Urecholine) 10 mg BID PO Last administered on 07/27/16 08:11; Admin Dose 10 MG; Start 07/26/16 at 21:00 Hydromorphone HCl (Dilaudid) 1 mg Q3H PRN IM PAIN LEVEL 8-10 Last administered on 07/27/16 13:23; Admin Dose 1 MG; Start 07/27/16 at 12:30 Carvedilol (Coreg) 12.5 mg BID PO ; Start 07/27/16 at 21:00 IVON DENT Jul 27, 2016 17:16
[2016-07-27 20:00] VITALS: BP 137/66; PULSE 79; RESP 16
[2016-07-27] MEDS: ATORVASTATIN 80 MG TAB PO SCH (20:57)
[2016-07-27] MEDS: QUETIAPINE 25 MG TAB PO SCH (20:57)
[2016-07-27] MEDS: ACETAMINOPHEN 325 MG TAB PO PRN (21:11)
--- NOTE | 2016-07-27 22:12 | CONS ---
Date/Time of Note Date/Time of Note DATE: 07/27/16 TIME: 22:11 Assessment/Plan Assessment/Plan Additional Assessment/Plan 1. Acute kidney injury secondary to prerenal azotemia. improved 2. Possible chronic kidney disease from her previous medical problems of hypertension and coronary artery disease. 3. History of coronary artery disease with history of percutaneous coronary intervention in 2008. 4. History of cerebrovascular accident. 5. History of hypertension. 6. 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 Patient with history of prior stroke. Dr. Patel is following in neurology consultation. 7. Breakthrough seizure on keppra PLAN: Cr improved PO keppra for seizures, neurology following Monitor electrolytes will follow up Consultation Date/Type/Reason Admit Date/Time Jul 23, 2016 at 20:40 Type of Consultation: NEPHROLOGY Referring Provider: PRINCESS FISHER MD 24 HR Interval Summary Free Text/Dictation no acute events, BP stable Exam/Review of Systems Vital Signs Vitals Vital Signs Date Time Temp Pulse Resp B/P Pulse Ox O2 Delivery O2 Flow Rate FiO2 07/27/16 10:27 88 165/77 07/27/16 07:16 97.9 20 95 07/26/16 10:30 Room Air Intake and Output 07/26/16 07/26/16 07/27/16 15:00 23:00 07:00 Intake Total 850 ml Output Total 1021 ml 742 ml Balance -171 ml -742 ml Results Result Diagram: 07/24/16 0548 07/24/16 0548 Medications Medications Current Medications Acetaminophen (Tylenol Tab) 325 mg Q6H PRN PO PAIN AND OR ELEVATED TEMP Last administered on 07/27/16 21:11; Admin Dose 325 MG; Start 07/23/16 at 21:30 Aspirin (Halfprin) 81 mg DAILY PO Last administered on 07/27/16 09:18; Admin Dose 81 MG; Start 07/24/16 at 09:00 Atorvastatin Calcium (Lipitor) 80 mg QHS PO Last administered on 07/27/16 20: 57; Admin Dose 80 MG; Start 07/23/16 at 21:30 Clonidine (Catapres) 0.1 mg Q6H PRN PO ELEVATED BLOOD PRESSURE Last administered on 07/27/16 08:15; Admin Dose 0.1 MG; Start 07/23/16 at 21:30 Enoxaparin Sodium (Lovenox) 30 mg DAILY SC Last administered on 07/27/16 09:22 ; Admin Dose 30 MG; Start 07/24/16 at 09:00 Epoetin Rodney (Epogen (Non Esrd/Non Oncology)) 20,000 units Q7D SC ; Start at 17:00 Folic Acid (Folic Acid) 1 mg DAILY PO Last administered on 07/27/16 08:16; Admin Dose 1 MG; Start 07/24/16 at 09:00 Acetaminophen/ Hydrocodone Bitart ([place] (5/325)) 1 tab Q3H PRN PO PAIN Last administered on 07/26/16 11:44; Admin Dose 1 TAB; Start 07/23/16 at 21:30 Acetaminophen/ Hydrocodone Bitart ([place] (5/325)) 2 tab Q3H PRN PO PAIN LEVEL 4 -7 Last administered on 07/24/16 09:14; Admin Dose 2 TAB; Start 07/23/16 at 21:30 Levetiracetam (Keppra) 750 mg BID PO Last administered on 07/27/16 20:57; Admin Dose 750 MG; Start 07/23/16 at 22:30 Levothyroxine Sodium (Synthroid) 50 mcg DAILY@06 PO Last administered on 06:20; Admin Dose 50 MCG; Start 07/24/16 at 06:00 Meclizine HCl (Antivert) 25 mg DAILY PRN PO DIZZINESS Last administered on 07/27 17:30; Admin Dose 25 MG; Start 07/23/16 at 21:30 Pantoprazole (Protonix Tab) 40 mg DAILY@06 PO Last administered on 07/27/16 06 :20; Admin Dose 40 MG; Start 07/24/16 at 06:00 Pregabalin (Lyrica) 25 mg BID PO Last administered on 07/27/16 20:57; Admin Dose 25 MG; Start 07/23/16 at 21:30 Quetiapine Fumarate (Seroquel) 25 mg HS PO Last administered on 07/27/16 20:57 ; Admin Dose 25 MG; Start 07/23/16 at 21:30 Ranolazine (Ranexa) 1,000 mg Q12 PO Last administered on 07/27/16 20:56; Admin Dose 1,000 MG; Start 07/23/16 at 22:30 Docusate Sodium (Colace) 100 mg BID PO Last administered on 07/27/16 20:56; Admin Dose 100 MG; Start 07/24/16 at 09:00 Lactulose (Enulose) 20 gm DAILY PRN PO CONSTIPATION; Start 07/23/16 at 22:00 Bisacodyl (Dulcolax Supp) 10 mg DAILY PRN [place] CONSTIPATION; Start 07/23/16 at 22: 00 Bethanechol Chloride (Urecholine) 10 mg BID PO Last administered on 07/27/16 21:00; Admin Dose 10 MG; Start 07/26/16 at 21:00 Hydromorphone HCl (Dilaudid) 1 mg Q3H PRN IM PAIN LEVEL 8-10 Last administered on 07/27/16 18:18; Admin Dose 1 MG; Start 07/27/16 at 12:30 Carvedilol (Coreg) 12.5 mg BID PO Last administered on 07/27/16 20:57; Admin Dose 12.5 MG; Start 07/27/16 at 21:00 ROLAND AYON MD Jul 27, 2016 22:12
[2016-07-28] MEDS: LEVOTHYROXINE 50 MCG TAB PO SCH (06:28)
[2016-07-28] MEDS: PANTOPRAZOLE (EC) 40 MG TAB PO SCH (06:29)
[2016-07-28 07:19] LABS: ADD SCAN DIFF NO
[2016-07-28 07:28] LABS: BASOPHIL # 0.1 10^3/ul (0.0-0.1); BASOPHILS % 1.4 % (0.0-2.0); EOSINOPHILS # 0.1 10^3/ul (0.0-0.5); EOSINOPHILS % 2.8 % (0.0-7.0); HEMATOCRIT 33.4 % (37.0-47.0); HEMOGLOBIN 10.6 g/dl (12.0-16.0); LYMPHOCYTES % 26.5 % (15.0-51.0); MEAN CORPUSCULAR HEMOGLOBIN 31.9 pg (29.0-33.0); MEAN CORPUSCULAR HGB CONC 31.7 g/dl (32.0-37.0); MEAN CORPUSCULAR VOLUME 100.6 fl (82.0-101.0); MEAN PLATELET VOLUME 8.8 fl (7.4-10.4); MONOCYTE # 0.5 10^3/ul (0.3-0.9); MONOCYTES % 12.4 % (0.0-11.0); PLATELET COUNT 458 10^3/UL (140-415); RED BLOOD COUNT 3.32 10^6/ul (4.20-5.40); RED CELL DISTRIBUTION WIDTH 15.6 % (11.5-14.5); WHITE BLOOD COUNT 3.6 10^3/ul (4.8-10.8)
[2016-07-28 07:30] VITALS: BP 160/74; RESP 18
[2016-07-28 07:35] LABS: INR 0.95; PROTIME 12.7 Sec (12.2-14.2)
[2016-07-28 07:36] LABS: PARTIAL THROMBOPLASTIN TIME 32.8 Sec (25.0-35.0)
[2016-07-28 07:54] LABS: CREATININE 0.78 mg/dl (0.44-1.00)
[2016-07-28 07:55] LABS: CALCIUM 8.9 mg/dl (8.4-10.2)
[2016-07-28] MEDS: HYDROmorphONE 1 MG/ML SYG IM PRN ×4 (08:14→18:32)
[2016-07-28] MEDS: ASPIRIN (EC) 81 MG TAB PO SCH (08:18)
[2016-07-28] MEDS: BETHANECHOL 10 MG TAB PO SCH ×2 (08:18→20:27)
[2016-07-28] MEDS: PREGABALIN 25 MG CAP PO SCH ×2 (08:18→20:27)
[2016-07-28] MEDS: DOCUSATE SODIUM 100 MG CAP PO SCH ×2 (08:18→20:30)
[2016-07-28] MEDS: RANOLAZINE (SR) 500 MG TAB PO SCH ×2 (08:18→20:27)
[2016-07-28] MEDS: LEVETIRACETAM 750 MG TAB PO SCH ×2 (08:18→20:27)
[2016-07-28] MEDS: MECLIZINE 25 MG TAB PO PRN (08:18)
[2016-07-28] MEDS: FOLIC ACID 1 MG TAB PO SCH (08:18)
[2016-07-28] MEDS: ENOXAPARIN 30 MG/0.3 ML SYG SC SCH (08:52)
--- NOTE | 2016-07-28 12:14 | CONS ---
Date/Time of Note Date/Time of Note DATE: 07/28/16 TIME: 12:12 Consult Date/Type/Reason Admit Date/Time Jul 23, 2016 at 20:40 Type of Consultation: NEPHROLOGY Ordering Provider: PRINCESS FISHER MD Subjective Patient in good spirits Objective Vital Signs Date Time Temp Pulse Resp B/P Pulse Ox O2 Delivery O2 Flow Rate FiO2 07/28/16 07:30 98.6 66 18 160/74 94 07/27/16 20:00 Room Air Intake and Output 07/27/16 07/27/16 07/28/16 15:00 23:00 07:00 Intake Total 550 ml 250 ml 240 ml Output Total 300 ml Balance 250 ml 250 ml 240 ml INTERDISCIPLINARY TEAM CONFERENCE BOWEL- Cont BLADDER-Cont/incont SKIN- intact OT- DRESSING-min/mod BATHING-min/mod TOILETING-mod PT- BED MOBILITY-mod TRANSFERS-mod AMBULATION-mod 15 SPEECH- COGNITION-min A/P- Interdisciplinary team conference held today. Please see interdisciplinary sheet. Working toward d.c. on 08/06 with post discharge follow up of physical therapy, occupational therapy. Results/Medications Result Diagram: 07/28/1662407/28/1625 Results 24 hrs Laboratory Tests Test 07/28/16 06:25 Activated Partial Thromboplast Time 32.8 Anion Gap 14 Basophils # 0.1 Basophils % 1.4 Blood Urea Nitrogen 12 Calcium Level 8.9 Carbon Dioxide Level 27 Chloride Level 108 Creatinine 0.78 Eosinophils # 0.1 Eosinophils % 2.8 Glucose Level 79 Hematocrit 33.4 L Hemoglobin 10.6 L INR International Normalized Ratio 0.95 Lymphocytes # 1.0 Lymphocytes % 26.5 Mean Corpuscular Hemoglobin 31.9 Mean Corpuscular Hemoglobin Concent 31.7 L Mean Corpuscular Volume 100.6 Mean Platelet Volume 8.8 Monocytes # 0.5 Monocytes % 12.4 H Neutrophils # 2.0 Neutrophils % 55.0 Nucleated Red Blood Cells # 0.0 Nucleated Red Blood Cells % 0.0 Platelet Count 458 #H Potassium Level 4.0 Prothrombin Time 12.7 Prothrombin Time Ratio 1.0 Red Blood Count 3.32 L Red Cell Distribution Width 15.6 H Sodium Level 145 H White Blood Count 3.6 #L Medications Current Medications Acetaminophen (Tylenol Tab) 325 mg Q6H PRN PO PAIN AND OR ELEVATED TEMP Last administered on 07/27/16 21:11; Admin Dose 325 MG; Start 07/23/16 at 21:30 Aspirin (Halfprin) 81 mg DAILY PO Last administered on 07/28/16 08:18; Admin Dose 81 MG; Start 07/24/16 at 09:00 Atorvastatin Calcium (Lipitor) 80 mg QHS PO Last administered on 07/27/16 20: 57; Admin Dose 80 MG; Start 07/23/16 at 21:30 Clonidine (Catapres) 0.1 mg Q6H PRN PO ELEVATED BLOOD PRESSURE Last administered on 07/27/16 08:15; Admin Dose 0.1 MG; Start 07/23/16 at 21:30 Enoxaparin Sodium (Lovenox) 30 mg DAILY SC Last administered on 07/28/16 08:52 ; Admin Dose 30 MG; Start 07/24/16 at 09:00 Epoetin Rodney (Epogen (Non Esrd/Non Oncology)) 20,000 units Q7D SC ; Start at 17:00 Folic Acid (Folic Acid) 1 mg DAILY PO Last administered on 07/28/16 08:18; Admin Dose 1 MG; Start 07/24/16 at 09:00 Acetaminophen/ Hydrocodone Bitart ([place] (5/325)) 1 tab Q3H PRN PO PAIN Last administered on 07/26/16 11:44; Admin Dose 1 TAB; Start 07/23/16 at 21:30 Acetaminophen/ Hydrocodone Bitart ([place] (5/325)) 2 tab Q3H PRN PO PAIN LEVEL 4 -7 Last administered on 07/24/16 09:14; Admin Dose 2 TAB; Start 07/23/16 at 21:30 Levetiracetam (Keppra) 750 mg BID PO Last administered on 07/28/16 08:18; Admin Dose 750 MG; Start 07/23/16 at 22:30 Levothyroxine Sodium (Synthroid) 50 mcg DAILY@06 PO Last administered on 06:28; Admin Dose 50 MCG; Start 07/24/16 at 06:00 Meclizine HCl (Antivert) 25 mg DAILY PRN PO DIZZINESS Last administered on 07/28 08:18; Admin Dose 25 MG; Start 07/23/16 at 21:30 Pantoprazole (Protonix Tab) 40 mg DAILY@06 PO Last administered on 07/28/16 06 :29; Admin Dose 40 MG; Start 07/24/16 at 06:00 Pregabalin (Lyrica) 25 mg BID PO Last administered on 07/28/16 08:18; Admin Dose 25 MG; Start 07/23/16 at 21:30 Quetiapine Fumarate (Seroquel) 25 mg HS PO Last administered on 07/27/16 20:57 ; Admin Dose 25 MG; Start 07/23/16 at 21:30 Ranolazine (Ranexa) 1,000 mg Q12 PO Last administered on 07/28/16 08:18; Admin Dose 1,000 MG; Start 07/23/16 at 22:30 Docusate Sodium (Colace) 100 mg BID PO Last administered on 07/28/16 08:18; Admin Dose 100 MG; Start 07/24/16 at 09:00 Lactulose (Enulose) 20 gm DAILY PRN PO CONSTIPATION; Start 07/23/16 at 22:00 Bisacodyl (Dulcolax Supp) 10 mg DAILY PRN [place] CONSTIPATION; Start 07/23/16 at 22: 00 Bethanechol Chloride (Urecholine) 10 mg BID PO Last administered on 07/28/16 08:18; Admin Dose 10 MG; Start 07/26/16 at 21:00 Hydromorphone HCl (Dilaudid) 1 mg Q3H PRN IM PAIN LEVEL 8-10 Last administered on 07/28/16 11:45; Admin Dose 1 MG; Start 07/27/16 at 12:30 Carvedilol (Coreg) 12.5 mg BID PO Last administered on 07/28/16 08:17; Admin Dose 12.5 MG; Start 07/27/16 at 21:00 HAROLDO GODINEZ MD Jul 28, 2016 12:14
--- NOTE | 2016-07-28 12:49 | PN ---
Date/Time of Note Date/Time of Note DATE: 07/28/16 TIME: 12:44 Assessment/Plan VTE Prophylaxis VTE Prophylaxis Intervention: SCD's Lines/Catheters Urinary Cath still in place: No Assessment/Plan Chief Complaint/Hosp Course Assessment and plan - Acute left frontal cortical infarct. Patient with history of prior stroke. Continue aspirin. Continue PT, OT. - Seizure disorder, continue Keppra. - Left femoral neck fracture secondary to mechanical fall. Status post left hip humeral arthroplasty by Dr. Marshall, orthopedic surgery. - Macrocytic anemia. Stool for OB is neg. Status post blood transfusion. Continue to monitor hemoglobin and hematocrit. - Coronary artery disease, status post PCI. Continue aspirin and Ranexa. - Hypertension. Continue Coreg. - Dyslipidemia. Continue Lipitor. - Hypothyroidism. Continue Synthroid. Further recommendations based on clinical course. Plan of care discussed with Dr. Robertson. Problems: Subjective 24 Hr Interval Summary Free Text/Dictation Patient is sitting in wheelchair eating lunch, denies any pain denies any nausea vomiting. Patient is able to void without any problems per nursing staff , minimal postvoid residual, hip surgical incision is dry clean and intact per nursing staff. No seizure activity reported. According to patient's daughter patient's neurological status is at the baseline. Patient's participates in occupational and physical therapy. Exam/Review of Systems Vital Signs Vitals Vital Signs Date Time Temp Pulse Resp B/P Pulse Ox O2 Delivery O2 Flow Rate FiO2 07/28/16 07:30 98.6 66 18 160/74 94 07/27/16 20:00 Room Air Intake and Output 07/27/16 07/27/16 07/28/16 15:00 23:00 07:00 Intake Total 550 ml 250 ml 240 ml Output Total 300 ml Balance 250 ml 250 ml 240 ml Exam Constitutional: alert, oriented Psych: no complaints Head: atraumatic, normocephalic Eyes: nl conjunctiva ENMT: nl external ears & nose Neck: non-tender, supple Respiratory: clear to auscultation, normal air movement Cardiovascular: nl pulses, regular rate and rhythm Gastrointestinal: non-tender, soft Musculoskeletal: nl extremities to inspection, other (Status post left hip surgery) Extremities: normal pulses Neurological: BELTING INSPECTOR II-XII intact Skin: nl turgor Results Result Diagram: 07/28/1662407/28/16624 Results 24 hrs Laboratory Tests Test 07/28/16 06:25 Activated Partial Thromboplast Time 32.8 Anion Gap 14 Basophils # 0.1 Basophils % 1.4 Blood Urea Nitrogen 12 Calcium Level 8.9 Carbon Dioxide Level 27 Chloride Level 108 Creatinine 0.78 Eosinophils # 0.1 Eosinophils % 2.8 Glucose Level 79 Hematocrit 33.4 L Hemoglobin 10.6 L INR International Normalized Ratio 0.95 Lymphocytes # 1.0 Lymphocytes % 26.5 Mean Corpuscular Hemoglobin 31.9 Mean Corpuscular Hemoglobin Concent 31.7 L Mean Corpuscular Volume 100.6 Mean Platelet Volume 8.8 Monocytes # 0.5 Monocytes % 12.4 H Neutrophils # 2.0 Neutrophils % 55.0 Nucleated Red Blood Cells # 0.0 Nucleated Red Blood Cells % 0.0 Platelet Count 458 #H Potassium Level 4.0 Prothrombin Time 12.7 Prothrombin Time Ratio 1.0 Red Blood Count 3.32 L Red Cell Distribution Width 15.6 H Sodium Level 145 H White Blood Count 3.6 #L Medications Medications Current Medications Acetaminophen (Tylenol Tab) 325 mg Q6H PRN PO PAIN AND OR ELEVATED TEMP Last administered on 07/27/16 21:11; Admin Dose 325 MG; Start 07/23/16 at 21:30 Aspirin (Halfprin) 81 mg DAILY PO Last administered on 07/28/16 08:18; Admin Dose 81 MG; Start 07/24/16 at 09:00 Atorvastatin Calcium (Lipitor) 80 mg QHS PO Last administered on 07/27/16 20: 57; Admin Dose 80 MG; Start 07/23/16 at 21:30 Clonidine (Catapres) 0.1 mg Q6H PRN PO ELEVATED BLOOD PRESSURE Last administered on 07/27/16 08:15; Admin Dose 0.1 MG; Start 07/23/16 at 21:30 Enoxaparin Sodium (Lovenox) 30 mg DAILY SC Last administered on 07/28/16 08:52 ; Admin Dose 30 MG; Start 07/24/16 at 09:00 Epoetin Rodney (Epogen (Non Esrd/Non Oncology)) 20,000 units Q7D SC ; Start at 17:00 Folic Acid (Folic Acid) 1 mg DAILY PO Last administered on 07/28/16 08:18; Admin Dose 1 MG; Start 07/24/16 at 09:00 Acetaminophen/ Hydrocodone Bitart ([place] (5/325)) 1 tab Q3H PRN PO PAIN Last administered on 07/26/16 11:44; Admin Dose 1 TAB; Start 07/23/16 at 21:30 Acetaminophen/ Hydrocodone Bitart ([place] (5/325)) 2 tab Q3H PRN PO PAIN LEVEL 4 -7 Last administered on 07/24/16 09:14; Admin Dose 2 TAB; Start 07/23/16 at 21:30 Levetiracetam (Keppra) 750 mg BID PO Last administered on 07/28/16 08:18; Admin Dose 750 MG; Start 07/23/16 at 22:30 Levothyroxine Sodium (Synthroid) 50 mcg DAILY@06 PO Last administered on 06:28; Admin Dose 50 MCG; Start 07/24/16 at 06:00 Meclizine HCl (Antivert) 25 mg DAILY PRN PO DIZZINESS Last administered on 07/28 08:18; Admin Dose 25 MG; Start 07/23/16 at 21:30 Pantoprazole (Protonix Tab) 40 mg DAILY@06 PO Last administered on 07/28/16 06 :29; Admin Dose 40 MG; Start 07/24/16 at 06:00 Pregabalin (Lyrica) 25 mg BID PO Last administered on 07/28/16 08:18; Admin Dose 25 MG; Start 07/23/16 at 21:30 Quetiapine Fumarate (Seroquel) 25 mg HS PO Last administered on 07/27/16 20:57 ; Admin Dose 25 MG; Start 07/23/16 at 21:30 Ranolazine (Ranexa) 1,000 mg Q12 PO Last administered on 07/28/16 08:18; Admin Dose 1,000 MG; Start 07/23/16 at 22:30 Docusate Sodium (Colace) 100 mg BID PO Last administered on 07/28/16 08:18; Admin Dose 100 MG; Start 07/24/16 at 09:00 Lactulose (Enulose) 20 gm DAILY PRN PO CONSTIPATION; Start 07/23/16 at 22:00 Bisacodyl (Dulcolax Supp) 10 mg DAILY PRN [place] CONSTIPATION; Start 07/23/16 at 22: 00 Bethanechol Chloride (Urecholine) 10 mg BID PO Last administered on 07/28/16 08:18; Admin Dose 10 MG; Start 07/26/16 at 21:00 Hydromorphone HCl (Dilaudid) 1 mg Q3H PRN IM PAIN LEVEL 8-10 Last administered on 07/28/16 11:45; Admin Dose 1 MG; Start 07/27/16 at 12:30 Carvedilol (Coreg) 12.5 mg BID PO Last administered on 07/28/16 08:17; Admin Dose 12.5 MG; Start 07/27/16 at 21:00 ILAN GALDAMEZ Jul 28, 2016 12:49
--- NOTE | 2016-07-28 16:40 | CONS ---
Date/Time of Note Date/Time of Note DATE: 07/28/16 TIME: 16:39 Assessment/Plan Assessment/Plan Additional Assessment/Plan 1. Acute kidney injury secondary to prerenal azotemia. improved 2. Possible chronic kidney disease from her previous medical problems of hypertension and coronary artery disease. 3. History of coronary artery disease with history of percutaneous coronary intervention in 2008. 4. History of cerebrovascular accident. 5. History of hypertension. 6. 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 Patient with history of prior stroke. Dr. Patel is following in neurology consultation. 7. Breakthrough seizure on keppra PLAN: Cr improvedm, Na 145- encouarge PO free water PO keppra for seizures Monitor electrolytes will follow up Consultation Date/Type/Reason Admit Date/Time Jul 23, 2016 at 20:40 Type of Consultation: NEPHROLOGY Referring Provider: PRINCESS FISHER MD 24 HR Interval Summary Free Text/Dictation Cr normal ,Na 145, pt doing better, Hb 10.6 Exam/Review of Systems Vital Signs Vitals Vital Signs Date Time Temp Pulse Resp B/P Pulse Ox O2 Delivery O2 Flow Rate FiO2 07/28/16 07:30 98.6 66 18 160/74 94 07/27/16 20:00 Room Air Intake and Output 07/27/16 07/27/16 07/28/16 15:00 23:00 07:00 Intake Total 550 ml 250 ml 240 ml Output Total 300 ml Balance 250 ml 250 ml 240 ml Results Result Diagram: 07/28/16 0625 07/28/16 0625 Results 24 hrs Laboratory Tests Test 07/28/16 06:25 Activated Partial Thromboplast Time 32.8 Anion Gap 14 Basophils # 0.1 Basophils % 1.4 Blood Urea Nitrogen 12 Calcium Level 8.9 Carbon Dioxide Level 27 Chloride Level 108 Creatinine 0.78 Eosinophils # 0.1 Eosinophils % 2.8 Glucose Level 79 Hematocrit 33.4 L Hemoglobin 10.6 L INR International Normalized Ratio 0.95 Lymphocytes # 1.0 Lymphocytes % 26.5 Mean Corpuscular Hemoglobin 31.9 Mean Corpuscular Hemoglobin Concent 31.7 L Mean Corpuscular Volume 100.6 Mean Platelet Volume 8.8 Monocytes # 0.5 Monocytes % 12.4 H Neutrophils # 2.0 Neutrophils % 55.0 Nucleated Red Blood Cells # 0.0 Nucleated Red Blood Cells % 0.0 Platelet Count 458 #H Potassium Level 4.0 Prothrombin Time 12.7 Prothrombin Time Ratio 1.0 Red Blood Count 3.32 L Red Cell Distribution Width 15.6 H Sodium Level 145 H White Blood Count 3.6 #L Medications Medications Current Medications Acetaminophen (Tylenol Tab) 325 mg Q6H PRN PO PAIN AND OR ELEVATED TEMP Last administered on 07/27/16 21:11; Admin Dose 325 MG; Start 07/23/16 at 21:30 Aspirin (Halfprin) 81 mg DAILY PO Last administered on 07/28/16 08:18; Admin Dose 81 MG; Start 07/24/16 at 09:00 Atorvastatin Calcium (Lipitor) 80 mg QHS PO Last administered on 07/27/16 20: 57; Admin Dose 80 MG; Start 07/23/16 at 21:30 Clonidine (Catapres) 0.1 mg Q6H PRN PO ELEVATED BLOOD PRESSURE Last administered on 07/27/16 08:15; Admin Dose 0.1 MG; Start 07/23/16 at 21:30 Enoxaparin Sodium (Lovenox) 30 mg DAILY SC Last administered on 07/28/16 08:52 ; Admin Dose 30 MG; Start 07/24/16 at 09:00 Epoetin Rodney (Epogen (Non Esrd/Non Oncology)) 20,000 units Q7D SC ; Start at 17:00 Folic Acid (Folic Acid) 1 mg DAILY PO Last administered on 07/28/16 08:18; Admin Dose 1 MG; Start 07/24/16 at 09:00 Acetaminophen/ Hydrocodone Bitart ([place] (5/325)) 1 tab Q3H PRN PO PAIN Last administered on 07/26/16 11:44; Admin Dose 1 TAB; Start 07/23/16 at 21:30 Acetaminophen/ Hydrocodone Bitart ([place] (5/325)) 2 tab Q3H PRN PO PAIN LEVEL 4 -7 Last administered on 07/24/16 09:14; Admin Dose 2 TAB; Start 07/23/16 at 21:30 Levetiracetam (Keppra) 750 mg BID PO Last administered on 07/28/16 08:18; Admin Dose 750 MG; Start 07/23/16 at 22:30 Levothyroxine Sodium (Synthroid) 50 mcg DAILY@06 PO Last administered on 06:28; Admin Dose 50 MCG; Start 07/24/16 at 06:00 Meclizine HCl (Antivert) 25 mg DAILY PRN PO DIZZINESS Last administered on 07/28 08:18; Admin Dose 25 MG; Start 07/23/16 at 21:30 Pantoprazole (Protonix Tab) 40 mg DAILY@06 PO Last administered on 07/28/16 06 :29; Admin Dose 40 MG; Start 07/24/16 at 06:00 Pregabalin (Lyrica) 25 mg BID PO Last administered on 07/28/16 08:18; Admin Dose 25 MG; Start 07/23/16 at 21:30 Quetiapine Fumarate (Seroquel) 25 mg HS PO Last administered on 07/27/16 20:57 ; Admin Dose 25 MG; Start 07/23/16 at 21:30 Ranolazine (Ranexa) 1,000 mg Q12 PO Last administered on 07/28/16 08:18; Admin Dose 1,000 MG; Start 07/23/16 at 22:30 Docusate Sodium (Colace) 100 mg BID PO Last administered on 07/28/16 08:18; Admin Dose 100 MG; Start 07/24/16 at 09:00 Lactulose (Enulose) 20 gm DAILY PRN PO CONSTIPATION; Start 07/23/16 at 22:00 Bisacodyl (Dulcolax Supp) 10 mg DAILY PRN [place] CONSTIPATION; Start 07/23/16 at 22: 00 Bethanechol Chloride (Urecholine) 10 mg BID PO Last administered on 07/28/16 08:18; Admin Dose 10 MG; Start 07/26/16 at 21:00 Hydromorphone HCl (Dilaudid) 1 mg Q3H PRN IM PAIN LEVEL 8-10 Last administered on 07/28/16 15:31; Admin Dose 1 MG; Start 07/27/16 at 12:30 Carvedilol (Coreg) 12.5 mg BID PO Last administered on 07/28/16 08:17; Admin Dose 12.5 MG; Start 07/27/16 at 21:00 ROLAND AYON MD Jul 28, 2016 16:40
[2016-07-28] MEDS: EPOETIN 10000 UNITS/ML (NON ESRD/NON ONCOLOGY) SC SCH (18:45)
[2016-07-28 19:37] VITALS: BP 175/74; RESP 19
--- NOTE | 2016-07-28 20:25 | CONS ---
DATE OF ADMISSION: 07/23/2016 DATE OF CONSULTATION: 07/28/2016 REQUESTING PHYSICIAN: Dr. Robertson. REASON FOR CONSULTATION: Incomplete bladder emptying and urinary retention. HISTORY OF PRESENT ILLNESS: This is a 76-year-old [place] female who had a mechanical fall and had a left femoral neck fracture. Underwent a left hip hemiarthroplasty on 07/13/2016. Then, when she w as stable, she was transferred to the rehab unit on 07/23/2016. The patient has been voiding, but s he has had a high postvoid residual. Therefore, a urological consultation was requested. The patie nt was able to urinate well at home on her own prior to her recent fall and admission. There was no history of urinary tract infection or urinary retention. PAST MEDICAL HISTORY: The patient had a seizure when she was in the acute side of the hospital and she was placed on medication for that. She has a history of coronary artery disease status post josé nting, history of dyslipidemia, hypertension, hypothyroidism, history of vertigo and she is taking m eclizine for that, anxiety, and anemia. PAST SURGICAL HISTORY: Recent left hip hemiarthroplasty. Also she does have a scar on the lower ab domen that could be from either a hysterectomy or appendectomy or other bowel surgery. MEDICATIONS: That she is presently on include: 1. Epogen. 2. Coreg. 3. Dilaudid. 4. Urecholine 10 mg twice a day. 5. Aspirin 81 mg daily. 6. Lovenox 30 mg subq daily. 7. Folic acid 1 mg daily. 8. Colace 100 mg twice a day. 9. Synthroid 50 mcg daily. 10. Protonix 40 mg daily. 11. Keppra 750 mg twice a day. 12. Ranolazine (Ranexa) 1000 mg q.12h. 13. Lactulose 20 grams daily p.r.n. 14. Dulcolax suppository p.r.n. 15. Tylenol p.r.n. 16. Lipitor 80 mg at bedtime daily. 17. Clonidine 0.1 mg p.r.n. 18. [place] p.r.n. 19. Meclizine 25 mg daily for vertigo. 20. Lyrica 25 mg twice a day. 21. Seroquel 25 mg at bedtime. ALLERGIES: PENICILLINS. SOCIAL HISTORY: She does not smoke, does not drink any alcohol. PHYSICAL EXAMINATION: GENERAL: Reveals an elderly female. She weighs about 54.5 kg. She is 61 inches tall. VITAL SIGNS: Temperature is 98.6, pulse is 66, respiration 18, blood pressure 160/74. ABDOMEN: Soft. There is no abdominal mass palpable. There is a scar in the low mid abdominal area . PELVIC: Revealed no mass, no discharge. EXTREMITIES: She is status post left hip hemiarthroplasty. There is no edema of the lower extremit ies. LABORATORY DATA: Her CBC shows a white count of 3.6, hemoglobin 10.6, hematocrit 33.4, the platelet count is 458,000. The BUN is 12, creatinine 0.78, sodium 145, potassium 4.0, chloride 108, CO2 of 27. Urine culture: No growth after 48 hours. IMPRESSION: Urinary retention and high post-void residual. The patient, however, has been voiding and the postvoid residual has been fluctuating between 293, 178, but today, the patient voided 250 a nd her postvoid residual was 150 and she voided 150 and the postvoid residual was 60. Her urinary r etention is most likely secondary to side effect to medication that she is on and of these medicatio ns one could mention the Keppra, the meclizine, and the Seroquel, and the pain medications and if an y sleeping pill. RECOMMENDATION: As she is urinating better now, I would withhold giving any additional medications or increasing the urecholine. In fact, the urecholine may trigger sometimes seizures, especially if she has had recent seizures, but the dose is low at 10 mg twice a day, so we will keep it that way and keep monitoring her voiding and her postvoid residual. Dictated By: MADISON URENA/ZHANG Conf#: [id number] DID#: [id number] CC: HAROLDO GODINEZ MD; PRINCESS ROBERTSON MD;*EndCC*
[2016-07-28] MEDS: QUETIAPINE 25 MG TAB PO SCH (20:26)
[2016-07-28] MEDS: ATORVASTATIN 80 MG TAB PO SCH (20:27)
[2016-07-29] VITALS: BP 142/70; PULSE 80
[2016-07-29] MEDS: LEVOTHYROXINE 50 MCG TAB PO SCH (05:01)
[2016-07-29] MEDS: PANTOPRAZOLE (EC) 40 MG TAB PO SCH (05:01)
[2016-07-29 08:08] VITALS: BP 188/81; RESP 18
[2016-07-29] MEDS: FOLIC ACID 1 MG TAB PO SCH (08:56)
[2016-07-29] MEDS: ASPIRIN (EC) 81 MG TAB PO SCH (08:56)
[2016-07-29] MEDS: BETHANECHOL 10 MG TAB PO SCH ×2 (08:56→20:47)
[2016-07-29] MEDS: LEVETIRACETAM 750 MG TAB PO SCH ×2 (08:56→20:43)
[2016-07-29] MEDS: RANOLAZINE (SR) 500 MG TAB PO SCH ×2 (08:56→20:43)
[2016-07-29] MEDS: PREGABALIN 25 MG CAP PO SCH ×2 (08:56→20:43)
[2016-07-29] MEDS: DOCUSATE SODIUM 100 MG CAP PO SCH ×2 (08:56→20:54)
[2016-07-29] MEDS: ENOXAPARIN 30 MG/0.3 ML SYG SC SCH (08:57)
[2016-07-29] MEDS: HYDROCODONE/APAP (5/325) TAB PO PRN (10:18)
--- NOTE | 2016-07-29 11:05 | CONS ---
Date/Time of Note Date/Time of Note DATE: 07/29/16 TIME: 11:03 Consult Date/Type/Reason Admit Date/Time Jul 23, 2016 at 20:40 Type of Consultation: NEPHROLOGY Ordering Provider: PRINCESS FISHER MD Subjective Patient comfortable Objective pulm-cta abd-soft min/mod ambulation Vital Signs Date Time Temp Pulse Resp B/P Pulse Ox O2 Delivery O2 Flow Rate FiO2 07/29/16 08:08 98.6 66 18 188/81 96 07/27/16 20:00 Room Air Intake and Output 07/28/16 07/28/16 07/29/16 15:00 23:00 07:00 Intake Total 300 ml 360 ml 300 ml Output Total 450 ml 1 ml 700 ml Balance -150 ml 359 ml -400 ml Results/Medications Result Diagram: 07/28/1662407/28/16 0625 Medications Current Medications Acetaminophen (Tylenol Tab) 325 mg Q6H PRN PO PAIN AND OR ELEVATED TEMP Last administered on 07/27/16 21:11; Admin Dose 325 MG; Start 07/23/16 at 21:30 Aspirin (Halfprin) 81 mg DAILY PO Last administered on 07/29/16 08:56; Admin Dose 81 MG; Start 07/24/16 at 09:00 Atorvastatin Calcium (Lipitor) 80 mg QHS PO Last administered on 07/28/16 20: 27; Admin Dose 80 MG; Start 07/23/16 at 21:30 Clonidine (Catapres) 0.1 mg Q6H PRN PO ELEVATED BLOOD PRESSURE Last administered on 07/27/16 08:15; Admin Dose 0.1 MG; Start 07/23/16 at 21:30 Enoxaparin Sodium (Lovenox) 30 mg DAILY SC Last administered on 07/29/16 08:57 ; Admin Dose 30 MG; Start 07/24/16 at 09:00 Epoetin Rodney (Epogen (Non Esrd/Non Oncology)) 20,000 units Q7D SC Last administered on 07/28/16 18:45; Admin Dose 20,000 UNITS; Start 07/28/16 at 17: 00 Folic Acid (Folic Acid) 1 mg DAILY PO Last administered on 07/29/16 08:56; Admin Dose 1 MG; Start 07/24/16 at 09:00 Acetaminophen/ Hydrocodone Bitart ([place] (5/325)) 1 tab Q3H PRN PO PAIN Last administered on 07/26/16 11:44; Admin Dose 1 TAB; Start 07/23/16 at 21:30 Acetaminophen/ Hydrocodone Bitart ([place] (5/325)) 2 tab Q3H PRN PO PAIN LEVEL 4 -7 Last administered on 07/29/16 10:18; Admin Dose 2 TAB; Start 07/23/16 at 21: 30 Levetiracetam (Keppra) 750 mg BID PO Last administered on 07/29/16 08:56; Admin Dose 750 MG; Start 07/23/16 at 22:30 Levothyroxine Sodium (Synthroid) 50 mcg DAILY@06 PO Last administered on 05:01; Admin Dose 50 MCG; Start 07/24/16 at 06:00 Meclizine HCl (Antivert) 25 mg DAILY PRN PO DIZZINESS Last administered on 07/28 08:18; Admin Dose 25 MG; Start 07/23/16 at 21:30 Pantoprazole (Protonix Tab) 40 mg DAILY@06 PO Last administered on 07/29/16 05 :01; Admin Dose 40 MG; Start 07/24/16 at 06:00 Pregabalin (Lyrica) 25 mg BID PO Last administered on 07/29/16 08:56; Admin Dose 25 MG; Start 07/23/16 at 21:30 Quetiapine Fumarate (Seroquel) 25 mg HS PO Last administered on 07/28/16 20:26 ; Admin Dose 25 MG; Start 07/23/16 at 21:30 Ranolazine (Ranexa) 1,000 mg Q12 PO Last administered on 07/29/16 08:56; Admin Dose 1,000 MG; Start 07/23/16 at 22:30 Docusate Sodium (Colace) 100 mg BID PO Last administered on 07/29/16 08:56; Admin Dose 100 MG; Start 07/24/16 at 09:00 Lactulose (Enulose) 20 gm DAILY PRN PO CONSTIPATION; Start 07/23/16 at 22:00 Bisacodyl (Dulcolax Supp) 10 mg DAILY PRN [place] CONSTIPATION; Start 07/23/16 at 22: 00 Bethanechol Chloride (Urecholine) 10 mg BID PO Last administered on 07/29/16 08:56; Admin Dose 10 MG; Start 07/26/16 at 21:00 Hydromorphone HCl (Dilaudid) 1 mg Q3H PRN IM PAIN LEVEL 8-10 Last administered on 07/28/16 18:32; Admin Dose 1 MG; Start 07/27/16 at 12:30 Carvedilol (Coreg) 12.5 mg BID PO Last administered on 07/29/16 08:57; Admin Dose 12.5 MG; Start 07/27/16 at 21:00 Assessment/Plan Additional Assessment/Plan Rehab- Left infarct CVA;Left femoral neck fracture status post left hip arthroplasty. Progressing with rehab program Seizure disorder. Coronary artery disease. Dyslipidemia. Hypertension. Hypothyroidism. Anemia. HAROLDO GODINEZ MD Jul 29, 2016 11:05
--- NOTE | 2016-07-29 12:48 | PN ---
Date/Time of Note Date/Time of Note DATE: 07/29/16 TIME: 12:43 Assessment/Plan VTE Prophylaxis VTE Prophylaxis Intervention: SCD's Lines/Catheters Urinary Cath still in place: No Assessment/Plan Chief Complaint/Hosp Course Assessment and plan - Acute left frontal cortical infarct. Patient with history of prior stroke. Continue aspirin. Continue PT, OT. - Seizure disorder, continue Keppra. - Left femoral neck fracture secondary to mechanical fall. Status post left hip humeral arthroplasty by Dr. Marshall, orthopedic surgery. - Macrocytic anemia. Stool for OB is neg. Status post blood transfusion. Continue to monitor hemoglobin and hematocrit. - Coronary artery disease, status post PCI. Continue aspirin and Ranexa. - Hypertension. Continue Coreg. - Dyslipidemia. Continue Lipitor. - Hypothyroidism. Continue Synthroid. - Urinary retention, continue current dose of Urecholine. Patient is evaluated by Dr. Singh in urology consultation. Further recommendations based on clinical course. Plan of care discussed with Dr. Robertson. Problems: Subjective 24 Hr Interval Summary Free Text/Dictation No acute events overnight, patient is able to work with PT and OT, patient continues to void with minimal postvoid residual continue to monitor. Exam/Review of Systems Vital Signs Vitals Vital Signs Date Time Temp Pulse Resp B/P Pulse Ox O2 Delivery O2 Flow Rate FiO2 07/29/16 08:08 98.6 66 18 188/81 96 07/27/16 20:00 Room Air Intake and Output 07/28/16 07/28/16 07/29/16 15:00 23:00 07:00 Intake Total 300 ml 360 ml 300 ml Output Total 450 ml 1 ml 700 ml Balance -150 ml 359 ml -400 ml Exam Constitutional: alert, oriented Psych: no complaints Head: atraumatic, normocephalic Eyes: nl conjunctiva ENMT: nl external ears & nose Neck: non-tender, supple Respiratory: clear to auscultation, normal air movement Cardiovascular: nl pulses, regular rate and rhythm Gastrointestinal: non-tender, soft Musculoskeletal: nl extremities to inspection, other (Status post left hip surgery) Extremities: normal pulses Neurological: SKIING INSTRUCTOR II-XII intact Skin: nl turgor Results Result Diagram: 07/28/1662407/28/16624 Medications Medications Current Medications Acetaminophen (Tylenol Tab) 325 mg Q6H PRN PO PAIN AND OR ELEVATED TEMP Last administered on 07/27/16 21:11; Admin Dose 325 MG; Start 07/23/16 at 21:30 Aspirin (Halfprin) 81 mg DAILY PO Last administered on 07/29/16 08:56; Admin Dose 81 MG; Start 07/24/16 at 09:00 Atorvastatin Calcium (Lipitor) 80 mg QHS PO Last administered on 07/28/16 20: 27; Admin Dose 80 MG; Start 07/23/16 at 21:30 Clonidine (Catapres) 0.1 mg Q6H PRN PO ELEVATED BLOOD PRESSURE Last administered on 07/27/16 08:15; Admin Dose 0.1 MG; Start 07/23/16 at 21:30 Enoxaparin Sodium (Lovenox) 30 mg DAILY SC Last administered on 07/29/16 08:57 ; Admin Dose 30 MG; Start 07/24/16 at 09:00 Epoetin Rodney (Epogen (Non Esrd/Non Oncology)) 20,000 units Q7D SC Last administered on 07/28/16 18:45; Admin Dose 20,000 UNITS; Start 07/28/16 at 17: 00 Folic Acid (Folic Acid) 1 mg DAILY PO Last administered on 07/29/16 08:56; Admin Dose 1 MG; Start 07/24/16 at 09:00 Acetaminophen/ Hydrocodone Bitart ([place] (5/325)) 1 tab Q3H PRN PO PAIN Last administered on 07/26/16 11:44; Admin Dose 1 TAB; Start 07/23/16 at 21:30 Acetaminophen/ Hydrocodone Bitart ([place] (5/325)) 2 tab Q3H PRN PO PAIN LEVEL 4 -7 Last administered on 07/29/16 10:18; Admin Dose 2 TAB; Start 07/23/16 at 21: 30 Levetiracetam (Keppra) 750 mg BID PO Last administered on 07/29/16 08:56; Admin Dose 750 MG; Start 07/23/16 at 22:30 Levothyroxine Sodium (Synthroid) 50 mcg DAILY@06 PO Last administered on 05:01; Admin Dose 50 MCG; Start 07/24/16 at 06:00 Meclizine HCl (Antivert) 25 mg DAILY PRN PO DIZZINESS Last administered on 07/28 08:18; Admin Dose 25 MG; Start 07/23/16 at 21:30 Pantoprazole (Protonix Tab) 40 mg DAILY@06 PO Last administered on 07/29/16 05 :01; Admin Dose 40 MG; Start 07/24/16 at 06:00 Pregabalin (Lyrica) 25 mg BID PO Last administered on 07/29/16 08:56; Admin Dose 25 MG; Start 07/23/16 at 21:30 Quetiapine Fumarate (Seroquel) 25 mg HS PO Last administered on 07/28/16 20:26 ; Admin Dose 25 MG; Start 07/23/16 at 21:30 Ranolazine (Ranexa) 1,000 mg Q12 PO Last administered on 07/29/16 08:56; Admin Dose 1,000 MG; Start 07/23/16 at 22:30 Docusate Sodium (Colace) 100 mg BID PO Last administered on 07/29/16 08:56; Admin Dose 100 MG; Start 07/24/16 at 09:00 Lactulose (Enulose) 20 gm DAILY PRN PO CONSTIPATION; Start 07/23/16 at 22:00 Bisacodyl (Dulcolax Supp) 10 mg DAILY PRN [place] CONSTIPATION; Start 07/23/16 at 22: 00 Bethanechol Chloride (Urecholine) 10 mg BID PO Last administered on 07/29/16 08:56; Admin Dose 10 MG; Start 07/26/16 at 21:00 Hydromorphone HCl (Dilaudid) 1 mg Q3H PRN IM PAIN LEVEL 8-10 Last administered on 07/28/16 18:32; Admin Dose 1 MG; Start 07/27/16 at 12:30 Carvedilol (Coreg) 12.5 mg BID PO Last administered on 07/29/16 08:57; Admin Dose 12.5 MG; Start 07/27/16 at 21:00 ILAN GALDAMEZ Jul 29, 2016 12:48
--- NOTE | 2016-07-29 15:23 | CONS ---
Date/Time of Note Date/Time of Note DATE: 07/29/16 TIME: 15:20 Assessment/Plan Assessment/Plan Additional Assessment/Plan 1. Acute kidney injury secondary to prerenal azotemia. improved 2. Possible chronic kidney disease from her previous medical problems of hypertension and coronary artery disease. 3. History of coronary artery disease with history of percutaneous coronary intervention in 2008. 4. History of cerebrovascular accident. 5. History of hypertension. 6. 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 Patient with history of prior stroke. Dr. Patel is following in neurology consultation. 7. Breakthrough seizure on keppra PLAN: Cr improvedm, Na 145- encouarge PO free water PO keppra for seizures Monitor electrolytes will follow up Consultation Date/Type/Reason Admit Date/Time Jul 23, 2016 at 20:40 Type of Consultation: NEPHROLOGY Referring Provider: PRINCESS FISHER MD 24 HR Interval Summary Free Text/Dictation pt stable, no acute events, Exam/Review of Systems Vital Signs Vitals Vital Signs Date Time Temp Pulse Resp B/P Pulse Ox O2 Delivery O2 Flow Rate FiO2 07/29/16 08:08 98.6 66 18 188/81 96 07/27/16 20:00 Room Air Intake and Output 07/28/16 07/28/16 07/29/16 15:00 23:00 07:00 Intake Total 300 ml 360 ml 300 ml Output Total 450 ml 1 ml 700 ml Balance -150 ml 359 ml -400 ml Exam Constitutional: alert, well developed Psych: nl mood/affect Head: atraumatic Eyes: EOMI, nl sclera ENMT: nl external ears & nose Neck: non-tender Respiratory: clear to auscultation Cardiovascular: nl pulses Gastrointestinal: non-tender, soft Musculoskeletal: nl extremities to inspection Neurological: nl mental status Skin: nl turgor Lymph: nontender Results Result Diagram: 07/28/1662407/28/16624 Medications Medications Current Medications Acetaminophen (Tylenol Tab) 325 mg Q6H PRN PO PAIN AND OR ELEVATED TEMP Last administered on 07/27/16 21:11; Admin Dose 325 MG; Start 07/23/16 at 21:30 Aspirin (Halfprin) 81 mg DAILY PO Last administered on 07/29/16 08:56; Admin Dose 81 MG; Start 07/24/16 at 09:00 Atorvastatin Calcium (Lipitor) 80 mg QHS PO Last administered on 07/28/16 20: 27; Admin Dose 80 MG; Start 07/23/16 at 21:30 Clonidine (Catapres) 0.1 mg Q6H PRN PO ELEVATED BLOOD PRESSURE Last administered on 07/27/16 08:15; Admin Dose 0.1 MG; Start 07/23/16 at 21:30 Enoxaparin Sodium (Lovenox) 30 mg DAILY SC Last administered on 07/29/16 08:57 ; Admin Dose 30 MG; Start 07/24/16 at 09:00 Epoetin [place] (Epogen (Non Esrd/Non Oncology)) 20,000 units Q7D SC Last administered on 07/28/16 18:45; Admin Dose 20,000 UNITS; Start 07/28/16 at 17: 00 Folic Acid (Folic Acid) 1 mg DAILY PO Last administered on 07/29/16 08:56; Admin Dose 1 MG; Start 07/24/16 at 09:00 Acetaminophen/ Hydrocodone Bitart ([place] (5/325)) 1 tab Q3H PRN PO PAIN Last administered on 07/26/16 11:44; Admin Dose 1 TAB; Start 07/23/16 at 21:30 Acetaminophen/ Hydrocodone Bitart ([place] (5/325)) 2 tab Q3H PRN PO PAIN LEVEL 4 -7 Last administered on 07/29/16 10:18; Admin Dose 2 TAB; Start 07/23/16 at 21: 30 Levetiracetam (Keppra) 750 mg BID PO Last administered on 07/29/16 08:56; Admin Dose 750 MG; Start 07/23/16 at 22:30 Levothyroxine Sodium (Synthroid) 50 mcg DAILY@06 PO Last administered on 05:01; Admin Dose 50 MCG; Start 07/24/16 at 06:00 Meclizine HCl (Antivert) 25 mg DAILY PRN PO DIZZINESS Last administered on 07/28 08:18; Admin Dose 25 MG; Start 07/23/16 at 21:30 Pantoprazole (Protonix Tab) 40 mg DAILY@06 PO Last administered on 07/29/16 05 :01; Admin Dose 40 MG; Start 3/9/17 at 06:00 Pregabalin (Lyrica) 25 mg BID PO Last administered on 07/29/16 08:56; Admin Dose 25 MG; Start 07/23/16 at 21:30 Quetiapine Fumarate (Seroquel) 25 mg HS PO Last administered on 07/28/16 20:26 ; Admin Dose 25 MG; Start 07/23/16 at 21:30 Ranolazine (Ranexa) 1,000 mg Q12 PO Last administered on 07/29/16 08:56; Admin Dose 1,000 MG; Start 07/23/16 at 22:30 Docusate Sodium (Colace) 100 mg BID PO Last administered on 07/29/16 08:56; Admin Dose 100 MG; Start 07/24/16 at 09:00 Lactulose (Enulose) 20 gm DAILY PRN PO CONSTIPATION; Start 07/23/16 at 22:00 Bisacodyl (Dulcolax Supp) 10 mg DAILY PRN [place] CONSTIPATION; Start 07/23/16 at 22: 00 Bethanechol Chloride (Urecholine) 10 mg BID PO Last administered on 07/29/16 08:56; Admin Dose 10 MG; Start 07/26/16 at 21:00 Hydromorphone HCl (Dilaudid) 1 mg Q3H PRN IM PAIN LEVEL 8-10 Last administered on 07/28/16 18:32; Admin Dose 1 MG; Start 07/27/16 at 12:30 Carvedilol (Coreg) 12.5 mg BID PO Last administered on 07/29/16 08:57; Admin Dose 12.5 MG; Start 07/27/16 at 21:00 ROLAND AYON MD Jul 29, 2016 15:23
[2016-07-29] MEDS ORDERED: LISINOPRIL 5 MG TAB PO ONE (15:55)
--- NOTE | 2016-07-29 15:55 | CONS ---
Date/Time of Note Date/Time of Note DATE: 07/29/16 TIME: 15:52 Assessment/Plan Assessment/Plan Additional Assessment/Plan Hip fracture status post surgery 07/13/2016 Preserved ejection fraction CAD with history of PCI in 2008 Acute CVA History of CVA Hypertension Acute blood loss anemia -Blood pressure trend overall elevated, would start lisinopril with blood pressure holding parameters and continue as renal function permits Consultation Date/Type/Reason Admit Date/Time Jul 23, 2016 at 20:40 Initial Consult Date Type of Consultation: cv Referring Provider: PRINCESS FISHER MD 24 HR Interval Summary Free Text/Dictation Patient denies chest pain, shortness of breath. Blood pressure trend has been elevated Exam/Review of Systems Vital Signs Vitals Vital Signs Date Time Temp Pulse Resp B/P Pulse Ox O2 Delivery O2 Flow Rate FiO2 07/29/16 08:08 98.6 66 18 188/81 96 07/27/16 20:00 Room Air Intake and Output 07/28/16 07/28/16 07/29/16 15:00 23:00 07:00 Intake Total 300 ml 360 ml 300 ml Output Total 450 ml 1 ml 700 ml Balance -150 ml 359 ml -400 ml Exam Following commands, no apparent distress Constitutional: alert, oriented Head: normocephalic Neck: supple Respiratory: other (Coarse breath sounds bilaterally, no wheezing) Cardiovascular: other (S1-S2 heard), regular rate and rhythm Gastrointestinal: bowel sounds, non-tender, other (No guarding), soft Extremities: other (No edema or cyanosis) Results Result Diagram: 07/28/1662407/28/16624 Medications Medications Current Medications Acetaminophen (Tylenol Tab) 325 mg Q6H PRN PO PAIN AND OR ELEVATED TEMP Last administered on 07/27/16 21:11; Admin Dose 325 MG; Start 07/23/16 at 21:30 Aspirin (Halfprin) 81 mg DAILY PO Last administered on 07/29/16 08:56; Admin Dose 81 MG; Start 07/24/16 at 09:00 Atorvastatin Calcium (Lipitor) 80 mg QHS PO Last administered on 07/28/16 20: 27; Admin Dose 80 MG; Start 07/23/16 at 21:30 Clonidine (Catapres) 0.1 mg Q6H PRN PO ELEVATED BLOOD PRESSURE Last administered on 07/27/16 08:15; Admin Dose 0.1 MG; Start 07/23/16 at 21:30 Enoxaparin Sodium (Lovenox) 30 mg DAILY SC Last administered on 07/29/16 08:57 ; Admin Dose 30 MG; Start 07/24/16 at 09:00 Epoetin Rodney (Epogen (Non Esrd/Non Oncology)) 20,000 units Q7D SC Last administered on 07/28/16 18:45; Admin Dose 20,000 UNITS; Start 07/28/16 at 17: 00 Folic Acid (Folic Acid) 1 mg DAILY PO Last administered on 07/29/16 08:56; Admin Dose 1 MG; Start 07/24/16 at 09:00 Acetaminophen/ Hydrocodone Bitart ([place] (5/325)) 1 tab Q3H PRN PO PAIN Last administered on 07/26/16 11:44; Admin Dose 1 TAB; Start 07/23/16 at 21:30 Acetaminophen/ Hydrocodone Bitart ([place] (5/325)) 2 tab Q3H PRN PO PAIN LEVEL 4 -7 Last administered on 07/29/16 10:18; Admin Dose 2 TAB; Start 07/23/16 at 21: 30 Levetiracetam (Keppra) 750 mg BID PO Last administered on 07/29/16 08:56; Admin Dose 750 MG; Start 07/23/16 at 22:30 Levothyroxine Sodium (Synthroid) 50 mcg DAILY@06 PO Last administered on 05:01; Admin Dose 50 MCG; Start 07/24/16 at 06:00 Meclizine HCl (Antivert) 25 mg DAILY PRN PO DIZZINESS Last administered on 07/28 08:18; Admin Dose 25 MG; Start 07/23/16 at 21:30 Pantoprazole (Protonix Tab) 40 mg DAILY@06 PO Last administered on 07/29/16 05 :01; Admin Dose 40 MG; Start 07/24/16 at 06:00 Pregabalin (Lyrica) 25 mg BID PO Last administered on 07/29/16 08:56; Admin Dose 25 MG; Start 07/23/16 at 21:30 Quetiapine Fumarate (Seroquel) 25 mg HS PO Last administered on 07/28/16 20:26 ; Admin Dose 25 MG; Start 07/23/16 at 21:30 Ranolazine (Ranexa) 1,000 mg Q12 PO Last administered on 07/29/16 08:56; Admin Dose 1,000 MG; Start 07/23/16 at 22:30 Docusate Sodium (Colace) 100 mg BID PO Last administered on 07/29/16 08:56; Admin Dose 100 MG; Start 07/24/16 at 09:00 Lactulose (Enulose) 20 gm DAILY PRN PO CONSTIPATION; Start 07/23/16 at 22:00 Bisacodyl (Dulcolax Supp) 10 mg DAILY PRN [place] CONSTIPATION; Start 07/23/16 at 22: 00 Bethanechol Chloride (Urecholine) 10 mg BID PO Last administered on 07/29/16 08:56; Admin Dose 10 MG; Start 07/26/16 at 21:00 Hydromorphone HCl (Dilaudid) 1 mg Q3H PRN IM PAIN LEVEL 8-10 Last administered on 07/28/16 18:32; Admin Dose 1 MG; Start 07/27/16 at 12:30 Carvedilol (Coreg) 12.5 mg BID PO Last administered on 07/29/16 08:57; Admin Dose 12.5 MG; Start 07/27/16 at 21:00 Srinivas Bedoya DO Jul 29, 2016 15:55
--- NOTE | 2016-07-29 19:00 | PN ---
DATE: 07/29/2016 SUBJECTIVE: Incomplete bladder emptying. The patient is reasonably comfortable. OBJECTIVE: VITAL SIGNS: Her temperature is 98.6, pulse is 66, respiration 18, blood pressure 188/81. ABDOMEN: Soft. The patient has voided 175, postvoid residual was 155. Then, she voided another ti me 225, postvoid residual 125. IMPRESSION: Basically, she is not in urinary retention, but she has high postvoid residual, but she is doing reasonably well. The urine culture has been negative. The patient will continue to let t he nurses know when she voids and they will do a postvoid residual with a bladder scan. Dictated By: MADISON MACKENZIE MD BB/NTS Conf#: [id number] DID#: [id number] CC: HAROLDO GODINEZ MD;*EndCC*
[2016-07-29 19:41] VITALS: BP_SYST 137; RESP 20
[2016-07-29] MEDS: QUETIAPINE 25 MG TAB PO SCH (20:43)
[2016-07-29] MEDS: ATORVASTATIN 80 MG TAB PO SCH (20:43)
[2016-07-29] MEDS: LISINOPRIL 5 MG TAB PO SCH (20:47)
[2016-07-30] MEDS: LEVOTHYROXINE 50 MCG TAB PO SCH (06:34)
[2016-07-30] MEDS: PANTOPRAZOLE (EC) 40 MG TAB PO SCH (06:34)
[2016-07-30 08:10] VITALS: BP 147/67; RESP 18
[2016-07-30] MEDS: PREGABALIN 25 MG CAP PO SCH ×2 (09:22→20:37)
[2016-07-30] MEDS: BETHANECHOL 10 MG TAB PO SCH ×2 (09:22→20:38)
[2016-07-30] MEDS: LEVETIRACETAM 750 MG TAB PO SCH ×2 (09:22→20:38)
[2016-07-30] MEDS: RANOLAZINE (SR) 500 MG TAB PO SCH ×2 (09:22→20:38)
[2016-07-30] MEDS: ASPIRIN (EC) 81 MG TAB PO SCH (09:24)
[2016-07-30] MEDS: FOLIC ACID 1 MG TAB PO SCH (09:24)
[2016-07-30] MEDS: DOCUSATE SODIUM 100 MG CAP PO SCH ×2 (09:24→20:37)
[2016-07-30] MEDS: HYDROCODONE/APAP (5/325) TAB PO PRN (09:24)
[2016-07-30] MEDS: LISINOPRIL 5 MG TAB PO SCH ×2 (09:25→20:41)
[2016-07-30] MEDS: ENOXAPARIN 30 MG/0.3 ML SYG SC SCH (09:27)
--- NOTE | 2016-07-30 11:50 | PN ---
Date/Time of Note Date/Time of Note DATE: 07/30/16 TIME: 11:50 Assessment/Plan VTE Prophylaxis VTE Prophylaxis Intervention: SCD's Lines/Catheters Urinary Cath still in place: No Assessment/Plan Chief Complaint/Hosp Course Assessment and plan - Acute left frontal cortical infarct. Patient with history of prior stroke. Continue aspirin. Continue PT, OT. - Seizure disorder, continue Keppra. - Left femoral neck fracture secondary to mechanical fall. Status post left hip humeral arthroplasty by Dr. Marshall, orthopedic surgery. - Macrocytic anemia. Stool for OB is neg. Status post blood transfusion. Continue to monitor hemoglobin and hematocrit. - Coronary artery disease, status post PCI. Continue aspirin and Ranexa. - Hypertension. Continue Coreg. - Dyslipidemia. Continue Lipitor. - Hypothyroidism. Continue Synthroid. - Urinary retention, continue current dose of Urecholine. Patient is evaluated by Dr. Singh in urology consultation. Further recommendations based on clinical course. Plan of care discussed with Dr. Robertson. Problems: Exam/Review of Systems Vital Signs Vitals Vital Signs Date Time Temp Pulse Resp B/P Pulse Ox O2 Delivery O2 Flow Rate FiO2 07/30/16 08:10 98.4 65 18 147/67 96 07/27/16 20:00 Room Air Intake and Output 07/29/16 07/29/16 07/30/16 15:00 23:00 07:00 Intake Total 1300 ml 240 ml 300 ml Output Total 400 ml 180 ml 950 ml Balance 900 ml 60 ml -650 ml Exam Constitutional: alert, oriented Psych: no complaints Head: atraumatic, normocephalic Eyes: nl conjunctiva ENMT: nl external ears & nose Neck: non-tender, supple Respiratory: clear to auscultation, normal air movement Cardiovascular: nl pulses, regular rate and rhythm Gastrointestinal: non-tender, soft Musculoskeletal: nl extremities to inspection, other (Status post left hip surgery) Extremities: normal pulses Neurological: PIER 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 Skin: nl turgor Results Result Diagram: 07/28/1662407/28/16624 Medications Medications Current Medications Acetaminophen (Tylenol Tab) 325 mg Q6H PRN PO PAIN AND OR ELEVATED TEMP Last administered on 07/27/16t 21:11; Admin Dose 325 MG; Start 07/23/16 at 21:30 Aspirin (Halfprin) 81 mg DAILY PO Last administered on 07/30/16 09:24; Admin Dose 81 MG; Start 07/24/16 at 09:00 Atorvastatin Calcium (Lipitor) 80 mg QHS PO Last administered on 07/29/16 20: 43; Admin Dose 80 MG; Start 07/23/16 at 21:30 Clonidine (Catapres) 0.1 mg Q6H PRN PO ELEVATED BLOOD PRESSURE Last administered on 07/27/16 08:15; Admin Dose 0.1 MG; Start 07/23/16 at 21:30 Enoxaparin Sodium (Lovenox) 30 mg DAILY SC Last administered on 07/30/16 09:27 ; Admin Dose 30 MG; Start 07/24/16 at 09:00 Epoetin Rodney (Epogen (Non Esrd/Non Oncology)) 20,000 units Q7D SC Last administered on 07/28/16 18:45; Admin Dose 20,000 UNITS; Start 07/28/16 at 17: 00 Folic Acid (Folic Acid) 1 mg DAILY PO Last administered on 07/30/16 09:24; Admin Dose 1 MG; Start 07/24/16 at 09:00 Acetaminophen/ Hydrocodone Bitart ([place] (5/325)) 1 tab Q3H PRN PO PAIN Last administered on 07/26/16 11:44; Admin Dose 1 TAB; Start 07/23/16 at 21:30 Acetaminophen/ Hydrocodone Bitart ([place] (5/325)) 2 tab Q3H PRN PO PAIN LEVEL 4 -7 Last administered on 07/29/16 10:18; Admin Dose 2 TAB; Start 07/23/16 at 21: 30 Levetiracetam (Keppra) 750 mg BID PO Last administered on 07/30/16 09:22; Admin Dose 750 MG; Start 07/23/16 at 22:30 Levothyroxine Sodium (Synthroid) 50 mcg DAILY@06 PO Last administered on 06:34; Admin Dose 50 MCG; Start 07/24/16 at 06:00 Meclizine HCl (Antivert) 25 mg DAILY PRN PO DIZZINESS Last administered on 07/28 08:18; Admin Dose 25 MG; Start 07/23/16 at 21:30 Pantoprazole (Protonix Tab) 40 mg DAILY@06 PO Last administered on 07/30/16 06 :34; Admin Dose 40 MG; Start 07/24/16 at 06:00 Pregabalin (Lyrica) 25 mg BID PO Last administered on 07/30/16 09:22; Admin Dose 25 MG; Start 07/23/16 at 21:30 Quetiapine Fumarate (Seroquel) 25 mg HS PO Last administered on 07/29/16 20:43 ; Admin Dose 25 MG; Start 07/23/16 at 21:30 Ranolazine (Ranexa) 1,000 mg Q12 PO Last administered on 07/30/16 09:22; Admin Dose 1,000 MG; Start 07/23/16 at 22:30 Docusate Sodium (Colace) 100 mg BID PO Last administered on 07/30/16 09:24; Admin Dose 100 MG; Start 07/24/16 at 09:00 Lactulose (Enulose) 20 gm DAILY PRN PO CONSTIPATION; Start 07/23/16 at 22:00 Bisacodyl (Dulcolax Supp) 10 mg DAILY PRN [place] CONSTIPATION; Start 07/23/16 at 22: 00 Bethanechol Chloride (Urecholine) 10 mg BID PO Last administered on 07/30/16 09:22; Admin Dose 10 MG; Start 07/26/16 at 21:00 Hydromorphone HCl (Dilaudid) 1 mg Q3H PRN IM PAIN LEVEL 8-10 Last administered on 07/28/16 18:32; Admin Dose 1 MG; Start 07/27/16 at 12:30 Carvedilol (Coreg) 12.5 mg BID PO Last administered on 07/30/16 09:25; Admin Dose 12.5 MG; Start 07/27/16 at 21:00 Lisinopril (Zestril) 5 mg BID PO Last administered on 07/30/16 09:25; Admin Dose 5 MG; Start 07/29/16 at 21:00 ILAN GALDAMEZ Jul 30, 2016 11:50
--- NOTE | 2016-07-30 11:55 | CONS ---
Date/Time of Note Date/Time of Note DATE: 07/30/16 TIME: 11:53 Assessment/Plan Assessment/Plan Additional Assessment/Plan Hip fracture status post surgery 07/13/2016 Preserved ejection fraction CAD with history of PCI in 2008 Acute CVA History of CVA Hypertension Acute blood loss anemia -Blood pressure trend improved since initiation of DAR inhibitor. Would continue. Consultation Date/Type/Reason Admit Date/Time Jul 23, 2016 at 20:40 Type of Consultation: cv Referring Provider: PRINCESS FISHER MD 24 HR Interval Summary Free Text/Dictation Denies chest pain, shortness of breath, undergoing physical therapy Exam/Review of Systems Vital Signs Vitals Vital Signs Date Time Temp Pulse Resp B/P Pulse Ox O2 Delivery O2 Flow Rate FiO2 07/30/16 08:10 98.4 65 18 147/67 96 07/27/16 20:00 Room Air Intake and Output 07/29/16 07/29/16 07/30/16 15:00 23:00 07:00 Intake Total 1300 ml 240 ml 300 ml Output Total 400 ml 180 ml 950 ml Balance 900 ml 60 ml -650 ml Exam Sitting in wheelchair, no apparent distress Constitutional: alert, oriented Head: normocephalic Neck: supple Respiratory: other (Coarse breath sounds bilaterally, no wheezing) Cardiovascular: other (S1-S2 heard), regular rate and rhythm Gastrointestinal: bowel sounds, non-tender, other (No guarding), soft Extremities: edema (Trace) Results Result Diagram: 07/28/1662407/28/16 0625 Medications Medications Current Medications Acetaminophen (Tylenol Tab) 325 mg Q6H PRN PO PAIN AND OR ELEVATED TEMP Last administered on 07/27/16 21:11; Admin Dose 325 MG; Start 07/23/16 at 21:30 Aspirin (Halfprin) 81 mg DAILY PO Last administered on 07/30/16 09:24; Admin Dose 81 MG; Start 07/24/16 at 09:00 Atorvastatin Calcium (Lipitor) 80 mg QHS PO Last administered on 07/29/16 20: 43; Admin Dose 80 MG; Start 07/23/16 at 21:30 Clonidine (Catapres) 0.1 mg Q6H PRN PO ELEVATED BLOOD PRESSURE Last administered on 07/27/16 08:15; Admin Dose 0.1 MG; Start 07/23/16 at 21:30 Enoxaparin Sodium (Lovenox) 30 mg DAILY SC Last administered on 07/30/16 09:27 ; Admin Dose 30 MG; Start 07/24/16 at 09:00 Epoetin Rodney (Epogen (Non Esrd/Non Oncology)) 20,000 units Q7D SC Last administered on 07/28/16 18:45; Admin Dose 20,000 UNITS; Start 07/28/16 at 17: 00 Folic Acid (Folic Acid) 1 mg DAILY PO Last administered on 07/30/16 09:24; Admin Dose 1 MG; Start 07/24/16 at 09:00 Acetaminophen/ Hydrocodone Bitart ([place] (5/325)) 1 tab Q3H PRN PO PAIN Last administered on 07/26/16 11:44; Admin Dose 1 TAB; Start 07/23/16 at 21:30 Acetaminophen/ Hydrocodone Bitart ([place] (5/325)) 2 tab Q3H PRN PO PAIN LEVEL 4 -7 Last administered on 07/29/16 10:18; Admin Dose 2 TAB; Start 07/23/16 at 21: 30 Levetiracetam (Keppra) 750 mg BID PO Last administered on 07/30/16 09:22; Admin Dose 750 MG; Start 07/23/16 at 22:30 Levothyroxine Sodium (Synthroid) 50 mcg DAILY@06 PO Last administered on 06:34; Admin Dose 50 MCG; Start 07/24/16 at 06:00 Meclizine HCl (Antivert) 25 mg DAILY PRN PO DIZZINESS Last administered on 07/28 08:18; Admin Dose 25 MG; Start 07/23/16 at 21:30 Pantoprazole (Protonix Tab) 40 mg DAILY@06 PO Last administered on 07/30/16 06 :34; Admin Dose 40 MG; Start 07/24/16 at 06:00 Pregabalin (Lyrica) 25 mg BID PO Last administered on 07/30/16 09:22; Admin Dose 25 MG; Start 07/23/16 at 21:30 Quetiapine Fumarate (Seroquel) 25 mg HS PO Last administered on 07/29/16 20:43 ; Admin Dose 25 MG; Start 07/23/16 at 21:30 Ranolazine (Ranexa) 1,000 mg Q12 PO Last administered on 07/30/16 09:22; Admin Dose 1,000 MG; Start 07/23/16 at 22:30 Docusate Sodium (Colace) 100 mg BID PO Last administered on 07/30/16 09:24; Admin Dose 100 MG; Start 07/24/16 at 09:00 Lactulose (Enulose) 20 gm DAILY PRN PO CONSTIPATION; Start 07/23/16 at 22:00 Bisacodyl (Dulcolax Supp) 10 mg DAILY PRN [place] CONSTIPATION; Start 07/23/16 at 22: 00 Bethanechol Chloride (Urecholine) 10 mg BID PO Last administered on 07/30/16 09:22; Admin Dose 10 MG; Start 07/26/16 at 21:00 Hydromorphone HCl (Dilaudid) 1 mg Q3H PRN IM PAIN LEVEL 8-10 Last administered on 07/28/16 18:32; Admin Dose 1 MG; Start 07/27/16 at 12:30 Carvedilol (Coreg) 12.5 mg BID PO Last administered on 07/30/16 09:25; Admin Dose 12.5 MG; Start 07/27/16 at 21:00 Lisinopril (Zestril) 5 mg BID PO Last administered on 07/30/16 09:25; Admin Dose 5 MG; Start 07/29/16 at 21:00 Srinivas Bedoya DO Jul 30, 2016 11:55
--- NOTE | 2016-07-30 12:02 | CONS ---
Date/Time of Note Date/Time of Note DATE: 07/30/16 TIME: 12:01 Assessment/Plan Assessment/Plan Additional Assessment/Plan 1. Acute kidney injury secondary to prerenal azotemia. improved 2. Possible chronic kidney disease from her previous medical problems of hypertension and coronary artery disease. 3. History of coronary artery disease with history of percutaneous coronary intervention in 2008. 4. History of cerebrovascular accident. 5. History of hypertension. 6. 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 Patient with history of prior stroke. Dr. Patel is following in neurology consultation. 7. Breakthrough seizure on keppra PLAN: Cr and electrolytes stable on last labs, BP trend improving PO keppra for seizures will follow up Consultation Date/Type/Reason Admit Date/Time Jul 23, 2016 at 20:40 Type of Consultation: NEPHROLOGY Referring Provider: PRINCESS FISHER MD 24 HR Interval Summary Free Text/Dictation BP trend improving, on lisinopril 5mg BID Exam/Review of Systems Vital Signs Vitals Vital Signs Date Time Temp Pulse Resp B/P Pulse Ox O2 Delivery O2 Flow Rate FiO2 07/30/16 08:10 98.4 65 18 147/67 96 07/27/16 20:00 Room Air Intake and Output 07/29/16 07/29/16 07/30/16 15:00 23:00 07:00 Intake Total 1300 ml 240 ml 300 ml Output Total 400 ml 180 ml 950 ml Balance 900 ml 60 ml -650 ml Exam Constitutional: alert, well developed Psych: nl mood/affect Head: atraumatic Eyes: EOMI, nl sclera ENMT: nl external ears & nose Neck: non-tender Respiratory: clear to auscultation Cardiovascular: nl pulses Gastrointestinal: non-tender, soft Musculoskeletal: nl extremities to inspection Neurological: nl mental status Skin: nl turgor Lymph: nontender Results Result Diagram: 07/28/1662407/28/16624 Medications Medications Current Medications Acetaminophen (Tylenol Tab) 325 mg Q6H PRN PO PAIN AND OR ELEVATED TEMP Last administered on 07/27/16 21:11; Admin Dose 325 MG; Start 07/23/16 at 21:30 Aspirin (Halfprin) 81 mg DAILY PO Last administered on 07/30/16 09:24; Admin Dose 81 MG; Start 07/24/16 at 09:00 Atorvastatin Calcium (Lipitor) 80 mg QHS PO Last administered on 07/29/16 20: 43; Admin Dose 80 MG; Start 07/23/16 at 21:30 Clonidine (Catapres) 0.1 mg Q6H PRN PO ELEVATED BLOOD PRESSURE Last administered on 07/27/16 08:15; Admin Dose 0.1 MG; Start 07/23/16 at 21:30 Enoxaparin Sodium (Lovenox) 30 mg DAILY SC Last administered on 07/30/16 09:27 ; Admin Dose 30 MG; Start 07/24/16 at 09:00 Epoetin Rodney (Epogen (Non Esrd/Non Oncology)) 20,000 units Q7D SC Last administered on 07/28/16 18:45; Admin Dose 20,000 UNITS; Start 07/28/16 at 17: 00 Folic Acid (Folic Acid) 1 mg DAILY PO Last administered on 07/30/16 09:24; Admin Dose 1 MG; Start 07/24/16 at 09:00 Acetaminophen/ Hydrocodone Bitart ([place] (5/325)) 1 tab Q3H PRN PO PAIN Last administered on 07/26/16 11:44; Admin Dose 1 TAB; Start 07/23/16 at 21:30 Acetaminophen/ Hydrocodone Bitart ([place] (5/325)) 2 tab Q3H PRN PO PAIN LEVEL 4 -7 Last administered on 07/29/16 10:18; Admin Dose 2 TAB; Start 07/23/16 at 21: 30 Levetiracetam (Keppra) 750 mg BID PO Last administered on 07/30/16 09:22; Admin Dose 750 MG; Start 07/23/16 at 22:30 Levothyroxine Sodium (Synthroid) 50 mcg DAILY@06 PO Last administered on 06:34; Admin Dose 50 MCG; Start 07/24/16 at 06:00 Meclizine HCl (Antivert) 25 mg DAILY PRN PO DIZZINESS Last administered on 07/28 08:18; Admin Dose 25 MG; Start 07/23/16 at 21:30 Pantoprazole (Protonix Tab) 40 mg DAILY@06 PO Last administered on 07/30/16 06 :34; Admin Dose 40 MG; Start 07/24/16 at 06:00 Pregabalin (Lyrica) 25 mg BID PO Last administered on 07/30/16 09:22; Admin Dose 25 MG; Start 07/23/16 at 21:30 Quetiapine Fumarate (Seroquel) 25 mg HS PO Last administered on 07/29/16 20:43 ; Admin Dose 25 MG; Start 07/23/16 at 21:30 Ranolazine (Ranexa) 1,000 mg Q12 PO Last administered on 07/30/16 09:22; Admin Dose 1,000 MG; Start 07/23/16 at 22:30 Docusate Sodium (Colace) 100 mg BID PO Last administered on 07/30/16 09:24; Admin Dose 100 MG; Start 07/24/16 at 09:00 Lactulose (Enulose) 20 gm DAILY PRN PO CONSTIPATION; Start 07/23/16 at 22:00 Bisacodyl (Dulcolax Supp) 10 mg DAILY PRN [place] CONSTIPATION; Start 07/23/16 at 22: 00 Bethanechol Chloride (Urecholine) 10 mg BID PO Last administered on 07/30/16 09:22; Admin Dose 10 MG; Start 07/26/16 at 21:00 Hydromorphone HCl (Dilaudid) 1 mg Q3H PRN IM PAIN LEVEL 8-10 Last administered on 07/28/16 18:32; Admin Dose 1 MG; Start 07/27/16 at 12:30 Carvedilol (Coreg) 12.5 mg BID PO Last administered on 07/30/16 09:25; Admin Dose 12.5 MG; Start 07/27/16 at 21:00 Lisinopril (Zestril) 5 mg BID PO Last administered on 07/30/16 09:25; Admin Dose 5 MG; Start 07/29/16 at 21:00 ROLAND AYON MD Jul 30, 2016 12:02
--- NOTE | 2016-07-30 13:11 | PN ---
Date/Time of Note Date/Time of Note DATE: 07/30/16 TIME: 13:08 Assessment/Plan VTE Prophylaxis VTE Prophylaxis Intervention: LMWH Lines/Catheters Urinary Cath still in place: No Assessment/Plan Assessment/Plan 1. Acute left frontal cortical infarcts with impaired mobility/gait/ADLs/ cognition. Continue PT/OT/ST. Minimal impairments with short term memory and problem solving. Continue Secondary stroke prevention. 2. Left femoral neck fracture status post left hip arthroplasty. Continue PT/ OT. Continue surgical site care. Continue pain regimen including prn norco for acute post op pain, pain controlled. 3. Seizure disorder. On keppra. 4. Coronary artery disease. Continue medical management. 5. Dyslipidemia. Continue Statin. 6. Hypertension. Management per internal medicine and cardiology. 7. Hypothyroidism. Continue levothyroxine. 8 Anemia. Monitor hemoglobin/hematocrit, improving on last labs. On epogen per internal medicine/nephrology. 9. Urinary retention/Incomplete bladder emptying. Medically managed per urology , on urecholine, continue to monitor PVRs, continue bladder training. Subjective 24 Hr Interval Summary Free Text/Dictation Rehab progress note Subjective: Tajik deaf interpreter used. Patient denies new complaints. Mild pain currently LLE, does not want pain medication. ROS: Denies headache, no dizziness, no chest pain, no shortness of breath, no chills, no nausea, no abdominal pain. Exam/Review of Systems Vital Signs Vitals Vital Signs Date Time Temp Pulse Resp B/P Pulse Ox O2 Delivery O2 Flow Rate FiO2 07/30/16 08:10 98.4 65 18 147/67 96 07/27/16 20:00 Room Air Intake and Output 07/29/16 07/29/16 07/30/16 15:00 23:00 07:00 Intake Total 1300 ml 240 ml 300 ml Output Total 400 ml 180 ml 950 ml Balance 900 ml 60 ml -650 ml Exam General: Awake, alert, no acute distress, up in WC eating lunch Lungs: Clear to auscultation, no wheezing CV: Regular rate, s1s2 Abdomen soft, nontender Extremities without cyanosis, calves nontender Neuro without new focal changes. Follows simple commands. Results Result Diagram: 07/28/1625 07/28/16624 Medications Medications Current Medications Acetaminophen (Tylenol Tab) 325 mg Q6H PRN PO PAIN AND OR ELEVATED TEMP Last administered on 07/27/16 21:11; Admin Dose 325 MG; Start 07/23/16 at 21:30 Aspirin (Halfprin) 81 mg DAILY PO Last administered on 07/30/16 09:24; Admin Dose 81 MG; Start 07/24/16 at 09:00 Atorvastatin Calcium (Lipitor) 80 mg QHS PO Last administered on 07/29/16 20: 43; Admin Dose 80 MG; Start 07/23/16 at 21:30 Clonidine (Catapres) 0.1 mg Q6H PRN PO ELEVATED BLOOD PRESSURE Last administered on 07/27/16 08:15; Admin Dose 0.1 MG; Start 07/23/16 at 21:30 Enoxaparin Sodium (Lovenox) 30 mg DAILY SC Last administered on 07/30/16 09:27 ; Admin Dose 30 MG; Start 07/24/16 at 09:00 Epoetin Rodney (Epogen (Non Esrd/Non Oncology)) 20,000 units Q7D SC Last administered on 07/28/16 18:45; Admin Dose 20,000 UNITS; Start 07/28/16 at 17: 00 Folic Acid (Folic Acid) 1 mg DAILY PO Last administered on 07/30/16 09:24; Admin Dose 1 MG; Start 07/24/16 at 09:00 Acetaminophen/ Hydrocodone Bitart ([place] (5/325)) 1 tab Q3H PRN PO PAIN Last administered on 07/26/16 11:44; Admin Dose 1 TAB; Start 07/23/16 at 21:30 Acetaminophen/ Hydrocodone Bitart ([place] (5/325)) 2 tab Q3H PRN PO PAIN LEVEL 4 -7 Last administered on 07/29/16 10:18; Admin Dose 2 TAB; Start 07/23/16 at 21: 30 Levetiracetam (Keppra) 750 mg BID PO Last administered on 07/30/16 09:22; Admin Dose 750 MG; Start 07/23/16 at 22:30 Levothyroxine Sodium (Synthroid) 50 mcg DAILY@06 PO Last administered on 06:34; Admin Dose 50 MCG; Start 07/24/16 at 06:00 Meclizine HCl (Antivert) 25 mg DAILY PRN PO DIZZINESS Last administered on 07/28 08:18; Admin Dose 25 MG; Start 07/23/16 at 21:30 Pantoprazole (Protonix Tab) 40 mg DAILY@06 PO Last administered on 07/30/16 06 :34; Admin Dose 40 MG; Start 07/24/16 at 06:00 Pregabalin (Lyrica) 25 mg BID PO Last administered on 07/30/16 09:22; Admin Dose 25 MG; Start 07/23/16 at 21:30 Quetiapine Fumarate (Seroquel) 25 mg HS PO Last administered on 07/29/16 20:43 ; Admin Dose 25 MG; Start 07/23/16 at 21:30 Ranolazine (Ranexa) 1,000 mg Q12 PO Last administered on 07/30/16 09:22; Admin Dose 1,000 MG; Start 07/23/16 at 22:30 Docusate Sodium (Colace) 100 mg BID PO Last administered on 07/30/16 09:24; Admin Dose 100 MG; Start 07/24/16 at 09:00 Lactulose (Enulose) 20 gm DAILY PRN PO CONSTIPATION; Start 07/23/16 at 22:00 Bisacodyl (Dulcolax Supp) 10 mg DAILY PRN [place] CONSTIPATION; Start 07/23/16 at 22: 00 Bethanechol Chloride (Urecholine) 10 mg BID PO Last administered on 07/30/16 09:22; Admin Dose 10 MG; Start 07/26/16 at 21:00 Hydromorphone HCl (Dilaudid) 1 mg Q3H PRN IM PAIN LEVEL 8-10 Last administered on 07/28/16 18:32; Admin Dose 1 MG; Start 07/27/16 at 12:30 Carvedilol (Coreg) 12.5 mg BID PO Last administered on 07/30/16 09:25; Admin Dose 12.5 MG; Start 07/27/16 at 21:00 Lisinopril (Zestril) 5 mg BID PO Last administered on 07/30/16 09:25; Admin Dose 5 MG; Start 07/29/16 at 21:00 AURELIO ALFONSO 15, 2017 13:11
--- NOTE | 2016-07-30 15:00 | PN ---
DATE: 07/30/2016 SUBJECTIVE: High postvoid residual. The patient, however, is comfortable and denies having any dis comfort or pain. OBJECTIVE: Her temperature is 98.4, pulse is 65, respiration 18, blood pressure 147/67. The patie nt has been voiding in the bedside commode and the postvoid residual measurement had been 116, 125, 175, 132, 79 and 129 mL. Therefore, she is not in retention, but her postvoid residual is a little high. The patient has been on urecholine 10 mg twice a day. We may increase that to 3 times a day and see if she does better with that. Her urine culture has been no growth after 48 hours. Dictated By: MADISON URENA/ZHANG Conf#: [id number] DID#: [id number]
[2016-07-30] MEDS: ATORVASTATIN 80 MG TAB PO SCH (20:37)
[2016-07-30] MEDS: QUETIAPINE 25 MG TAB PO SCH (20:41)
[2016-07-30 20:42] VITALS: BP 159/70; RESP 18
[2016-07-31] MEDS: PANTOPRAZOLE (EC) 40 MG TAB PO SCH (05:15)
[2016-07-31] MEDS: LEVOTHYROXINE 50 MCG TAB PO SCH (05:15)
[2016-07-31 08:00] VITALS: BP 155/62; PULSE 65; RESP 18
[2016-07-31] MEDS: DOCUSATE SODIUM 100 MG CAP PO SCH ×2 (10:13→20:20)
[2016-07-31] MEDS: ASPIRIN (EC) 81 MG TAB PO SCH (10:14)
[2016-07-31] MEDS: PREGABALIN 25 MG CAP PO SCH ×2 (10:15→20:21)
[2016-07-31] MEDS: RANOLAZINE (SR) 500 MG TAB PO SCH ×2 (10:15→20:21)
[2016-07-31] MEDS: LISINOPRIL 5 MG TAB PO SCH ×2 (10:15→20:22)
[2016-07-31] MEDS: HYDROCODONE/APAP (5/325) TAB PO PRN ×2 (10:15→20:30)
[2016-07-31] MEDS: BETHANECHOL 10 MG TAB PO SCH ×2 (10:15→12:58)
[2016-07-31] MEDS: LEVETIRACETAM 750 MG TAB PO SCH ×2 (10:15→20:21)
[2016-07-31] MEDS: FOLIC ACID 1 MG TAB PO SCH (10:15)
[2016-07-31] MEDS: ENOXAPARIN 30 MG/0.3 ML SYG SC SCH (10:16)
--- NOTE | 2016-07-31 11:16 | CONS ---
Date/Time of Note Date/Time of Note DATE: 07/31/16 TIME: 11:13 Assessment/Plan Assessment/Plan Additional Assessment/Plan 1. Acute kidney injury secondary to prerenal azotemia. improved 2. Possible chronic kidney disease from her previous medical problems of hypertension and coronary artery disease. 3. History of coronary artery disease with history of percutaneous coronary intervention in 2008. 4. History of cerebrovascular accident. 5. History of hypertension. 6. 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 Patient with history of prior stroke. Dr. Patel is following in neurology consultation. 7. Breakthrough seizure on keppra PLAN: Cr and electrolytes stable on last labs, BP trend improving Bp stable,a febrile, pt is having urinary retention and getting straight in and out, Urology following PO keppra for seizures will follow up Consultation Date/Type/Reason Admit Date/Time Jul 23, 2016 at 20:40 Type of Consultation: NEPHROLOGY Referring Provider: PRINCESS FISHER MD 24 HR Interval Summary Free Text/Dictation Bp stable,a febrile, pt is having urinary retention and getting straight in and out, Urology following Exam/Review of Systems Vital Signs Vitals Vital Signs Date Time Temp Pulse Resp B/P Pulse Ox O2 Delivery O2 Flow Rate FiO2 07/31/16 08:00 97.8 65 18 155/62 95 Room Air Intake and Output 07/30/16 07/30/16 07/31/16 15:00 23:00 07:00 Intake Total 720 ml 360 ml 320 ml Output Total 1400 ml Balance 720 ml 360 ml -1080 ml Exam Constitutional: alert, well developed Psych: nl mood/affect Head: atraumatic Eyes: EOMI, nl sclera ENMT: nl external ears & nose Neck: non-tender Respiratory: clear to auscultation Cardiovascular: nl pulses Gastrointestinal: non-tender, soft Musculoskeletal: nl extremities to inspection Neurological: nl mental status Skin: nl turgor Lymph: nontender Results Result Diagram: 07/28/1662407/28/16624 Medications Medications Current Medications Acetaminophen (Tylenol Tab) 325 mg Q6H PRN PO PAIN AND OR ELEVATED TEMP Last administered on 07/27/16 21:11; Admin Dose 325 MG; Start 07/23/16 at 21:30 Aspirin (Halfprin) 81 mg DAILY PO Last administered on 07/31/16 10:14; Admin Dose 81 MG; Start 07/24/16 at 09:00 Atorvastatin Calcium (Lipitor) 80 mg QHS PO Last administered on 07/30/16 20: 37; Admin Dose 80 MG; Start 07/23/16 at 21:30 Clonidine (Catapres) 0.1 mg Q6H PRN PO ELEVATED BLOOD PRESSURE Last administered on 07/27/16 08:15; Admin Dose 0.1 MG; Start 07/23/16 at 21:30 Enoxaparin Sodium (Lovenox) 30 mg DAILY SC Last administered on 07/31/16 10:16 ; Admin Dose 30 MG; Start 07/24/16 at 09:00 Epoetin Rodney (Epogen (Non Esrd/Non Oncology)) 20,000 units Q7D SC Last administered on 07/28/16 18:45; Admin Dose 20,000 UNITS; Start 07/28/16 at 17: 00 Folic Acid (Folic Acid) 1 mg DAILY PO Last administered on 07/31/16 10:15; Admin Dose 1 MG; Start 07/24/16 at 09:00 Acetaminophen/ Hydrocodone Bitart ([place] (5/325)) 1 tab Q3H PRN PO PAIN Last administered on 07/31/16 10:15; Admin Dose 1 TAB; Start 07/23/16 at 21:30 Acetaminophen/ Hydrocodone Bitart ([place] (5/325)) 2 tab Q3H PRN PO PAIN LEVEL 4 -7 Last administered on 07/29/16 10:18; Admin Dose 2 TAB; Start 07/23/16 at 21: 30 Levetiracetam (Keppra) 750 mg BID PO Last administered on 07/31/16 10:15; Admin Dose 750 MG; Start 07/23/16 at 22:30 Levothyroxine Sodium (Synthroid) 50 mcg DAILY@06 PO Last administered on 05:15; Admin Dose 50 MCG; Start 07/24/16 at 06:00 Meclizine HCl (Antivert) 25 mg DAILY PRN PO DIZZINESS Last administered on 07/28 08:18; Admin Dose 25 MG; Start 07/23/16 at 21:30 Pantoprazole (Protonix Tab) 40 mg DAILY@06 PO Last administered on 07/31/16 05 :15; Admin Dose 40 MG; Start 07/24/16 at 06:00 Pregabalin (Lyrica) 25 mg BID PO Last administered on 07/31/16 10:15; Admin Dose 25 MG; Start 07/23/16 at 21:30 Quetiapine Fumarate (Seroquel) 25 mg HS PO Last administered on 07/30/16 20:41 ; Admin Dose 25 MG; Start 07/23/16 at 21:30 Ranolazine (Ranexa) 1,000 mg Q12 PO Last administered on 07/31/16 10:15; Admin Dose 1,000 MG; Start 07/23/16 at 22:30 Docusate Sodium (Colace) 100 mg BID PO Last administered on 07/31/16 10:13; Admin Dose 100 MG; Start 07/24/16 at 09:00 Lactulose (Enulose) 20 gm DAILY PRN PO CONSTIPATION; Start 07/23/16 at 22:00 Bisacodyl (Dulcolax Supp) 10 mg DAILY PRN [place] CONSTIPATION; Start 07/23/16 at 22: 00 Hydromorphone HCl (Dilaudid) 1 mg Q3H PRN IM PAIN LEVEL 8-10 Last administered on 07/28/16 18:32; Admin Dose 1 MG; Start 07/27/16 at 12:30 Carvedilol (Coreg) 12.5 mg BID PO Last administered on 07/31/16 10:14; Admin Dose 12.5 MG; Start 07/27/16 at 21:00 Lisinopril (Zestril) 5 mg BID PO Last administered on 07/31/16 10:15; Admin Dose 5 MG; Start 07/29/16 at 21:00 Bethanechol Chloride (Urecholine) 10 mg TID PO Last administered on 07/31/16 10:15; Admin Dose 10 MG; Start 07/30/16 at 21:00 ROLAND AYON MD Jul 31, 2016 11:15
--- NOTE | 2016-07-31 11:56 | CONS ---
Date/Time of Note Date/Time of Note DATE: 07/31/16 TIME: 11:56 Consult Date/Type/Reason Admit Date/Time Jul 23, 2016 at 20:40 Type of Consultation: NEPHROLOGY Ordering Provider: PRINCESS FISHER MD Subjective in good spirits Objective [id number] mod assist Vital Signs Date Time Temp Pulse Resp B/P Pulse Ox O2 Delivery O2 Flow Rate FiO2 07/31/16 08:00 97.8 65 18 155/62 95 Room Air Intake and Output 07/30/16 07/30/16 07/31/16 15:00 23:00 07:00 Intake Total 720 ml 360 ml 320 ml Output Total 1400 ml Balance 720 ml 360 ml -1080 ml Results/Medications Result Diagram: 07/28/1662407/28/16624 Medications Current Medications Acetaminophen (Tylenol Tab) 325 mg Q6H PRN PO PAIN AND OR ELEVATED TEMP Last administered on 07/27/16 21:11; Admin Dose 325 MG; Start 07/23/16 at 21:30 Aspirin (Halfprin) 81 mg DAILY PO Last administered on 07/31/16 10:14; Admin Dose 81 MG; Start 07/24/16 at 09:00 Atorvastatin Calcium (Lipitor) 80 mg QHS PO Last administered on 07/30/16 20: 37; Admin Dose 80 MG; Start 07/23/16 at 21:30 Clonidine (Catapres) 0.1 mg Q6H PRN PO ELEVATED BLOOD PRESSURE Last administered on 07/27/16 08:15; Admin Dose 0.1 MG; Start 07/23/16 at 21:30 Enoxaparin Sodium (Lovenox) 30 mg DAILY SC Last administered on 07/31/16 10:16 ; Admin Dose 30 MG; Start 07/24/16 at 09:00 Epoetin Rodney (Epogen (Non Esrd/Non Oncology)) 20,000 units Q7D SC Last administered on 07/28/16 18:45; Admin Dose 20,000 UNITS; Start 07/28/16 at 17: 00 Folic Acid (Folic Acid) 1 mg DAILY PO Last administered on 07/31/16 10:15; Admin Dose 1 MG; Start 07/24/16 at 09:00 Acetaminophen/ Hydrocodone Bitart ([place] (5/325)) 1 tab Q3H PRN PO PAIN Last administered on 07/31/16 10:15; Admin Dose 1 TAB; Start 07/23/16 at 21:30 Acetaminophen/ Hydrocodone Bitart ([place] (5/325)) 2 tab Q3H PRN PO PAIN LEVEL 4 -7 Last administered on 07/29/16 10:18; Admin Dose 2 TAB; Start 07/23/16 at 21: 30 Levetiracetam (Keppra) 750 mg BID PO Last administered on 07/31/16 10:15; Admin Dose 750 MG; Start 07/23/16 at 22:30 Levothyroxine Sodium (Synthroid) 50 mcg DAILY@06 PO Last administered on 05:15; Admin Dose 50 MCG; Start 07/24/16 at 06:00 Meclizine HCl (Antivert) 25 mg DAILY PRN PO DIZZINESS Last administered on 07/28 08:18; Admin Dose 25 MG; Start 07/23/16 at 21:30 Pantoprazole (Protonix Tab) 40 mg DAILY@06 PO Last administered on 07/31/16 05 :15; Admin Dose 40 MG; Start 07/24/16 at 06:00 Pregabalin (Lyrica) 25 mg BID PO Last administered on 07/31/16 10:15; Admin Dose 25 MG; Start 07/23/16 at 21:30 Quetiapine Fumarate (Seroquel) 25 mg HS PO Last administered on 07/30/16 20:41 ; Admin Dose 25 MG; Start 07/23/16 at 21:30 Ranolazine (Ranexa) 1,000 mg Q12 PO Last administered on 07/31/16 10:15; Admin Dose 1,000 MG; Start 07/23/16 at 22:30 Docusate Sodium (Colace) 100 mg BID PO Last administered on 07/31/16 10:13; Admin Dose 100 MG; Start 07/24/16 at 09:00 Lactulose (Enulose) 20 gm DAILY PRN PO CONSTIPATION; Start 07/23/16 at 22:00 Bisacodyl (Dulcolax Supp) 10 mg DAILY PRN [place] CONSTIPATION; Start 07/23/16 at 22: 00 Hydromorphone HCl (Dilaudid) 1 mg Q3H PRN IM PAIN LEVEL 8-10 Last administered on 07/28/16 18:32; Admin Dose 1 MG; Start 07/27/16 at 12:30 Carvedilol (Coreg) 12.5 mg BID PO Last administered on 07/31/16 10:14; Admin Dose 12.5 MG; Start 07/27/16 at 21:00 Lisinopril (Zestril) 5 mg BID PO Last administered on 07/31/16 10:15; Admin Dose 5 MG; Start 07/29/16 at 21:00 Bethanechol Chloride (Urecholine) 10 mg TID PO Last administered on 07/31/16 10:15; Admin Dose 10 MG; Start 07/30/16 at 21:00 Assessment/Plan Additional Assessment/Plan Rehab- Left infarct CVA;Left femoral neck fracture status post left hip arthroplasty. Progressing with rehab program. Long d/w daughter regarding current functional status and rehab goals. Seizure disorder. Coronary artery disease. Dyslipidemia. Hypertension. Hypothyroidism. Anemia. HAROLDO GODINEZ MD Jul 31, 2016 11:56
--- NOTE | 2016-07-31 14:02 | PN ---
Date/Time of Note Date/Time of Note DATE: 07/31/16 TIME: 14:00 Assessment/Plan VTE Prophylaxis VTE Prophylaxis Intervention: SCD's Lines/Catheters Urinary Cath still in place: No Assessment/Plan Assessment/Plan Hip fracture status post surgery 07/13/2016 Preserved ejection fraction CAD with history of PCI in 2008 Acute CVA History of CVA Hypertension Acute blood loss anemia -Blood pressure trend improved since initiation of DAR inhibitor. -continue orhtopedic care Subjective 24 Hr Interval Summary Free Text/Dictation The patient with no change Exam/Review of Systems Vital Signs Vitals Vital Signs Date Time Temp Pulse Resp B/P Pulse Ox O2 Delivery O2 Flow Rate FiO2 07/31/16 08:00 97.8 65 18 155/62 95 Room Air Intake and Output 07/30/16 07/30/16 07/31/16 15:00 23:00 07:00 Intake Total 720 ml 360 ml 320 ml Output Total 1400 ml Balance 720 ml 360 ml -1080 ml Results Result Diagram: 07/28/1625 07/28/16624 Medications Medications Current Medications Acetaminophen (Tylenol Tab) 325 mg Q6H PRN PO PAIN AND OR ELEVATED TEMP Last administered on 07/27/16 21:11; Admin Dose 325 MG; Start 07/23/16 at 21:30 Aspirin (Halfprin) 81 mg DAILY PO Last administered on 07/31/16 10:14; Admin Dose 81 MG; Start 07/24/16 at 09:00 Atorvastatin Calcium (Lipitor) 80 mg QHS PO Last administered on 07/30/16 20: 37; Admin Dose 80 MG; Start 07/23/16 at 21:30 Clonidine (Catapres) 0.1 mg Q6H PRN PO ELEVATED BLOOD PRESSURE Last administered on 07/27/16 08:15; Admin Dose 0.1 MG; Start 07/23/16 at 21:30 Enoxaparin Sodium (Lovenox) 30 mg DAILY SC Last administered on 07/31/16 10:16 ; Admin Dose 30 MG; Start 07/24/16 at 09:00 Epoetin Rodney (Epogen (Non Esrd/Non Oncology)) 20,000 units Q7D SC Last administered on 07/28/16 18:45; Admin Dose 20,000 UNITS; Start 07/28/16 at 17: 00 Folic Acid (Folic Acid) 1 mg DAILY PO Last administered on 07/31/16 10:15; Admin Dose 1 MG; Start 07/24/16 at 09:00 Acetaminophen/ Hydrocodone Bitart ([place] (5/325)) 1 tab Q3H PRN PO PAIN Last administered on 07/31/16 10:15; Admin Dose 1 TAB; Start 07/23/16 at 21:30 Acetaminophen/ Hydrocodone Bitart ([place] (5/325)) 2 tab Q3H PRN PO PAIN LEVEL 4 -7 Last administered on 07/29/16 10:18; Admin Dose 2 TAB; Start 07/23/16 at 21: 30 Levetiracetam (Keppra) 750 mg BID PO Last administered on 07/31/16 10:15; Admin Dose 750 MG; Start 07/23/16 at 22:30 Levothyroxine Sodium (Synthroid) 50 mcg DAILY@06 PO Last administered on 05:15; Admin Dose 50 MCG; Start 07/24/16 at 06:00 Meclizine HCl (Antivert) 25 mg DAILY PRN PO DIZZINESS Last administered on 07/28 08:18; Admin Dose 25 MG; Start 07/23/16 at 21:30 Pantoprazole (Protonix Tab) 40 mg DAILY@06 PO Last administered on 07/31/16 05 :15; Admin Dose 40 MG; Start 07/24/16 at 06:00 Pregabalin (Lyrica) 25 mg BID PO Last administered on 07/31/16 10:15; Admin Dose 25 MG; Start 07/23/16 at 21:30 Quetiapine Fumarate (Seroquel) 25 mg HS PO Last administered on 07/30/16 20:41 ; Admin Dose 25 MG; Start 07/23/16 at 21:30 Ranolazine (Ranexa) 1,000 mg Q12 PO Last administered on 07/31/16 10:15; Admin Dose 1,000 MG; Start 07/23/16 at 22:30 Docusate Sodium (Colace) 100 mg BID PO Last administered on 07/31/16 10:13; Admin Dose 100 MG; Start 07/24/16 at 09:00 Lactulose (Enulose) 20 gm DAILY PRN PO CONSTIPATION; Start 07/23/16 at 22:00 Bisacodyl (Dulcolax Supp) 10 mg DAILY PRN [place] CONSTIPATION; Start 07/23/16 at 22: 00 Hydromorphone HCl (Dilaudid) 1 mg Q3H PRN IM PAIN LEVEL 8-10 Last administered on 07/28/16 18:32; Admin Dose 1 MG; Start 07/27/16 at 12:30 Carvedilol (Coreg) 12.5 mg BID PO Last administered on 07/31/16 10:14; Admin Dose 12.5 MG; Start 07/27/16 at 21:00 Lisinopril (Zestril) 5 mg BID PO Last administered on 07/31/16 10:15; Admin Dose 5 MG; Start 07/29/16 at 21:00 Bethanechol Chloride (Urecholine) 10 mg TID PO Last administered on 07/31/16 12:58; Admin Dose 10 MG; Start 07/30/16 at 21:00 MATTHEW TORRES MD Jul 31, 2016 14:02
--- NOTE | 2016-07-31 15:22 | PN ---
Date/Time of Note Date/Time of Note DATE: 07/31/16 TIME: 15:17 Assessment/Plan VTE Prophylaxis VTE Prophylaxis Intervention: other Lines/Catheters Urinary Cath still in place: No Assessment/Plan Assessment/Plan - Acute left frontal cortical infarct. Patient with history of prior stroke. Continue aspirin. Continue PT, OT. - Seizure disorder, continue Keppra. - Left femoral neck fracture secondary to mechanical fall. Status post left hip humeral arthroplasty by Dr. Marshall, orthopedic surgery. - Macrocytic anemia. Stool for OB is neg. Status post blood transfusion. Continue to monitor hemoglobin and hematocrit. - Coronary artery disease, status post PCI. Continue aspirin and Ranexa. - Hypertension. Continue Coreg. - Dyslipidemia. Continue Lipitor. - Hypothyroidism. Continue Synthroid. - Urinary retention, continue current dose of Urecholine. Patient is evaluated by Dr. Singh in urology consultation. Further recommendations based on clinical course. Plan of care discussed with Dr. Robertson. Subjective 24 Hr Interval Summary Free Text/Dictation NAD, ambulates with PT-tolerates well. patient still retains urine more at night and got I/O/cath. In daytime she is urinating and retaining approximately 200-250. DW Staff. Constitutional: improved Respiratory: no complaints Cardiovascular: no complaints Gastrointestinal: no complaints Musculoskeletal: bone/joint pain Exam/Review of Systems Vital Signs Vitals Vital Signs Date Time Temp Pulse Resp B/P Pulse Ox O2 Delivery O2 Flow Rate FiO2 07/31/16 08:00 97.8 65 18 155/62 95 Room Air Intake and Output 07/30/16 07/30/16 07/31/16 15:00 23:00 07:00 Intake Total 720 ml 360 ml 320 ml Output Total 1400 ml Balance 720 ml 360 ml -1080 ml Exam Constitutional: alert, oriented, well developed Psych: no complaints Head: normocephalic Eyes: EOMI ENMT: nl external ears & nose Neck: non-tender Respiratory: clear to auscultation Cardiovascular: nl pulses Gastrointestinal: non-tender, soft Musculoskeletal: other Extremities: normal pulses Neurological: nl speech Skin: other Lymph: nontender Results Result Diagram: 07/28/1662407/28/16624 Medications Medications Current Medications Acetaminophen (Tylenol Tab) 325 mg Q6H PRN PO PAIN AND OR ELEVATED TEMP Last administered on 07/27/16t 21:11; Admin Dose 325 MG; Start 07/23/16 at 21:30 Aspirin (Halfprin) 81 mg DAILY PO Last administered on 07/31/16 10:14; Admin Dose 81 MG; Start 07/24/16 at 09:00 Atorvastatin Calcium (Lipitor) 80 mg QHS PO Last administered on 07/30/16 20: 37; Admin Dose 80 MG; Start 07/23/16 at 21:30 Clonidine (Catapres) 0.1 mg Q6H PRN PO ELEVATED BLOOD PRESSURE Last administered on 07/27/16 08:15; Admin Dose 0.1 MG; Start 07/23/16 at 21:30 Enoxaparin Sodium (Lovenox) 30 mg DAILY SC Last administered on 07/31/16 10:16 ; Admin Dose 30 MG; Start 07/24/16 at 09:00 Epoetin Rodney (Epogen (Non Esrd/Non Oncology)) 20,000 units Q7D SC Last administered on 07/28/16 18:45; Admin Dose 20,000 UNITS; Start 07/28/16 at 17: 00 Folic Acid (Folic Acid) 1 mg DAILY PO Last administered on 07/31/16 10:15; Admin Dose 1 MG; Start 07/24/16 at 09:00 Acetaminophen/ Hydrocodone Bitart ([place] (5/325)) 1 tab Q3H PRN PO PAIN Last administered on 07/31/16 10:15; Admin Dose 1 TAB; Start 07/23/16 at 21:30 Acetaminophen/ Hydrocodone Bitart ([place] (5/325)) 2 tab Q3H PRN PO PAIN LEVEL 4 -7 Last administered on 07/29/16 10:18; Admin Dose 2 TAB; Start 07/23/16 at 21: 30 Levetiracetam (Keppra) 750 mg BID PO Last administered on 07/31/16 10:15; Admin Dose 750 MG; Start 07/23/16 at 22:30 Levothyroxine Sodium (Synthroid) 50 mcg DAILY@06 PO Last administered on 05:15; Admin Dose 50 MCG; Start 07/24/16 at 06:00 Meclizine HCl (Antivert) 25 mg DAILY PRN PO DIZZINESS Last administered on 07/28 08:18; Admin Dose 25 MG; Start 07/23/16 at 21:30 Pantoprazole (Protonix Tab) 40 mg DAILY@06 PO Last administered on 07/31/16 05 :15; Admin Dose 40 MG; Start 07/24/16 at 06:00 Pregabalin (Lyrica) 25 mg BID PO Last administered on 07/31/16 10:15; Admin Dose 25 MG; Start 07/23/16 at 21:30 Quetiapine Fumarate (Seroquel) 25 mg HS PO Last administered on 07/30/16 20:41 ; Admin Dose 25 MG; Start 07/23/16 at 21:30 Ranolazine (Ranexa) 1,000 mg Q12 PO Last administered on 07/31/16 10:15; Admin Dose 1,000 MG; Start 07/23/16 at 22:30 Docusate Sodium (Colace) 100 mg BID PO Last administered on 07/31/16 10:13; Admin Dose 100 MG; Start 07/24/16 at 09:00 Lactulose (Enulose) 20 gm DAILY PRN PO CONSTIPATION; Start 07/23/16 at 22:00 Bisacodyl (Dulcolax Supp) 10 mg DAILY PRN [place] CONSTIPATION; Start 07/23/16 at 22: 00 Hydromorphone HCl (Dilaudid) 1 mg Q3H PRN IM PAIN LEVEL 8-10 Last administered on 07/28/16 18:32; Admin Dose 1 MG; Start 07/27/16 at 12:30 Carvedilol (Coreg) 12.5 mg BID PO Last administered on 07/31/16 10:14; Admin Dose 12.5 MG; Start 07/27/16 at 21:00 Lisinopril (Zestril) 5 mg BID PO Last administered on 07/31/16 10:15; Admin Dose 5 MG; Start 07/29/16 at 21:00 Bethanechol Chloride (Urecholine) 10 mg TID PO Last administered on 07/31/16 12:58; Admin Dose 10 MG; Start 07/30/16 at 21:00 IVON DENT Jul 31, 2016 15:22
--- NOTE | 2016-07-31 19:39 | PN ---
DATE: 07/31/2016 SUBJECTIVE: High postvoid residual but patient is voiding herself. She is comfortable and has no c omplaints. OBJECTIVE: VITAL SIGNS: Her temperature is 97.8, blood pressure 155/62, pulse 65, respiration 18. The patient voided about 200 mL and her postvoid residual was high, and she underwent straight didi terized for 450 mL, that was yesterday. This morning she voided 200 and PVR as 442, straight cathet erization 450, and this afternoon at 4 p.m. she voided 150, postvoid residual was 216, and at around 11 this morning she voided 200 and PVR was 250. IMPRESSION: High postvoid residual and sometime requiring in and out catheterization. PLAN: To continue her on urecholine and I will increase her urecholine to 25 mg t.i.d., and also co ntinue to check her PVR and do straight catheterization on her for PVR over 300 mL, or if she does n ot void, the bladder volume is over 500, do straight catheterization as well. Dictated By: MADISON URENA/ZHANG Conf#: [id number] DID#: [id number]
[2016-07-31 19:45] VITALS: BP 162/71; RESP 18
[2016-07-31] MEDS: ATORVASTATIN 80 MG TAB PO SCH (20:20)
[2016-07-31] MEDS: QUETIAPINE 25 MG TAB PO SCH (20:21)
[2016-07-31] MEDS: BETHANECHOL 25 MG TAB PO SCH (20:21)
[2016-08-01] MEDS: PANTOPRAZOLE (EC) 40 MG TAB PO SCH (05:55)
[2016-08-01] MEDS: LEVOTHYROXINE 50 MCG TAB PO SCH (05:56)
[2016-08-01 07:41] LABS: ADD SCAN DIFF NO
[2016-08-01 07:49] LABS: BASOPHILS % 1.2 % (0.0-2.0); EOSINOPHILS # 0.1 10^3/ul (0.0-0.5); EOSINOPHILS % 2.6 % (0.0-7.0); HEMATOCRIT 33.8 % (37.0-47.0); HEMOGLOBIN 10.7 g/dl (12.0-16.0); LYMPHOCYTES # 1.2 10^3/ul (0.8-2.9); LYMPHOCYTES % 35.1 % (15.0-51.0); MEAN CORPUSCULAR HEMOGLOBIN 32.8 pg (29.0-33.0); MEAN CORPUSCULAR HGB CONC 31.7 g/dl (32.0-37.0); MEAN CORPUSCULAR VOLUME 103.7 fl (82.0-101.0); MEAN PLATELET VOLUME 8.7 fl (7.4-10.4); MONOCYTE # 0.5 10^3/ul (0.3-0.9); MONOCYTES % 15.1 % (0.0-11.0); NEUTROPHIL # 1.6 10^3/ul (1.6-7.5); NEUTROPHILS % 45.1 % (39.0-77.0); PLATELET COUNT 387 10^3/UL (140-415); RED BLOOD COUNT 3.26 10^6/ul (4.20-5.40); RED CELL DISTRIBUTION WIDTH 16.1 % (11.5-14.5); WHITE BLOOD COUNT 3.5 10^3/ul (4.8-10.8)
[2016-08-01 07:59] LABS: POTASSIUM 3.9 mmol/L (3.5-5.1)
[2016-08-01 08:00] VITALS: BP 157/64; PULSE 57; RESP 20
[2016-08-01 08:02] LABS: CREATININE 0.89 mg/dl (0.44-1.00)
[2016-08-01 08:03] LABS: CALCIUM 8.6 mg/dl (8.4-10.2)
[2016-08-01 08:17] LABS: INR 0.98
[2016-08-01 08:18] LABS: PARTIAL THROMBOPLASTIN TIME 32.7 Sec (25.0-35.0)
[2016-08-01] MEDS: ASPIRIN (EC) 81 MG TAB PO SCH (09:24)
[2016-08-01] MEDS: DOCUSATE SODIUM 100 MG CAP PO SCH ×2 (09:24→20:18)
[2016-08-01] MEDS: FOLIC ACID 1 MG TAB PO SCH (09:24)
[2016-08-01] MEDS: BETHANECHOL 25 MG TAB PO SCH ×3 (09:24→20:18)
[2016-08-01] MEDS: PREGABALIN 25 MG CAP PO SCH ×2 (09:24→20:19)
[2016-08-01] MEDS: LEVETIRACETAM 750 MG TAB PO SCH ×2 (09:24→20:17)
[2016-08-01] MEDS: RANOLAZINE (SR) 500 MG TAB PO SCH ×2 (09:24→20:18)
[2016-08-01] MEDS: ENOXAPARIN 30 MG/0.3 ML SYG SC SCH (09:25)
[2016-08-01] MEDS: LISINOPRIL 5 MG TAB PO SCH (09:25)
[2016-08-01] MEDS ORDERED: POTASSIUM CHLORIDE (SR) 20 MEQ TAB PO ONE (11:00)
[2016-08-01] MEDS ORDERED: MAGNESIUM SULFATE 2 GM/50 ML 50 ML IVPB ONE (12:00)
--- NOTE | 2016-08-01 12:34 | CONS ---
Date/Time of Note Date/Time of Note DATE: 08/01/16 TIME: 12:32 Assessment/Plan Assessment/Plan Additional Assessment/Plan Hip fracture status post surgery 07/13/2016 Preserved ejection fraction CAD with history of PCI in 2008 Acute CVA History of CVA Hypertension Acute blood loss anemia -Blood pressure remains elevated, would increase dose of lisinopril. Consultation Date/Type/Reason Admit Date/Time Jul 23, 2016 at 20:40 Type of Consultation: cv Referring Provider: PRINCESS FISHER MD 24 HR Interval Summary Free Text/Dictation Patient seen and examined, denies chest pain or shortness of breath Exam/Review of Systems Vital Signs Vitals Vital Signs Date Time Temp Pulse Resp B/P Pulse Ox O2 Delivery O2 Flow Rate FiO2 07/31/16 19:45 98.3 63 18 162/71 98 07/31/16 08:00 Room Air Intake and Output 07/31/16 07/31/16 08/01/16 15:00 23:00 07:00 Intake Total 800 ml 500 ml Output Total 200 ml 350 ml 550 ml Balance -200 ml 450 ml -50 ml Exam In bed, no apparent distress Constitutional: alert, oriented Head: normocephalic Neck: supple Respiratory: other (Coarse breath sounds bilaterally, no wheezing) Cardiovascular: other (S1-S2 heard), regular rate and rhythm Gastrointestinal: bowel sounds, non-tender, other (No guarding), soft Extremities: edema (Trace), other (No cyanosis) Results Result Diagram: 08/01/16 0652 08/01/16 0652 Results 24 hrs Laboratory Tests Test 08/01/16 06:52 Activated Partial Thromboplast Time 32.7 Anion Gap 10 Basophils # 0.0 Basophils % 1.2 Blood Urea Nitrogen 10 Calcium Level 8.6 Carbon Dioxide Level 30 Chloride Level 106 Creatinine 0.89 Eosinophils # 0.1 Eosinophils % 2.6 Glucose Level 80 Hematocrit 33.8 L Hemoglobin 10.7 L INR International Normalized Ratio 0.98 Lymphocytes # 1.2 Lymphocytes % 35.1 Magnesium Level 1.8 Mean Corpuscular Hemoglobin 32.8 Mean Corpuscular Hemoglobin Concent 31.7 L Mean Corpuscular Volume 103.7 H Mean Platelet Volume 8.7 Monocytes # 0.5 Monocytes % 15.1 H Neutrophils # 1.6 Neutrophils % 45.1 Nucleated Red Blood Cells # 0.0 Nucleated Red Blood Cells % 0.0 Platelet Count 387 Potassium Level 3.9 Prothrombin Time 13.0 Prothrombin Time Ratio 1.0 Red Blood Count 3.26 L Red Cell Distribution Width 16.1 H Sodium Level 142 White Blood Count 3.5 L Medications Medications Current Medications Acetaminophen (Tylenol Tab) 325 mg Q6H PRN PO PAIN AND OR ELEVATED TEMP Last administered on 07/27/16 21:11; Admin Dose 325 MG; Start 07/23/16 at 21:30 Aspirin (Halfprin) 81 mg DAILY PO Last administered on 08/01/16 09:24; Admin Dose 81 MG; Start 07/24/16 at 09:00 Atorvastatin Calcium (Lipitor) 80 mg QHS PO Last administered on 07/31/16 20: 20; Admin Dose 80 MG; Start 07/23/16 at 21:30 Clonidine (Catapres) 0.1 mg Q6H PRN PO ELEVATED BLOOD PRESSURE Last administered on 07/27/16 08:15; Admin Dose 0.1 MG; Start 07/23/16 at 21:30 Enoxaparin Sodium (Lovenox) 30 mg DAILY SC Last administered on 08/01/16 09:25 ; Admin Dose 30 MG; Start 07/24/16 at 09:00 Epoetin Rodney (Epogen (Non Esrd/Non Oncology)) 20,000 units Q7D SC Last administered on 07/28/16 18:45; Admin Dose 20,000 UNITS; Start 07/28/16 at 17: 00 Folic Acid (Folic Acid) 1 mg DAILY PO Last administered on 08/01/16 09:24; Admin Dose 1 MG; Start 07/24/16 at 09:00 Acetaminophen/ Hydrocodone Bitart ([place] (5/325)) 1 tab Q3H PRN PO PAIN Last administered on 07/31/16 20:30; Admin Dose 1 TAB; Start 07/23/16 at 21:30 Acetaminophen/ Hydrocodone Bitart ([place] (5/325)) 2 tab Q3H PRN PO PAIN LEVEL 4 -7 Last administered on 07/29/16 10:18; Admin Dose 2 TAB; Start 07/23/16 at 21: 30 Levetiracetam (Keppra) 750 mg BID PO Last administered on 08/01/16 09:24; Admin Dose 750 MG; Start 07/23/16 at 22:30 Levothyroxine Sodium (Synthroid) 50 mcg DAILY@06 PO Last administered on 05:56; Admin Dose 50 MCG; Start 07/24/16 at 06:00 Meclizine HCl (Antivert) 25 mg DAILY PRN PO DIZZINESS Last administered on 07/28 08:18; Admin Dose 25 MG; Start 07/23/16 at 21:30 Pantoprazole (Protonix Tab) 40 mg DAILY@06 PO Last administered on 08/01/16 05 :55; Admin Dose 40 MG; Start 07/24/16 at 06:00 Pregabalin (Lyrica) 25 mg BID PO Last administered on 08/01/16 09:24; Admin Dose 25 MG; Start 07/23/16 at 21:30 Quetiapine Fumarate (Seroquel) 25 mg HS PO Last administered on 07/31/16 20:21 ; Admin Dose 25 MG; Start 07/23/16 at 21:30 Ranolazine (Ranexa) 1,000 mg Q12 PO Last administered on 08/01/16 09:24; Admin Dose 1,000 MG; Start 07/23/16 at 22:30 Docusate Sodium (Colace) 100 mg BID PO Last administered on 08/01/16 09:24; Admin Dose 100 MG; Start 07/24/16 at 09:00 Lactulose (Enulose) 20 gm DAILY PRN PO CONSTIPATION; Start 07/23/16 at 22:00 Bisacodyl (Dulcolax Supp) 10 mg DAILY PRN [place] CONSTIPATION; Start 07/23/16 at 22: 00 Hydromorphone HCl (Dilaudid) 1 mg Q3H PRN IM PAIN LEVEL 8-10 Last administered on 07/28/16 18:32; Admin Dose 1 MG; Start 07/27/16 at 12:30 Carvedilol (Coreg) 12.5 mg BID PO Last administered on 08/01/16 09:24; Admin Dose 12.5 MG; Start 07/27/16 at 21:00 Bethanechol Chloride (Urecholine) 25 mg TID PO Last administered on 08/01/16 09:24; Admin Dose 25 MG; Start 07/31/16 at 21:00 Lisinopril 10 mg 10 mg BID PO ; Start 08/01/16 at 21:00 Magnesium Sulfate (Magnesium Sulfate 2 Gm/50 ml) 50 ml @ 25 mls/hr ONCE ONCE IVPB ; Start 08/01/16 at 12:00; Stop 08/01/16 at 13:59 Srinivas Bedoya DO Aug 01, 2016 12:34
--- NOTE | 2016-08-01 13:03 | CONS ---
Date/Time of Note Date/Time of Note DATE: 08/01/16 TIME: 13:02 Consult Date/Type/Reason Admit Date/Time Jul 23, 2016 at 20:40 Type of Consultation: cv Ordering Provider: PRINCESS FISHER MD Subjective Up for activities Objective [id number] Vital Signs Date Time Temp Pulse Resp B/P Pulse Ox O2 Delivery O2 Flow Rate FiO2 07/31/16 19:45 98.3 63 18 162/71 98 07/31/16 08:00 Room Air Intake and Output 07/31/16 07/31/16 08/01/16 15:00 23:00 07:00 Intake Total 800 ml 500 ml Output Total 200 ml 350 ml 550 ml Balance -200 ml 450 ml -50 ml Results/Medications Result Diagram: 08/01/16 0652 08/01/1652 Results 24 hrs Laboratory Tests Test 08/01/16 06:52 Activated Partial Thromboplast Time 32.7 Anion Gap 10 Basophils # 0.0 Basophils % 1.2 Blood Urea Nitrogen 10 Calcium Level 8.6 Carbon Dioxide Level 30 Chloride Level 106 Creatinine 0.89 Eosinophils # 0.1 Eosinophils % 2.6 Glucose Level 80 Hematocrit 33.8 L Hemoglobin 10.7 L INR International Normalized Ratio 0.98 Lymphocytes # 1.2 Lymphocytes % 35.1 Magnesium Level 1.8 Mean Corpuscular Hemoglobin 32.8 Mean Corpuscular Hemoglobin Concent 31.7 L Mean Corpuscular Volume 103.7 H Mean Platelet Volume 8.7 Monocytes # 0.5 Monocytes % 15.1 H Neutrophils # 1.6 Neutrophils % 45.1 Nucleated Red Blood Cells # 0.0 Nucleated Red Blood Cells % 0.0 Platelet Count 387 Potassium Level 3.9 Prothrombin Time 13.0 Prothrombin Time Ratio 1.0 Red Blood Count 3.26 L Red Cell Distribution Width 16.1 H Sodium Level 142 White Blood Count 3.5 L Medications Current Medications Acetaminophen (Tylenol Tab) 325 mg Q6H PRN PO PAIN AND OR ELEVATED TEMP Last administered on 07/27/16 21:11; Admin Dose 325 MG; Start 07/23/16 at 21:30 Aspirin (Halfprin) 81 mg DAILY PO Last administered on 08/01/16 09:24; Admin Dose 81 MG; Start 07/24/16 at 09:00 Atorvastatin Calcium (Lipitor) 80 mg QHS PO Last administered on 07/31/16 20: 20; Admin Dose 80 MG; Start 07/23/16 at 21:30 Clonidine (Catapres) 0.1 mg Q6H PRN PO ELEVATED BLOOD PRESSURE Last administered on 07/27/16 08:15; Admin Dose 0.1 MG; Start 07/23/16 at 21:30 Enoxaparin Sodium (Lovenox) 30 mg DAILY SC Last administered on 08/01/16 09:25 ; Admin Dose 30 MG; Start 07/24/16 at 09:00 Epoetin Rodney (Epogen (Non Esrd/Non Oncology)) 20,000 units Q7D SC Last administered on 07/28/16 18:45; Admin Dose 20,000 UNITS; Start 07/28/16 at 17: 00 Folic Acid (Folic Acid) 1 mg DAILY PO Last administered on 08/01/16 09:24; Admin Dose 1 MG; Start 07/24/16 at 09:00 Acetaminophen/ Hydrocodone Bitart ([place] (5/325)) 1 tab Q3H PRN PO PAIN Last administered on 07/31/16 20:30; Admin Dose 1 TAB; Start 07/23/16 at 21:30 Acetaminophen/ Hydrocodone Bitart ([place] (5/325)) 2 tab Q3H PRN PO PAIN LEVEL 4 -7 Last administered on 07/29/16 10:18; Admin Dose 2 TAB; Start 07/23/16 at 21: 30 Levetiracetam (Keppra) 750 mg BID PO Last administered on 08/01/16 09:24; Admin Dose 750 MG; Start 07/23/16 at 22:30 Levothyroxine Sodium (Synthroid) 50 mcg DAILY@06 PO Last administered on 05:56; Admin Dose 50 MCG; Start 07/24/16 at 06:00 Meclizine HCl (Antivert) 25 mg DAILY PRN PO DIZZINESS Last administered on 07/28 08:18; Admin Dose 25 MG; Start 07/23/16 at 21:30 Pantoprazole (Protonix Tab) 40 mg DAILY@06 PO Last administered on 08/01/16 05 :55; Admin Dose 40 MG; Start 07/24/16 at 06:00 Pregabalin (Lyrica) 25 mg BID PO Last administered on 08/01/16 09:24; Admin Dose 25 MG; Start 07/23/16 at 21:30 Quetiapine Fumarate (Seroquel) 25 mg HS PO Last administered on 07/31/16 20:21 ; Admin Dose 25 MG; Start 07/23/16 at 21:30 Ranolazine (Ranexa) 1,000 mg Q12 PO Last administered on 08/01/16 09:24; Admin Dose 1,000 MG; Start 07/23/16 at 22:30 Docusate Sodium (Colace) 100 mg BID PO Last administered on 08/01/16 09:24; Admin Dose 100 MG; Start 07/24/16 at 09:00 Lactulose (Enulose) 20 gm DAILY PRN PO CONSTIPATION; Start 07/23/16 at 22:00 Bisacodyl (Dulcolax Supp) 10 mg DAILY PRN [place] CONSTIPATION; Start 07/23/16 at 22: 00 Hydromorphone HCl (Dilaudid) 1 mg Q3H PRN IM PAIN LEVEL 8-10 Last administered on 07/28/16 18:32; Admin Dose 1 MG; Start 07/27/16 at 12:30 Carvedilol (Coreg) 12.5 mg BID PO Last administered on 08/01/16 09:24; Admin Dose 12.5 MG; Start 07/27/16 at 21:00 Bethanechol Chloride (Urecholine) 25 mg TID PO Last administered on 08/01/16 12:41; Admin Dose 25 MG; Start 07/31/16 at 21:00 Lisinopril 10 mg 10 mg BID PO ; Start 08/01/16 at 21:00 Magnesium Sulfate (Magnesium Sulfate 2 Gm/50 ml) 50 ml @ 25 mls/hr ONCE ONCE IVPB Last administered on 08/01/16 12:42; Admin Dose 25 MLS/HR; Start at 12:00; Stop 08/01/16 at 13:59 Assessment/Plan Additional Assessment/Plan Rehab- Left infarct CVA;Left femoral neck fracture status post left hip arthroplasty. Steady functional gains Seizure disorder. Coronary artery disease. Dyslipidemia. Hypertension. Hypothyroidism. Anemia. HAROLDO GODINEZ MD Aug 01, 2016 13:02
--- NOTE | 2016-08-01 17:12 | CONS ---
Date/Time of Note Date/Time of Note DATE: 08/01/16 TIME: 17:09 Assessment/Plan Assessment/Plan Additional Assessment/Plan 1. Acute kidney injury secondary to prerenal azotemia. improved 2. Possible chronic kidney disease from her previous medical problems of hypertension and coronary artery disease. 3. History of coronary artery disease with history of percutaneous coronary intervention in 2008. 4. History of cerebrovascular accident. 5. History of hypertension. 6. 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 Patient with history of prior stroke. Dr. Patel is following in neurology consultation. 7. Breakthrough seizure on keppra PLAN: Cr and electrolytes stable on last labs, BP has been running high so Lisinopril increased to 10mg PO BID, continue coreg BID if continue to be high then we will add amlodipine for better BP control Bp stable,a febrile, pt is having urinary retention and getting straight in and out, Urology following PO keppra for seizures will follow up Consultation Date/Type/Reason Admit Date/Time Jul 23, 2016 at 20:40 Type of Consultation: NEPHROLOGY Referring Provider: PRINCESS FISHER MD 24 HR Interval Summary Free Text/Dictation BP stable Exam/Review of Systems Vital Signs Vitals Vital Signs Date Time Temp Pulse Resp B/P Pulse Ox O2 Delivery O2 Flow Rate FiO2 08/01/16 08:00 97.7 57 20 157/64 96 Room Air Intake and Output 07/31/16 07/31/16 08/01/16 15:00 23:00 07:00 Intake Total 800 ml 500 ml Output Total 200 ml 350 ml 550 ml Balance -200 ml 450 ml -50 ml Exam Constitutional: alert, well developed Psych: nl mood/affect Head: atraumatic Eyes: EOMI, nl sclera ENMT: nl external ears & nose Neck: non-tender Respiratory: clear to auscultation Cardiovascular: nl pulses Gastrointestinal: non-tender, soft Musculoskeletal: nl extremities to inspection Neurological: nl mental status Skin: nl turgor Lymph: nontender Results Result Diagram: 08/01/16 0652 08/01/16 0652 Results 24 hrs Laboratory Tests Test 08/01/16 06:52 Activated Partial Thromboplast Time 32.7 Anion Gap 10 Basophils # 0.0 Basophils % 1.2 Blood Urea Nitrogen 10 Calcium Level 8.6 Carbon Dioxide Level 30 Chloride Level 106 Creatinine 0.89 Eosinophils # 0.1 Eosinophils % 2.6 Glucose Level 80 Hematocrit 33.8 L Hemoglobin 10.7 L INR International Normalized Ratio 0.98 Lymphocytes # 1.2 Lymphocytes % 35.1 Magnesium Level 1.8 Mean Corpuscular Hemoglobin 32.8 Mean Corpuscular Hemoglobin Concent 31.7 L Mean Corpuscular Volume 103.7 H Mean Platelet Volume 8.7 Monocytes # 0.5 Monocytes % 15.1 H Neutrophils # 1.6 Neutrophils % 45.1 Nucleated Red Blood Cells # 0.0 Nucleated Red Blood Cells % 0.0 Platelet Count 387 Potassium Level 3.9 Prothrombin Time 13.0 Prothrombin Time Ratio 1.0 Red Blood Count 3.26 L Red Cell Distribution Width 16.1 H Sodium Level 142 White Blood Count 3.5 L Medications Medications Current Medications Acetaminophen (Tylenol Tab) 325 mg Q6H PRN PO PAIN AND OR ELEVATED TEMP Last administered on 07/27/16 21:11; Admin Dose 325 MG; Start 07/23/16 at 21:30 Aspirin (Halfprin) 81 mg DAILY PO Last administered on 08/01/16 09:24; Admin Dose 81 MG; Start 07/24/16 at 09:00 Atorvastatin Calcium (Lipitor) 80 mg QHS PO Last administered on 07/31/16 20: 20; Admin Dose 80 MG; Start 07/23/16 at 21:30 Clonidine (Catapres) 0.1 mg Q6H PRN PO ELEVATED BLOOD PRESSURE Last administered on 07/27/16 08:15; Admin Dose 0.1 MG; Start 07/23/16 at 21:30 Enoxaparin Sodium (Lovenox) 30 mg DAILY SC Last administered on 08/01/16 09:25 ; Admin Dose 30 MG; Start 07/24/16 at 09:00 Epoetin Rodney (Epogen (Non Esrd/Non Oncology)) 20,000 units Q7D SC Last administered on 07/28/16 18:45; Admin Dose 20,000 UNITS; Start 07/28/16 at 17: 00 Folic Acid (Folic Acid) 1 mg DAILY PO Last administered on 08/01/16 09:24; Admin Dose 1 MG; Start 07/24/16 at 09:00 Acetaminophen/ Hydrocodone Bitart ([place] (5/325)) 1 tab Q3H PRN PO PAIN Last administered on 07/31/16 20:30; Admin Dose 1 TAB; Start 07/23/16 at 21:30 Acetaminophen/ Hydrocodone Bitart ([place] (5/325)) 2 tab Q3H PRN PO PAIN LEVEL 4 -7 Last administered on 07/29/16 10:18; Admin Dose 2 TAB; Start 07/23/16 at 21: 30 Levetiracetam (Keppra) 750 mg BID PO Last administered on 08/01/16 09:24; Admin Dose 750 MG; Start 07/23/16 at 22:30 Levothyroxine Sodium (Synthroid) 50 mcg DAILY@06 PO Last administered on 05:56; Admin Dose 50 MCG; Start 07/24/16 at 06:00 Meclizine HCl (Antivert) 25 mg DAILY PRN PO DIZZINESS Last administered on 07/28 08:18; Admin Dose 25 MG; Start 07/23/16 at 21:30 Pantoprazole (Protonix Tab) 40 mg DAILY@06 PO Last administered on 08/01/16 05 :55; Admin Dose 40 MG; Start 07/24/16 at 06:00 Pregabalin (Lyrica) 25 mg BID PO Last administered on 08/01/16 09:24; Admin Dose 25 MG; Start 07/23/16 at 21:30 Quetiapine Fumarate (Seroquel) 25 mg HS PO Last administered on 07/31/16 20:21 ; Admin Dose 25 MG; Start 07/23/16 at 21:30 Ranolazine (Ranexa) 1,000 mg Q12 PO Last administered on 08/01/16 09:24; Admin Dose 1,000 MG; Start 07/23/16 at 22:30 Docusate Sodium (Colace) 100 mg BID PO Last administered on 08/01/16 09:24; Admin Dose 100 MG; Start 07/24/16 at 09:00 Lactulose (Enulose) 20 gm DAILY PRN PO CONSTIPATION; Start 07/23/16 at 22:00 Bisacodyl (Dulcolax Supp) 10 mg DAILY PRN [place] CONSTIPATION; Start 07/23/16 at 22: 00 Hydromorphone HCl (Dilaudid) 1 mg Q3H PRN IM PAIN LEVEL 8-10 Last administered on 07/28/16 18:32; Admin Dose 1 MG; Start 07/27/16 at 12:30 Carvedilol (Coreg) 12.5 mg BID PO Last administered on 08/01/16 09:24; Admin Dose 12.5 MG; Start 07/27/16 at 21:00 Bethanechol Chloride (Urecholine) 25 mg TID PO Last administered on 08/01/16 12:41; Admin Dose 25 MG; Start 07/31/16 at 21:00 Lisinopril (Zestril) 10 mg BID PO ; Start 08/01/16 at 21:00 ROLAND AYON MD Aug 01, 2016 17:12
--- NOTE | 2016-08-01 18:48 | PN ---
DATE: 08/01/2016 SUBJECTIVE: Urinary retention. The patient has been voiding, but her postvoid residual has been hi gh, and there are times that she needed to undergo straight catheterization. OBJECTIVE: VITAL SIGNS: Temperature is 97.7, pulse 57, respirations 20, blood pressure 157/64. ABDOMEN: Soft. In the past 24 hours, the patient yesterday voided 150. PVR was 216. Then, at 7:30 p.m., she voide d 200. PVR was 340. She was monitored. Then today she voided in the morning about 100 mL and then a straight cath 550. Another time she voided 400. PVR was 407, straight cath 600. Then she voide d 300, PVR 270, and no straight catheterization was done. Another time she voided 150, PVR 125. Th e last 2 times she voided were 180 with PVR 225 and then she voided 190, PVR 208. Apparently, the p atient is doing better during the day when she is awake and sitting. At night, her post residual go es much higher, and that is probably related to her being in bed and not active. ASSESSMENT AND PLAN: The patient is on urecholine 25 mg 3 times a day, so we shall continue that. I also explained to her that when she sits on the commode, try to strain down and push down to try t o help emptying her bladder better. We will do a straight catheterization if the PVR of 300 or more and/or do a straight cath if the bladder volume is over 500 and she has not voided in 6 hours. Dictated By: MADISON URENA/ZHANG Conf#: [id number] DID#: [id number]
[2016-08-01] MEDS: HYDROCODONE/APAP (5/325) TAB PO PRN (20:18)
[2016-08-01] MEDS: QUETIAPINE 25 MG TAB PO SCH (20:18)
[2016-08-01] MEDS: LISINOPRIL 10 MG TAB PO SCH (20:18)
[2016-08-01] MEDS: ATORVASTATIN 80 MG TAB PO SCH (20:19)
[2016-08-01 20:27] VITALS: BP 157/70; RESP 18
--- NOTE | 2016-08-01 20:30 | PN ---
Date/Time of Note Date/Time of Note DATE: 08/01/16 TIME: 20:28 Assessment/Plan VTE Prophylaxis VTE Prophylaxis Intervention: SCD's Lines/Catheters Urinary Cath still in place: No Assessment/Plan Chief Complaint/Hosp Course Assessment and plan - Acute left frontal cortical infarct. Patient with history of prior stroke. Continue aspirin. Continue PT, OT. - Seizure disorder, continue Keppra. - Left femoral neck fracture secondary to mechanical fall. Status post left hip humeral arthroplasty by Dr. Marshall, orthopedic surgery. - Macrocytic anemia. Stool for OB is neg. Status post blood transfusion. Continue to monitor hemoglobin and hematocrit. - Coronary artery disease, status post PCI. Continue aspirin and Ranexa. - Hypertension. Continue Coreg. - Dyslipidemia. Continue Lipitor. - Hypothyroidism. Continue Synthroid. - Urinary retention, continue current dose of Urecholine. Patient is evaluated by Dr. Singh in urology consultation. Further recommendations based on clinical course. Plan of care discussed with Dr. Robertson. Problems: Subjective 24 Hr Interval Summary Free Text/Dictation Patient's continues to follow with physical and Occupational Therapy, patient has a urinary retention overnight, continue to follow up urology recommendation. Exam/Review of Systems Vital Signs Vitals Vital Signs Date Time Temp Pulse Resp B/P Pulse Ox O2 Delivery O2 Flow Rate FiO2 08/01/16 20:27 98.2 64 18 157/70 97 08/01/16 08:00 Room Air Intake and Output 07/31/16 07/31/16 08/01/16 15:00 23:00 07:00 Intake Total 800 ml 500 ml Output Total 200 ml 350 ml 550 ml Balance -200 ml 450 ml -50 ml Exam Constitutional: alert, oriented Psych: no complaints Head: atraumatic, normocephalic Eyes: nl conjunctiva ENMT: nl external ears & nose Neck: non-tender, supple Respiratory: clear to auscultation, normal air movement Cardiovascular: nl pulses, regular rate and rhythm Gastrointestinal: non-tender, soft Musculoskeletal: nl extremities to inspection, other (Status post left hip surgery) Extremities: normal pulses Neurological: BLAST F[employer] K[employer] II-XII intact Skin: nl turgor Results Result Diagram: 08/01/16 0652 08/01/16 0652 Results 24 hrs Laboratory Tests Test 08/01/16 06:52 Activated Partial Thromboplast Time 32.7 Anion Gap 10 Basophils # 0.0 Basophils % 1.2 Blood Urea Nitrogen 10 Calcium Level 8.6 Carbon Dioxide Level 30 Chloride Level 106 Creatinine 0.89 Eosinophils # 0.1 Eosinophils % 2.6 Glucose Level 80 Hematocrit 33.8 L Hemoglobin 10.7 L INR International Normalized Ratio 0.98 Lymphocytes # 1.2 Lymphocytes % 35.1 Magnesium Level 1.8 Mean Corpuscular Hemoglobin 32.8 Mean Corpuscular Hemoglobin Concent 31.7 L Mean Corpuscular Volume 103.7 H Mean Platelet Volume 8.7 Monocytes # 0.5 Monocytes % 15.1 H Neutrophils # 1.6 Neutrophils % 45.1 Nucleated Red Blood Cells # 0.0 Nucleated Red Blood Cells % 0.0 Platelet Count 387 Potassium Level 3.9 Prothrombin Time 13.0 Prothrombin Time Ratio 1.0 Red Blood Count 3.26 L Red Cell Distribution Width 16.1 H Sodium Level 142 White Blood Count 3.5 L Medications Medications Current Medications Acetaminophen (Tylenol Tab) 325 mg Q6H PRN PO PAIN AND OR ELEVATED TEMP Last administered on 07/27/16 21:11; Admin Dose 325 MG; Start 07/23/16 at 21:30 Aspirin (Halfprin) 81 mg DAILY PO Last administered on 08/01/16 09:24; Admin Dose 81 MG; Start 07/24/16 at 09:00 Atorvastatin Calcium (Lipitor) 80 mg QHS PO Last administered on 08/01/16 20: 19; Admin Dose 80 MG; Start 07/23/16 at 21:30 Clonidine (Catapres) 0.1 mg Q6H PRN PO ELEVATED BLOOD PRESSURE Last administered on 07/27/16 08:15; Admin Dose 0.1 MG; Start 07/23/16 at 21:30 Enoxaparin Sodium (Lovenox) 30 mg DAILY SC Last administered on 08/01/16 09:25 ; Admin Dose 30 MG; Start 07/24/16 at 09:00 Epoetin Rodney (Epogen (Non Esrd/Non Oncology)) 20,000 units Q7D SC Last administered on 07/28/16 18:45; Admin Dose 20,000 UNITS; Start 07/28/16 at 17: 00 Folic Acid (Folic Acid) 1 mg DAILY PO Last administered on 08/01/16 09:24; Admin Dose 1 MG; Start 07/24/16 at 09:00 Acetaminophen/ Hydrocodone Bitart ([place] (5/325)) 1 tab Q3H PRN PO PAIN Last administered on 08/01/16 20:18; Admin Dose 1 TAB; Start 07/23/16 at 21:30 Acetaminophen/ Hydrocodone Bitart ([place] (5/325)) 2 tab Q3H PRN PO PAIN LEVEL 4 -7 Last administered on 07/29/16 10:18; Admin Dose 2 TAB; Start 07/23/16 at 21: 30 Levetiracetam (Keppra) 750 mg BID PO Last administered on 08/01/16 20:17; Admin Dose 750 MG; Start 07/23/16 at 22:30 Levothyroxine Sodium (Synthroid) 50 mcg DAILY@06 PO Last administered on 05:56; Admin Dose 50 MCG; Start 07/24/16 at 06:00 Meclizine HCl (Antivert) 25 mg DAILY PRN PO DIZZINESS Last administered on 07/28 08:18; Admin Dose 25 MG; Start 07/23/16 at 21:30 Pantoprazole (Protonix Tab) 40 mg DAILY@06 PO Last administered on 08/01/16 05 :55; Admin Dose 40 MG; Start 07/24/16 at 06:00 Pregabalin (Lyrica) 25 mg BID PO Last administered on 08/01/16 20:19; Admin Dose 25 MG; Start 07/23/16 at 21:30 Quetiapine Fumarate (Seroquel) 25 mg HS PO Last administered on 08/01/16 20:18 ; Admin Dose 25 MG; Start 07/23/16 at 21:30 Ranolazine (Ranexa) 1,000 mg Q12 PO Last administered on 08/01/16 20:18; Admin Dose 1,000 MG; Start 07/23/16 at 22:30 Docusate Sodium (Colace) 100 mg BID PO Last administered on 08/01/16 20:18; Admin Dose 100 MG; Start 07/24/16 at 09:00 Lactulose (Enulose) 20 gm DAILY PRN PO CONSTIPATION; Start 07/23/16 at 22:00 Bisacodyl (Dulcolax Supp) 10 mg DAILY PRN [place] CONSTIPATION; Start 07/23/16 at 22: 00 Hydromorphone HCl (Dilaudid) 1 mg Q3H PRN IM PAIN LEVEL 8-10 Last administered on 07/28/16 18:32; Admin Dose 1 MG; Start 07/27/16 at 12:30 Carvedilol (Coreg) 12.5 mg BID PO Last administered on 08/01/16 20:17; Admin Dose 12.5 MG; Start 07/27/16 at 21:00 Bethanechol Chloride (Urecholine) 25 mg TID PO Last administered on 08/01/16 20:18; Admin Dose 25 MG; Start 07/31/16 at 21:00 Lisinopril (Zestril) 10 mg BID PO Last administered on 08/01/16 20:18; Admin Dose 10 MG; Start 08/01/16 at 21:00 ILAN GALDAMEZ Aug 01, 2016 20:30
[2016-08-02] MEDS: PANTOPRAZOLE (EC) 40 MG TAB PO SCH (06:49)
[2016-08-02] MEDS: LEVOTHYROXINE 50 MCG TAB PO SCH (06:49)
--- NOTE | 2016-08-02 08:25 | CONS ---
Date/Time of Note Date/Time of Note DATE: 08/02/16 TIME: 08:25 Consult Date/Type/Reason Admit Date/Time Jul 23, 2016 at 20:40 Type of Consultation: NEPHROLOGY Ordering Provider: PRINCESS FISHER MD Subjective No new complaints Objective pulm-cta abd-soft min assist transfer and ambulation Vital Signs Date Time Temp Pulse Resp B/P Pulse Ox O2 Delivery O2 Flow Rate FiO2 08/01/16 20:27 98.2 64 18 157/70 97 08/01/16 08:00 Room Air Intake and Output 08/01/16 08/01/16 08/02/16 15:00 23:00 07:00 Intake Total 500 ml Output Total 1000 ml Balance -500 ml Results/Medications Result Diagram: 08/01/1652 08/01/1652 Medications Current Medications Acetaminophen (Tylenol Tab) 325 mg Q6H PRN PO PAIN AND OR ELEVATED TEMP Last administered on 07/27/16 21:11; Admin Dose 325 MG; Start 07/23/16 at 21:30 Aspirin (Halfprin) 81 mg DAILY PO Last administered on 08/01/16 09:24; Admin Dose 81 MG; Start 07/24/16 at 09:00 Atorvastatin Calcium (Lipitor) 80 mg QHS PO Last administered on 08/01/16 20: 19; Admin Dose 80 MG; Start 07/23/16 at 21:30 Clonidine (Catapres) 0.1 mg Q6H PRN PO ELEVATED BLOOD PRESSURE Last administered on 07/27/16 08:15; Admin Dose 0.1 MG; Start 07/23/16 at 21:30 Enoxaparin Sodium (Lovenox) 30 mg DAILY SC Last administered on 08/01/16 09:25 ; Admin Dose 30 MG; Start 07/24/16 at 09:00 Epoetin Rodney (Epogen (Non Esrd/Non Oncology)) 20,000 units Q7D SC Last administered on 07/28/16 18:45; Admin Dose 20,000 UNITS; Start 07/28/16 at 17: 00 Folic Acid (Folic Acid) 1 mg DAILY PO Last administered on 08/01/16 09:24; Admin Dose 1 MG; Start 07/24/16 at 09:00 Acetaminophen/ Hydrocodone Bitart ([place] (5/325)) 1 tab Q3H PRN PO PAIN Last administered on 08/01/16 20:18; Admin Dose 1 TAB; Start 07/23/16 at 21:30 Acetaminophen/ Hydrocodone Bitart ([place] (5/325)) 2 tab Q3H PRN PO PAIN LEVEL 4 -7 Last administered on 07/29/16 10:18; Admin Dose 2 TAB; Start 07/23/16 at 21: 30 Levetiracetam (Keppra) 750 mg BID PO Last administered on 08/01/16 20:17; Admin Dose 750 MG; Start 07/23/16 at 22:30 Levothyroxine Sodium (Synthroid) 50 mcg DAILY@06 PO Last administered on 06:49; Admin Dose 50 MCG; Start 07/24/16 at 06:00 Meclizine HCl (Antivert) 25 mg DAILY PRN PO DIZZINESS Last administered on 07/28 08:18; Admin Dose 25 MG; Start 07/23/16 at 21:30 Pantoprazole (Protonix Tab) 40 mg DAILY@06 PO Last administered on 08/02/16 06 :49; Admin Dose 40 MG; Start 07/24/16 at 06:00 Pregabalin (Lyrica) 25 mg BID PO Last administered on 08/01/16 20:19; Admin Dose 25 MG; Start 07/23/16 at 21:30 Quetiapine Fumarate (Seroquel) 25 mg HS PO Last administered on 08/01/16 20:18 ; Admin Dose 25 MG; Start 07/23/16 at 21:30 Ranolazine (Ranexa) 1,000 mg Q12 PO Last administered on 08/01/16 20:18; Admin Dose 1,000 MG; Start 07/23/16 at 22:30 Docusate Sodium (Colace) 100 mg BID PO Last administered on 08/01/16 20:18; Admin Dose 100 MG; Start 07/24/16 at 09:00 Lactulose (Enulose) 20 gm DAILY PRN PO CONSTIPATION; Start 07/23/16 at 22:00 Bisacodyl (Dulcolax Supp) 10 mg DAILY PRN [place] CONSTIPATION; Start 07/23/16 at 22: 00 Hydromorphone HCl (Dilaudid) 1 mg Q3H PRN IM PAIN LEVEL 8-10 Last administered on 07/28/16 18:32; Admin Dose 1 MG; Start 07/27/16 at 12:30 Carvedilol (Coreg) 12.5 mg BID PO Last administered on 08/01/16 20:17; Admin Dose 12.5 MG; Start 07/27/16 at 21:00 Bethanechol Chloride (Urecholine) 25 mg TID PO Last administered on 08/01/16 20:18; Admin Dose 25 MG; Start 07/31/16 at 21:00 Lisinopril (Zestril) 10 mg BID PO Last administered on 08/01/16 20:18; Admin Dose 10 MG; Start 08/01/16 at 21:00 Assessment/Plan Additional Assessment/Plan Rehab- Left infarct CVA;Left femoral neck fracture status post left hip arthroplasty. Continue rehab program. Seizure disorder-stable Coronary artery disease. Dyslipidemia. Hypertension. Hypothyroidism. Anemia. HAROLDO GODINEZ MD Aug 02, 2016 08:25
[2016-08-02] MEDS: PREGABALIN 25 MG CAP PO SCH ×2 (09:19→20:45)
[2016-08-02] MEDS: RANOLAZINE (SR) 500 MG TAB PO SCH ×2 (09:19→20:45)
[2016-08-02] MEDS: DOCUSATE SODIUM 100 MG CAP PO SCH ×2 (09:21→20:45)
[2016-08-02] MEDS: BETHANECHOL 25 MG TAB PO SCH ×3 (09:21→20:45)
[2016-08-02] MEDS: ASPIRIN (EC) 81 MG TAB PO SCH (09:21)
[2016-08-02] MEDS: LISINOPRIL 10 MG TAB PO SCH ×2 (09:21→20:46)
[2016-08-02] MEDS: FOLIC ACID 1 MG TAB PO SCH (09:22)
[2016-08-02] MEDS: LEVETIRACETAM 750 MG TAB PO SCH ×2 (09:22→20:45)
[2016-08-02] MEDS: ENOXAPARIN 30 MG/0.3 ML SYG SC SCH (09:24)
--- NOTE | 2016-08-02 13:10 | PN ---
Date/Time of Note Date/Time of Note DATE: 08/02/16 TIME: 13:09 Assessment/Plan VTE Prophylaxis VTE Prophylaxis Intervention: other Lines/Catheters Urinary Cath still in place: No Assessment/Plan Chief Complaint/Hosp Course - Acute left frontal cortical infarct. Patient with history of prior stroke. Continue aspirin. Continue PT, OT. - Seizure disorder, continue Keppra. - Left femoral neck fracture secondary to mechanical fall. Status post left hip humeral arthroplasty by Dr. Marshall, orthopedic surgery. - Macrocytic anemia. Stool for OB is neg. Status post blood transfusion. Continue to monitor hemoglobin and hematocrit. - Coronary artery disease, status post PCI. Continue aspirin and Ranexa. - Hypertension. Continue Coreg. - Dyslipidemia. Continue Lipitor. - Hypothyroidism. Continue Synthroid. - Urinary retention, continue current dose of Urecholine. Patient is evaluated by Dr. Singh in urology consultation. Problems: Subjective 24 Hr Interval Summary Free Text/Dictation Patient is not in room, unable to interview Exam/Review of Systems Vital Signs Vitals Vital Signs Date Time Temp Pulse Resp B/P Pulse Ox O2 Delivery O2 Flow Rate FiO2 08/01/16 20:27 98.2 64 18 157/70 97 08/01/16 08:00 Room Air Intake and Output 08/01/16 08/01/16 08/02/16 15:00 23:00 07:00 Intake Total 500 ml Output Total 1000 ml Balance -500 ml Exam Unable to examine as not in room Results Result Diagram: 08/01/16 0652 08/01/16 0652 Medications Medications Current Medications Acetaminophen (Tylenol Tab) 325 mg Q6H PRN PO PAIN AND OR ELEVATED TEMP Last administered on 07/27/16 21:11; Admin Dose 325 MG; Start 07/23/16 at 21:30 Aspirin (Halfprin) 81 mg DAILY PO Last administered on 08/02/16 09:21; Admin Dose 81 MG; Start 07/24/16 at 09:00 Atorvastatin Calcium (Lipitor) 80 mg QHS PO Last administered on 08/01/16 20: 19; Admin Dose 80 MG; Start 07/23/16 at 21:30 Clonidine (Catapres) 0.1 mg Q6H PRN PO ELEVATED BLOOD PRESSURE Last administered on 07/27/16 08:15; Admin Dose 0.1 MG; Start 07/23/16 at 21:30 Enoxaparin Sodium (Lovenox) 30 mg DAILY SC Last administered on 08/02/16 09:24 ; Admin Dose 30 MG; Start 07/24/16 at 09:00 Epoetin Rodney (Epogen (Non Esrd/Non Oncology)) 20,000 units Q7D SC Last administered on 07/28/16 18:45; Admin Dose 20,000 UNITS; Start 07/28/16 at 17: 00 Folic Acid (Folic Acid) 1 mg DAILY PO Last administered on 08/02/16 09:22; Admin Dose 1 MG; Start 07/24/16 at 09:00 Acetaminophen/ Hydrocodone Bitart ([place] (5/325)) 1 tab Q3H PRN PO PAIN Last administered on 08/01/16 20:18; Admin Dose 1 TAB; Start 07/23/16 at 21:30 Acetaminophen/ Hydrocodone Bitart ([place] (5/325)) 2 tab Q3H PRN PO PAIN LEVEL 4 -7 Last administered on 07/29/16 10:18; Admin Dose 2 TAB; Start 07/23/16 at 21: 30 Levetiracetam (Keppra) 750 mg BID PO Last administered on 08/02/16 09:22; Admin Dose 750 MG; Start 07/23/16 at 22:30 Levothyroxine Sodium (Synthroid) 50 mcg DAILY@06 PO Last administered on 06:49; Admin Dose 50 MCG; Start 07/24/16 at 06:00 Meclizine HCl (Antivert) 25 mg DAILY PRN PO DIZZINESS Last administered on 07/28 08:18; Admin Dose 25 MG; Start 07/23/16 at 21:30 Pantoprazole (Protonix Tab) 40 mg DAILY@06 PO Last administered on 08/02/16 06 :49; Admin Dose 40 MG; Start 07/24/16 at 06:00 Pregabalin (Lyrica) 25 mg BID PO Last administered on 08/02/16 09:19; Admin Dose 25 MG; Start 07/23/16 at 21:30 Quetiapine Fumarate (Seroquel) 25 mg HS PO Last administered on 08/01/16 20:18 ; Admin Dose 25 MG; Start 07/23/16 at 21:30 Ranolazine (Ranexa) 1,000 mg Q12 PO Last administered on 08/02/16 09:19; Admin Dose 1,000 MG; Start 07/23/16 at 22:30 Docusate Sodium (Colace) 100 mg BID PO Last administered on 08/02/16 09:21; Admin Dose 100 MG; Start 07/24/16 at 09:00 Lactulose (Enulose) 20 gm DAILY PRN PO CONSTIPATION; Start 07/23/16 at 22:00 Bisacodyl (Dulcolax Supp) 10 mg DAILY PRN [place] CONSTIPATION; Start 07/23/16 at 22: 00 Hydromorphone HCl (Dilaudid) 1 mg Q3H PRN IM PAIN LEVEL 8-10 Last administered on 07/28/16 18:32; Admin Dose 1 MG; Start 07/27/16 at 12:30 Carvedilol (Coreg) 12.5 mg BID PO Last administered on 08/02/16 09:20; Admin Dose 12.5 MG; Start 07/27/16 at 21:00 Bethanechol Chloride (Urecholine) 25 mg TID PO Last administered on 08/02/16 09:21; Admin Dose 25 MG; Start 07/31/16 at 21:00 Lisinopril (Zestril) 10 mg BID PO Last administered on 08/02/16 09:21; Admin Dose 10 MG; Start 08/01/16 at 21:00 YESSENIA MARIN 18, 2017 13:10
--- NOTE | 2016-08-02 13:16 | CONS ---
Date/Time of Note Date/Time of Note DATE: 08/02/16 TIME: 13:14 Assessment/Plan Assessment/Plan Additional Assessment/Plan 1. Acute kidney injury secondary to prerenal azotemia. improved 2. Possible chronic kidney disease from her previous medical problems of hypertension and coronary artery disease. 3. History of coronary artery disease with history of percutaneous coronary intervention in 2008. 4. History of cerebrovascular accident. 5. History of hypertension. 6. 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 Patient with history of prior stroke. Dr. Patel is following in neurology consultation. 7. Breakthrough seizure on keppra PLAN: Cr and electrolytes stable on last labs, BP has been running high so Lisinopril increased to 10mg PO BID, continue coreg BID - I will add amlodipine 5 mg po BID today Bp stable,a febrile, pt is having urinary retention and getting straight in and out, Urology following PO keppra for seizures will follow up Consultation Date/Type/Reason Admit Date/Time Jul 23, 2016 at 20:40 Type of Consultation: NEPHROLOGY Referring Provider: PRINCESS FISHER MD 24 HR Interval Summary Free Text/Dictation BP still running high Exam/Review of Systems Vital Signs Vitals Vital Signs Date Time Temp Pulse Resp B/P Pulse Ox O2 Delivery O2 Flow Rate FiO2 08/01/16 20:27 98.2 64 18 157/70 97 08/01/16 08:00 Room Air Intake and Output 08/01/16 08/01/16 08/02/16 15:00 23:00 07:00 Intake Total 500 ml Output Total 1000 ml Balance -500 ml Exam Constitutional: alert, well developed Psych: nl mood/affect Head: atraumatic Eyes: EOMI, nl sclera ENMT: nl external ears & nose Neck: non-tender Respiratory: clear to auscultation Cardiovascular: nl pulses Gastrointestinal: non-tender, soft Musculoskeletal: nl extremities to inspection Neurological: nl mental status Skin: nl turgor Lymph: nontender Results Result Diagram: 08/01/16 0652 08/01/16 0652 Medications Medications Current Medications Acetaminophen (Tylenol Tab) 325 mg Q6H PRN PO PAIN AND OR ELEVATED TEMP Last administered on 07/27/16t 21:11; Admin Dose 325 MG; Start 07/23/16 at 21:30 Aspirin (Halfprin) 81 mg DAILY PO Last administered on 08/02/16 09:21; Admin Dose 81 MG; Start 07/24/16 at 09:00 Atorvastatin Calcium (Lipitor) 80 mg QHS PO Last administered on 08/01/16 20: 19; Admin Dose 80 MG; Start 07/23/16 at 21:30 Clonidine (Catapres) 0.1 mg Q6H PRN PO ELEVATED BLOOD PRESSURE Last administered on 07/27/16 08:15; Admin Dose 0.1 MG; Start 07/23/16 at 21:30 Enoxaparin Sodium (Lovenox) 30 mg DAILY SC Last administered on 08/02/16 09:24 ; Admin Dose 30 MG; Start 07/24/16 at 09:00 Epoetin Rodney (Epogen (Non Esrd/Non Oncology)) 20,000 units Q7D SC Last administered on 07/28/16 18:45; Admin Dose 20,000 UNITS; Start 07/28/16 at 17: 00 Folic Acid (Folic Acid) 1 mg DAILY PO Last administered on 08/02/16 09:22; Admin Dose 1 MG; Start 07/24/16 at 09:00 Acetaminophen/ Hydrocodone Bitart ([place] (5/325)) 1 tab Q3H PRN PO PAIN Last administered on 08/01/16 20:18; Admin Dose 1 TAB; Start 07/23/16 at 21:30 Acetaminophen/ Hydrocodone Bitart ([place] (5/325)) 2 tab Q3H PRN PO PAIN LEVEL 4 -7 Last administered on 07/29/16 10:18; Admin Dose 2 TAB; Start 07/23/16 at 21: 30 Levetiracetam (Keppra) 750 mg BID PO Last administered on 08/02/16 09:22; Admin Dose 750 MG; Start 07/23/16 at 22:30 Levothyroxine Sodium (Synthroid) 50 mcg DAILY@06 PO Last administered on 06:49; Admin Dose 50 MCG; Start 07/24/16 at 06:00 Meclizine HCl (Antivert) 25 mg DAILY PRN PO DIZZINESS Last administered on 07/28 08:18; Admin Dose 25 MG; Start 07/23/16 at 21:30 Pantoprazole (Protonix Tab) 40 mg DAILY@06 PO Last administered on 08/02/16 06 :49; Admin Dose 40 MG; Start 07/24/16 at 06:00 Pregabalin (Lyrica) 25 mg BID PO Last administered on 08/02/16 09:19; Admin Dose 25 MG; Start 07/23/16 at 21:30 Quetiapine Fumarate (Seroquel) 25 mg HS PO Last administered on 08/01/16 20:18 ; Admin Dose 25 MG; Start 07/23/16 at 21:30 Ranolazine (Ranexa) 1,000 mg Q12 PO Last administered on 08/02/16 09:19; Admin Dose 1,000 MG; Start 07/23/16 at 22:30 Docusate Sodium (Colace) 100 mg BID PO Last administered on 08/02/16 09:21; Admin Dose 100 MG; Start 07/24/16 at 09:00 Lactulose (Enulose) 20 gm DAILY PRN PO CONSTIPATION; Start 07/23/16 at 22:00 Bisacodyl (Dulcolax Supp) 10 mg DAILY PRN [place] CONSTIPATION; Start 07/23/16 at 22: 00 Hydromorphone HCl (Dilaudid) 1 mg Q3H PRN IM PAIN LEVEL 8-10 Last administered on 07/28/16 18:32; Admin Dose 1 MG; Start 07/27/16 at 12:30 Carvedilol (Coreg) 12.5 mg BID PO Last administered on 08/02/16 09:20; Admin Dose 12.5 MG; Start 07/27/16 at 21:00 Bethanechol Chloride (Urecholine) 25 mg TID PO Last administered on 08/02/16 09:21; Admin Dose 25 MG; Start 07/31/16 at 21:00 Lisinopril (Zestril) 10 mg BID PO Last administered on 08/02/16 09:21; Admin Dose 10 MG; Start 08/01/16 at 21:00 ROLAND AYON MD Aug 02, 2016 13:16
[2016-08-02] MEDS ORDERED: AMLODIPINE 5 MG TAB PO ONE (13:30)
[2016-08-02 20:27] VITALS: BP 140/64; RESP 18
[2016-08-02] MEDS: QUETIAPINE 25 MG TAB PO SCH (20:45)
[2016-08-02] MEDS: ATORVASTATIN 80 MG TAB PO SCH (20:45)
[2016-08-02] MEDS: AMLODIPINE 5 MG TAB PO SCH (20:46)
--- NOTE | 2016-08-03 04:31 | PN ---
DATE: 08/02/2016 SUBJECTIVE: Urinary retention. The patient is comfortable and denies having any pain. OBJECTIVE VITAL SIGNS: Temperature is 98.2, pulse is 64, respiration 18, blood pressure 157/70. ABDOMEN: Soft. The patient voids about 200 mL each time. Her postvoid residual has been about 261 to 285; however, last night she needed to be catheterized because the postvoid residual was over 400 mL. She was ca theterized for 380. It appears like she does have problem emptying her bladder at night, and she do es better during the day. It may be also a possible side effect of medication and the fact that she is most relaxed at night. RECOMMENDATION: To continue to do straight catheterization on her as needed with a postvoid residua l of 300 or if she does not void and the bladder scan is over 500. Dictated By: MADISON URENA/ZHANG Conf#: [id number] DID#: [id number]
[2016-08-03] MEDS: PANTOPRAZOLE (EC) 40 MG TAB PO SCH (06:46)
[2016-08-03] MEDS: LEVOTHYROXINE 50 MCG TAB PO SCH (06:47)
[2016-08-03 08:15] VITALS: BP 138/65; PULSE 64; RESP 20
[2016-08-03] MEDS: RANOLAZINE (SR) 500 MG TAB PO SCH ×2 (10:02→20:56)
[2016-08-03] MEDS: PREGABALIN 25 MG CAP PO SCH ×2 (10:02→20:56)
[2016-08-03] MEDS: FOLIC ACID 1 MG TAB PO SCH (10:03)
[2016-08-03] MEDS: LISINOPRIL 10 MG TAB PO SCH ×2 (10:03→20:57)
[2016-08-03] MEDS: DOCUSATE SODIUM 100 MG CAP PO SCH ×2 (10:03→20:57)
[2016-08-03] MEDS: LEVETIRACETAM 750 MG TAB PO SCH ×2 (10:03→20:57)
[2016-08-03] MEDS: BETHANECHOL 25 MG TAB PO SCH ×3 (10:04→20:56)
[2016-08-03] MEDS: AMLODIPINE 5 MG TAB PO SCH ×2 (10:04→20:57)
[2016-08-03] MEDS: ASPIRIN (EC) 81 MG TAB PO SCH (10:04)
[2016-08-03] MEDS: ENOXAPARIN 30 MG/0.3 ML SYG SC SCH (10:05)
--- NOTE | 2016-08-03 12:38 | PN ---
Date/Time of Note Date/Time of Note DATE: 08/03/16 TIME: 12:37 Assessment/Plan VTE Prophylaxis VTE Prophylaxis Intervention: other Lines/Catheters Urinary Cath still in place: No Assessment/Plan Chief Complaint/Hosp Course - Acute left frontal cortical infarct. Patient with history of prior stroke. Continue aspirin. Continue PT, OT. - Seizure disorder, continue Keppra. - Left femoral neck fracture secondary to mechanical fall. Status post left hip humeral arthroplasty by Dr. Marshall, orthopedic surgery. - Macrocytic anemia. Stool for OB is neg. Status post blood transfusion. Continue to monitor hemoglobin and hematocrit. - Coronary artery disease, status post PCI. Continue aspirin and Ranexa. - Hypertension. Continue Coreg. - Dyslipidemia. Continue Lipitor. - Hypothyroidism. Continue Synthroid. - Urinary retention, continue current dose of Urecholine. Patient is evaluated by Dr. Singh in urology consultation. Problems: Subjective 24 Hr Interval Summary Free Text/Dictation Patient has no complaints Exam/Review of Systems Vital Signs Vitals Vital Signs Date Time Temp Pulse Resp B/P Pulse Ox O2 Delivery O2 Flow Rate FiO2 08/03/16 08:15 97.8 64 20 138/65 96 Room Air Intake and Output 08/02/16 08/02/16 08/03/16 15:00 23:00 07:00 Intake Total 700 ml 240 ml Output Total 2250 ml 860 ml Balance -1550 ml -620 ml Exam Constitutional: well developed Head: atraumatic, normocephalic Neck: supple Respiratory: clear to auscultation Cardiovascular: regular rate and rhythm Gastrointestinal: non-tender, soft Extremities: normal pulses Results Result Diagram: 08/01/16 0652 08/01/16 0652 Medications Medications Current Medications Acetaminophen (Tylenol Tab) 325 mg Q6H PRN PO PAIN AND OR ELEVATED TEMP Last administered on 07/27/16 21:11; Admin Dose 325 MG; Start 07/23/16 at 21:30 Aspirin (Halfprin) 81 mg DAILY PO Last administered on 08/03/16 10:04; Admin Dose 81 MG; Start 07/24/16 at 09:00 Atorvastatin Calcium (Lipitor) 80 mg QHS PO Last administered on 08/02/16 20: 45; Admin Dose 80 MG; Start 07/23/16 at 21:30 Clonidine (Catapres) 0.1 mg Q6H PRN PO ELEVATED BLOOD PRESSURE Last administered on 07/27/16 08:15; Admin Dose 0.1 MG; Start 07/23/16 at 21:30 Enoxaparin Sodium (Lovenox) 30 mg DAILY SC Last administered on 08/03/16 10:05 ; Admin Dose 30 MG; Start 07/24/16 at 09:00 Epoetin Rodney (Epogen (Non Esrd/Non Oncology)) 20,000 units Q7D SC Last administered on 07/28/16 18:45; Admin Dose 20,000 UNITS; Start 07/28/16 at 17: 00 Folic Acid (Folic Acid) 1 mg DAILY PO Last administered on 08/03/16 10:03; Admin Dose 1 MG; Start 07/24/16 at 09:00 Acetaminophen/ Hydrocodone Bitart ([place] (5/325)) 1 tab Q3H PRN PO PAIN Last administered on 08/01/16 20:18; Admin Dose 1 TAB; Start 07/23/16 at 21:30 Acetaminophen/ Hydrocodone Bitart ([place] (5/325)) 2 tab Q3H PRN PO PAIN LEVEL 4 -7 Last administered on 07/29/16 10:18; Admin Dose 2 TAB; Start 07/23/16 at 21: 30 Levetiracetam (Keppra) 750 mg BID PO Last administered on 08/03/16 10:03; Admin Dose 750 MG; Start 07/23/16 at 22:30 Levothyroxine Sodium (Synthroid) 50 mcg DAILY@06 PO Last administered on 06:47; Admin Dose 50 MCG; Start 07/24/16 at 06:00 Meclizine HCl (Antivert) 25 mg DAILY PRN PO DIZZINESS Last administered on 07/28 08:18; Admin Dose 25 MG; Start 07/23/16 at 21:30 Pantoprazole (Protonix Tab) 40 mg DAILY@06 PO Last administered on 08/03/16 06 :46; Admin Dose 40 MG; Start 07/24/16 at 06:00 Pregabalin (Lyrica) 25 mg BID PO Last administered on 08/03/16 10:02; Admin Dose 25 MG; Start 07/23/16 at 21:30 Quetiapine Fumarate (Seroquel) 25 mg HS PO Last administered on 08/02/16 20:45 ; Admin Dose 25 MG; Start 07/23/16 at 21:30 Ranolazine (Ranexa) 1,000 mg Q12 PO Last administered on 08/03/16 10:02; Admin Dose 1,000 MG; Start 07/23/16 at 22:30 Docusate Sodium (Colace) 100 mg BID PO Last administered on 08/03/16 10:03; Admin Dose 100 MG; Start 07/24/16 at 09:00 Lactulose (Enulose) 20 gm DAILY PRN PO CONSTIPATION; Start 07/23/16 at 22:00 Bisacodyl (Dulcolax Supp) 10 mg DAILY PRN [place] CONSTIPATION; Start 07/23/16 at 22: 00 Hydromorphone HCl (Dilaudid) 1 mg Q3H PRN IM PAIN LEVEL 8-10 Last administered on 07/28/16 18:32; Admin Dose 1 MG; Start 07/27/16 at 12:30 Carvedilol (Coreg) 12.5 mg BID PO Last administered on 08/03/16 10:03; Admin Dose 12.5 MG; Start 07/27/16 at 21:00 Bethanechol Chloride (Urecholine) 25 mg TID PO Last administered on 08/03/16 10:04; Admin Dose 25 MG; Start 07/31/16 at 21:00 Lisinopril (Zestril) 10 mg BID PO Last administered on 08/03/16 10:03; Admin Dose 10 MG; Start 08/01/16 at 21:00 Amlodipine Besylate (Norvasc) 5 mg BID PO Last administered on 08/03/16 10:04 ; Admin Dose 5 MG; Start 08/02/16 at 21:00 YESSENIA MARIN 19, 2017 12:37
[2016-08-03 19:44] VITALS: BP 142/67; RESP 18
[2016-08-03] MEDS: ATORVASTATIN 80 MG TAB PO SCH (20:56)
[2016-08-03] MEDS: QUETIAPINE 25 MG TAB PO SCH (20:57)
--- NOTE | 2016-08-03 21:34 | CONS ---
Date/Time of Note Date/Time of Note DATE: 08/03/16 TIME: 21:33 Assessment/Plan Assessment/Plan Additional Assessment/Plan 1. Acute kidney injury secondary to prerenal azotemia. improved 2. Possible chronic kidney disease from her previous medical problems of hypertension and coronary artery disease. 3. History of coronary artery disease with history of percutaneous coronary intervention in 2008. 4. History of cerebrovascular accident. 5. History of hypertension. 6. 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 Patient with history of prior stroke. Dr. Patel is following in neurology consultation. 7. Breakthrough seizure on keppra PLAN: Cr and electrolytes stable on last labs, BP has been running high so Lisinopril increased to 10mg PO BID, continue coreg BID - amlodipine 5 mg po BID added , Now BP controlled well Bp stable,a febrile, pt is having urinary retention and getting straight in and out, Urology following PO keppra for seizures will follow up Consultation Date/Type/Reason Admit Date/Time Jul 23, 2016 at 20:40 Type of Consultation: NEPHROLOGY Referring Provider: PRINCESS FISHER MD 24 HR Interval Summary Free Text/Dictation stable BP< afebrile Exam/Review of Systems Vital Signs Vitals Vital Signs Date Time Temp Pulse Resp B/P Pulse Ox O2 Delivery O2 Flow Rate FiO2 08/03/16 19:44 98.3 67 18 142/67 98 08/03/16 08:15 Room Air Intake and Output 08/02/16 08/02/16 08/03/16 15:00 23:00 07:00 Intake Total 700 ml 240 ml Output Total 2250 ml 860 ml Balance -1550 ml -620 ml Results Result Diagram: 08/01/16 0652 08/01/16 0652 Medications Medications Current Medications Acetaminophen (Tylenol Tab) 325 mg Q6H PRN PO PAIN AND OR ELEVATED TEMP Last administered on 07/27/16 21:11; Admin Dose 325 MG; Start 07/23/16 at 21:30 Aspirin (Halfprin) 81 mg DAILY PO Last administered on 08/03/16 10:04; Admin Dose 81 MG; Start 07/24/16 at 09:00 Atorvastatin Calcium (Lipitor) 80 mg QHS PO Last administered on 08/03/16 20: 56; Admin Dose 80 MG; Start 07/23/16 at 21:30 Clonidine (Catapres) 0.1 mg Q6H PRN PO ELEVATED BLOOD PRESSURE Last administered on 07/27/16 08:15; Admin Dose 0.1 MG; Start 07/23/16 at 21:30 Enoxaparin Sodium (Lovenox) 30 mg DAILY SC Last administered on 08/03/16 10:05 ; Admin Dose 30 MG; Start 07/24/16 at 09:00 Epoetin Rodney (Epogen (Non Esrd/Non Oncology)) 20,000 units Q7D SC Last administered on 07/28/16 18:45; Admin Dose 20,000 UNITS; Start 07/28/16 at 17: 00 Folic Acid (Folic Acid) 1 mg DAILY PO Last administered on 08/03/16 10:03; Admin Dose 1 MG; Start 07/24/16 at 09:00 Acetaminophen/ Hydrocodone Bitart ([place] (5/325)) 1 tab Q3H PRN PO PAIN Last administered on 08/01/16 20:18; Admin Dose 1 TAB; Start 07/23/16 at 21:30 Acetaminophen/ Hydrocodone Bitart ([place] (5/325)) 2 tab Q3H PRN PO PAIN LEVEL 4 -7 Last administered on 07/29/16 10:18; Admin Dose 2 TAB; Start 07/23/16 at 21: 30 Levetiracetam (Keppra) 750 mg BID PO Last administered on 08/03/16 20:57; Admin Dose 750 MG; Start 07/23/16 at 22:30 Levothyroxine Sodium (Synthroid) 50 mcg DAILY@06 PO Last administered on 06:47; Admin Dose 50 MCG; Start 07/24/16 at 06:00 Meclizine HCl (Antivert) 25 mg DAILY PRN PO DIZZINESS Last administered on 07/28 08:18; Admin Dose 25 MG; Start 07/23/16 at 21:30 Pantoprazole (Protonix Tab) 40 mg DAILY@06 PO Last administered on 08/03/16 06 :46; Admin Dose 40 MG; Start 07/24/16 at 06:00 Pregabalin (Lyrica) 25 mg BID PO Last administered on 08/03/16 20:56; Admin Dose 25 MG; Start 07/23/16 at 21:30 Quetiapine Fumarate (Seroquel) 25 mg HS PO Last administered on 08/03/16 20:57 ; Admin Dose 25 MG; Start 07/23/16 at 21:30 Ranolazine (Ranexa) 1,000 mg Q12 PO Last administered on 08/03/16 20:56; Admin Dose 1,000 MG; Start 07/23/16 at 22:30 Docusate Sodium (Colace) 100 mg BID PO Last administered on 08/03/16 20:57; Admin Dose 100 MG; Start 07/24/16 at 09:00 Lactulose (Enulose) 20 gm DAILY PRN PO CONSTIPATION; Start 07/23/16 at 22:00 Bisacodyl (Dulcolax Supp) 10 mg DAILY PRN [place] CONSTIPATION; Start 07/23/16 at 22: 00 Hydromorphone HCl (Dilaudid) 1 mg Q3H PRN IM PAIN LEVEL 8-10 Last administered on 07/28/16 18:32; Admin Dose 1 MG; Start 07/27/16 at 12:30 Carvedilol (Coreg) 12.5 mg BID PO Last administered on 08/03/16 20:56; Admin Dose 12.5 MG; Start 07/27/16 at 21:00 Bethanechol Chloride (Urecholine) 25 mg TID PO Last administered on 08/03/16 20:56; Admin Dose 25 MG; Start 07/31/16 at 21:00 Lisinopril (Zestril) 10 mg BID PO Last administered on 08/03/16 20:57; Admin Dose 10 MG; Start 08/01/16 at 21:00 Amlodipine Besylate (Norvasc) 5 mg BID PO Last administered on 08/03/16 20:57 ; Admin Dose 5 MG; Start 08/02/16 at 21:00 ROLAND AYON MD Aug 03, 2016 21:34
[2016-08-04] MEDS: LEVOTHYROXINE 50 MCG TAB PO SCH (06:09)
[2016-08-04] MEDS: PANTOPRAZOLE (EC) 40 MG TAB PO SCH (06:09)
[2016-08-04 07:30] VITALS: BP 122/57; RESP 18
--- NOTE | 2016-08-04 09:23 | CONS ---
Date/Time of Note Date/Time of Note DATE: 08/04/16 TIME: 09:19 Assessment/Plan Assessment/Plan Additional Assessment/Plan 1. Acute kidney injury secondary to prerenal azotemia. improved 2. Possible chronic kidney disease from her previous medical problems of hypertension and coronary artery disease. 3. History of coronary artery disease with history of percutaneous coronary intervention in 2008. 4. History of cerebrovascular accident. 5. History of hypertension. 6. 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 Patient with history of prior stroke. Dr. Patel is following in neurology consultation. 7. Breakthrough seizure on keppra 8. Urinary retention with foul smelling urine, PLAN: Cr and electrolytes stable on last labs, BP not better controlled with Lisinopril increased to 10mg PO BID,Coreg BID and amlodipine 5 mg po BID AMLabs has been ordered for tomorrow due to foul smelling urine and recurrent PVR- will send UA and Urine cx pt is still having urinary retention, Urology following PO keppra for seizures will follow up Consultation Date/Type/Reason Admit Date/Time Jul 23, 2016 at 20:40 Type of Consultation: NEPHROLOGY Referring Provider: PRINCESS FISHER MD 24 HR Interval Summary Free Text/Dictation Last labs showed normal Cr and electrolytes on 08/01, no labs today, pt feel better, BP showed improved control now pt still having PVR and foul smelling urine, Exam/Review of Systems Vital Signs Vitals Vital Signs Date Time Temp Pulse Resp B/P Pulse Ox O2 Delivery O2 Flow Rate FiO2 08/03/16 19:44 98.3 67 18 142/67 98 08/03/16 08:15 Room Air Intake and Output 08/03/16 08/03/16 08/04/16 14:59 22:59 06:59 Intake Total 1420 ml 240 ml 360 ml Output Total 430 ml 250 ml Balance 990 ml 240 ml 110 ml Exam Constitutional: alert, well developed Psych: nl mood/affect Head: atraumatic Eyes: EOMI, nl sclera ENMT: nl external ears & nose Neck: non-tender Respiratory: clear to auscultation Cardiovascular: nl pulses Gastrointestinal: non-tender, soft Musculoskeletal: nl extremities to inspection Neurological: nl mental status Skin: nl turgor Lymph: nontender Results Result Diagram: 08/01/1652 08/01/1652 Medications Medications Current Medications Acetaminophen (Tylenol Tab) 325 mg Q6H PRN PO PAIN AND OR ELEVATED TEMP Last administered on 07/27/16 21:11; Admin Dose 325 MG; Start 07/23/16 at 21:30 Aspirin (Halfprin) 81 mg DAILY PO Last administered on 08/03/16 10:04; Admin Dose 81 MG; Start 07/24/16 at 09:00 Atorvastatin Calcium (Lipitor) 80 mg QHS PO Last administered on 08/03/16 20: 56; Admin Dose 80 MG; Start 07/23/16 at 21:30 Clonidine (Catapres) 0.1 mg Q6H PRN PO ELEVATED BLOOD PRESSURE Last administered on 07/27/16 08:15; Admin Dose 0.1 MG; Start 07/23/16 at 21:30 Enoxaparin Sodium (Lovenox) 30 mg DAILY SC Last administered on 08/03/16 10:05 ; Admin Dose 30 MG; Start 07/24/16 at 09:00 Epoetin Rodney (Epogen (Non Esrd/Non Oncology)) 20,000 units Q7D SC Last administered on 07/28/16 18:45; Admin Dose 20,000 UNITS; Start 07/28/16 at 17: 00 Folic Acid (Folic Acid) 1 mg DAILY PO Last administered on 08/03/16 10:03; Admin Dose 1 MG; Start 07/24/16 at 09:00 Acetaminophen/ Hydrocodone Bitart ([place] (5/325)) 1 tab Q3H PRN PO PAIN Last administered on 08/01/16 20:18; Admin Dose 1 TAB; Start 07/23/16 at 21:30 Acetaminophen/ Hydrocodone Bitart ([place] (5/325)) 2 tab Q3H PRN PO PAIN LEVEL 4 -7 Last administered on 07/29/16 10:18; Admin Dose 2 TAB; Start 07/23/16 at 21: 30 Levetiracetam (Keppra) 750 mg BID PO Last administered on 08/03/16 20:57; Admin Dose 750 MG; Start 07/23/16 at 22:30 Levothyroxine Sodium (Synthroid) 50 mcg DAILY@06 PO Last administered on 06:09; Admin Dose 50 MCG; Start 07/24/16 at 06:00 Meclizine HCl (Antivert) 25 mg DAILY PRN PO DIZZINESS Last administered on 07/28 08:18; Admin Dose 25 MG; Start 07/23/16 at 21:30 Pantoprazole (Protonix Tab) 40 mg DAILY@06 PO Last administered on 08/04/16 06 :09; Admin Dose 40 MG; Start 07/24/16 at 06:00 Pregabalin (Lyrica) 25 mg BID PO Last administered on 08/03/16 20:56; Admin Dose 25 MG; Start 07/23/16 at 21:30 Quetiapine Fumarate (Seroquel) 25 mg HS PO Last administered on 08/03/16 20:57 ; Admin Dose 25 MG; Start 07/23/16 at 21:30 Ranolazine (Ranexa) 1,000 mg Q12 PO Last administered on 08/03/16 20:56; Admin Dose 1,000 MG; Start 07/23/16 at 22:30 Docusate Sodium (Colace) 100 mg BID PO Last administered on 08/03/16 20:57; Admin Dose 100 MG; Start 07/24/16 at 09:00 Lactulose (Enulose) 20 gm DAILY PRN PO CONSTIPATION; Start 07/23/16 at 22:00 Bisacodyl (Dulcolax Supp) 10 mg DAILY PRN [place] CONSTIPATION; Start 07/23/16 at 22: 00 Hydromorphone HCl (Dilaudid) 1 mg Q3H PRN IM PAIN LEVEL 8-10 Last administered on 07/28/16 18:32; Admin Dose 1 MG; Start 07/27/16 at 12:30 Carvedilol (Coreg) 12.5 mg BID PO Last administered on 08/03/16 20:56; Admin Dose 12.5 MG; Start 07/27/16 at 21:00 Bethanechol Chloride (Urecholine) 25 mg TID PO Last administered on 08/03/16 20:56; Admin Dose 25 MG; Start 07/31/16 at 21:00 Lisinopril (Zestril) 10 mg BID PO Last administered on 08/03/16 20:57; Admin Dose 10 MG; Start 08/01/16 at 21:00 Amlodipine Besylate (Norvasc) 5 mg BID PO Last administered on 08/03/16t 20:57 ; Admin Dose 5 MG; Start 08/02/16 at 21:00 ROLAND AYON MD Aug 04, 2016 09:23
[2016-08-04] MEDS: BETHANECHOL 25 MG TAB PO SCH ×3 (10:03→20:57)
[2016-08-04] MEDS: FOLIC ACID 1 MG TAB PO SCH (10:04)
[2016-08-04] MEDS: PREGABALIN 25 MG CAP PO SCH ×2 (10:04→20:56)
[2016-08-04] MEDS: DOCUSATE SODIUM 100 MG CAP PO SCH ×2 (10:04→20:57)
[2016-08-04] MEDS: AMLODIPINE 5 MG TAB PO SCH ×2 (10:04→20:58)
[2016-08-04] MEDS: ASPIRIN (EC) 81 MG TAB PO SCH (10:04)
[2016-08-04] MEDS: LEVETIRACETAM 750 MG TAB PO SCH ×2 (10:04→20:57)
[2016-08-04] MEDS: LISINOPRIL 10 MG TAB PO SCH ×2 (10:05→20:57)
[2016-08-04] MEDS: RANOLAZINE (SR) 500 MG TAB PO SCH ×2 (10:05→20:57)
[2016-08-04] MEDS: ENOXAPARIN 30 MG/0.3 ML SYG SC SCH (10:07)
--- NOTE | 2016-08-04 12:03 | CONS ---
Date/Time of Note Date/Time of Note DATE: 08/04/16 TIME: 12:02 Consult Date/Type/Reason Admit Date/Time Jul 23, 2016 at 20:40 Type of Consultation: NEPHROLOGY Ordering Provider: PRINCESS FISHER MD Objective Vital Signs Date Time Temp Pulse Resp B/P Pulse Ox O2 Delivery O2 Flow Rate FiO2 08/03/16 19:44 98.3 67 18 142/67 98 08/03/16 08:15 Room Air Intake and Output 08/03/16 08/03/16 08/04/16 14:59 22:59 06:59 Intake Total 1420 ml 240 ml 360 ml Output Total 430 ml 250 ml Balance 990 ml 240 ml 110 ml INTERDISCIPLINARY TEAM CONFERENCE BOWEL- Cont BLADDER-Cont/incont-retention SKIN- intact OT- DRESSING-min BATHING-min TOILETING-min PT- BED MOBILITY-min TRANSFERS-min AMBULATION-min 60 feet W.C. MOBILITY-cga SPEECH- COGNITION-min A/P- Interdisciplinary team conference held today. Please see interdisciplinary sheet. Working toward d.c. on 08/06 with post discharge follow up of physical therapy, occupational therapy. Results/Medications Result Diagram: 08/01/16 0652 08/01/16 0652 Medications Current Medications Acetaminophen (Tylenol Tab) 325 mg Q6H PRN PO PAIN AND OR ELEVATED TEMP Last administered on 07/27/16 21:11; Admin Dose 325 MG; Start 07/23/16 at 21:30 Aspirin (Halfprin) 81 mg DAILY PO Last administered on 08/04/16 10:04; Admin Dose 81 MG; Start 07/24/16 at 09:00 Atorvastatin Calcium (Lipitor) 80 mg QHS PO Last administered on 08/03/16 20: 56; Admin Dose 80 MG; Start 07/23/16 at 21:30 Clonidine (Catapres) 0.1 mg Q6H PRN PO ELEVATED BLOOD PRESSURE Last administered on 07/27/16 08:15; Admin Dose 0.1 MG; Start 07/23/16 at 21:30 Enoxaparin Sodium (Lovenox) 30 mg DAILY SC Last administered on 08/04/16 10:07 ; Admin Dose 30 MG; Start 07/24/16 at 09:00 Epoetin Rodney (Epogen (Non Esrd/Non Oncology)) 20,000 units Q7D SC Last administered on 07/28/16 18:45; Admin Dose 20,000 UNITS; Start 07/28/16 at 17: 00 Folic Acid (Folic Acid) 1 mg DAILY PO Last administered on 08/04/16 10:04; Admin Dose 1 MG; Start 07/24/16 at 09:00 Acetaminophen/ Hydrocodone Bitart ([place] (5/325)) 1 tab Q3H PRN PO PAIN Last administered on 08/01/16 20:18; Admin Dose 1 TAB; Start 07/23/16 at 21:30 Acetaminophen/ Hydrocodone Bitart ([place] (5/325)) 2 tab Q3H PRN PO PAIN LEVEL 4 -7 Last administered on 07/29/16 10:18; Admin Dose 2 TAB; Start 07/23/16 at 21: 30 Levetiracetam (Keppra) 750 mg BID PO Last administered on 08/04/16 10:04; Admin Dose 750 MG; Start 07/23/16 at 22:30 Levothyroxine Sodium (Synthroid) 50 mcg DAILY@06 PO Last administered on 06:09; Admin Dose 50 MCG; Start 07/24/16 at 06:00 Meclizine HCl (Antivert) 25 mg DAILY PRN PO DIZZINESS Last administered on 07/28 08:18; Admin Dose 25 MG; Start 07/23/16 at 21:30 Pantoprazole (Protonix Tab) 40 mg DAILY@06 PO Last administered on 08/04/16 06 :09; Admin Dose 40 MG; Start 07/24/16 at 06:00 Pregabalin (Lyrica) 25 mg BID PO Last administered on 08/04/16 10:04; Admin Dose 25 MG; Start 07/23/16 at 21:30 Quetiapine Fumarate (Seroquel) 25 mg HS PO Last administered on 08/03/16 20:57 ; Admin Dose 25 MG; Start 07/23/16 at 21:30 Ranolazine (Ranexa) 1,000 mg Q12 PO Last administered on 08/04/16 10:05; Admin Dose 1,000 MG; Start 07/23/16 at 22:30 Docusate Sodium (Colace) 100 mg BID PO Last administered on 08/04/16 10:04; Admin Dose 100 MG; Start 07/24/16 at 09:00 Lactulose (Enulose) 20 gm DAILY PRN PO CONSTIPATION; Start 07/23/16 at 22:00 Bisacodyl (Dulcolax Supp) 10 mg DAILY PRN [place] CONSTIPATION; Start 07/23/16 at 22: 00 Hydromorphone HCl (Dilaudid) 1 mg Q3H PRN IM PAIN LEVEL 8-10 Last administered on 07/28/16 18:32; Admin Dose 1 MG; Start 07/27/16 at 12:30 Carvedilol (Coreg) 12.5 mg BID PO Last administered on 08/04/16 10:05; Admin Dose 12.5 MG; Start 07/27/16 at 21:00 Bethanechol Chloride (Urecholine) 25 mg TID PO Last administered on 08/04/16 10:03; Admin Dose 25 MG; Start 07/31/16 at 21:00 Lisinopril (Zestril) 10 mg BID PO Last administered on 08/04/16 10:05; Admin Dose 10 MG; Start 08/01/16 at 21:00 Amlodipine Besylate (Norvasc) 5 mg BID PO Last administered on 08/04/16 10:04 ; Admin Dose 5 MG; Start 08/02/16 at 21:00 HAROLDO GODINEZ MD Aug 04, 2016 12:03
--- NOTE | 2016-08-04 13:55 | PN ---
Date/Time of Note Date/Time of Note DATE: 08/04/16 TIME: 13:52 Assessment/Plan VTE Prophylaxis VTE Prophylaxis Intervention: SCD's Lines/Catheters Urinary Cath still in place: No Assessment/Plan Chief Complaint/Hosp Course Assessment and plan - Acute left frontal cortical infarct. Patient with history of prior stroke. Continue aspirin. Continue PT, OT. - Seizure disorder, continue Keppra. - Left femoral neck fracture secondary to mechanical fall. Status post left hip humeral arthroplasty by Dr. Marshall, orthopedic surgery. - Macrocytic anemia, stable. Continue to monitor hemoglobin and hematocrit. - Coronary artery disease, status post PCI. Continue aspirin and Ranexa. - Hypertension. Continue Coreg. - Dyslipidemia. Continue Lipitor. - Hypothyroidism. Continue Synthroid. - Urinary retention, continue current dose of Urecholine. Patient is evaluated by Dr. Singh in urology consultation. Further recommendations based on clinical course. Plan of care discussed with Dr. Robertson. Problems: Subjective 24 Hr Interval Summary Free Text/Dictation Patient is progresses with physical therapy, pain is well controlled, no seizure activity. Exam/Review of Systems Vital Signs Vitals Vital Signs Date Time Temp Pulse Resp B/P Pulse Ox O2 Delivery O2 Flow Rate FiO2 08/03/16 19:44 98.3 67 18 142/67 98 08/03/16 08:15 Room Air Intake and Output 08/03/16 08/03/16 08/04/16 15:00 23:00 07:00 Intake Total 1420 ml 240 ml 360 ml Output Total 430 ml 250 ml Balance 990 ml 240 ml 110 ml Exam Constitutional: alert, oriented Psych: no complaints Head: atraumatic, normocephalic Eyes: nl conjunctiva ENMT: nl external ears & nose Neck: non-tender, supple Respiratory: clear to auscultation, normal air movement Cardiovascular: nl pulses, regular rate and rhythm Gastrointestinal: non-tender, soft Musculoskeletal: nl extremities to inspection, other (Status post left hip surgery) Extremities: normal pulses Neurological: [employer] II-XII intact Skin: nl turgor Results Result Diagram: 08/01/1652 08/01/16 0652 Medications Medications Current Medications Acetaminophen (Tylenol Tab) 325 mg Q6H PRN PO PAIN AND OR ELEVATED TEMP Last administered on 07/27/16t 21:11; Admin Dose 325 MG; Start 07/23/16 at 21:30 Aspirin (Halfprin) 81 mg DAILY PO Last administered on 08/04/16 10:04; Admin Dose 81 MG; Start 07/24/16 at 09:00 Atorvastatin Calcium (Lipitor) 80 mg QHS PO Last administered on 08/03/16 20: 56; Admin Dose 80 MG; Start 07/23/16 at 21:30 Clonidine (Catapres) 0.1 mg Q6H PRN PO ELEVATED BLOOD PRESSURE Last administered on 07/27/16 08:15; Admin Dose 0.1 MG; Start 07/23/16 at 21:30 Enoxaparin Sodium (Lovenox) 30 mg DAILY SC Last administered on 08/04/16 10:07 ; Admin Dose 30 MG; Start 07/24/16 at 09:00 Epoetin Rodney (Epogen (Non Esrd/Non Oncology)) 20,000 units Q7D SC Last administered on 07/28/16 18:45; Admin Dose 20,000 UNITS; Start 07/28/16 at 17: 00 Folic Acid (Folic Acid) 1 mg DAILY PO Last administered on 08/04/16 10:04; Admin Dose 1 MG; Start 07/24/16 at 09:00 Acetaminophen/ Hydrocodone Bitart ([place] (5/325)) 1 tab Q3H PRN PO PAIN Last administered on 08/01/16 20:18; Admin Dose 1 TAB; Start 07/23/16 at 21:30 Acetaminophen/ Hydrocodone Bitart ([place] (5/325)) 2 tab Q3H PRN PO PAIN LEVEL 4 -7 Last administered on 07/29/16 10:18; Admin Dose 2 TAB; Start 07/23/16 at 21: 30 Levetiracetam (Keppra) 750 mg BID PO Last administered on 08/04/16 10:04; Admin Dose 750 MG; Start 07/23/16 at 22:30 Levothyroxine Sodium (Synthroid) 50 mcg DAILY@06 PO Last administered on 06:09; Admin Dose 50 MCG; Start 07/24/16 at 06:00 Meclizine HCl (Antivert) 25 mg DAILY PRN PO DIZZINESS Last administered on 07/28 08:18; Admin Dose 25 MG; Start 07/23/16 at 21:30 Pantoprazole (Protonix Tab) 40 mg DAILY@06 PO Last administered on 08/04/16 06 :09; Admin Dose 40 MG; Start 07/24/16 at 06:00 Pregabalin (Lyrica) 25 mg BID PO Last administered on 08/04/16 10:04; Admin Dose 25 MG; Start 07/23/16 at 21:30 Quetiapine Fumarate (Seroquel) 25 mg HS PO Last administered on 08/03/16 20:57 ; Admin Dose 25 MG; Start 07/23/16 at 21:30 Ranolazine (Ranexa) 1,000 mg Q12 PO Last administered on 08/04/16 10:05; Admin Dose 1,000 MG; Start 07/23/16 at 22:30 Docusate Sodium (Colace) 100 mg BID PO Last administered on 08/04/16 10:04; Admin Dose 100 MG; Start 07/24/16 at 09:00 Lactulose (Enulose) 20 gm DAILY PRN PO CONSTIPATION Last administered on 13:49; Admin Dose 20 GM; Start 07/23/16 at 22:00 Bisacodyl (Dulcolax Supp) 10 mg DAILY PRN [place] CONSTIPATION; Start 07/23/16 at 22: 00 Hydromorphone HCl (Dilaudid) 1 mg Q3H PRN IM PAIN LEVEL 8-10 Last administered on 07/28/16 18:32; Admin Dose 1 MG; Start 07/27/16 at 12:30 Carvedilol (Coreg) 12.5 mg BID PO Last administered on 08/04/16 10:05; Admin Dose 12.5 MG; Start 07/27/16 at 21:00 Bethanechol Chloride (Urecholine) 25 mg TID PO Last administered on 08/04/16 13:49; Admin Dose 25 MG; Start 07/31/16 at 21:00 Lisinopril (Zestril) 10 mg BID PO Last administered on 08/04/16 10:05; Admin Dose 10 MG; Start 08/01/16 at 21:00 Amlodipine Besylate (Norvasc) 5 mg BID PO Last administered on 08/04/16 10:04 ; Admin Dose 5 MG; Start 08/02/16 at 21:00 ILAN GALDAMEZ Aug 04, 2016 13:55
[2016-08-04 14:26] LABS: ADD UMIC YES; URINE BILIRUBIN (Dip) NEGATIVE (NEGATIVE); URINE BLOOD (Dip) 2+ (NEGATIVE); URINE COLOR YELLOW (YELLOW); URINE GLUCOSE (Dip) NEGATIVE (NEGATIVE); URINE KETONES (Dip) NEGATIVE (NEGATIVE); URINE LEUKOCYTE ESTERASE (Dip) 3+ (NEGATIVE); URINE NITRITE (Dip) POSITIVE (NEGATIVE); URINE TOTAL PROTEIN (Dip) TRACE (NEGATIVE); URINE UROBILINOGEN (Dip) 0.2 E.U./dL (0.1-1.0)
[2016-08-04 14:46] LABS: BACTERIA,URINE MANY
[2016-08-04] MEDS: EPOETIN 10000 UNITS/ML (NON ESRD/NON ONCOLOGY) SC SCH (17:00)
--- NOTE | 2016-08-04 17:03 | RADRPT ---
PROCEDURE: CT Brain without contrast. CLINICAL INDICATION: Seizure. TECHNIQUE: A CT of the brain without contrast was performed utilizing axial sections from the skul l base through the vertex. The patient was scanned without intravenous contrast enhancement. Sagitta l and coronal reformatted images were obtained using the data from the axial images. Total exam DLP is 630.20 mGy-cm. CTDIvol is 44.19 mGy. One or more of the following dose reduction techniques were used: Automated exposure control, adjustment of the mA and/or kV according to patient size, use of iterative reconstruction technique. COMPARISON: None available. FINDINGS: There is normal meyer-white matter differentiation. There is enlargement of the ventricles and subarachnoid spaces consistent with atrophy. There is decreased attenuation of the periventricular white matter consistent with microangiopathic ischemic change. There is an old lacunar infarct in the left basal ganglia. There is an old infarct involving the right external capsule. There is no evidence of recent infarct. There is no intracranial hemorrhage or space-occupying lesion. There are vascular calcifications consistent with atherosclerosis. There is no skull fracture or lytic lesion. IMPRESSION: 1. Atrophy. 2. Microangiopathic ischemic change. 3. Atherosclerosis. 4. Old lacunar infarct in the left basal ganglia and old infarct in the right external capsule. 5. No acute infarct or intracranial hemorrhage. 6. Otherwise unremarkable noncontrast CT scan of the brain. RPTAT: QQ .Aaron Camarena MD, MD Date Time Electronically viewed and signed by .Aaron Camarena MD, on 08/04/2016 17:02 .R/
[2016-08-04] MEDS: CIPROFLOXACIN 500 MG TAB PO SCH (17:58)
[2016-08-04 20:26] VITALS: BP 117/57; RESP 20
[2016-08-04] MEDS: QUETIAPINE 25 MG TAB PO SCH (20:57)
[2016-08-04] MEDS: ATORVASTATIN 80 MG TAB PO SCH (20:58)
--- NOTE | 2016-08-05 04:25 | PN ---
DATE: 08/04/2016 SUBJECTIVE: Incomplete bladder emptying. The patient does have more problems urinating at night th an during the day. OBJECTIVE: VITAL SIGNS: The patient is afebrile. Temperature is 99.0. The pulse is 70, respiration 18, blood pressure 122/57. She is sitting up in the chair and eating. According to the nurse's note, this patient last night v oided 150. Her postvoid residual was 203. At around 11:00 p.m., she voided 100 and her postvoid re sidual was 342 and it appears that she was not catheterized and at 1:30 in the morning she voided, b ut the PVR was 108. At 4:00 in the morning she voided and the postvoid residual was 134 and during the day today she voided 300. PVR was 179, then 255 and PVR 123, then 225 and the PVR was 108. The n in the afternoon she voided 180 and PVR was 202 and at 4 p.m. she voided 350 and the postvoid resi dual is 150. According to the nurses, her urine output had a bad smell in it. Therefore, a urinaly sis was ordered, and the urine showed 3+ leukocyte esterase, more than 200 WBCs per high power field , and many bacteria. The patient was also started on Cipro. I will order also a urine culture to bud aceves sure that if she is infected, we know what antibiotic she is sensitive to and continue checking her postvoid residual and continue her on urecholine 25 mg 3 times a day. Dictated By: MADISON URENA/ZHANG Conf#: [id number] DID#: [id number]
[2016-08-05] MEDS: LEVOTHYROXINE 50 MCG TAB PO SCH (06:20)
[2016-08-05] MEDS: PANTOPRAZOLE (EC) 40 MG TAB PO SCH (06:20)
[2016-08-05] MEDS: CIPROFLOXACIN 500 MG TAB PO SCH (06:20)
[2016-08-05 06:41] LABS: ADD SCAN DIFF NO
[2016-08-05 06:45] LABS: BASOPHILS % 0.5 % (0.0-2.0); EOSINOPHILS # 0.1 10^3/ul (0.0-0.5); HEMOGLOBIN 12.3 g/dl (12.0-16.0); LYMPHOCYTES % 22.7 % (15.0-51.0); MEAN CORPUSCULAR HEMOGLOBIN 32.8 pg (29.0-33.0); MEAN CORPUSCULAR HGB CONC 31.5 g/dl (32.0-37.0); MEAN PLATELET VOLUME 8.5 fl (7.4-10.4); MONOCYTE # 0.7 10^3/ul (0.3-0.9); MONOCYTES % 15.1 % (0.0-11.0); NEUTROPHIL # 2.6 10^3/ul (1.6-7.5); NEUTROPHILS % 59.2 % (39.0-77.0); PLATELET COUNT 317 10^3/UL (140-415); RED BLOOD COUNT 3.75 10^6/ul (4.20-5.40); RED CELL DISTRIBUTION WIDTH 16.2 % (11.5-14.5); WHITE BLOOD COUNT 4.4 10^3/ul (4.8-10.8)
[2016-08-05 06:56] LABS: INR 0.99; PROTIME 13.1 Sec (12.2-14.2)
[2016-08-05 06:57] LABS: PARTIAL THROMBOPLASTIN TIME 34.4 Sec (25.0-35.0)
[2016-08-05 07:00] VITALS: BP 136/63; RESP 18
[2016-08-05 07:09] LABS: POTASSIUM 4.4 mmol/L (3.5-5.1)
[2016-08-05 07:11] LABS: CREATININE 1.05 mg/dl (0.44-1.00)
[2016-08-05 07:12] LABS: CALCIUM 9.1 mg/dl (8.4-10.2)
[2016-08-05] MEDS: ENOXAPARIN 30 MG/0.3 ML SYG SC SCH (08:53)
[2016-08-05] MEDS: LISINOPRIL 10 MG TAB PO SCH (08:54)
[2016-08-05] MEDS: RANOLAZINE (SR) 500 MG TAB PO SCH (08:54)
[2016-08-05] MEDS: BETHANECHOL 25 MG TAB PO SCH ×2 (08:54→12:38)
[2016-08-05] MEDS: LEVETIRACETAM 750 MG TAB PO SCH (08:55)
[2016-08-05] MEDS: FOLIC ACID 1 MG TAB PO SCH (08:55)
[2016-08-05] MEDS: PREGABALIN 25 MG CAP PO SCH (08:55)
[2016-08-05] MEDS: DOCUSATE SODIUM 100 MG CAP PO SCH (08:55)
[2016-08-05] MEDS: AMLODIPINE 5 MG TAB PO SCH (08:55)
[2016-08-05] MEDS: ASPIRIN (EC) 81 MG TAB PO SCH (08:55)
--- NOTE | 2016-08-05 11:39 | CONS ---
Date/Time of Note Date/Time of Note DATE: 08/05/16 TIME: 11:36 Assessment/Plan Assessment/Plan Additional Assessment/Plan 1. Acute kidney injury secondary to prerenal azotemia. improved 2. Possible chronic kidney disease from her previous medical problems of hypertension and coronary artery disease. 3. History of coronary artery disease with history of percutaneous coronary intervention in 2008. 4. History of cerebrovascular accident. 5. History of hypertension. 6. 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 Patient with history of prior stroke. Dr. Patel is following in neurology consultation. 7. Breakthrough seizure on keppra 8. Urinary retention with foul smelling urine, UA showed UTI, URine cx grew gram negative rods PLAN: Cr and electrolytes stable on last labs, BP now better controlled with Lisinopril increased to 10mg PO BID,Coreg BID and amlodipine 5 mg po BID Cr 1.02 due to foul smelling urine and recurrent PVR- UA showed UTI and Urine cx grew gram negative rods - started on ciprofloxacin 500mg po BID pt is still having urinary retention, Urology following PO keppra for seizures will follow up Consultation Date/Type/Reason Admit Date/Time Jul 23, 2016 at 20:40 Type of Consultation: NEPHROLOGY Referring Provider: PRINCESS FISHER MD 24 HR Interval Summary Free Text/Dictation Cr 1.05, afebrile, BP well controlled, no acute events Exam/Review of Systems Vital Signs Vitals Vital Signs Date Time Temp Pulse Resp B/P Pulse Ox O2 Delivery O2 Flow Rate FiO2 08/05/16 07:00 99.0 64 18 136/63 96 08/03/16 08:15 Room Air Intake and Output 08/04/16 08/04/16 08/05/16 15:00 23:00 07:00 Intake Total 240 ml 450 ml Output Total 400 ml 750 ml Balance -160 ml -300 ml Exam Constitutional: alert, well developed Psych: nl mood/affect Head: atraumatic Eyes: EOMI, nl sclera ENMT: nl external ears & nose Neck: non-tender Respiratory: clear to auscultation Cardiovascular: nl pulses Gastrointestinal: non-tender, soft Musculoskeletal: nl extremities to inspection Neurological: nl mental status Skin: nl turgor Lymph: nontender Constitutional: oriented Results Result Diagram: 3/21/17 0617 3/21/17 0617 Results 24 hrs Laboratory Tests Test 08/04/16 15:14 08/05/16 06:17 Hemoglobin 12.3 12.3 Activated Partial Thromboplast Time 34.4 Anion Gap 12 Basophils # 0.0 Basophils % 0.5 Blood Urea Nitrogen 13 Calcium Level 9.1 Carbon Dioxide Level 29 Chloride Level 106 Creatinine 1.05 H Eosinophils # 0.1 Eosinophils % 2.0 Glucose Level 94 Hematocrit 39.0 INR International Normalized Ratio 0.99 Lymphocytes # 1.0 Lymphocytes % 22.7 Mean Corpuscular Hemoglobin 32.8 Mean Corpuscular Hemoglobin Concent 31.5 L Mean Corpuscular Volume 104.0 H Mean Platelet Volume 8.5 Monocytes # 0.7 Monocytes % 15.1 H Neutrophils # 2.6 Neutrophils % 59.2 Nucleated Red Blood Cells # 0.0 Nucleated Red Blood Cells % 0.0 Platelet Count 317 Potassium Level 4.4 Prothrombin Time 13.1 Prothrombin Time Ratio 1.0 Red Blood Count 3.75 L Red Cell Distribution Width 16.2 H Sodium Level 143 White Blood Count 4.4 #L Medications Medications Current Medications Acetaminophen (Tylenol Tab) 325 mg Q6H PRN PO PAIN AND OR ELEVATED TEMP Last administered on 07/27/16 21:11; Admin Dose 325 MG; Start 07/23/16 at 21:30 Aspirin (Halfprin) 81 mg DAILY PO Last administered on 08/05/16 08:55; Admin Dose 81 MG; Start 07/24/16 at 09:00 Atorvastatin Calcium (Lipitor) 80 mg QHS PO Last administered on 08/04/16 20: 58; Admin Dose 80 MG; Start 07/23/16 at 21:30 Clonidine (Catapres) 0.1 mg Q6H PRN PO ELEVATED BLOOD PRESSURE Last administered on 07/27/16 08:15; Admin Dose 0.1 MG; Start 07/23/16 at 21:30 Enoxaparin Sodium (Lovenox) 30 mg DAILY SC Last administered on 08/05/16 08:53 ; Admin Dose 30 MG; Start 07/24/16 at 09:00 Epoetin Rodney (Epogen (Non Esrd/Non Oncology)) 20,000 units Q7D SC Last administered on 07/28/16 18:45; Admin Dose 20,000 UNITS; Start 07/28/16 at 17: 00 Folic Acid (Folic Acid) 1 mg DAILY PO Last administered on 08/05/16 08:55; Admin Dose 1 MG; Start 07/24/16 at 09:00 Acetaminophen/ Hydrocodone Bitart ([place] (5/325)) 1 tab Q3H PRN PO PAIN Last administered on 08/01/16 20:18; Admin Dose 1 TAB; Start 07/23/16 at 21:30 Acetaminophen/ Hydrocodone Bitart ([place] (5/325)) 2 tab Q3H PRN PO PAIN LEVEL 4 -7 Last administered on 07/29/16 10:18; Admin Dose 2 TAB; Start 07/23/16 at 21: 30 Levetiracetam (Keppra) 750 mg BID PO Last administered on 08/05/16 08:55; Admin Dose 750 MG; Start 07/23/16 at 22:30 Levothyroxine Sodium (Synthroid) 50 mcg DAILY@06 PO Last administered on 06:20; Admin Dose 50 MCG; Start 07/24/16 at 06:00 Meclizine HCl (Antivert) 25 mg DAILY PRN PO DIZZINESS Last administered on 07/28 08:18; Admin Dose 25 MG; Start 07/23/16 at 21:30 Pantoprazole (Protonix Tab) 40 mg DAILY@06 PO Last administered on 08/05/16 06 :20; Admin Dose 40 MG; Start 07/24/16 at 06:00 Pregabalin (Lyrica) 25 mg BID PO Last administered on 08/05/16 08:55; Admin Dose 25 MG; Start 07/23/16 at 21:30 Quetiapine Fumarate (Seroquel) 25 mg HS PO Last administered on 08/04/16 20:57 ; Admin Dose 25 MG; Start 07/23/16 at 21:30 Ranolazine (Ranexa) 1,000 mg Q12 PO Last administered on 08/05/16 08:54; Admin Dose 1,000 MG; Start 07/23/16 at 22:30 Docusate Sodium (Colace) 100 mg BID PO Last administered on 08/05/16 08:55; Admin Dose 100 MG; Start 07/24/16 at 09:00 Lactulose (Enulose) 20 gm DAILY PRN PO CONSTIPATION Last administered on 13:49; Admin Dose 20 GM; Start 07/23/16 at 22:00 Bisacodyl (Dulcolax Supp) 10 mg DAILY PRN [place] CONSTIPATION; Start 07/23/16 at 22: 00 Hydromorphone HCl (Dilaudid) 1 mg Q3H PRN IM PAIN LEVEL 8-10 Last administered on 07/28/16 18:32; Admin Dose 1 MG; Start 07/27/16 at 12:30 Carvedilol (Coreg) 12.5 mg BID PO Last administered on 08/05/16 08:56; Admin Dose 12.5 MG; Start 07/27/16 at 21:00 Bethanechol Chloride (Urecholine) 25 mg TID PO Last administered on 08/05/16 08:54; Admin Dose 25 MG; Start 07/31/16 at 21:00 Lisinopril (Zestril) 10 mg BID PO Last administered on 08/05/16 08:54; Admin Dose 10 MG; Start 08/01/16 at 21:00 Amlodipine Besylate (Norvasc) 5 mg BID PO Last administered on 08/05/16 08:55 ; Admin Dose 5 MG; Start 08/02/16 at 21:00 Ciprofloxacin (Cipro) 500 mg BID@ PO Last administered on 08/05/16 06:20 ; Admin Dose 500 MG; Start 08/04/16 at 18:00; Stop 08/11/16 at 06:00 ROLAND AYON MD Aug 05, 2016 11:39
--- NOTE | 2016-08-05 12:05 | PN ---
Date/Time of Note Date/Time of Note DATE: 08/05/16 TIME: 12:01 Assessment/Plan VTE Prophylaxis VTE Prophylaxis Intervention: SCD's Lines/Catheters Urinary Cath still in place: No Assessment/Plan Chief Complaint/Hosp Course Assessment and plan - Acute left frontal cortical infarct. Patient with history of prior stroke. Continue aspirin. Continue PT, OT. - Seizure disorder, continue Keppra. - Left femoral neck fracture secondary to mechanical fall. Status post left hip humeral arthroplasty by Dr. Marshall, orthopedic surgery. - Macrocytic anemia, stable. Continue to monitor hemoglobin and hematocrit. - Coronary artery disease, status post PCI. Continue aspirin and Ranexa. - Hypertension. Continue Coreg. - Dyslipidemia. Continue Lipitor. - Hypothyroidism. Continue Synthroid. - Urinary retention, continue current dose of Urecholine. Patient is evaluated by Dr. Singh in urology consultation. - GNR UTI, continue Cipro. Further recommendations based on clinical course. Plan of care discussed with Dr. Robertson. Problems: Subjective 24 Hr Interval Summary Free Text/Dictation No seizure activity,pt is awake, alert. Exam/Review of Systems Vital Signs Vitals Vital Signs Date Time Temp Pulse Resp B/P Pulse Ox O2 Delivery O2 Flow Rate FiO2 08/05/16 07:00 99.0 64 18 136/63 96 08/03/16 08:15 Room Air Intake and Output 08/04/16 08/04/16 08/05/16 15:00 23:00 07:00 Intake Total 240 ml 450 ml Output Total 400 ml 750 ml Balance -160 ml -300 ml Exam Constitutional: alert, oriented Psych: no complaints Head: atraumatic, normocephalic Eyes: nl conjunctiva ENMT: nl external ears & nose Neck: non-tender, supple Respiratory: clear to auscultation, normal air movement Cardiovascular: nl pulses, regular rate and rhythm Gastrointestinal: non-tender, soft Musculoskeletal: nl extremities to inspection, other (Status post left hip surgery) Extremities: normal pulses Neurological: MUNICIPAL CLERK II-XII intact Skin: nl turgor Results Result Diagram: 08/05/1661608/05/16616 Results 24 hrs Laboratory Tests Test 08/04/16 15:14 08/05/16 06:17 Hemoglobin 12.3 12.3 Activated Partial Thromboplast Time 34.4 Anion Gap 12 Basophils # 0.0 Basophils % 0.5 Blood Urea Nitrogen 13 Calcium Level 9.1 Carbon Dioxide Level 29 Chloride Level 106 Creatinine 1.05 H Eosinophils # 0.1 Eosinophils % 2.0 Glucose Level 94 Hematocrit 39.0 INR International Normalized Ratio 0.99 Lymphocytes # 1.0 Lymphocytes % 22.7 Mean Corpuscular Hemoglobin 32.8 Mean Corpuscular Hemoglobin Concent 31.5 L Mean Corpuscular Volume 104.0 H Mean Platelet Volume 8.5 Monocytes # 0.7 Monocytes % 15.1 H Neutrophils # 2.6 Neutrophils % 59.2 Nucleated Red Blood Cells # 0.0 Nucleated Red Blood Cells % 0.0 Platelet Count 317 Potassium Level 4.4 Prothrombin Time 13.1 Prothrombin Time Ratio 1.0 Red Blood Count 3.75 L Red Cell Distribution Width 16.2 H Sodium Level 143 White Blood Count 4.4 #L Medications Medications Current Medications Acetaminophen (Tylenol Tab) 325 mg Q6H PRN PO PAIN AND OR ELEVATED TEMP Last administered on 07/27/16 21:11; Admin Dose 325 MG; Start 07/23/16 at 21:30 Aspirin (Halfprin) 81 mg DAILY PO Last administered on 08/05/16 08:55; Admin Dose 81 MG; Start 07/24/16 at 09:00 Atorvastatin Calcium (Lipitor) 80 mg QHS PO Last administered on 08/04/16 20: 58; Admin Dose 80 MG; Start 07/23/16 at 21:30 Clonidine (Catapres) 0.1 mg Q6H PRN PO ELEVATED BLOOD PRESSURE Last administered on 07/27/16 08:15; Admin Dose 0.1 MG; Start 07/23/16 at 21:30 Enoxaparin Sodium (Lovenox) 30 mg DAILY SC Last administered on 08/05/16 08:53 ; Admin Dose 30 MG; Start 07/24/16 at 09:00 Epoetin Rodney (Epogen (Non Esrd/Non Oncology)) 20,000 units Q7D SC Last administered on 07/28/16 18:45; Admin Dose 20,000 UNITS; Start 07/28/16 at 17: 00 Folic Acid (Folic Acid) 1 mg DAILY PO Last administered on 08/05/16 08:55; Admin Dose 1 MG; Start 07/24/16 at 09:00 Acetaminophen/ Hydrocodone Bitart ([place] (5/325)) 1 tab Q3H PRN PO PAIN Last administered on 08/01/16 20:18; Admin Dose 1 TAB; Start 07/23/16 at 21:30 Acetaminophen/ Hydrocodone Bitart ([place] (5/325)) 2 tab Q3H PRN PO PAIN LEVEL 4 -7 Last administered on 07/29/16 10:18; Admin Dose 2 TAB; Start 07/23/16 at 21: 30 Levetiracetam (Keppra) 750 mg BID PO Last administered on 08/05/16 08:55; Admin Dose 750 MG; Start 07/23/16 at 22:30 Levothyroxine Sodium (Synthroid) 50 mcg DAILY@06 PO Last administered on 06:20; Admin Dose 50 MCG; Start 07/24/16 at 06:00 Meclizine HCl (Antivert) 25 mg DAILY PRN PO DIZZINESS Last administered on 07/28 08:18; Admin Dose 25 MG; Start 07/23/16 at 21:30 Pantoprazole (Protonix Tab) 40 mg DAILY@06 PO Last administered on 08/05/16 06 :20; Admin Dose 40 MG; Start 07/24/16 at 06:00 Pregabalin (Lyrica) 25 mg BID PO Last administered on 08/05/16 08:55; Admin Dose 25 MG; Start 07/23/16 at 21:30 Quetiapine Fumarate (Seroquel) 25 mg HS PO Last administered on 08/04/16 20:57 ; Admin Dose 25 MG; Start 07/23/16 at 21:30 Ranolazine (Ranexa) 1,000 mg Q12 PO Last administered on 08/05/16 08:54; Admin Dose 1,000 MG; Start 07/23/16 at 22:30 Docusate Sodium (Colace) 100 mg BID PO Last administered on 08/05/16 08:55; Admin Dose 100 MG; Start 07/24/16 at 09:00 Lactulose (Enulose) 20 gm DAILY PRN PO CONSTIPATION Last administered on 13:49; Admin Dose 20 GM; Start 07/23/16 at 22:00 Bisacodyl (Dulcolax Supp) 10 mg DAILY PRN [place] CONSTIPATION; Start 07/23/16 at 22: 00 Hydromorphone HCl (Dilaudid) 1 mg Q3H PRN IM PAIN LEVEL 8-10 Last administered on 07/28/16 18:32; Admin Dose 1 MG; Start 07/27/16 at 12:30 Carvedilol (Coreg) 12.5 mg BID PO Last administered on 08/05/16 08:56; Admin Dose 12.5 MG; Start 07/27/16 at 21:00 Bethanechol Chloride (Urecholine) 25 mg TID PO Last administered on 08/05/16 08:54; Admin Dose 25 MG; Start 07/31/16 at 21:00 Lisinopril (Zestril) 10 mg BID PO Last administered on 08/05/16 08:54; Admin Dose 10 MG; Start 08/01/16 at 21:00 Amlodipine Besylate (Norvasc) 5 mg BID PO Last administered on 08/05/16 08:55 ; Admin Dose 5 MG; Start 08/02/16 at 21:00 Ciprofloxacin (Cipro) 500 mg BID@ PO Last administered on 08/05/16 06:20 ; Admin Dose 500 MG; Start 08/04/16 at 18:00; Stop 08/11/16 at 06:00 ILAN GALDAMEZ Aug 05, 2016 12:05
--- NOTE | 2016-08-05 17:07 | PN ---
DATE: 08/05/2016 I did see the patient around 1:30 p.m. She was still in the hospital and her subjective problem is urinary high postvoid residual and sometime retention requiring catheterization. GENERAL: The patient is comfortable. She denies having any pain. PHYSICAL EXAMINATION: VITAL SIGNS: Temperature today was 99.0, pulse 64, respiration 18, blood pressure 136/63. ABDOMEN: Soft. The patient has been voiding and the bladder scan has been mostly less than 300 mL. The last one was 198. It has ranged between 127 to 300, and most of the time it is group home in between 150, 175, 260 , 186. MEDICATIONS: She has been on urecholine 25 mg 3 times a day. PLAN: The patient is going to go home today and therefore she should continue these medications an d if she has difficulty urinating the nursing staff in the facility where she is going should do a s traight catheterization on her. Dictated By: MADISON URENA/ZHANG Conf#: [id number] DID#: [id number]
== END 2016-08-05 13:45 | DRG 57 ==
LOC: VRC 20:40
PROVIDERS: ADMIT Physical Medicine & Rehabilitation; ATTEND Internal Medicine
DX: I69.998 Other sequelae following unspecified cerebrovascular disease (principal); N17.9 Acute kidney failure, unspecified; N39.0 Urinary tract infection, site not specified; D64.9 Anemia, unspecified; D62 Acute posthemorrhagic anemia; G40.909 Epilepsy, unspecified, not intractable, without status epilepticus; E03.9 Hypothyroidism, unspecified; S72.002D Fracture of unspecified part of neck of left femur, subsequent encounter for closed fracture with routine healing; E78.5 Hyperlipidemia, unspecified; I25.10 Atherosclerotic heart disease of native coronary artery without angina pectoris; Z74.09 Other reduced mobility; Z86.73 Personal history of transient ischemic attack (TIA), and cerebral infarction without residual deficits; B96.20 Unspecified Escherichia coli [E. coli] as the cause of diseases classified elsewhere; Z95.5 Presence of coronary angioplasty implant and graft; R33.9 Retention of urine, unspecified; G89.18 Other acute postprocedural pain
CPT/HCPCS: 70450; 80048; 80053; 81001; 81003; 83735; 85018; 85025; 85610; 85730; 87081; 87086; 92507; 92523; 92526; 92610; 95852; 97110; 97116; 97150; 97163; 97167; 97530; 97535; A4310; J0885; J1170; J1650; J3475; L1820